=== PATIENT | female | born 1940 | race Two or more races ===

== ENCOUNTER 2020-04-29 13:37 | Outpatient (REF) | payer MEDICARE, SELFPAY ==
--- NOTE | 2020-04-29 13:45 | MM_ITS ---
EXAMINATION: BONE DENSITOMETRY CLINICAL INDICATION: Disorder of bone density and structure. COMPARISON: Previous BD dated 02/04/2018 and baseline BD dated 05/27/2009. TECHNIQUE: Using a [employer] DXA System (software version: 13.1) manufactured by [employer], dual-energy x-ray absorptiometry was performed of the lumbar spine and left hip. The images are of good technical quality. Summary results are attached. FINDINGS: AP SPINE L1-L4: Current: BMD 1.108 g/cm2, Z-score 0.1, T-score -0.6, normal, 4.7% increase from previous, 7.1% increase from baseline (<5% change is not significant). Prior: BMD 1.058 g/cm2. Baseline: BMD 1.035 g/cm2. LEFT FEMUR, NECK: Current: BMD 0.693 g/cm2, Z-score -1.0, T-score -2.5, osteoporosis. Prior: BMD 0.738 g/cm2. Baseline: BMD 0.745 g/cm2. LEFT FEMUR, TOTAL: Current: BMD 0.719 g/cm2, Z-score -1.0, T-score -2.3, osteopenia, 9.6% decrease from previous, 14.9% decrease from baseline (<5% change is not significant). Prior: BMD 0.795 g/cm2. Baseline: BMD 0.845 g/cm2. IDENTIFIED RISK FACTORS: Rheumatoid arthritis, osteoporosis, recurrent falls, early menopause, secondary osteoporosis, hysterectomy, bilateral oophorectomy. HISTORY OF FRACTURE: None listed. MEDICATIONS: Vitamin D. MM/XR DEXA axial skeleton IMPRESSION: 1. DIAGNOSIS: Osteoporosis based on the lowest T-score value of -2.5 in the femoral neck applying World Health Organization criteria. 2. 10-YEAR FRACTURE RISK PREDICTION, FRAX: Major osteoporotic fracture (clinical spine, forearm, hip or shoulder) 12.7%. Hip fracture 4.4%. 3. Treatment Recommendations: NOF guidelines recommend consideration for treatment in postmenopausal women and men age 50 and older presenting with the following: -A hip or vertebral (clinical or morphometric) fracture. -T-score less than or equal to -2.5 at the femoral neck or spine after appropriate evaluation to exclude secondary causes. -Low bone mass at the hip or spine and a 10-year fracture probability by FRAX of greater than or equal to 3% for hip fracture or greater than or equal to 20% for major osteoporotic fracture based on the [place] adapted WHO algorithm. 4. Other Recommendations: All treatment decisions require clinical judgment and consideration of individual patient factors, including patient preferences, comorbidities, previous drug use, risk factors not captured in the FRAX model (e.g. frailty, falls, vitamin D deficiency, increased bone turnover, interval significant decline in bone density) and possible under or overestimation of fracture risk by FRAX. Additional medical evaluation for secondary cause of low bone mineral density may be appropriate. FUTURE SCAN RECOMMENDATION: People with diagnosed cases of osteoporosis or at high risk for fracture should have regular bone mineral density tests. For patients eligible for Medicare, routine testing is allowed once every 2 years. The testing frequency can be increased to one year for patients who have rapidly progressing disease, those who are receiving or discontinuing medical therapy to restore bone mass, or have additional risk factors.
--- NOTE | 2020-04-29 13:45 | MM_ITS ---
EXAMINATION: MM SCREENING DIGITAL BREAST TOMOSYNTHESIS, BILATERAL CLINICAL INFORMATION: Screening. Asymptomatic. The lifetime risk of breast cancer based on the Tyrer-Cuzick Model is 0.6%. COMPARISON: Mammography: June 18, 2017 and studies dating back to August 16, 2011 TECHNIQUE: Digital breast tomosynthesis is performed in both the craniocaudal and mediolateral oblique views along with computer-aided detection (CAD). Synthesized 2D images are generated from the tomosynthesis. FINDINGS: The breasts are heterogeneously dense, which may obscure small masses (ACR BI-RADS breast composition Category c). There are no significant masses, abnormal calcifications, or other abnormalities. MM/MM tomosynthesis screening BI IMPRESSION: There are no significant changes from prior study. ASSESSMENT: BI-RADS 1: Negative RECOMMENDATION: Routine annual mammography screening. This patient's information was entered into a reminder system with a target due date for their next mammogram.
== END 2020-04-29 13:38 | disposition home or self-care (01) ==
LOC: HO.MAMMO 13:37
PROVIDERS: PCP Emergency Medicine; Visit Provider Emergency Medicine
DX: Z13.820 Encounter for screening for osteoporosis (principal); Z78.0 Asymptomatic menopausal state; Z12.31 Encounter for screening mammogram for malignant neoplasm of breast; M06.9 Rheumatoid arthritis, unspecified; R29.6 Repeated falls; Z79.899 Other long term (current) drug therapy; Z90.710 Acquired absence of both cervix and uterus; Z90.722 Acquired absence of ovaries, bilateral
CPT/HCPCS: 77063; 77067; 77080

== ENCOUNTER 2021-02-06 11:55 | Outpatient (REF) | payer MEDICARE, SELFPAY ==
--- NOTE | ~2021-02-06 | XR_ITS ---
EXAMINATION: XR KNEE, RIGHT XR KNEE, LEFT CLINICAL INFORMATION: Knee pain. COMPARISON: Right and left knee radiographs dated 12/12/2010 TECHNIQUE: AP, tunnel, lateral, and sunrise views of the right knee. AP, tunnel, and lateral views of the left knee. FINDINGS: RIGHT KNEE: Severe medial compartment joint space narrowing with mild bony remodeling. Moderate patellofemoral and lateral compartment joint space narrowing. Large compartmental marginal osteophytes. No fracture or dislocation. No significant joint effusion. No abnormal soft tissue calcification. LEFT KNEE: Total left knee arthroplasty. No acute osseous or hardware fracture. No perihardware lucency to suggest loosening or infection. No significant joint effusion. Dystrophic ossification. XR/XR knee LT 4V IMPRESSION: RIGHT KNEE: Severe tricompartmental osteoarthritis, progressed when compared to the prior examination. LEFT KNEE: Total left knee arthroplasty without evidence of complication.
--- NOTE | ~2021-02-06 | XR_ITS ---
EXAMINATION: XR KNEE, RIGHT XR KNEE, LEFT CLINICAL INFORMATION: Knee pain. COMPARISON: Right and left knee radiographs dated 12/12/2010 TECHNIQUE: AP, tunnel, lateral, and sunrise views of the right knee. AP, tunnel, and lateral views of the left knee. FINDINGS: RIGHT KNEE: Severe medial compartment joint space narrowing with mild bony remodeling. Moderate patellofemoral and lateral compartment joint space narrowing. Large compartmental marginal osteophytes. No fracture or dislocation. No significant joint effusion. No abnormal soft tissue calcification. LEFT KNEE: Total left knee arthroplasty. No acute osseous or hardware fracture. No perihardware lucency to suggest loosening or infection. No significant joint effusion. Dystrophic ossification. XR/XR knee RT 4V IMPRESSION: RIGHT KNEE: Severe tricompartmental osteoarthritis, progressed when compared to the prior examination. LEFT KNEE: Total left knee arthroplasty without evidence of complication.
== END 2021-02-06 11:56 | disposition home or self-care (01) ==
LOC: HO.XRAY 11:55
PROVIDERS: PCP Family Medicine; Visit Provider Family Medicine
DX: M25.562 Pain in left knee (principal); M25.561 Pain in right knee
CPT/HCPCS: 73564

== ENCOUNTER → 2021-03-20 13:54 | Outpatient (BNVA) | payer MEDICARE, SELFPAY | PROVIDERS: PCP Family Medicine; Visit Provider Orthopaedic Surgery | DX: M17.11 Unilateral primary osteoarthritis, right knee (principal); R42 Dizziness and giddiness; R53.81 Other malaise; Z96.652 Presence of left artificial knee joint | CPT/HCPCS: 99202 ==

== ENCOUNTER 2021-10-23 12:39 | Inpatient (IN) | payer OTHER, SELFPAY ==
[2021-10-23] VITALS (14 sets, daily range): BP systolic 88–136; BP diastolic 43–84; PULSE 105–142; RESP 14–25; TEMP 37.6–38.2; O2SAT 92–98; BMI 44.8
--- NOTE | ~2021-10-23 | CT_ITS ---
EXAMINATION: CT ANGIOGRAM OF THE CHEST WITH AND WITHOUT CONTRAST (CT PULMONARY ANGIOGRAM FOR PE) CLINICAL INFORMATION: Reason for Exam RV dysfunction COMPARISON: None TECHNIQUE: Prior to contrast administration, noncontrast localization images were obtained. Subsequently, multidetector volumetric imaging was performed from the thoracic inlet to below the diaphragms following the administration of 80 mL Omnipaque 350 intravenous contrast. No contrast reaction reported Sagittal, coronal, and MIP oblique sagittal reformatted images were obtained on the CT workstation, uploaded to PACS, and reviewed. This CT examination was performed using dose optimization techniques as appropriate, variously including the following: *Automated exposure control *Adjustment of mA and/or kV according to patient size (this includes techniques or standardized protocols for targeted exams where dose is matched to indication/reason for exam; i.e. extremities or head) *Use of iterative reconstruction technique Total exam dose-length product 567 mGy-cm FINDINGS: QUALITY OF STUDY/CONTRAST BOLUS: Satisfactory. PULMONARY ARTERIES: No central or segmental pulmonary emboli. Prominence of the pulmonary arteries suggesting pulmonary retention. THORACIC AORTA: No aneurysm or dissection. LUNG: Extensive areas of groundglass opacities bilaterally associated trace pleural effusions favoring pulmonary edema. PLEURA: No pleural effusion or pneumothorax. MEDIASTINUM: Notable cardiomegaly with predominantly right-sided chamber enlargement and reflux of contrast into distended hepatic veins consistent right heart failure increased pressures. Straightening of the interventricular septum. CHEST WALL/AXILLA: No axillary or internal mammary lymphadenopathy. OSSEOUS STRUCTURES: No acute or suspicious osseous abnormality. UPPER ABDOMEN: Multiple cystic changes within the visualized right upper pole kidney. Facet CT/CT angio chest PE protocol IMPRESSION: No evidence for acute or chronic pulmonary embolism. Findings suggest pulmonary edema with elevated right heart pressures/failure. VTE: negative
--- NOTE | ~2021-10-23 | XR_ITS ---
EXAMINATION: XR CHEST CLINICAL INFORMATION: Cough. Question pneumonia. COMPARISON: Chest x-ray and CTA chest 09/04/2017 TECHNIQUE: Frontal view of the chest was obtained. FINDINGS: Cardiac silhouette is mildly enlarged. The lungs are well aerated. There is no lobar consolidation. No pleural effusion or pneumothorax. Subtle bibasilar opacities are most suggestive of atelectasis. Degenerative changes of the spine. XR/XR chest 1V IMPRESSION: No acute pulmonary pathology.
--- NOTE | 2021-10-23 13:05 | ED_ITS ---
HPI - URI/Sore Throat General Chief Complaint: Dizziness Stated Complaint: r/o sepsis Time Seen by Provider: 10/23/21 13:02 Source: patient and EMS Mode of arrival: EMS Limitations: no limitations History of Present Illness HPI Narrative: Patient came from home for dry cough , rhinorrhea since today morning with low- grade fever seen by visiting paramedics COVID test was negative urine was negative patient was sent to the ER for further workup patient does have mostly a dry cough no chest pain no palpitation no leg swelling ++ fever 101. No chills patient granddaughter positive with same s/s Related Data Home Medications Medication Instructions Recorded Confirmed acetaminophen 650 mg 650 mg PO Q8H PRN 03/20/21 10/23/21 tablet,extended release (Mapap Arthritis Pain) amlodipine 5 mg tablet 5 mg PO DAILY 03/20/21 10/23/21 aspirin 81 mg tablet,delayed 81 mg PO BEDTIME 03/20/21 10/23/21 release blood pressure test kit-large #1 ea 03/20/21 cholecalciferol (vitamin D3) 25 25 mcg PO DAILY 03/20/21 10/23/21 mcg (1,000 unit) capsule furosemide 40 mg tablet 40 mg PO DAILY 03/20/21 10/23/21 lisinopril 30 mg tablet 30 mg PO DAILY 03/20/21 10/23/21 metoprolol succinate 25 mg 25 mg PO DAILY 03/20/21 10/23/21 tablet,extended release 24 hr pravastatin 10 mg tablet 10 mg PO BEDTIME 03/20/21 10/23/21 albuterol sulfate 90 mcg/actuation 2 puff INHALATION Q4-6H PRN 10/23/21 10/23/21 aerosol inhaler multivitamin-ferrous 1 tab PO DAILY 10/23/21 10/23/21 fumarate-folic acid 18 mg-400 mcg tablet (Spectravite Adult) Allergies Allergy/AdvReac Type Severity Reaction Status Date / Time penicillin V Allergy Unknown Unknown Verified 10/23/21 16:02 Penicillins [PENICILLINS] AdvReac Unknown STOMACH Verified 10/23/21 16:02 UPSET Review of Systems Review of Systems: Yes all other systems are reviewed and are negative [facility] Past Medical History Medical History Atherosclerosis Chronic diastolic CHF (congestive heart failure) HTN (hypertension) Obesity DEBBIE (obstructive sleep apnea) Osteoarthritis Osteoporosis Varicose veins of bilateral lower extremities with pain Surgical History Status post left knee replacement Family History Family History Son CAD (coronary artery disease) Mother CAD (coronary artery disease) Social History Social History Alcohol intake: never Patient Tobacco Use Status: Never used Tobacco Advance Directives: No Advance Directives Information Provided: No Current occupational status: retired and disabled Physical Exam Vital Signs: Vital Signs: Last Vital Signs Temp 100.7 F H 10/23/21 15:20 Pulse 106 H 10/23/21 16:00 Resp 20 10/23/21 16:00 BP 108/49 L 10/23/21 16:00 Pulse Ox 98 10/23/21 16:00 BMI result Body Mass Index 44.8 Appearance: Alert. Oriented X3. No acute distress. Eyes: No pallor or icterus ENT: Pharynx normal. Oral Mucosa moist Neck: Normal inspection. Neck supple. CVS: Normal heart rate and rhythm. Pulses normal. Respiratory: No respiratory distress. Equal air entry bilateral, no wheezing/rales/rhonchi Abdomen: Soft and nontender. Bowel sounds are present, no mass palpable, no CVA tenderness Skin: Skin warm and dry. Normal skin color. Normal skin turgor. Extremities: No lower extremity edema. No calf tenderness Neuro: Oriented X 3. MDM - URI/Sore Throat MDM Narrative Medical decision making narrative: Patient with influenza A symptoms noticed to have tachycardia according to pat ient does have irregular heartbeat but never been told that she has AFib in old EKGs there was no AFib last EKG done in 2019and was in sinus rhythm patient heart rate fluctuating between 130 to 140s will give Deandra Monsivais plan to admit a new onset AFib with influenza A Medical Records Attestation: I reviewed the patient's medical records. Lab Data Attestation: I reviewed the patient's lab results. Result diagrams: 10/23/21 14:03 10/23/21 14:03 Labs: Lab Results 10/23/21 10/23/21 10/23/21 Range/Units 13:42 13:43 14:03 WBC 10.1 (4.8-10.8) X10*3/uL RBC 5.50 (4.20-5.50) X10*6/uL Hgb 15.0 (12.0-16.0) g/dl Hct 48.8 H (37.0-47.0) % MCV 88.7 (80.0-98.0) fL MCH 27.3 (27.0-33.0) pg MCHC 30.7 L (31.0-35.0) g/dl RDW 14.2 (11.0-16.0) % Plt Count 210 (160-400) X10*3/uL MPV 11.3 (9.4-12.3) fL Immature Gran % (Auto) 0.5 H (0.0-0.4) % Neut % (Auto) 88.5 H (45-73) % Lymph % (Auto) 3.7 L (20-40) % [place] % (Auto) 6.3 (2-11) % Eos % (Auto) 0.4 (0-4) % Baso % (Auto) 0.6 (0-2) % Lymph # (Auto) 0.4 L (1.2-4.9) X10*3/uL [place] # (Auto) 0.6 (0.1-1.2) X10*3/uL Eos # (Auto) 0.0 (0.0-0.4) X10*3/uL Baso # (Auto) 0.1 (0.0-0.2) X10*3/uL Abs Immat Gran (auto) 0.05 H (0.00-0.03) X10*3/uL Absolute Neuts (auto) 8.9 H (2.0-8.3) x10*3/uL Absolute Nucleated RBC 0.000 (0.0-0.012) X10*3/uL Nucleated RBC % (auto) 0.0 (0.0-0.2) /100WBC PT (9.9-13.0) SEC INR (0.9-1.1) APTT (24.1-38.0) SEC Sodium (135-145) mmol/L Potassium (3.3-5.1) mmol/L Chloride (96-108) mmol/L Carbon Dioxide (22-29) mmol/L Anion Gap (12-20) BUN (9-16) mg/dL Creatinine (0.5-1.4) mg/dL Estim Creat Clear Calc Estimated GFR Random Glucose (60-115) mg/dL Lactic Acid 1.1 (0.5-2.0) mmol/L Calcium (8.4-10.2) mg/dL Magnesium (1.6-2.6) mg/dL Total Bilirubin (0.0-1.0) mg/dL AST (5-31) U/L ALT (0-31) U/L Alkaline Phosphatase (39-117) U/L Troponin I High Sens (<3.5-17.0) ng/L B-Natriuretic Peptide (<100) pg/mL Total Protein (6.5-8.0) g/dL Albumin (3.5-5.0) g/dL Influenza Type A (PCR) POSITIVE A (Negative) Influenza Type B (PCR) NEGATIVE (Negative) RSV RNA Qual (PCR) NEGATIVE (Negative) SARS-CoV-2 RNA (RT-PCR) NEGATIVE (Negative) 10/23/21 10/23/21 10/23/21 Range/Units 14:03 15:35 15:35 WBC (4.8-10.8) X10*3/uL RBC (4.20-5.50) X10*6/uL Hgb (12.0-16.0) g/dl Hct (37.0-47.0) % MCV (80.0-98.0) fL MCH (27.0-33.0) pg MCHC (31.0-35.0) g/dl RDW (11.0-16.0) % Plt Count (160-400) X10*3/uL MPV (9.4-12.3) fL Immature Gran % (Auto) (0.0-0.4) % Neut % (Auto) (45-73) % Lymph % (Auto) (20-40) % [place] % (Auto) (2-11) % Eos % (Auto) (0-4) % Baso % (Auto) (0-2) % Lymph # (Auto) (1.2-4.9) X10*3/uL [place] # (Auto) (0.1-1.2) X10*3/uL Eos # (Auto) (0.0-0.4) X10*3/uL Baso # (Auto) (0.0-0.2) X10*3/uL Abs Immat Gran (auto) (0.00-0.03) X10*3/uL Absolute Neuts (auto) (2.0-8.3) x10*3/uL Absolute Nucleated RBC (0.0-0.012) X10*3/uL Nucleated RBC % (auto) (0.0-0.2) /100WBC PT 15.5 H (9.9-13.0) SEC INR 1.4 H (0.9-1.1) APTT 38.1 H (24.1-38.0) SEC Sodium 137 (135-145) mmol/L Potassium 3.9 (3.3-5.1) mmol/L Chloride 103 (96-108) mmol/L Carbon Dioxide 27 (22-29) mmol/L Anion Gap 11 L (12-20) BUN 11 (9-16) mg/dL Creatinine 1.00 (0.5-1.4) mg/dL Estim Creat Clear Calc 48.2 Estimated GFR 53 Random Glucose 104 (60-115) mg/dL Lactic Acid (0.5-2.0) mmol/L Calcium 9.6 (8.4-10.2) mg/dL Magnesium 1.8 (1.6-2.6) mg/dL Total Bilirubin 1.9 H (0.0-1.0) mg/dL AST 27 (5-31) U/L ALT 16 (0-31) U/L Alkaline Phosphatase 80 (39-117) U/L Troponin I High Sens 8.7 (<3.5-17.0) ng/L B-Natriuretic Peptide (<100) pg/mL Total Protein 7.5 (6.5-8.0) g/dL Albumin 4.0 (3.5-5.0) g/dL Influenza Type A (PCR) (Negative) Influenza Type B (PCR) (Negative) RSV RNA Qual (PCR) (Negative) SARS-CoV-2 RNA (RT-PCR) (Negative) 10/23/21 Range/Units 15:35 WBC (4.8-10.8) X10*3/uL RBC (4.20-5.50) X10*6/uL Hgb (12.0-16.0) g/dl Hct (37.0-47.0) % MCV (80.0-98.0) fL MCH (27.0-33.0) pg MCHC (31.0-35.0) g/dl RDW (11.0-16.0) % Plt Count (160-400) X10*3/uL MPV (9.4-12.3) fL Immature Gran % (Auto) (0.0-0.4) % Neut % (Auto) (45-73) % Lymph % (Auto) (20-40) % [place] % (Auto) (2-11) % Eos % (Auto) (0-4) % Baso % (Auto) (0-2) % Lymph # (Auto) (1.2-4.9) X10*3/uL [place] # (Auto) (0.1-1.2) X10*3/uL Eos # (Auto) (0.0-0.4) X10*3/uL Baso # (Auto) (0.0-0.2) X10*3/uL Abs Immat Gran (auto) (0.00-0.03) X10*3/uL Absolute Neuts (auto) (2.0-8.3) x10*3/uL Absolute Nucleated RBC (0.0-0.012) X10*3/uL Nucleated RBC % (auto) (0.0-0.2) /100WBC PT (9.9-13.0) SEC INR (0.9-1.1) APTT (24.1-38.0) SEC Sodium (135-145) mmol/L Potassium (3.3-5.1) mmol/L Chloride (96-108) mmol/L Carbon Dioxide (22-29) mmol/L Anion Gap (12-20) BUN (9-16) mg/dL Creatinine (0.5-1.4) mg/dL Estim Creat Clear Calc Estimated GFR Random Glucose (60-115) mg/dL Lactic Acid (0.5-2.0) mmol/L Calcium (8.4-10.2) mg/dL Magnesium (1.6-2.6) mg/dL Total Bilirubin (0.0-1.0) mg/dL AST (5-31) U/L ALT (0-31) U/L Alkaline Phosphatase (39-117) U/L Troponin I High Sens (<3.5-17.0) ng/L B-Natriuretic Peptide 395 H (<100) pg/mL Total Protein (6.5-8.0) g/dL Albumin (3.5-5.0) g/dL Influenza Type A (PCR) (Negative) Influenza Type B (PCR) (Negative) RSV RNA Qual (PCR) (Negative) SARS-CoV-2 RNA (RT-PCR) (Negative) ECG Data Attestation: I personally reviewed and interpreted this ECG as follows: Interpretation: Atrial fibrillation with ventricular rate of [address] T wave changes no acute ischemia Discharge Plan Discharge Clinical Impression: New onset a-fib, Influenza A Patient Disposition: Admitted As Inpatient
--- NOTE | 2021-10-23 13:56 | ECG_ITS ---
Test Reason : afib Blood Pressure : / mmHG Vent. Rate : 131 BPM Atrial Rate : 000 BPM P-R Int : 000 ms QRS Dur : 078 ms QT Int : 312 ms P-R-T Axes : 000 072 -01 degrees QTc Int : 460 ms Atrial fibrillation with rapid ventricular response Abnormal QRS-T angle, consider primary T wave abnormality Abnormal ECG When compared with ECG of 18-MAR-2018 15:35, Atrial fibrillation has replaced Sinus rhythm Vent. rate has increased BY 59 BPM Referred By: Niraj Garcia Electronically Signed By:SHANNON RAMACHANDRAN MD
[2021-10-23 14:02] LABS: Lactic Acid 1.1 mmol/L (0.5-2.0)
[2021-10-23] MEDS: 0.9 % Sodium Chloride 1,000 ML 999 ML IV (14:04)
[2021-10-23 14:11] LABS: MANUAL DIFF FLAG NO
[2021-10-23] MEDS: guaiFEN/Codeine SF 200/20/10ML 10 ML LIQUID PO (14:20)
[2021-10-23] MEDS: Metoprolol Tartrate 5 MG/5 ML VIAL IVPUSH (14:22)
[2021-10-23 14:36] LABS: Alanine Aminotransferase 16 U/L (0-31); Alkaline Phosphatase 80 U/L (39-117); Anion Gap 11 (12-20); Aspartate Amino Transferase 27 U/L (5-31); Bilirubin Total 1.9 mg/dL (0.0-1.0); Blood Urea Nitrogen 11 mg/dL (9-16); Calcium 9.6 mg/dL (8.4-10.2); Carbon Dioxide 27 mmol/L (22-29); Chloride 103 mmol/L (96-108); Creatinine Clr Calc Pharmacy 48.2; Estimated Glomerular Filt Rate 53; Glucose Random 104 mg/dL (60-115); Potassium 3.9 mmol/L (3.3-5.1); Sodium 137 mmol/L (135-145); Total Protein 7.5 g/dL (6.5-8.0)
[2021-10-23 14:37] LABS: Basophils Absolute Auto 0.1 X10*3/uL (0.0-0.2); Basophils Percent Auto 0.6 % (0-2); Eosinophils Percent Auto 0.4 % (0-4); Hematocrit 48.8 % (37.0-47.0); Imm Gran Abs Auto 0.05 X10*3/uL (0.00-0.03); Imm Gran Pct Auto 0.5 % (0.0-0.4); Lymphocytes Absolute Auto 0.4 X10*3/uL (1.2-4.9); Lymphocytes Percent Auto 3.7 % (20-40); Mean Corpuscular HGB Conc 30.7 g/dl (31.0-35.0); Mean Corpuscular Hemoglobin 27.3 pg (27.0-33.0); Mean Corpuscular Volume 88.7 fL (80.0-98.0); Mean Platelet Volume 11.3 fL (9.4-12.3); Monocytes Absolute Auto 0.6 X10*3/uL (0.1-1.2); Monocytes Percent Auto 6.3 % (2-11); Neutrophils Absolute Auto 8.9 x10*3/uL (2.0-8.3); Neutrophils Percent Auto 88.5 % (45-73); Platelet Count 210 X10*3/uL (160-400); Red Cell Distribution Width 14.2 % (11.0-16.0); White Blood Count 10.1 X10*3/uL (4.8-10.8)
[2021-10-23 15:03] LABS: Influenza A PCR POSITIVE (Negative); Influenza B PCR NEGATIVE (Negative); Resp Syncy Virus RNA Qual PCR NEGATIVE (Negative); SARS COV2 PCR INHOUSE NEGATIVE (Negative)
[2021-10-23] MEDS: Acetaminophen 325 MG TABLET 650 MG PO (15:24)
[2021-10-23] MEDS: dilTIAZem HCL 50 MG/10 ML VIAL 10 MG IVPUSH (15:39)
[2021-10-23] MEDS: Apixaban 5 MG TABLET PO (15:42)
[2021-10-23] MEDS: Albuterol/Iprat 2.5/0.5MG 3 ML AMPUL.NEB INHALE (15:45)
[2021-10-23 15:49] LABS: INTERNATIONAL NORM RATIO 1.4 (0.9-1.1); Prothrombin Time 15.5 SEC (9.9-13.0)
[2021-10-23 15:51] LABS: Partial Thromboplastin Time 38.1 SEC (24.1-38.0)
[2021-10-23 15:51] LABS: Magnesium 1.8 mg/dL (1.6-2.6)
[2021-10-23 16:02] LABS: Troponin-I High Sensitivity 8.7 ng/L (<3.5-17.0)
[2021-10-23 16:03] LABS: B Type Natriuretic Peptide 395 pg/mL (<100)
--- NOTE | 2021-10-23 16:25 | P.HPHOSP_ITS ---
History of Present Illness Date of Service: 10/23/21 Chief Complaint: Fever, lethargy 81-year-old female presented with fevers, weakness, chills. Patient had been feeling well until day prior to presentation. Her granddaughter was sick with the flu at home. Patient began to have fevers associated with chills and myalgias as well as generalized weakness. Some shortness of breath, worse on exertion. Denies chest pain. in ED found to have positive flu swab, EKG showed atrial fibrillation with rapid ventricular response. Unclear if this is new onset or not. Review of Systems Review of Systems: Constitutional: Fevers, chills Eyes: denies blurry vision ENT: denies sore throat CVS: denies chest pain Respiratory: dyspnea GI: no abdominal pain : denies dysuria MSK: denies neck pain Skin: denies rash Neuro: denies specific motor weakness Psych: denies suicidal ideation Endocrine: denies heat/cold intolerance Hematologic: denies easy bleeding Allergy: denies hives [facility] Medical History Atherosclerosis Chronic diastolic CHF (congestive heart failure) HTN (hypertension) Obesity DEBBIE (obstructive sleep apnea) Osteoarthritis Osteoporosis Varicose veins of bilateral lower extremities with pain Family History Son CAD (coronary artery disease) Mother CAD (coronary artery disease) Surgical History Status post left knee replacement Social History Alcohol intake: never Patient Tobacco Use Status: Never used Tobacco Advance Directives: No Advance Directives Information Provided: No Current occupational status: retired and disabled Meds Allergies Allergy/AdvReac Type Severity Reaction Status Date / Time penicillin V Allergy Unknown Unknown Verified 10/23/21 16:02 Penicillins [PENICILLINS] AdvReac Unknown STOMACH Verified 10/23/21 16:02 UPSET Active Medications: Current Medications Acetaminophen (Acetaminophen 325 Mg Tablet) 650 mg PO Q6H PRN PRN Reason: Pain, Mild (Pain Scale 1-3) Metoprolol Tartrate (Metoprolol Tartrate 25 Mg Tablet) 25 mg PO QID SOPHIE; Protocol Oseltamivir Phosphate (Oseltamivir Phosphate 75 Mg Capsule) 75 mg PO Q12H REPLACED BY [facility] Stop: 10/28/21 04:01 Pharmacy Consult (Consult Rx Perform Med Rec) 1 each MISCELLANE ONCE PRN PRN Reason: Consult order Sodium Chloride (0.9 % Sodium Chloride Flush 3 Ml Syringe) 3 ml IVFLUSH QSHIFT REPLACED BY [facility] Home Medications Medication Instructions Recorded Confirmed Last Taken Type acetaminophen 650 mg 650 mg PO Q8H 03/20/21 Unknown History tablet,extended release (Mapap Arthritis Pain) acetaminophen 650 mg 650 mg PO Q8H PRN 03/20/21 Unknown History tablet,extended release (Mapap Arthritis Pain) amlodipine 5 mg tablet 5 mg PO DAILY 03/20/21 Unknown History aspirin 81 mg tablet,delayed 81 mg PO DAILY 03/20/21 Unknown History release betamethasone valerate 0.1 % OTIC (EAR) RIGHT 03/20/21 Unknown History topical ointment blood pressure test kit-large #1 ea 03/20/21 Unknown History calcium carbonate 300 mg (750 mg) 300 mg PO BID 03/20/21 Unknown History chewable tablet (Tums) capsaicin 0.025 % topical cream 1 appl TOPICAL BID 03/20/21 Unknown History cholecalciferol (vitamin D3) 25 25 mcg PO DAILY 03/20/21 Unknown History mcg (1,000 unit) capsule furosemide 40 mg tablet 40 mg PO DAILY 03/20/21 Unknown History lisinopril 30 mg tablet 30 mg PO DAILY 03/20/21 Unknown History meclizine 25 mg tablet 25 mg PO BID PRN 03/20/21 Unknown History metoprolol succinate 25 mg 25 mg PO DAILY 03/20/21 Unknown History tablet,extended release 24 hr nystatin 100,000 unit/gram topical 1 appl TOPICAL DAILY 03/20/21 Unknown History cream pravastatin 10 mg tablet 10 mg PO BEDTIME 03/20/21 Unknown History white petrolatum 41 % topical 1 appl TOPICAL DAILY PRN 03/20/21 Unknown History ointment (Aquaphor Healing) Physical Exam Vital Signs and Narrative: Vital Signs: Last Vital Signs Temp 100.7 F H 10/23/21 15:20 Pulse 106 H 10/23/21 16:00 Resp 20 10/23/21 16:00 BP 108/49 L 10/23/21 16:00 Pulse Ox 98 10/23/21 16:00 BMI result Body Mass Index 44.8 General: no acute distress, dry coughing HEENT: atraumatic Neck: normal to visual inspection CVS: S1, S2, Rapid irregular Resp: diminished bilateral Chest: non tender GI: soft, non tender, non distended : no CVA tenderness Skin: no rashes Extremities: no edema Neuro: Oriented X3, grossly intact Psych: cooperative Results Labs CBC and Chem 7: 10/23/21 14:03 10/23/21 14:03 Labs: Laboratory Results - last 24 hr 10/23/21 10/23/21 10/23/21 13:42 13:43 14:03 MCV 88.7 MCH 27.3 MCHC 30.7 L RDW 14.2 Plt Count 210 MPV 11.3 Immature Gran % (Auto) 0.5 H Neut % (Auto) 88.5 H Lymph % (Auto) 3.7 L [place] % (Auto) 6.3 Eos % (Auto) 0.4 Baso % (Auto) 0.6 Lymph # (Auto) 0.4 L [place] # (Auto) 0.6 Eos # (Auto) 0.0 Baso # (Auto) 0.1 Abs Immat Gran (auto) 0.05 H Absolute Neuts (auto) 8.9 H Absolute Nucleated RBC 0.000 Nucleated RBC % (auto) 0.0 PT INR APTT Anion Gap Estim Creat Clear Calc Estimated GFR Random Glucose Lactic Acid 1.1 Calcium Magnesium Total Bilirubin AST ALT Alkaline Phosphatase Troponin I High Sens B-Natriuretic Peptide Total Protein Albumin Influenza Type A (PCR) POSITIVE A Influenza Type B (PCR) NEGATIVE RSV RNA Qual (PCR) NEGATIVE SARS-CoV-2 RNA (RT-PCR) NEGATIVE 10/23/21 10/23/21 10/23/21 14:03 15:35 15:35 MCV MCH MCHC RDW Plt Count MPV Immature Gran % (Auto) Neut % (Auto) Lymph % (Auto) [place] % (Auto) Eos % (Auto) Baso % (Auto) Lymph # (Auto) [place] # (Auto) Eos # (Auto) Baso # (Auto) Abs Immat Gran (auto) Absolute Neuts (auto) Absolute Nucleated RBC Nucleated RBC % (auto) PT 15.5 H INR 1.4 H APTT 38.1 H Anion Gap 11 L Estim Creat Clear Calc 48.2 Estimated GFR 53 Random Glucose 104 Lactic Acid Calcium 9.6 Magnesium 1.8 Total Bilirubin 1.9 H AST 27 ALT 16 Alkaline Phosphatase 80 Troponin I High Sens 8.7 B-Natriuretic Peptide Total Protein 7.5 Albumin 4.0 Influenza Type A (PCR) Influenza Type B (PCR) RSV RNA Qual (PCR) SARS-CoV-2 RNA (RT-PCR) 10/23/21 15:35 MCV MCH MCHC RDW Plt Count MPV Immature Gran % (Auto) Neut % (Auto) Lymph % (Auto) [place] % (Auto) Eos % (Auto) Baso % (Auto) Lymph # (Auto) [place] # (Auto) Eos # (Auto) Baso # (Auto) Abs Immat Gran (auto) Absolute Neuts (auto) Absolute Nucleated RBC Nucleated RBC % (auto) PT INR APTT Anion Gap Estim Creat Clear Calc Estimated GFR Random Glucose Lactic Acid Calcium Magnesium Total Bilirubin AST ALT Alkaline Phosphatase Troponin I High Sens B-Natriuretic Peptide 395 H Total Protein Albumin Influenza Type A (PCR) Influenza Type B (PCR) RSV RNA Qual (PCR) SARS-CoV-2 RNA (RT-PCR) Imaging Radiologist's Impressions: Impressions Chest X-Ray 10/23/21 13:22 IMPRESSION: No acute pulmonary pathology. Assessment and Plan (1) Chronic diastolic CHF (congestive heart failure): Status: Acute (2) Influenza A: Status: Acute Plan 81F presented with fevers, found to have flu A and afib with rvr viral sepsis due to infulenza A tamiflu 75mg bid for 5 days droplet precautions afib of unknown duration, with RVR lopressor, 25 qid, tele, cardio, echo start eliquis htn will hold off on antihypertensives to allow room for rate control morbid obesity weight loss DEBBIE ? complaince chornic diasotlic chf lasix DVT prophylaxis-starting on Eliquis full code patient with viral sepsis from influenza complicated by AFib with RVR with high risk comorbidities of morbid obesity, advanced age, therefore likely to require at least 2 midnights in the hospital. Quality Stroke Does the patient have a stroke diagnosis?: No VTE Prior VTE?: No VTE Risk Level:: Medical - moderate - high VTE Device Contraindication: Treatment Not Indicated VTE Drug Contraindication: N/A - Med Ordered
[2021-10-23] MEDS: Oseltamivir Phosphate 75 MG CAPSULE PO (16:28)
--- NOTE | 2021-10-23 16:46 | PHA.MEDREC ---
Pharmacy Consult ? Medication Reconciliation Pharmacy has completed the medication reconciliation.spoke with patient in ED and she only took her blood pressure meds. She is not taking alendronate.
--- NOTE | 2021-10-23 17:04 | PC.NURSE ---
Pt remains alert and oriented x4, calm and cooperative. Denies pain, denies headache, denies chest pain. Reports intermittent palpitations, MD aware and meds given. Fever 100.7, Tylenol given and temp trending down. Pt BP low, 80's/40's, asymptomatic. MD Balderas made aware and 500ml bolus IV fluids ordered. Pt OOB to bedside commode with tech, voided without issues. Daughter remains at bedside.
[2021-10-23] MEDS: 0.9 % Sodium Chloride 500 ML IV (17:42)
--- NOTE | 2021-10-23 19:42 | PC.NURSE ---
Pt alert and oriented x4, calm and cooperative. Denies pain. IV intact. Vitals stable. Pt ate part of dinner tray. Sleeping in stretcher now.
[2021-10-23] MEDS: ondansetron HCL 4 MG/2 ML VIAL IVPUSH (20:15)
[2021-10-23] MEDS: Pravastatin Sodium 10 MG TABLET PO (20:54)
[2021-10-23] MEDS: Metoprolol Tartrate 25 MG TABLET PO (23:23)
[2021-10-24 00:36] VITALS: BP 117/55; PULSE 111; RESP 18; TEMP 37; O2SAT 98
[2021-10-24 04:00] VITALS: BP 119/61; PULSE 111; RESP 20; TEMP 37.1; O2SAT 91
--- NOTE | 2021-10-24 04:35 | PC.NURSE ---
Patient's O2 sat 85 % on room air., states shes wears 2L O2 at home. Patient placed on oxygen as at home, O2 sats 91% on 2L.VSS , resting at present.
--- NOTE | 2021-10-24 05:11 | PC.NURSE ---
This RN resuming care of pt. Pt sleeping in bed at this time. Pharmacy adjusting pts Tamiflu dose to 0800.
[2021-10-24 07:40] LABS: Hematocrit 40.7 % (37.0-47.0); Hemoglobin 12.9 g/dl (12.0-16.0); Mean Corpuscular HGB Conc 31.7 g/dl (31.0-35.0); Mean Corpuscular Hemoglobin 28.2 pg (27.0-33.0); Mean Corpuscular Volume 88.9 fL (80.0-98.0); Mean Platelet Volume 11.4 fL (9.4-12.3); Platelet Count 171 X10*3/uL (160-400); Red Blood Count 4.58 X10*6/uL (4.20-5.50); Red Cell Distribution Width 14.7 % (11.0-16.0); White Blood Count 7.5 X10*3/uL (4.8-10.8)
[2021-10-24 08:44] VITALS: BP 93/52; PULSE 109; RESP 19; TEMP 37; O2SAT 93
[2021-10-24 08:48] LABS: Anion Gap 12 (12-20); Blood Urea Nitrogen 18 mg/dL (9-16); Calcium 8.6 mg/dL (8.4-10.2); Carbon Dioxide 24 mmol/L (22-29); Chloride 106 mmol/L (96-108); Creatinine Clr Calc Pharmacy 42.3; Estimated Glomerular Filt Rate 46; Glucose Fasting 87 mg/dL (60-99); Magnesium 1.8 mg/dL (1.6-2.6); Potassium 4.3 mmol/L (3.3-5.1); Sodium 138 mmol/L (135-145)
[2021-10-24 08:55] VITALS: BP 103/81
[2021-10-24] MEDS: Furosemide 40 MG TABLET PO (09:11)
[2021-10-24] MEDS: 0.9 % Sodium Chloride Flush 3 ML SYRINGE IVFLUSH ×2 (09:12→17:23)
[2021-10-24] MEDS: Metoprolol Tartrate 25 MG TABLET PO ×3 (09:12→17:22)
[2021-10-24] MEDS: Apixaban 5 MG TABLET PO ×2 (09:12→20:57)
[2021-10-24] MEDS: Oseltamivir Phosphate 75 MG CAPSULE PO (09:12)
--- NOTE | 2021-10-24 11:00 | CA_ITS ---
Transthoracic Echocardiogram Patient (Last, First, Middle): Nicole Melendez, Gender: Female Date of : 1940 Age: 81 Procedure Date: 10/24/2021 Procedure Type: Transthoracic Echocardiogram [place] [facility] [place]: 154.94 cm Weight: 107.5 kg BSA: 2.03 m2 Heart Rate: bpm BP: 108 / 49 mmHg [place] Technician: Referring MD: Leif Balderas MD Symptoms: afib Study Quality: Fair ECG Rhythm: Atrial Fibrillation Conclusions: - Normal left ventricular size and systolic function. There is mildly increased left ventricular wall thickness. The visually estimated ejection fraction is between 60-65%. - There is a flattened septum in systole and diastole consistent with right ventricular pressure and volume overload. - Moderately increased right ventricular cavity size. There is moderate to severely decreased right ventricular systolic function. Findings Left Ventricle Normal left ventricular size and systolic function. There is mildly increased left ventricular wall thickness. The visually estimated ejection fraction is between 60-65%. There is a flattened septum in systole and diastole consistent with right ventricular pressure and volume overload. Diastolic function is indeterminate on the basis of available data. Right Ventricle Moderately increased right ventricular cavity size. There is moderate to severely decreased right ventricular systolic function. Atria The left atrium is moderately dilated. Aortic Valve The aortic valve structure and function is likely normal. There is no aortic valve stenosis. There is no aortic valve regurgitation. Mitral Valve The mitral valve appears normal. There is trace mitral valve regurgitation. There is no mitral valve stenosis. Tricuspid Valve Significantly elevated right atrial pressure. Mild pulmonary hypertension is present. Great Vessels All visible segments of the aorta are normal in size. The visualized portions of the pulmonary artery and branches are normal. Venous The inferior vena cava is dilated and does not collapse with inspiration. Pericardium/Pleural There is no evidence of pericardial effusion. Prior Study Comparison Significant changes compared to prior study dated: 09/05/2017. RV dilated with moderate to severe dysfunction. Measurements 2D Linear Measurements IVSd: 1.04 0.6-0.9/0.6-1.0 cm LVIDd: 4.90 3.9-5.3/4.2-5.9 cm LVIDd Index: 2.41 2.4-3.2/2.2-3.1 cm/m2 LVIDs: 3.23 2.0-3.6 cm LVPWd: 0.93 0.7-1.1 cm Ao Root: 2.90 2.1-3.5 cm LA Diam: 4.00 2.7-3.8/3.0-4.0 cm LAIDs Index: 1.97 1.5-2.3 cm/m2 LV Mass: 214.12 67-162/88-224 g LV Mass Index: 105.48 43-95/49-115 g/m2 LVOT Diam: 2.00 3.0+(-)1.3 cm Mitral Valve MV Pk E: 1.02 MV Decel Time: 195.00 E'Lateral: 14.90 E'Medial: 8.70 E/E' Med: 11.70 E/E' Lat: 6.80 PHT: 57.00 MVA PHT: 3.86 Decel Haines: 5.20 Aortic Valve AoV Pk Sancho: 1.49 AoV Mn Sancho: 1.06 AoV VTI: 0.26 AoV Pk Grad: 9.00 Aov Mn Grad: 5.00 SHITAL Cont.VTI: 1.89 LVOT LVOT Pk Sancho: 0.93 LVOT Mn Sancho: 0.71 LVOT VTI: 0.16 LVOT Pk Grad: 3.00 LVOT Mn Grad: 2.00 LVOT Diam: 2.00 LVOT Area: 3.14 Diastolic Function MV Pk E: 1.02 E'Medial: 8.70 E/E' Med: 11.70 E' Laterial: 14.90 E/E' Lat: 6.80 Tricuspid Valve TR Pk Sancho: 2.63 TR Pk Grad: 28.00 RVSP: 43.00 Great Vessels Aorta Ao Root-2D: 2.90 2.0-3.7 cm Ao Asc: 3.00 2.1-3.4 cm Pulmonary Valve PV Pk Sancho: 0.77 Peak PV Grad: 2.00 Updated in Other Vendor System with Status of Final Abran Payne MD electronically signed on 10/24/2021 8:09:05 PM with status of Final
--- NOTE | 2021-10-24 11:14 | HO.PM.IMPN ---
Subjective Subjective Date of Service: 10/24/21 Interval History: cc: sob, fevers interval history:minimally improved Cardiovascular Cardiovascular: Reports no additional cardiovascular complaints Respiratory Respiratory: Reports no additional respiratory complaints Physical Exam Vital Signs: Vital Signs: Last Vital Signs Temp 98.6 F 10/24/21 08:44 Pulse 109 H 10/24/21 08:44 Resp 19 10/24/21 08:44 BP 103/81 10/24/21 08:55 Pulse Ox 93 10/24/21 08:44 BMI result Body Mass Index 44.8 General: lethargic oriented times 3, dyspneic Resp: diminished bilateral, no accessory muscles used CVS: S1,S2,iregular rapid GI: soft, non tender, non distended Neuro: motor grossly intact, alert Psych: appropriate affect, appropriate insight Objective Data Active Medications Acetaminophen (Acetaminophen 325 Mg Tablet) 650 mg PO Q6H PRN PRN Reason: Pain, Mild (Pain Scale 1-3) Apixaban (Apixaban 5 Mg Tablet) 5 mg PO BID [facility] Last Admin: 10/24/21 09:12 Dose: 5 mg Documented by: LINA Furosemide (Furosemide 40 Mg Tablet) 40 mg PO DAILY [facility]; Protocol Last Admin: 10/24/21 09:11 Dose: 40 mg Documented by: LINA Metoprolol Tartrate (Metoprolol Tartrate 25 Mg Tablet) 25 mg PO QID [facility]; Protocol Last Admin: 10/24/21 09:12 Dose: 25 mg Documented by: LINA Pharmacy Consult (Consult Rx Perform Med Rec) 1 each MISCELLANE ONCE PRN PRN Reason: Consult order Pravastatin Sodium (Pravastatin Sodium 10 Mg Tablet) 10 mg PO BEDTIME [facility] Last Admin: 10/23/21 20:54 Dose: 10 mg Documented by: MULUGETA Sodium Chloride (0.9 % Sodium Chloride Flush 3 Ml Syringe) 3 ml IVFLUSH QSHIFT [facility] Last Admin: 10/24/21 09:12 Dose: 3 ml Documented by: LINA Labs CBC & Chem 7: 10/24/21 06:47 10/24/21 06:47 Labs: Laboratory Results - last 24 hr 10/23/21 10/23/21 10/23/21 13:42 13:43 14:03 MCV 88.7 MCH 27.3 MCHC 30.7 L RDW 14.2 Plt Count 210 MPV 11.3 Immature Gran % (Auto) 0.5 H Neut % (Auto) 88.5 H Lymph % (Auto) 3.7 L [place] % (Auto) 6.3 Eos % (Auto) 0.4 Baso % (Auto) 0.6 Lymph # (Auto) 0.4 L [place] # (Auto) 0.6 Eos # (Auto) 0.0 Baso # (Auto) 0.1 Abs Immat Gran (auto) 0.05 H Absolute Neuts (auto) 8.9 H Absolute Nucleated RBC 0.000 Nucleated RBC % (auto) 0.0 PT INR APTT Anion Gap Estim Creat Clear Calc Estimated GFR Random Glucose Fasting Glucose Lactic Acid 1.1 Calcium Magnesium Total Bilirubin AST ALT Alkaline Phosphatase Troponin I High Sens B-Natriuretic Peptide Total Protein Albumin Influenza Type A (PCR) POSITIVE A Influenza Type B (PCR) NEGATIVE RSV RNA Qual (PCR) NEGATIVE SARS-CoV-2 RNA (RT-PCR) NEGATIVE 10/23/21 10/23/21 10/23/21 14:03 15:35 15:35 MCV MCH MCHC RDW Plt Count MPV Immature Gran % (Auto) Neut % (Auto) Lymph % (Auto) [place] % (Auto) Eos % (Auto) Baso % (Auto) Lymph # (Auto) [place] # (Auto) Eos # (Auto) Baso # (Auto) Abs Immat Gran (auto) Absolute Neuts (auto) Absolute Nucleated RBC Nucleated RBC % (auto) PT 15.5 H INR 1.4 H APTT 38.1 H Anion Gap 11 L Estim Creat Clear Calc 48.2 Estimated GFR 53 Random Glucose 104 Fasting Glucose Lactic Acid Calcium 9.6 Magnesium 1.8 Total Bilirubin 1.9 H AST 27 ALT 16 Alkaline Phosphatase 80 Troponin I High Sens 8.7 B-Natriuretic Peptide Total Protein 7.5 Albumin 4.0 Influenza Type A (PCR) Influenza Type B (PCR) RSV RNA Qual (PCR) SARS-CoV-2 RNA (RT-PCR) 10/23/21 10/24/21 10/24/21 15:35 06:47 06:47 MCV 88.9 MCH 28.2 MCHC 31.7 RDW 14.7 Plt Count 171 MPV 11.4 Immature Gran % (Auto) Neut % (Auto) Lymph % (Auto) [place] % (Auto) Eos % (Auto) Baso % (Auto) Lymph # (Auto) [place] # (Auto) Eos # (Auto) Baso # (Auto) Abs Immat Gran (auto) Absolute Neuts (auto) Absolute Nucleated RBC 0.000 Nucleated RBC % (auto) 0.0 PT INR APTT Anion Gap 12 Estim Creat Clear Calc 42.3 Estimated GFR 46 Random Glucose Fasting Glucose 87 Lactic Acid Calcium 8.6 D Magnesium 1.8 Total Bilirubin AST ALT Alkaline Phosphatase Troponin I High Sens B-Natriuretic Peptide 395 H Total Protein Albumin Influenza Type A (PCR) Influenza Type B (PCR) RSV RNA Qual (PCR) SARS-CoV-2 RNA (RT-PCR) Assessment and Plan (1) Chronic diastolic CHF (congestive heart failure): Status: Acute Plan 81F presented with fevers, found to have flu A and afib with rvr viral sepsis due to infulenza A tamiflu 30mg bid day 2/5 droplet precautions afib of unknown duration, with RVR lopressor, 25 qid, tele, cardio, echo started eliquis htn will hold off on antihypertensives to allow room for rate control morbid obesity weight loss DEBBIE ? compliance chornic diasotlic chf lasix DVT prophylaxis-starting on Eliquis ?full code reason for continued hospitalization: afib still not controlled Quality Stroke Does the patient have a stroke diagnosis?: No VTE Prior VTE?: No VTE Risk Level:: Medical - moderate - high VTE Device Contraindication: Treatment Not Indicated VTE Drug Contraindication: N/A - Med Ordered
--- NOTE | 2021-10-24 11:54 | MHC.CM.PN ---
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
--- NOTE | 2021-10-24 12:30 | PC.NURSE ---
incontinent care done. meds given as documented. vss, reports LLQ cramping that she describes as gas pain. denies headache/dizziness. no sob. pt's daughter is at her bedside
--- NOTE | 2021-10-24 14:36 | PM.CNCAR ---
History of Present Illness History of Present Illness Date of Service: 10/24/21 Chief complaint: flu, afib rvr Narrative: 81-year-old female presented with influenza and was noted to be in new onset atrial fibrillation. She is denying any palpitations. Denies chest pain or shortness of breath. On Tamiflu and metoprolol. [facility] Past Medical History Medical History Atherosclerosis Chronic diastolic CHF (congestive heart failure) HTN (hypertension) Obesity DEBBIE (obstructive sleep apnea) Osteoarthritis Osteoporosis Varicose veins of bilateral lower extremities with pain Family History Family History Son CAD (coronary artery disease) Mother CAD (coronary artery disease) Surgical History Surgical History Status post left knee replacement Social History Social History Alcohol intake: never Patient Tobacco Use Status: Never used Tobacco Advance Directives: No Advance Directives Information Provided: No service: No Current occupational status: retired and disabled Meds Allergies Allergy/AdvReac Type Severity Reaction Status Date / Time penicillin V Allergy Unknown Unknown Verified 10/23/21 16:02 Penicillins [PENICILLINS] AdvReac Unknown STOMACH Verified 10/23/21 16:02 UPSET Active Medications: Current Medications Acetaminophen (Acetaminophen 325 Mg Tablet) 650 mg PO Q6H PRN PRN Reason: Pain, Mild (Pain Scale 1-3) Apixaban (Apixaban 5 Mg Tablet) 5 mg PO BID [facility] Last Admin: 10/24/21 09:12 Dose: 5 mg Documented by: Furosemide (Furosemide 40 Mg Tablet) 40 mg PO DAILY [facility]; Protocol Last Admin: 10/24/21 09:11 Dose: 40 mg Documented by: Metoprolol Tartrate (Metoprolol Tartrate 25 Mg Tablet) 25 mg PO QID [facility]; Protocol Last Admin: 10/24/21 09:12 Dose: 25 mg Documented by: Oseltamivir Phosphate (Oseltamivir Phosphate 30 Mg Capsule) 30 mg PO Q12H [facility] Stop: 10/28/21 05:01 Pharmacy Consult (Consult Rx Perform Med Rec) 1 each MISCELLANE ONCE PRN PRN Reason: Consult order Pravastatin Sodium (Pravastatin Sodium 10 Mg Tablet) 10 mg PO BEDTIME [facility] Last Admin: 10/23/21 20:54 Dose: 10 mg Documented by: Sodium Chloride (0.9 % Sodium Chloride Flush 3 Ml Syringe) 3 ml IVFLUSH QSHIFT [facility] Last Admin: 10/24/21 09:12 Dose: 3 ml Documented by: Home Medications Medication Instructions Recorded Confirmed Last Taken Type acetaminophen 650 mg 650 mg PO Q8H PRN 03/20/21 10/23/21 10/22/21 History tablet,extended release (Mapap Arthritis Pain) amlodipine 5 mg tablet 5 mg PO DAILY 03/20/21 10/23/21 10/22/21 History aspirin 81 mg tablet,delayed 81 mg PO BEDTIME 03/20/21 10/23/21 10/22/21 History release cholecalciferol (vitamin D3) 25 25 mcg PO DAILY 03/20/21 10/23/21 10/22/21 History mcg (1,000 unit) capsule furosemide 40 mg tablet 40 mg PO DAILY 03/20/21 10/23/21 10/23/21 History lisinopril 30 mg tablet 30 mg PO DAILY 03/20/21 10/23/21 10/23/21 History metoprolol succinate 25 mg 25 mg PO DAILY 03/20/21 10/23/21 10/23/21 History tablet,extended release 24 hr pravastatin 10 mg tablet 10 mg PO BEDTIME 03/20/21 10/23/21 10/22/21 History albuterol sulfate 90 mcg/actuation 2 puff INHALATION Q4-6H PRN 10/23/21 10/23/21 10/22/21 History aerosol inhaler multivitamin-ferrous 1 tab PO DAILY 10/23/21 10/23/21 10/22/21 History fumarate-folic acid 18 mg-400 mcg tablet (Spectravite Adult) Physical Exam Vital Signs: Vital Signs: Last Vital Signs Temp 98.6 F 10/24/21 08:44 Pulse 109 H 10/24/21 08:44 Resp 19 10/24/21 08:44 BP 103/81 10/24/21 08:55 Pulse Ox 93 10/24/21 08:44 BMI result Body Mass Index 44.8 GENERAL APPEARANCE: in no acute distress, pleasant. NECK: no carotid bruit, no jugular venous distention. SKIN: no suspicious lesions, warm and dry. HEART: no murmurs, irregularly irregular rhythm. LUNGS: Bilateral wheezes. ABDOMEN: soft, nontender. EXTREMITIES: no edema. PERIPHERAL PULSES: equal. NEUROLOGIC: No gross deficits, AAO X 3 Objective Labs and Meds Result diagrams: 10/24/21 06:47 10/24/21 06:47 Lab results: Laboratory Results - last 24 hr 10/23/21 10/23/21 10/23/21 13:43 14:03 14:03 WBC 10.1 RBC 5.50 Hgb 15.0 Hct 48.8 H MCV 88.7 MCH 27.3 MCHC 30.7 L RDW 14.2 Plt Count 210 MPV 11.3 Immature Gran % (Auto) 0.5 H Neut % (Auto) 88.5 H Lymph % (Auto) 3.7 L [place] % (Auto) 6.3 Eos % (Auto) 0.4 Baso % (Auto) 0.6 Lymph # (Auto) 0.4 L [place] # (Auto) 0.6 Eos # (Auto) 0.0 Baso # (Auto) 0.1 Abs Immat Gran (auto) 0.05 H Absolute Neuts (auto) 8.9 H Absolute Nucleated RBC 0.000 Nucleated RBC % (auto) 0.0 PT INR APTT Sodium 137 Potassium 3.9 Chloride 103 Carbon Dioxide 27 Anion Gap 11 L BUN 11 Creatinine 1.00 Estim Creat Clear Calc 48.2 Estimated GFR 53 Random Glucose 104 Fasting Glucose Calcium 9.6 Magnesium 1.8 Total Bilirubin 1.9 H AST 27 ALT 16 Alkaline Phosphatase 80 Troponin I High Sens B-Natriuretic Peptide Total Protein 7.5 Albumin 4.0 Influenza Type A (PCR) POSITIVE A Influenza Type B (PCR) NEGATIVE RSV RNA Qual (PCR) NEGATIVE SARS-CoV-2 RNA (RT-PCR) NEGATIVE 10/23/21 10/23/21 10/23/21 15:35 15:35 15:35 WBC RBC Hgb Hct MCV MCH MCHC RDW Plt Count MPV Immature Gran % (Auto) Neut % (Auto) Lymph % (Auto) [place] % (Auto) Eos % (Auto) Baso % (Auto) Lymph # (Auto) [place] # (Auto) Eos # (Auto) Baso # (Auto) Abs Immat Gran (auto) Absolute Neuts (auto) Absolute Nucleated RBC Nucleated RBC % (auto) PT 15.5 H INR 1.4 H APTT 38.1 H Sodium Potassium Chloride Carbon Dioxide Anion Gap BUN Creatinine Estim Creat Clear Calc Estimated GFR Random Glucose Fasting Glucose Calcium Magnesium Total Bilirubin AST ALT Alkaline Phosphatase Troponin I High Sens 8.7 B-Natriuretic Peptide 395 H Total Protein Albumin Influenza Type A (PCR) Influenza Type B (PCR) RSV RNA Qual (PCR) SARS-CoV-2 RNA (RT-PCR) 10/24/21 10/24/21 06:47 06:47 WBC 7.5 RBC 4.58 Hgb 12.9 Hct 40.7 MCV 88.9 MCH 28.2 MCHC 31.7 RDW 14.7 Plt Count 171 MPV 11.4 Immature Gran % (Auto) Neut % (Auto) Lymph % (Auto) [place] % (Auto) Eos % (Auto) Baso % (Auto) Lymph # (Auto) [place] # (Auto) Eos # (Auto) Baso # (Auto) Abs Immat Gran (auto) Absolute Neuts (auto) Absolute Nucleated RBC 0.000 Nucleated RBC % (auto) 0.0 PT INR APTT Sodium 138 Potassium 4.3 Chloride 106 Carbon Dioxide 24 Anion Gap 12 BUN 18 H D Creatinine 1.14 Estim Creat Clear Calc 42.3 Estimated GFR 46 Random Glucose Fasting Glucose 87 Calcium 8.6 D Magnesium 1.8 Total Bilirubin AST ALT Alkaline Phosphatase Troponin I High Sens B-Natriuretic Peptide Total Protein Albumin Influenza Type A (PCR) Influenza Type B (PCR) RSV RNA Qual (PCR) SARS-CoV-2 RNA (RT-PCR) Assessment and Plan (1) New onset a-fib: Status: Acute Plan 81-year-old female with new onset atrial fibrillation in the setting of influenza. She has wheezing on exam. Overall does not look significantly volume overloaded. The wheezing is likely due to influenza. On beta-pedro pablo with reasonable rate control. Started on Eliquis for anticoagulation. We will follow along with you and adjust medications. Thank you for allowing me to participate in the care of your patient. Please feel free to contact me if you have any questions. Procedures Date of Service Date of Service: 10/24/21
[2021-10-24 16:06] VITALS: BP 104/50; PULSE 93; RESP 20; TEMP 37.3; O2SAT 93
[2021-10-24] MEDS: Oseltamivir Phosphate 30 MG CAPSULE PO (17:46)
--- NOTE | 2021-10-24 19:45 | PC.NURSE ---
Assumed care of pt Pt in room with visitors NAD Will continue to monitor
[2021-10-24] MEDS: Pravastatin Sodium 10 MG TABLET PO (20:56)
[2021-10-24 21:45] VITALS: BP 97/58; PULSE 99; RESP 18; O2SAT 95
[2021-10-24] MEDS: iohexoL 350 MG/ML 100 ML INFUS..BTL IV (22:12)
[2021-10-25] VITALS (10 sets, daily range): BP systolic 99–149; BP diastolic 51–84; PULSE 81–109; RESP 16–20; TEMP 36.5–36.9; O2SAT 90–96; BMI 44.8
--- NOTE | 2021-10-25 04:40 | PC.NURSE ---
Pt assisted to bedside commode with PCT Pt tolerated well Pt had large soft BM Pt cleaned and placed back on bed Will continue to monitor
[2021-10-25] MEDS: Oseltamivir Phosphate 30 MG CAPSULE PO ×2 (05:37→17:56)
[2021-10-25 07:04] LABS: Hematocrit 43.4 % (37.0-47.0); Hemoglobin 13.2 g/dl (12.0-16.0); Mean Corpuscular HGB Conc 30.4 g/dl (31.0-35.0); Mean Corpuscular Hemoglobin 27.8 pg (27.0-33.0); Mean Corpuscular Volume 91.4 fL (80.0-98.0); Mean Platelet Volume 10.6 fL (9.4-12.3); Platelet Count 143 X10*3/uL (160-400); Red Blood Count 4.75 X10*6/uL (4.20-5.50); Red Cell Distribution Width 14.6 % (11.0-16.0); White Blood Count 5.4 X10*3/uL (4.8-10.8)
[2021-10-25 07:22] LABS: Anion Gap 11 (12-20); Blood Urea Nitrogen 22 mg/dL (9-16); Calcium 8.9 mg/dL (8.4-10.2); Carbon Dioxide 25 mmol/L (22-29); Chloride 105 mmol/L (96-108); Creatinine Clr Calc Pharmacy 43.9; Estimated Glomerular Filt Rate 47; Glucose Fasting 89 mg/dL (60-99); Sodium 137 mmol/L (135-145)
[2021-10-25] MEDS: Metoprolol Tartrate 25 MG TABLET PO ×4 (08:38→19:57)
[2021-10-25] MEDS: Apixaban 5 MG TABLET PO ×2 (08:38→19:56)
[2021-10-25] MEDS: Furosemide 40 MG TABLET PO (08:38)
--- NOTE | 2021-10-25 08:41 | PC.NURSE ---
Pt A&Ox3, lungs diminished in the bases, A fib in the 90-100 on the monitor, no complaints of CP, states generalized body aches but offers no other complaints, medicated as per MAR orders. Call roberts within reach. Will continue to monitor.
--- NOTE | 2021-10-25 10:28 | PM.PNCARD ---
Subjective Subjective Date of Service: 10/25/21 Interval history: Afib Echo showed RV dysfunction. No PE on CT PA. on anticoagulation now atrial fibrillation. She is saying she is feeling better and wants to go home. Physical Exam Vital Signs: Last Vital Signs Temp 98.3 F 10/25/21 04:00 Pulse 103 H 10/25/21 08:35 Resp 20 10/25/21 08:35 BP 124/53 L 10/25/21 08:35 Pulse Ox 96 10/25/21 08:35 BMI result Body Mass Index 44.8 GENERAL APPEARANCE: in no acute distress, pleasant. NECK: no carotid bruit, no jugular venous distention. SKIN: no suspicious lesions, warm and dry. HEART: no murmurs, irregularly irregular rhythm. LUNGS:? Bilateral wheezes. ABDOMEN: soft, nontender. EXTREMITIES: no edema. PERIPHERAL PULSES: equal. NEUROLOGIC: No gross deficits, AAO X 3 Objective Labs and Meds Result diagrams: 10/25/21 06:47 10/25/21 06:47 Lab results: Laboratory Results - last 24 hr 10/25/21 10/25/21 06:47 06:47 WBC 5.4 RBC 4.75 Hgb 13.2 Hct 43.4 MCV 91.4 MCH 27.8 MCHC 30.4 L RDW 14.6 Plt Count 143 L MPV 10.6 Absolute Nucleated RBC 0.000 Nucleated RBC % (auto) 0.0 Sodium 137 Potassium 4.0 Chloride 105 Carbon Dioxide 25 Anion Gap 11 L BUN 22 H Creatinine 1.10 Estim Creat Clear Calc 43.9 Estimated GFR 47 Fasting Glucose 89 Calcium 8.9 Imaging Radiologist's impression: Impressions Chest CTA 10/24/21 22:15 IMPRESSION: No evidence for acute or chronic pulmonary embolism. Findings suggest pulmonary edema with elevated right heart pressures/failure. VTE: negative Progress Note: A&P Assessment and plan (1) Chronic diastolic CHF (congestive heart failure): Status: Acute (2) New onset a-fib: Status: Acute (3) RVF (right ventricular failure): Status: Acute Plan Pleasant 81-year-old female presenting with influenza and new onset atrial fibrillation. She is on beta-pedro pablo and not rates are in 100s. Echocardiography is showing moderately dilated right ventricle with moderate to severe RV dysfunction. Adding digoxin for atrial fibrillation and I would not titrate beta-pedro pablo further. Continue with oral diuretics for. Etiology is unclear but she does not have any pulmonary emboli right now. Sometimes the cause is chronic thromboembolism which can be diagnosed with V/Q scan. Her PA pressures are not very high and could have been underestimated. Sometimes with RV dysfunction PA pressures can appear low as there is no forward flow. In any case this will need further work up as outpatient. We will arrange follow up. Thank you for allowing me to participate in the care of your patient. Please feel free to contact me if you have any questions. Time Spent With Patient Time: Total time spent is greater than 50% in coordination of care (as documented) at patient's floor/unit and/or counseling patient: Progress Note: Quality Stroke Does the patient have a stroke diagnosis?: No Procedures Date of Service Date of Service: 10/25/21
[2021-10-25] MEDS: Albuterol/Iprat 2.5/0.5MG 3 ML AMPUL.NEB INHALE ×3 (12:15→18:47)
[2021-10-25] MEDS: Digoxin 0.5 MG/2 ML AMPUL IVPUSH (13:50)
--- NOTE | 2021-10-25 15:34 | HO.PM.IMPN ---
Subjective Subjective Date of Service: 10/25/21 Interval History: cc: sob, feversAnd wheezing interval history: still reporting feeling weak and tired Having wheezes and subjective fever Review of Systems Constitutional: Fevers, chills Eyes: denies blurry vision ENT: denies sore throat CVS: denies chest pain Respiratory: dyspneaAnd wheezing GI: no abdominal pain : denies dysuria MSK: denies neck pain Skin: denies rash Neuro: denies specific motor weakness Physical Exam Vital Signs: Vital Signs: Last Vital Signs Temp 98.3 F 10/25/21 04:00 Pulse 87 10/25/21 15:08 Resp 16 10/25/21 15:08 BP 115/76 10/25/21 13:53 Pulse Ox 93 10/25/21 13:53 BMI result Body Mass Index 44.8 Const: Other: Constitutional : Alert, interactive, looks tired and out of energy Neck : Normal inspection, Supple Cardiovascular : RRR, no JVP, no lower extremity edema Respiratory : fair bilateral air entry, no crackles, bilateral scattered wheezes Gastrointestinal: soft, lax, Normal bowel sounds, Non tender Skin : Warm, Dry Neurological : Alert , No focal deficit , CN 2-12 within normal Objective Data Active Medications Acetaminophen (Acetaminophen 325 Mg Tablet) 650 mg PO Q6H PRN PRN Reason: Pain, Mild (Pain Scale 1-3) Albuterol/Ipratropium (Albuterol/Iprat 2.5/0.5mg 3 Ml Ampul.Neb) 3 ml INHALE RQ4H WHILE AWAKE [facility] Last Admin: 10/25/21 15:06 Dose: 3 ml Documented by: ASHLEY Apixaban (Apixaban 5 Mg Tablet) 5 mg PO BID [facility] Last Admin: 10/25/21 08:38 Dose: 5 mg Documented by: MAIK Digoxin (Digoxin 0.25 Mg Tablet) 0.25 mg PO Q6H [facility] Stop: 10/26/21 06:31 Furosemide (Furosemide 40 Mg Tablet) 40 mg PO DAILY [facility]; Protocol Last Admin: 10/25/21 08:38 Dose: 40 mg Documented by: MAIK Metoprolol Tartrate (Metoprolol Tartrate 25 Mg Tablet) 25 mg PO QID [facility]; Protocol Last Admin: 10/25/21 13:50 Dose: 25 mg Documented by: MAIK Oseltamivir Phosphate (Oseltamivir Phosphate 30 Mg Capsule) 30 mg PO Q12H [facility] Stop: 10/28/21 05:01 Last Admin: 10/25/21 05:37 Dose: 30 mg Documented by: SAUL Pharmacy Consult (Consult Rx Perform Med Rec) 1 each MISCELLANE ONCE PRN PRN Reason: Consult order Pravastatin Sodium (Pravastatin Sodium 10 Mg Tablet) 10 mg PO BEDTIME [facility] Last Admin: 10/24/21 20:56 Dose: 10 mg Documented by: SAUL Sodium Chloride (0.9 % Sodium Chloride Flush 3 Ml Syringe) 3 ml IVFLUSH QSHIFT [facility] Last Admin: 10/25/21 08:24 Dose: Not Given Documented by: MAIK Non-Admin Reason: IV Running Labs CBC & Chem 7: 10/25/21 06:47 10/25/21 06:47 Labs: Laboratory Results - last 24 hr 10/25/21 10/25/21 06:47 06:47 MCV 91.4 MCH 27.8 MCHC 30.4 L RDW 14.6 Plt Count 143 L MPV 10.6 Absolute Nucleated RBC 0.000 Nucleated RBC % (auto) 0.0 Anion Gap 11 L Estim Creat Clear Calc 43.9 Estimated GFR 47 Fasting Glucose 89 Calcium 8.9 Microbiology Microbiology Results: Microbiology 10/23/21 14:03 Blood Culture - Preliminary Blood - Venous No growth after 24 hours. 10/23/21 14:03 Blood Culture - Preliminary Blood - Venous No growth after 24 hours. Assessment and Plan (1) New onset a-fib: Status: Acute (2) Influenza A: Status: Acute Plan 81F presented with fevers, found to have flu A and afib with rvr viral sepsis due to infulenza A tamiflu 30mg bid day 08/26 droplet precautions afib of unknown duration, with RVR lopressor, 25 qid, cardiology input appreciated echo Showing?moderately dilated right ventricle with moderate to severe RV dysfunction.? start digoxin Continue eliquis htn will hold off on antihypertensives to allow room for beta-pedro pablo morbid obesity weight loss DEBBIE ? compliance chornic diasotlic chf lasix DVT prophylaxis-starting on Eliquis ?full code reason for continued hospitalization: patient still weak and fragile with afib still not controlled Quality Stroke Does the patient have a stroke diagnosis?: No VTE Prior VTE?: No VTE Risk Level:: Medical - moderate - high VTE Device Contraindication: Treatment Not Indicated VTE Drug Contraindication: N/A - Med Ordered
[2021-10-25] MEDS: Digoxin 0.25 MG TABLET PO ×2 (17:56→23:55)
[2021-10-25] MEDS: 0.9 % Sodium Chloride Flush 3 ML SYRINGE IVFLUSH ×2 (17:57→20:00)
[2021-10-25] MEDS: Pravastatin Sodium 10 MG TABLET PO (20:00)
[2021-10-26] VITALS (7 sets, daily range): BP systolic 119–146; BP diastolic 56–76; PULSE 71–104; RESP 16–20; TEMP 35.9–36.5; O2SAT 83–97
[2021-10-26] MEDS: Oseltamivir Phosphate 30 MG CAPSULE PO (05:30)
[2021-10-26] MEDS: Digoxin 0.25 MG TABLET PO (05:30)
[2021-10-26 06:42] LABS: Hematocrit 46.9 % (37.0-47.0); Hemoglobin 14.8 g/dl (12.0-16.0); Mean Corpuscular HGB Conc 31.6 g/dl (31.0-35.0); Mean Corpuscular Hemoglobin 28.5 pg (27.0-33.0); Mean Corpuscular Volume 90.2 fL (80.0-98.0); Mean Platelet Volume 10.7 fL (9.4-12.3); Platelet Count 153 X10*3/uL (160-400); Red Cell Distribution Width 13.9 % (11.0-16.0)
[2021-10-26 06:58] LABS: C Reactive Protein 4.13 mg/dL (< or = 0.50)
[2021-10-26 06:59] LABS: Anion Gap 12 (12-20); Blood Urea Nitrogen 13 mg/dL (9-16); Carbon Dioxide 28 mmol/L (22-29); Chloride 102 mmol/L (96-108); Estimated Glomerular Filt Rate > 60; Glucose Random 89 mg/dL (60-115); Potassium 4.2 mmol/L (3.3-5.1); Sodium 138 mmol/L (135-145)
[2021-10-26] MEDS: Albuterol/Iprat 2.5/0.5MG 3 ML AMPUL.NEB INHALE ×2 (07:39→13:46)
[2021-10-26] MEDS: Metoprolol Tartrate 25 MG TABLET PO ×2 (09:33→14:19)
[2021-10-26] MEDS: Furosemide 40 MG TABLET PO (09:33)
[2021-10-26] MEDS: Apixaban 5 MG TABLET PO (09:33)
[2021-10-26] MEDS: 0.9 % Sodium Chloride Flush 3 ML SYRINGE IVFLUSH (09:33)
--- NOTE | 2021-10-26 14:47 | PM.PNCARD ---
Subjective Subjective Date of Service: 10/26/21 Principal diagnosis: Atrial fibrillation, right ventricular failure Interval history: Patient feeling well. No significant shortness of breath. Heart rate is better controlled. Denies palpitations, lightheadedness, syncope. Review of Systems Review of Systems Yes all other systems are reviewed and are negative Physical Exam Vital Signs: Last Vital Signs Temp 97.7 F 10/26/21 11:50 Pulse 78 10/26/21 13:48 Resp 20 10/26/21 13:48 BP 135/66 10/26/21 11:50 Pulse Ox 97 10/26/21 11:50 BMI result Body Mass Index 44.8 Const General: cooperative, comfortable, no acute distress, alert and awake Nutritional Appearance: obese Orientation/consciousness: patient oriented x3 Neck Neck: Yes trachea midline, Yes supple and Yes no JVD Resp Effort & Inspection: normal respiratory effort Auscultation: clear to auscultation bilaterally and diminished lung sounds Cardio Jugular venous distension: no JVD Rhythm: abnormal rhythm irregularly irregular Heart sounds: S1 normal heart sound present, S2 normal heart sound present, no click, no gallops, no murmurs and no rubs GI Auscultation: normal bowel sounds Skin General skin exam: no rashes or lesions noted Neuro General: patient oriented x3 and no focal motor deficits Extrem General: Yes no clubbing, cyanosis or edema Psych Appearance: grossly normal Objective Labs and Meds Result diagrams: 10/26/21 06:35 10/26/21 06:35 Lab results: Laboratory Results - last 24 hr 10/26/21 10/26/21 10/26/21 06:35 06:35 06:35 WBC 5.0 RBC 5.20 Hgb 14.8 Hct 46.9 MCV 90.2 MCH 28.5 MCHC 31.6 RDW 13.9 Plt Count 153 L MPV 10.7 Absolute Nucleated RBC 0.000 Nucleated RBC % (auto) 0.0 Sodium 138 Potassium 4.2 Chloride 102 Carbon Dioxide 28 Anion Gap 12 BUN 13 Creatinine 0.79 Estim Creat Clear Calc 61.0 Estimated GFR > 60 Random Glucose 89 Calcium 9.0 C-Reactive Protein 4.13 H Progress Note: A&P Assessment and plan (1) RVF (right ventricular failure): Status: Acute Assessment and Plan: Right ventricular failure in this elderly woman, clinically appears to be euvolemic on current diuretic dose. Right ventricular failure probably related to persistent atrial fibrillation setting of diastolic dysfunction, obesity hypoventilation syndrome as well as sleep apnea. Importance of continued therapy for heart failure was discussed. Continue rate control, see below. Continue current diuretic regimen. Discussed with family about heart failure management and daily weight monitoring and avoidance of salt loading and additional diuretics as needed. Advised to call us in the office if she has worsening symptoms. Follow-up in 2 weeks time. Importance of use of CPAP was discussed with her. Also importance of oxygen replacement therapy was discussed this time. (2) New onset a-fib: Status: Acute Assessment and Plan: Atrial fibrillation with much better rate control. Continue dual therapy with metoprolol and digoxin. Continue full oral anticoagulation with Eliquis 5 mg b.i.d.. Discontinue aspirin on discharge. Blood pressure is optimally controlled at this point time. Will follow-up with digoxin assay in 1 weeks time. Will also obtain Holter monitor in 1 weeks time. Follow up in the clinic in 2 weeks time. Patient can be discharged home today. Time Spent With Patient Time: Total time spent is greater than 50% in coordination of care (as documented) at patient's floor/unit and/or counseling patient: Progress Note: Quality Stroke Does the patient have a stroke diagnosis?: No Procedures Date of Service Date of Service: 10/26/21
--- NOTE | 2021-10-26 15:16 | PM.DS ---
DS: Providers Provider Date of Service: 10/26/21 Date of admission: 10/23/21 16:23 Primary care physician: Belia Xiao MD Consults: 10/23/21 16:21 Consult to Cardiology Routine Consulting Provider: Abran Payne Reason for consultation: afib rvr DS: Diagnosis Discharge Diagnosis (1) RVF (right ventricular failure): Status: Acute (2) New onset a-fib: Status: Acute DS: Summary Hospital Course Hospital Course: Admission note HPI ?81-year-old female presented with fevers, weakness, chills.? Patient had been feeling well until day prior to presentation.? Her granddaughter was sick with the flu at home.? Patient began to have fevers associated with chills and myalgias as well as generalized weakness.? Some shortness of breath, worse on exertion.? Denies chest pain.? in ED found to have positive flu swab, EKG showed atrial fibrillation with rapid ventricular response.? Unclear if this is new onset or not. Hospital course Patient was admitted to the hospital for new onset atrial fibrillation with rapid ventricular response secondary to influenza a infection. She was evaluated by Cardiology team and started on metoprolol along with loading with digoxin with good response as her heart rate improved to 80s. She was started on Eliquis 5 mg twice daily as an echo Showing?moderately dilated right ventricle with moderate to severe RV dysfunction. Cardiology recommended discharging the patient home on metoprolol 50 mg twice daily and digoxin. She was treated with Tamiflu during the hospital stay. To finish course of treatment as outpatient. continue Tamiflu as prescribed Start digoxin Metoprolol dose changed to 50 mg twice daily to follow up with Cardiology as outpatient Time Spent with Patient Time attestation: Total time spent providing and/or coordinating discharge services: Discharge coordination time: Greater than 30 minutes Quality: Safe Use of Opioids Does Pt have an Active Cancer Diagnosis on the Problem List?: No Quality: Stroke Does the patient have a stroke diagnosis?: No Physical Exam Vital Signs: Vital Signs: Last Vital Signs Temp 97.7 F 10/26/21 11:50 Pulse 78 10/26/21 13:48 Resp 20 10/26/21 13:48 BP 135/66 10/26/21 11:50 Pulse Ox 97 10/26/21 11:50 BMI result Body Mass Index 44.8 Const: Other: Constitutional : Alert, interactive, not in distress Neck : Normal inspection, Supple Cardiovascular : RRR, no JVP, no lower extremity edema Respiratory : fair bilateral air entry, no crackles, improved scattered wheezes , on oxygen supplement Gastrointestinal: soft, lax, Normal bowel sounds, Non tender Skin : Warm, Dry Neurological : Alert , No focal deficit , CN 2-12 within normal DS: Data Data Completed and Pending Labs on day of discharge: Laboratory Results - last 24 hr 10/26/21 10/26/21 10/26/21 06:35 06:35 06:35 WBC 5.0 RBC 5.20 Hgb 14.8 Hct 46.9 MCV 90.2 MCH 28.5 MCHC 31.6 RDW 13.9 Plt Count 153 L MPV 10.7 Absolute Nucleated RBC 0.000 Nucleated RBC % (auto) 0.0 Sodium 138 Potassium 4.2 Chloride 102 Carbon Dioxide 28 Anion Gap 12 BUN 13 Creatinine 0.79 Estim Creat Clear Calc 61.0 Estimated GFR > 60 Random Glucose 89 Calcium 9.0 C-Reactive Protein 4.13 H Preliminary micro results at discharge 10/23/21 14:03 Blood Culture - Preliminary Blood - Venous No growth after 48 hours. 10/23/21 14:03 Blood Culture - Preliminary Blood - Venous No growth after 48 hours. Discharge Plan Discharge Patient Disposition: Home Health Service Discharge Diagnosis: New onset atrial fibrillation Influenza A infection Referrals: Belia Xiao MD [Primary Care Provider] - 1 Week Discharge Medications: New oseltamivir 30 mg Capsule 30 mg PO Q12H 2 Days Qty: 4 0RF Eliquis 5 mg Tablet 5 mg PO BID Qty: 60 0RF digoxin 250 mcg (0.25 mg) Tablet 250 mcg PO DAILY Qty: 30 0RF metoprolol tartrate 50 mg tablet 50 mg PO BID Qty: 60 0RF Continued albuterol sulfate 90 mcg/actuation HFA aerosol inhaler 2 puff inhalation Q4-6H PRN (Reason: wheezing) 0RF Spectravite Adult 18-400 mg-mcg tablet 1 tab PO DAILY 0RF cholecalciferol (vitamin D3) 25 mcg (1,000 unit) capsule 25 mcg PO DAILY 0RF pravastatin 10 mg tablet 10 mg PO BEDTIME 0RF furosemide 40 mg tablet 40 mg PO DAILY 0RF acetaminophen [Mapap Arthritis Pain] 650 mg tablet extended release 650 mg PO Q8H PRN (Reason: Pain (Scale Score 1-3)) 0RF lisinopril 30 mg tablet 30 mg PO DAILY 0RF amlodipine 5 mg tablet 5 mg PO DAILY 0RF Discontinued aspirin 81 mg tablet,delayed release (DR/EC) 81 mg PO BEDTIME 0RF metoprolol succinate 25 mg tablet extended release 24 hr 25 mg PO DAILY 0RF Discharge Orders: Discharge Order (Routine); Ordered 10/26/21 Ordered By: Emili Ma Diet: advance to usual diet and low salt diet Activity on Discharge: As tolerated Stand Alone Forms: Patient Portal Discharge page Care Plan Goals: Read below Health Concerns: Read below Plan of Treatment: Read below Assessment: You were seen and evaluated for difficulty breathing and palpitation. Found to have new onset atrial fibrillation with rapid heart rate. Evaluated by classification control clerk and treated with metoprolol, digoxin with good response as her heart rate became more controlled. You were started on Eliquis as a blood thinners to decrease the risk of having stroke. Treated with Tamiflu for influenza a infection. continue Tamiflu as prescribed Start digoxin Metoprolol dose changed to 50 mg twice daily to follow up with Cardiology as outpatient
--- NOTE | 2021-10-26 15:38 | P.F2F_ITS ---
Service Date Service Date: 10/26/21 Encounter Date of encounter: 10/26/21 Reasons for Services Signs and symptoms assessed: Physical deconditioning New oxygen at home Reason for nursing home: medication treatment and teach disease management Reason for physical therapy: home safety and mobility and therapeutic exercises Homebound: Leaving the home is medically contraindicated at this time without the asist of a device and/or another person due th the listed conditions above and below. Reason homebound: unsteady gait / fall risk Certification: Based on the above findings, I certify that this patient is confined to the home and needs intermittent nursing home care, physical therapy and/or speech therapy, or continues to need occupational therapy. The patient is under my care, and I have initiated the establishment of the plan of care. The patient will be followed by a physician who will periodically review the plan of care.
[2021-10-26 16:48] LABS: Glucose, Whole Blood 96 mg/dL (60-115)
== END 2021-10-26 17:00 | disposition home health service (06) | DRG 872 ==
LOC: HO.ED 15:34 → HO.EDOVER 16:39 → HO.IMC 10-25 15:46
PROVIDERS: Admitting Provider Internal Medicine; Emergency Provider Internal Medicine; PCP Family Medicine; Visit Provider Student in an Organized Health Care Education/Training Program
DX: A41.89 Other specified sepsis (principal); I50.32 Chronic diastolic (congestive) heart failure; I50.810 Right heart failure, unspecified; I11.0 Hypertensive heart disease with heart failure; J10.1 Influenza due to other identified influenza virus with other respiratory manifestations; E66.01 Morbid (severe) obesity due to excess calories; G47.33 Obstructive sleep apnea (adult) (pediatric); I48.91 Unspecified atrial fibrillation; B97.89 Other viral agents as the cause of diseases classified elsewhere; Z20.822 Contact with and (suspected) exposure to COVID-19; Z96.652 Presence of left artificial knee joint; Z88.0 Allergy status to penicillin; Z79.01 Long term (current) use of anticoagulants; Z79.899 Other long term (current) drug therapy
CPT/HCPCS: 0241U; 36415; 71045; 71275; 80048; 80053; 82947; 83605; 83735; 83880; 84484; 85025; 85027; 85610; 85730; 86140; 87040; 93005; 93306; 94640; 96361; 96374; 96375; 99285; J1160; J2405; Q9967

== ENCOUNTER → 2021-11-10 14:35 | Outpatient (REF) | payer OTHER, SELFPAY ==
--- NOTE | 2021-11-10 14:42 | HM_ITS ---
* Total monitoring time 3 days and 1 hour. * Underlying rhythm is atrial fibrillation. Average 68/Min. Range 43 to 145/Min. However only 1.6% of the time, rate >100/Min. * Three pauses noted, longest 2.5 seconds at 23:51; daytime pause 2.5 seconds at 15:28; 2.5 seconds at 07:12. * Frequent PVCs; 3 morphologies; 91 couplets; burden of 2%. Three episodes of NSVT, longest 3 beats. * No patient events. * Overall, well controlled atrial fibrillation. MTDD
== END ==
LOC: HO.CARD 14:35
PROVIDERS: Visit Provider Internal Medicine Cardiovascular Disease
DX: I48.91 Unspecified atrial fibrillation (principal)
CPT/HCPCS: 93242

== ENCOUNTER 2021-12-04 14:11 | Outpatient (REF) | payer OTHER, SELFPAY ==
[2021-12-04 15:29] LABS: MANUAL DIFF FLAG NO
[2021-12-04 16:00] LABS: White Blood Count 7.4 X10*3/uL (4.8-10.8)
[2021-12-04 16:01] LABS: Basophils Absolute Auto 0.1 X10*3/uL (0.0-0.2); Basophils Percent Auto 0.8 % (0-2); Eosinophils Absolute Auto 0.1 X10*3/uL (0.0-0.4); Eosinophils Percent Auto 0.7 % (0-4); Hematocrit 46.7 % (37.0-47.0); Hemoglobin 14.5 g/dl (12.0-16.0); Imm Gran Abs Auto 0.03 X10*3/uL (0.00-0.03); Imm Gran Pct Auto 0.4 % (0.0-0.4); Lymphocytes Absolute Auto 1.2 X10*3/uL (1.2-4.9); Lymphocytes Percent Auto 16.7 % (20-40); Mean Corpuscular Hemoglobin 28.2 pg (27.0-33.0); Mean Corpuscular Volume 90.9 fL (80.0-98.0); Mean Platelet Volume 11.5 fL (9.4-12.3); Monocytes Absolute Auto 0.7 X10*3/uL (0.1-1.2); Monocytes Percent Auto 8.9 % (2-11); Neutrophils Absolute Auto 5.4 x10*3/uL (2.0-8.3); Neutrophils Percent Auto 72.5 % (45-73); Platelet Count 201 X10*3/uL (160-400); Red Blood Count 5.14 X10*6/uL (4.20-5.50); Red Cell Distribution Width 15.1 % (11.0-16.0)
[2021-12-04 16:18] LABS: Anion Gap 12 (12-20); Blood Urea Nitrogen 12 mg/dL (9-16); Calcium 9.5 mg/dL (8.4-10.2); Carbon Dioxide 28 mmol/L (22-29); Chloride 104 mmol/L (96-108); Estimated Glomerular Filt Rate 59; Glucose Random 102 mg/dL (60-115); Potassium 4.6 mmol/L (3.3-5.1); Sodium 139 mmol/L (135-145)
[2021-12-05 21:57] LABS: NT-proBNP 2180 pg/mL
== END 2021-12-04 14:12 | disposition home or self-care (01) ==
LOC: HO.LAB 14:11
PROVIDERS: PCP Nurse Practitioner Family; Referring Provider Nurse Practitioner Family; Visit Provider Internal Medicine Cardiovascular Disease
DX: I11.0 Hypertensive heart disease with heart failure (principal); I50.810 Right heart failure, unspecified; Z79.899 Other long term (current) drug therapy
CPT/HCPCS: 36415; 80048; 80162; 83880; 85025; 93005; 99212

== ENCOUNTER → 2021-12-26 10:43 | Outpatient (REF) | payer OTHER, SELFPAY | LOC: HO.SL 10:43 | PROVIDERS: PCP Nurse Practitioner Family; Visit Provider Nurse Practitioner Family | DX: G47.33 Obstructive sleep apnea (adult) (pediatric) (principal) | CPT/HCPCS: 95806 ==

== ENCOUNTER → 2022-02-21 13:06 | Outpatient (BNVA) | payer OTHER, SELFPAY | PROVIDERS: PCP Nurse Practitioner Family; Referring Provider Nurse Practitioner Family; Visit Provider Internal Medicine Cardiovascular Disease | DX: I50.810 Right heart failure, unspecified (principal); I10 Essential (primary) hypertension; R09.02 Hypoxemia | CPT/HCPCS: 99212 ==

== ENCOUNTER → 2022-03-13 11:38 | Outpatient (BNVA) | payer OTHER, SELFPAY | PROVIDERS: PCP Nurse Practitioner Family; Visit Provider Internal Medicine Pulmonary Disease | DX: I27.20 Pulmonary hypertension, unspecified (principal); I27.81 Cor pulmonale (chronic); J45.909 Unspecified asthma, uncomplicated; Z99.81 Dependence on supplemental oxygen | CPT/HCPCS: 99202 ==

== ENCOUNTER 2022-03-21 11:53 | Outpatient (REF) | payer OTHER, SELFPAY ==
--- NOTE | 2022-03-21 08:03 | PFT_ITS ---
FLOWS: FEV1 63% of predicted at 1.13 L. FVC 60% of predicted at 1.43 L. FEV1 to FVC ratio of 0.79. No bronchodilator response. LUNG VOLUMES: Total lung capacity 86% of predicted at 4.24 L. Residual volume 128% of predicted at 3.10 L. Slow vital capacity 45% of predicted at 1.14 L. Expiratory reserve volume 11% of predicted at 0.05 L. The patient was unable to perform diffusion capacity maneuvers. IMPRESSION: No obstructive or restrictive ventilatory defect. No bronchodilator response. Decreased expiratory reserve volume suggests extrathoracic restriction likely secondary to abdominal obesity. Dylan Bhat MD AP/MODL / [id number]
== END 2022-03-21 11:54 | disposition home or self-care (01) ==
LOC: HO.RESP 11:53
PROVIDERS: Visit Provider Internal Medicine Pulmonary Disease
DX: J45.909 Unspecified asthma, uncomplicated (principal)
CPT/HCPCS: 94060; 94727

== ENCOUNTER 2022-05-14 10:12 | Outpatient (REF) | payer OTHER, SELFPAY ==
[2022-05-14 12:48] LABS: Anion Gap 14 (12-20); Blood Urea Nitrogen 14 mg/dL (9-16); Calcium 9.8 mg/dL (8.4-10.2); Carbon Dioxide 31 mmol/L (22-29); Chloride 101 mmol/L (96-108); Estimated Glomerular Filt Rate > 60; Glucose Random 93 mg/dL (60-115); Potassium 4.3 mmol/L (3.3-5.1); Sodium 142 mmol/L (135-145)
[2022-05-14 13:14] LABS: Digoxin 1.1 ng/mL (0.8-2.0)
== END 2022-05-14 10:13 | disposition home or self-care (01) ==
LOC: HO.LAB 10:12
PROVIDERS: Visit Provider Internal Medicine Cardiovascular Disease
DX: I11.0 Hypertensive heart disease with heart failure (principal); I50.810 Right heart failure, unspecified; I27.81 Cor pulmonale (chronic); Z79.899 Other long term (current) drug therapy
CPT/HCPCS: 36415; 80048; 80162

== ENCOUNTER → 2022-07-02 13:48 | Outpatient (BNVA) | payer OTHER, SELFPAY | PROVIDERS: PCP Nurse Practitioner Family; Visit Provider Nurse Practitioner Family | DX: I27.81 Cor pulmonale (chronic) (principal); I50.810 Right heart failure, unspecified; I27.20 Pulmonary hypertension, unspecified; I48.91 Unspecified atrial fibrillation; I10 Essential (primary) hypertension; Z99.81 Dependence on supplemental oxygen | CPT/HCPCS: 93005; 99212 ==

== ENCOUNTER 2022-07-10 13:18 | Outpatient (REF) | payer OTHER, SELFPAY ==
[2022-07-10 13:36] LABS: MANUAL DIFF FLAG NO
[2022-07-10 14:07] LABS: Appearance Urine Cloudy; Color Urine Dark Yellow; Glucose Urine UA Negative (Negative); Leukocyte Esterase Urine Trace (Negative); Nitrite Urine Negative (Negative); Specific Gravity - Urine 1.025 (1.005-1.025); UMIC TRIGGER UA YES; Urine Blood Negative (Negative); Urine Ketones Trace mg/dL (Negative); Urine Protein 30 (1+) mg/dL (Neg-Trace)
[2022-07-10 14:14] LABS: Bacteria Urine None Seen (None Seen); RBC Urine 0-2 /HPF (0-2); WBC Urine 0-5 /HPF (0-5)
[2022-07-10 14:17] LABS: Basophils Absolute Auto 0.1 X10*3/uL (0.0-0.2); Basophils Percent Auto 0.8 % (0-2); Eosinophils Absolute Auto 0.1 X10*3/uL (0.0-0.4); Eosinophils Percent Auto 0.9 % (0-4); Hematocrit 45.5 % (37.0-47.0); Hemoglobin 14.4 g/dl (12.0-16.0); Imm Gran Abs Auto 0.02 X10*3/uL (0.00-0.03); Imm Gran Pct Auto 0.3 % (0.0-0.4); Lymphocytes Percent Auto 15.4 % (20-40); Mean Corpuscular HGB Conc 31.6 g/dl (31.0-35.0); Mean Corpuscular Hemoglobin 29.1 pg (27.0-33.0); Mean Corpuscular Volume 91.9 fL (80.0-98.0); Mean Platelet Volume 12.4 fL (9.4-12.3); Monocytes Absolute Auto 0.5 X10*3/uL (0.1-1.2); Monocytes Percent Auto 6.8 % (2-11); Neutrophils Percent Auto 75.8 % (45-73); Platelet Count 147 X10*3/uL (160-400); Red Blood Count 4.95 X10*6/uL (4.20-5.50); Red Cell Distribution Width 13.6 % (11.0-16.0); White Blood Count 6.6 X10*3/uL (4.8-10.8)
[2022-07-10 15:31] LABS: Creatinine Urine 234.51 mg/dL; Protein/Creatinine Ratio, Ur 0.24 (<0.2); Total Protein Urine Random 56 mg/dL (<12)
[2022-07-10 15:58] LABS: Anion Gap 13 (12-20); Blood Urea Nitrogen 13 mg/dL (9-16); Calcium 9.7 mg/dL (8.4-10.2); Carbon Dioxide 31 mmol/L (22-29); Chloride 101 mmol/L (96-108); Estimated Glomerular Filt Rate 60; Iron 66 mcg/dL (30-160); Percent Iron Saturation 22 % (15-50); Potassium 4.2 mmol/L (3.3-5.1); Sodium 141 mmol/L (135-145); Total Iron Binding Capacity 296 mcg/dL (228-428); Unsaturated Iron Binding 230 ug/dL; Uric Acid 7.4 mg/dL (2.4-5.7)
[2022-07-10 16:18] LABS: Ferritin 140 ng/mL (10-250); Vitamin D 25-OH Total 29.3 ng/mL (>30)
[2022-07-11 15:53] LABS: PTHI 93 pg/mL (16-77)
== END 2022-07-10 13:19 | disposition home or self-care (01) ==
LOC: HO.LAB 13:18
PROVIDERS: Visit Provider Physician Assistant
DX: E55.9 Vitamin D deficiency, unspecified (principal); N18.2 Chronic kidney disease, stage 2 (mild); D63.1 Anemia in chronic kidney disease
CPT/HCPCS: 36415; 80051; 81001; 82306; 82310; 82565; 82728; 83540; 83970; 84156; 84520; 84550; 85025

== ENCOUNTER 2022-09-08 22:53 | Inpatient (IN) | payer OTHER, SELFPAY ==
--- NOTE | ~2022-09-08 | XR_ITS ---
EXAMINATION: XR CHEST CLINICAL INFORMATION: Baseline. COMPARISON: 10/24/2021 chest radiograph. TECHNIQUE: Frontal view of the chest was obtained. FINDINGS: There is mild prominence of the pulmonary vasculature and cardiac silhouette. Minimal linear markings are seen in the left midlung. The mediastinal structures are unremarkable. XR/XR chest 1V IMPRESSION: Mild prominence of the pulmonary vasculature and cardiac silhouette appears similar to the previous study and is likely baseline for the patient. Minimal left midlung atelectasis versus scarring. Mild congestion cannot be excluded.
[2022-09-08 23:00] VITALS: BP 140/70; PULSE 70
--- NOTE | 2022-09-08 23:17 | ED_ITS ---
HPI - General Adult General Chief complaint: Weakness Stated complaint: weakness,fever Time Seen by Provider: 09/08/22 23:16 Source: patient Mode of arrival: ambulatory Limitations: no limitations History of Present Illness HPI narrative: Patient is 81 years old with history of diastolic CHF, hypertension, DEBBIE not using CPAP, AFib on Eliquis comes here for increased weakness since yesterday with fever and chills also the redness of the right lower extremity , no open wounds no chest pain no palpitation on arrival patient had rectal temperature was 102.3 degrees pulse rate 112 blood pressure 120/56 saturating 100% at room air Related Data Home Medications Medication Instructions Recorded Confirmed acetaminophen 650 mg 650 mg PO Q8H PRN Pain (Scale 03/20/21 07/02/22 tablet,extended release (Mapap Score 1-3) Arthritis Pain) cholecalciferol (vitamin D3) 25 25 mcg PO DAILY 03/20/21 07/02/22 mcg (1,000 unit) capsule furosemide 40 mg tablet 40 mg PO DAILY 03/20/21 07/02/22 pravastatin 10 mg tablet 10 mg PO BEDTIME 03/20/21 07/02/22 albuterol sulfate 90 mcg/actuation 2 puff inhalation Q4-6H PRN 10/23/21 07/02/22 aerosol inhaler wheezing multivitamin-ferrous 1 tab PO DAILY 10/23/21 07/02/22 fumarate-folic acid 18 mg-400 mcg tablet (Spectravite Adult) lisinopril 10 mg tablet 10 mg PO DAILY 12/04/21 07/02/22 amlodipine 5 mg tablet 5 mg PO DAILY 07/02/22 07/02/22 Previous Rx's Medication Instructions Recorded digoxin 125 mcg (0.125 mg) tablet 125 mcg PO .mwf #60 tabs 06/13/22 apixaban 5 mg tablet (Eliquis) 5 mg PO BID #60 tabs 07/02/22 metoprolol tartrate 50 mg tablet 50 mg PO BID #60 tabs 07/02/22 Allergies Allergy/AdvReac Type Severity Reaction Status Date / Time Penicillins [PENICILLINS] AdvReac Unknown STOMACH Verified 07/02/22 14:23 UPSET Review of Systems Review of Systems: Constitutional : No Weight loss, + Fever, + Chills ENT/Mouth : No sore throat, No Rhinorrhea Eyes: No Eye Pain, No Swelling Cardiovascular : No Chest Pain, no palpitations Respiratory : No Cough, No Sputum, no shortness of breath Gastrointestinal : no Nausea, No Vomiting, No Diarrhea, No abdominal Pain, no black stools Genitourinary : No Dysuria, No Urinary Frequency Musculoskeletal : No joint pain, No Myalgias, No Joint Swelling Skin : No Skin Lesions, ++rash Neuro : No Weakness, No Numbness, No Dizziness, No Headache Psych : No Anxiety/Panic, No Depression Heme/Lymph: No Bruising, No Lymphadenopathy Endocrine : No Polyuria, No Polydipsia All other systems reviewed and are negative Yes all other systems are reviewed and are negative [facility] Past Medical History Medical History Atherosclerosis Chronic diastolic CHF (congestive heart failure) HTN (hypertension) New onset a-fib Obesity DEBBIE (obstructive sleep apnea) Osteoarthritis Osteoporosis RVF (right ventricular failure) Varicose veins of bilateral lower extremities with pain Surgical History Status post left knee replacement Family History Family History Son CAD (coronary artery disease) Mother CAD (coronary artery disease) Social History Social History Housing: Apartment Are you a primary out of school hours care worker to a significant other at home: No Do you presently have visiting nurse or other home services: Yes (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 Oriented X3. No acute distress. Obese Eyes: PERRLA, no pallor or icterus ENT: Pharynx normal. Oral Mucosa moist Neck: Normal inspection. Neck supple. CVS: Normal heart rate and rhythm. Pulses normal. Respiratory: No respiratory distress. Equal air entry bilateral, no wheezing/rales/rhonchi Abdomen: Soft and nontender. Bowel sounds are present, no mass palpable, no CVA tenderness Skin: Skin warm and dry. Diffuse erythema of the right leg spreading all the way to the thigh local warmth++ neurovascular intact. Normal skin turgor. Extremities: No lower extremity edema. No calf tenderness Neuro: Oriented X 3. No motor deficit. No sensory deficit.No cerebellar signs , cranial nerves II-XII intact Medications Administered Discontinued Medications Generic Name Dose Route Start Last Admin Trade Name Freq PRN Reason Stop Dose Admin Acetaminophen 650 mg 09/08/22 23:29 09/08/22 23:53 Acetaminophen 325 Mg Tablet PO 09/08/22 23:30 650 mg ONCE ONE Administration Acetaminophen 650 mg 09/09/22 01:24 09/09/22 02:15 Acetaminophen 325 Mg Tablet PO 09/09/22 01:25 650 mg ONCE ONE Administration Diphenhydramine HCl 50 mg 09/09/22 01:35 09/09/22 02:15 Diphenhydramine Hcl 25 Mg Capsule PO 09/09/22 01:36 50 mg ONCE ONE Administration Sodium Chloride 1,000 mls @ 999 mls/hr 09/08/22 23:21 09/09/22 01:35 Ns IV 09/09/22 00:21 Infused .Q1H1M ONE Infusion Vancomycin HCl 2,000 mg in 520 mls @ 260 mls/hr 09/08/22 23:22 09/09/22 02:51 Vancomycin/Ns IV 09/09/22 01:21 Infused ONCE ONE Infusion Ceftriaxone Sodium 1 gm/ 50 mls @ 100 mls/hr 09/08/22 23:29 09/09/22 00:35 Sodium Chloride IV 09/08/22 23:58 Infused ONCE ONE Infusion Sodium Chloride 1,000 mls @ 999 mls/hr 09/09/22 01:07 09/09/22 02:51 Ns IV 09/09/22 02:07 Infused .Q1H1M ONE Infusion Medical Decision Making Medical Decision Making MDM Narrative: 01:00 Patient with right leg cellulitis, lactic acidosis with fever tachycardia meeting criteria for sepsis patient had transiently dropped her blood pressure which responded to IV fluids IV fluids are restricted secondary to significant right-sided heart failure and pulmonary hypertension patient was given IV vancomycin and IV Rocephin ,focused exam for sepsis was done at 02:00 Consult Healthcare Provider Management of the patient was discussed with: Hospitalist Lab Data MDM Lab Attestation statement: I reviewed the patient's lab results. 09/08/22 23:55 09/08/22 23:55 Labs: Lab Results 09/08/22 09/08/22 09/08/22 Range/Units 23:55 23:55 23:55 WBC 15.8 H (4.8-10.8) X10*3/uL RBC 5.66 H (4.20-5.50) X10*6/uL Hgb 15.8 (12.0-16.0) g/dl Hct 50.1 H (37.0-47.0) % MCV 88.5 (80.0-98.0) fL MCH 27.9 (27.0-33.0) pg MCHC 31.5 (31.0-35.0) g/dl RDW 14.6 (11.0-16.0) % Plt Count 168 (160-400) X10*3/uL MPV 11.7 (9.4-12.3) fL Immature Gran % (Auto) 0.8 H (0.0-0.4) % Neut % (Auto) 93.6 H (45-73) % Lymph % (Auto) 2.6 L (20-40) % [place] % (Auto) 2.2 (2-11) % Eos % (Auto) 0.6 (0-4) % Baso % (Auto) 0.2 (0-2) % Lymph # (Auto) 0.4 L (1.2-4.9) X10*3/uL [place] # (Auto) 0.3 (0.1-1.2) X10*3/uL Eos # (Auto) 0.1 (0.0-0.4) X10*3/uL Baso # (Auto) 0.0 (0.0-0.2) X10*3/uL Abs Immat Gran (auto) 0.12 H (0.00-0.03) X10*3/uL Absolute Neuts (auto) 14.8 H (2.0-8.3) x10*3/uL Absolute Nucleated RBC 0.000 (0.0-0.012) X10*3/uL Nucleated RBC % (auto) 0.0 (0.0-0.2) /100WBC Smear Tech's Comments VERIFIED Sodium 140 (135-145) mmol/L Potassium 4.1 (3.3-5.1) mmol/L Chloride 105 (96-108) mmol/L Carbon Dioxide 26 (22-29) mmol/L Anion Gap 13 (12-20) BUN 17 H (9-16) mg/dL Creatinine 0.93 (0.5-1.4) mg/dL Estim Creat Clear Calc 55.3 Estimated GFR 58 Random Glucose 139 H (60-115) mg/dL Lactic Acid 2.9 H* (0.5-2.0) mmol/L Calcium 8.9 D (8.4-10.2) mg/dL Total Bilirubin 2.1 H (0.0-1.0) mg/dL AST 16 (5-31) U/L ALT 13 (0-31) U/L Alkaline Phosphatase 59 (39-117) U/L Total Protein 6.0 L (6.5-8.0) g/dL Albumin 3.4 L (3.5-5.0) g/dL Independent Interpretation I performed an independent interpretation of an: EKG Interpretation: Atrial fibrillation heart rate 90 beats per minute low-voltage no acute ST T wave change no acute ischemic Discharge Plan Discharge Clinical Impression: Cellulitis, Sepsis Patient Disposition: Admitted As Inpatient
[2022-09-08 23:30] VITALS: BP 120/56; PULSE 112; RESP 17; TEMP 39.1; O2SAT 100; BMI 41.1
[2022-09-08] MEDS: Acetaminophen 325 MG TABLET 650 MG PO (23:53)
[2022-09-08] MEDS: 0.9 % Sodium Chloride 1,000 ML 999 ML IV (23:53)
[2022-09-08] MEDS: cefTRIAXone sodium 1 GM in 0.9 % Sodium Chloride 50 ML IV (23:53)
[2022-09-09] VITALS (7 sets, daily range): BP systolic 95–136; BP diastolic 33–74; PULSE 86–130; RESP 14–22; TEMP 36.6–38.2; O2SAT 90–96
[2022-09-09 00:07] LABS: Basophils Percent Auto 0.2 % (0-2); Eosinophils Absolute Auto 0.1 X10*3/uL (0.0-0.4); Eosinophils Percent Auto 0.6 % (0-4); Hematocrit 50.1 % (37.0-47.0); Hemoglobin 15.8 g/dl (12.0-16.0); Imm Gran Abs Auto 0.12 X10*3/uL (0.00-0.03); Imm Gran Pct Auto 0.8 % (0.0-0.4); Lymphocytes Absolute Auto 0.4 X10*3/uL (1.2-4.9); Lymphocytes Percent Auto 2.6 % (20-40); MANUAL DIFF FLAG SCAN; Mean Corpuscular HGB Conc 31.5 g/dl (31.0-35.0); Mean Corpuscular Hemoglobin 27.9 pg (27.0-33.0); Mean Corpuscular Volume 88.5 fL (80.0-98.0); Mean Platelet Volume 11.7 fL (9.4-12.3); Monocytes Absolute Auto 0.3 X10*3/uL (0.1-1.2); Monocytes Percent Auto 2.2 % (2-11); Neutrophils Absolute Auto 14.8 x10*3/uL (2.0-8.3); Neutrophils Percent Auto 93.6 % (45-73); Platelet Count 168 X10*3/uL (160-400); Red Blood Count 5.66 X10*6/uL (4.20-5.50); Red Cell Distribution Width 14.6 % (11.0-16.0); SCAN SMEAR FLAG 1; White Blood Count 15.8 X10*3/uL (4.8-10.8)
[2022-09-09 00:15] LABS: Lactic Acid 2.9 mmol/L (0.5-2.0)
[2022-09-09 00:18] LABS: Alanine Aminotransferase 13 U/L (0-31); Albumin Level 3.4 g/dL (3.5-5.0); Alkaline Phosphatase 59 U/L (39-117); Anion Gap 13 (12-20); Aspartate Amino Transferase 16 U/L (5-31); Bilirubin Total 2.1 mg/dL (0.0-1.0); Blood Urea Nitrogen 17 mg/dL (9-16); Calcium 8.9 mg/dL (8.4-10.2); Carbon Dioxide 26 mmol/L (22-29); Chloride 105 mmol/L (96-108); Creatinine Clr Calc Pharmacy 55.3; Estimated Glomerular Filt Rate 58; Glucose Random 139 mg/dL (60-115); Potassium 4.1 mmol/L (3.3-5.1); Sodium 140 mmol/L (135-145)
[2022-09-09 00:27] LABS: SLIDE REVIEW VERIFIED
--- NOTE | 2022-09-09 00:57 | ECG_ITS ---
Test Reason : BRADYCARDIA Blood Pressure : / mmHG Vent. Rate : 090 BPM Atrial Rate : 000 BPM P-R Int : 000 ms QRS Dur : 088 ms QT Int : 364 ms P-R-T Axes : 000 047 -25 degrees QTc Int : 445 ms Atrial fibrillation Low voltage QRS Septal infarct , age undetermined Abnormal ECG When compared to the previous EKG of Septal infarct present Referred By: Desiree Zamarripa Electronically Signed By:Abran Payne
[2022-09-09] MEDS: 0.9 % Sodium Chloride 1,000 ML 999 ML IV (01:22)
[2022-09-09 01:39] LABS: COVID-19 Test Negative (Negative); IDNOW Serial# BCCEAD1C
--- NOTE | 2022-09-09 01:45 | PM.IMHP ---
History of Present Illness Date of Service: 09/09/22 Chief Complaint: Right lower extremity redness This is 81-year-old female with pertinent history of DEBBIE not on CPAP, pulmonary hypertension with right-sided heart failure, essential hypertension, atrial fibrillation on Eliquis who presents to the emergency department for evaluation fevers and chills. Patient states she started having fever and chills yesterday. Also noticed redness to the right lower extremity which progressed. Has associated warmth and tenderness. No discharge. Patient also has been having associated generalized weakness. No chest discomfort, palpitations, shortness of breath, abdominal pain, changes in urinary bowel habits. No nausea vomiting. In the emergency department, patient was found to be septic and given empiric IV antibiotics Review of Systems Constitutional: Constitutional: Reports chills and Reports fever(s) Cardiovascular: Cardiovascular: Reports no additional cardiovascular complaints Respiratory: Respiratory: Reports no additional respiratory complaints Gastrointestinal: Gastrointestinal: Reports no additional gastrointestinal complaints Genitourinary: Genitourinary: Reports no additional female genitourinary complaints [facility] Medical History Atherosclerosis Chronic diastolic CHF (congestive heart failure) HTN (hypertension) New onset a-fib Obesity DEBBIE (obstructive sleep apnea) Osteoarthritis Osteoporosis RVF (right ventricular failure) Varicose veins of bilateral lower extremities with pain Family History Son CAD (coronary artery disease) Mother CAD (coronary artery disease) Surgical History Status post left knee replacement Social History Housing: Apartment Are you a primary continuum of care manager to a significant other at home: No Do you presently have visiting nurse or other home services: Yes (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) Alcohol intake: never Patient Tobacco Use Status: Never used Tobacco Smoked in Last 30 Days: No Use of substances other than those prescribed or required for medical reasons: No Advance Directives: Yes Advance Directives on File: Yes Advance Directives Date on File: 10/25/21 service: No Current occupational status: retired and disabled Meds Allergies Allergy/AdvReac Type Severity Reaction Status Date / Time Penicillins [PENICILLINS] AdvReac Unknown STOMACH Verified 07/02/22 14:23 UPSET Active Medications: Current Medications Acetaminophen (Acetaminophen 325 Mg Tablet) 650 mg PO Q6H PRN PRN Reason: Pain, Mild (Pain Scale 1-3) Apixaban (Apixaban 5 Mg Tablet) 5 mg PO BID [facility] Diphenhydramine HCl (Diphenhydramine Hcl 25 Mg Capsule) 50 mg PO ONCE ONE Stop: 09/09/22 01:36 Sodium Chloride (Ns) 1,000 mls @ 999 mls/hr IV .Q1H1M ONE Stop: 09/09/22 02:07 Last Admin: 09/09/22 01:22 Dose: 999 mls/hr Melatonin (Melatonin 3 Mg Tablet) 6 mg PO BEDTIME PRN PRN Reason: Insomnia Ondansetron HCl (Ondansetron Hcl 4 Mg/2 Ml Vial) 4 mg IVPUSH Q8H PRN PRN Reason: Nausea and Vomiting Pharmacy Consult (Consult Rx Vancomycin Dosing) 1 each MISCELLANE DAILY PRN PRN Reason: Consult order Sodium Chloride (0.9 % Sodium Chloride Flush 3 Ml Syringe) 3 ml IVFLUSH QSHIFT [facility] Home Medications Medication Instructions Recorded Confirmed Last Taken Type acetaminophen 650 mg 650 mg PO Q8H PRN Pain (Scale 03/20/21 07/02/22 10/22/21 History tablet,extended release (Mapap Score 1-3) Arthritis Pain) cholecalciferol (vitamin D3) 25 25 mcg PO DAILY 03/20/21 07/02/22 10/22/21 History mcg (1,000 unit) capsule furosemide 40 mg tablet 40 mg PO DAILY 03/20/21 07/02/22 10/23/21 History pravastatin 10 mg tablet 10 mg PO BEDTIME 03/20/21 07/02/22 10/22/21 History albuterol sulfate 90 mcg/actuation 2 puff inhalation Q4-6H PRN 10/23/21 07/02/22 10/22/21 History aerosol inhaler wheezing multivitamin-ferrous 1 tab PO DAILY 10/23/21 07/02/22 10/22/21 History fumarate-folic acid 18 mg-400 mcg tablet (Spectravite Adult) lisinopril 10 mg tablet 10 mg PO DAILY 12/04/21 07/02/22 Unknown History amlodipine 5 mg tablet 5 mg PO DAILY 07/02/22 07/02/22 Unknown History Physical Exam Vital Signs and Narrative: Vital Signs: Last Vital Signs Temp 100.4 F 09/09/22 00:33 Pulse 94 09/09/22 00:33 Resp 14 09/09/22 00:33 BP 100/33 L 09/09/22 00:33 Pulse Ox 93 09/09/22 00:33 O2 Del Method 09/09/22 00:33 BMI result Body Mass Index 41.1 Elderly female lying in bed in no distress Neck supple, no JVD Regular rate and rhythm, S1-S2 heard Decreased breath sounds at bases Abdomen soft nontender, no guarding, no rigidity Patient is awake, alert and oriented to self, place, time and person ; no focal motor deficit Musculoskeletal: Right lower extremity with redness, warmth and tenderness Psych: Normal mood No pedal edema Results Labs 09/08/22 23:55 09/08/22 23:55 Labs: Laboratory Results - last 24 hr 09/08/22 09/08/22 09/08/22 23:55 23:55 23:55 MCV 88.5 MCH 27.9 MCHC 31.5 RDW 14.6 Plt Count 168 MPV 11.7 Immature Gran % (Auto) 0.8 H Neut % (Auto) 93.6 H Lymph % (Auto) 2.6 L [place] % (Auto) 2.2 Eos % (Auto) 0.6 Baso % (Auto) 0.2 Lymph # (Auto) 0.4 L [place] # (Auto) 0.3 Eos # (Auto) 0.1 Baso # (Auto) 0.0 Abs Immat Gran (auto) 0.12 H Absolute Neuts (auto) 14.8 H Absolute Nucleated RBC 0.000 Nucleated RBC % (auto) 0.0 Smear Tech's Comments VERIFIED Anion Gap 13 Estim Creat Clear Calc 55.3 Estimated GFR 58 Random Glucose 139 H Lactic Acid 2.9 H* Calcium 8.9 D Total Bilirubin 2.1 H AST 16 ALT 13 Alkaline Phosphatase 59 Total Protein 6.0 L Albumin 3.4 L COVID-19 (LOU) COVID-19 Clin Com 09/09/22 01:20 MCV MCH MCHC RDW Plt Count MPV Immature Gran % (Auto) Neut % (Auto) Lymph % (Auto) [place] % (Auto) Eos % (Auto) Baso % (Auto) Lymph # (Auto) [place] # (Auto) Eos # (Auto) Baso # (Auto) Abs Immat Gran (auto) Absolute Neuts (auto) Absolute Nucleated RBC Nucleated RBC % (auto) Smear Tech's Comments Anion Gap Estim Creat Clear Calc Estimated GFR Random Glucose Lactic Acid Calcium Total Bilirubin AST ALT Alkaline Phosphatase Total Protein Albumin COVID-19 (LOU) Negative COVID-19 Clin Com See Note Assessment and Plan (1) Cellulitis: Status: Acute Plan This is 81-year-old female with pertinent history of DEBBIE not on CPAP, pulmonary hypertension with right-sided heart failure, essential hypertension, atrial fibrillation on Eliquis who presents to the emergency department for evaluation fevers and chills. #. Sepsis due to right lower extremity cellulitis: Resuscitated with IV crystalloids in the ER. Initiated empiric IV antibiotics. Blood culture and lactic acid obtained. #. Acute lactic acidosis due to sepsis. #. DEBBIE not on CPAP #. Right-sided heart failure: Not decompensated on admission #. Atrial fibrillation on Eliquis #. Essential hypertension: Hold home antihypertensives in the setting of sepsis Med rec pending DVT prophylaxis: On Eliquis Full code Cardiac diet Admit as inpatient and will require two night minimum hospital stay for IV antibiotics Time Spent With Patient Time: Total time managing care of this patient today ____ minutes. Quality Stroke Does the patient have a stroke diagnosis?: No VTE Prior VTE?: No VTE Risk Level:: Medical - moderate - high VTE Device Contraindication: Treatment Not Indicated VTE Drug Contraindication: N/A - Med Ordered
[2022-09-09 02:01] LABS: Reflex Lactate? Lactic Acid Added
[2022-09-09] MEDS: diphenhydrAMINE HCL 25 MG CAPSULE 50 MG PO (02:15)
[2022-09-09] MEDS: Acetaminophen 325 MG TABLET 650 MG PO (02:15)
[2022-09-09 02:34] LABS: ~Lactic Acid-LAB USE ONLY 1.4 mmol/L (0.5-2.0)
[2022-09-09] MEDS: Albumin Human 25 % 100 ML IV ×2 (05:12→06:48)
--- NOTE | 2022-09-09 07:03 | PHA.PROG ---
Admission Date/Time: September 09, 2022 00:22 Indication: skin Weight in k.862 kg Adjusted body weight in Kg: [place] body weight in Kg: Obesity Dosing Indication % IBW: obesity model used Serum Creatinine - Last 168 Hours 09/08/22 23:55 Creatinine 0.93 Estimated CrCl and GFR - Last 168 Hours 09/08/22 23:55 Estim Creat Clear Calc 55.3 Estimated GFR 58 Vancomycin Loading Dose: 2000mg X 1 Current Vancomycin Dosing Regimen: 1000mg Q24H Vancomycin Monitoring using AUC goal of 400 - 600 range with trough as surrogate marker: 482mg/L Date and Time for next Vancomycin Level to be drawn: 09/11/22 @2100 Pharmacist Comments on Vancomycin Plan: obesity model being used, will continue to monitor renal function Vancomycin dosing will take advantage of [employer] as a clinical decision support tool that uses Bayesian modeling to calculate individual patient's pharmacokinetic parameters and forecast the patient's drug concentration time course with the target goal AUC 24 range of 400 - 600 mg/L/hr.
[2022-09-09 07:42] LABS: Basophils Percent Auto 0.1 % (0-2); Eosinophils Absolute Auto 0.1 X10*3/uL (0.0-0.4); Eosinophils Percent Auto 0.4 % (0-4); Hematocrit 42.1 % (37.0-47.0); Hemoglobin 13.1 g/dl (12.0-16.0); Imm Gran Abs Auto 0.11 X10*3/uL (0.00-0.03); Imm Gran Pct Auto 0.8 % (0.0-0.4); Lymphocytes Absolute Auto 0.5 X10*3/uL (1.2-4.9); Lymphocytes Percent Auto 3.4 % (20-40); Mean Corpuscular HGB Conc 31.1 g/dl (31.0-35.0); Mean Corpuscular Hemoglobin 28.1 pg (27.0-33.0); Mean Corpuscular Volume 90.1 fL (80.0-98.0); Mean Platelet Volume 12.3 fL (9.4-12.3); Monocytes Absolute Auto 0.6 X10*3/uL (0.1-1.2); Monocytes Percent Auto 4.4 % (2-11); Neutrophils Absolute Auto 12.7 x10*3/uL (2.0-8.3); Neutrophils Percent Auto 90.9 % (45-73); Platelet Count 148 X10*3/uL (160-400); Red Blood Count 4.67 X10*6/uL (4.20-5.50); Red Cell Distribution Width 14.9 % (11.0-16.0); SCAN SMEAR FLAG 1
--- NOTE | 2022-09-09 07:43 | PHA.MEDREC ---
Pharmacy Consult ? Medication Reconciliation Pharmacy has completed the medication reconciliation.
[2022-09-09] MEDS: Apixaban 5 MG TABLET PO ×2 (07:59→19:48)
[2022-09-09] MEDS: 0.9 % Sodium Chloride Flush 3 ML SYRINGE IVFLUSH ×2 (07:59→15:27)
[2022-09-09 08:00] LABS: Anion Gap 16 (12-20); Blood Urea Nitrogen 17 mg/dL (9-16); Calcium 8.6 mg/dL (8.4-10.2); Carbon Dioxide 22 mmol/L (22-29); Chloride 107 mmol/L (96-108); Creatinine Clr Calc Pharmacy 49.4; Estimated Glomerular Filt Rate 51; Glucose Random 119 mg/dL (60-115); Potassium 3.5 mmol/L (3.3-5.1); Sodium 141 mmol/L (135-145)
[2022-09-09 08:08] LABS: MANUAL DIFF FLAG SCAN
[2022-09-09] MEDS: predniSONE 20 MG TABLET 40 MG PO (09:34)
[2022-09-09] MEDS: diphenhydrAMINE HCL 50 MG/ML VIAL 25 MG IVPUSH (09:34)
--- NOTE | 2022-09-09 10:33 | MHC.CM.PN ---
CM ATTEMPTED TO CONTACT [facility] [employer] TO ASSIST IN MEETING WITH THIS PT CM CALLED [phone] X [phone] (1020 AND 1030) CM CALLED [phone] @ 1030 CM WILL TRY CALLING AGAIN AT A LATER TIME
--- NOTE | 2022-09-09 11:48 | PM.EVENT ---
Event Note Date of Service: 09/09/22 Event Note: 81-year-old female with pertinent history of DEBBIE not on CPAP, pulmonary hypertension with right-sided heart failure, essential hypertension, atrial fibrillation on Eliquis who presents to the emergency department for evaluation fevers and chills. Severe Sepsis due to right lower extremity cellulitis/red flat rash unknown etiology, no new medications, daughter stated that she had crab on Fever, tachycardia, leukocytosis, lactic acidosis erythema throughout body including trunk, legs, arms, present on admission Resuscitated with IV crystalloids in the ER for hypotension.? prednisone and benadryl scheduled CXR neg for consolidation ua and rpp pending Blood culture pending Acute lactic acidosis due to sepsis. DEBBIE not on CPAP Right-sided heart failure Not decompensated on admission Atrial fibrillation on Eliquis, BB and digoxin Essential hypertension Hold home antihypertensives in the setting of hypotension Morbid obesity. BMI 41.2 Discussed importance of weight management as this may be contributing to worsening of other comorbidities DVT prophylaxis:? On Eliquis Full code attending Dr. Rose continued hospital stay for IV antibiotics Time Spent With Patient Time: Total time managing care of this patient today ____ minutes.
[2022-09-09] MEDS: diphenhydrAMINE HCL 50 MG/ML VIAL 12.5 MG IVPUSH ×2 (12:07→17:41)
--- NOTE | 2022-09-09 15:20 | MHC.CM.PN ---
CM MET WITH PT, SON AND [id number] AT BEDSIDE PT LIVES WITH HER GRAND DAUGHTER WHO IS ALSO HER VIDEO EDITOR SHE USES A WALKER TO AMBULATE SHE DOES NOT KNOW THE NAME OF HER PCP AT [facility] SHE IS COVID [facility] HCP ON FILE IMM DELIVERED CURRENT DC PLAN IS HOME WITH RESUMPTION OF [employer]OR [employer] FAMILY TO TRANSPORT
[2022-09-09 15:30] LABS: Appearance Urine Cloudy; Color Urine Dark Yellow; Glucose Urine UA Negative (Negative); Leukocyte Esterase Urine Small (1+) (Negative); Nitrite Urine Negative (Negative); PH 5.5 (5.0-9.0); Specific Gravity - Urine >= 1.030 (1.005-1.025); UMIC TRIGGER UACC YES; Urine Blood Negative (Negative); Urine Ketones Trace mg/dL (Negative); Urine Protein 30 (1+) mg/dL (Neg-Trace)
[2022-09-09 15:54] LABS: Bacteria Urine 1+ (None Seen); Hyaline Casts Urine 0-2 /LPF (0-2); UACC Culture Trigger YES; WBC Urine 0-5 /HPF (0-5)
[2022-09-09] MEDS: Metoprolol Tartrate 50 MG TABLET PO (19:49)
[2022-09-09] MEDS: Pravastatin Sodium 10 MG TABLET PO (19:50)
[2022-09-09] MEDS: vancomycin HCL 1,000 MG in 0.9 % Sodium Chloride 250 ML 270 MG IV (23:28)
[2022-09-10 03:32] VITALS: BP 137/67; PULSE 78; RESP 18; TEMP 36.4; O2SAT 94
[2022-09-10] MEDS: diphenhydrAMINE HCL 50 MG/ML VIAL 12.5 MG IVPUSH ×2 (05:29→05:30)
[2022-09-10 06:28] LABS: Creatinine Clr Calc Pharmacy 50.3; Estimated Glomerular Filt Rate 52
--- NOTE | 2022-09-10 06:45 | HE.PHANOTE ---
RE Vanco Scr remained stabled around 1.02 today. Continue current dose. Next level dye 09/11 @2100 Osman
[2022-09-10 07:35] VITALS: BP 143/78; PULSE 96; RESP 18; TEMP 36.4; O2SAT 96
[2022-09-10 08:52] LABS: Adenovirus PCR Not Detected (Not Detect.); Bordetella parapertussis PCR Not Detected (Not Detect.); Bordetella pertussis PCR Not Detected (Not Detect.); Chlamydia pneumoniae PCR Not Detected (Not Detect.); Coronavirus 229E PCR Not Detected (Not Detect.); Coronavirus HKU1 PCR Not Detected (Not Detect.); Coronavirus NL63 PCR Not Detected (Not Detect.); Coronavirus OC43 PCR Not Detected (Not Detect.); Human metapneumovirus PCR Not Detected (Not Detect.); Influenza A PCR Not Detected (Not Detect.); Influenza B PCR Not Detected (Not Detect.); Mycoplasma pneumoniae PCR Not Detected (Not Detect.); Parainfluenza 1 PCR Not Detected (Not Detect.); Parainfluenza 2 PCR Not Detected (Not Detect.); Parainfluenza 3 PCR Not Detected (Not Detect.); Parainfluenza 4 PCR Not Detected (Not Detect.); RSV PCR Not Detected (Not Detect.); Rhino/Enterovirus PCR Not Detected (Not Detect.); SARS-CoV-2 PCR Not Detected (Not Detect.)
[2022-09-10] MEDS: predniSONE 20 MG TABLET 40 MG PO (08:53)
[2022-09-10] MEDS: Apixaban 5 MG TABLET PO ×2 (08:53→19:46)
[2022-09-10] MEDS: Metoprolol Tartrate 50 MG TABLET PO ×2 (08:53→19:46)
[2022-09-10] MEDS: Multivitamin TABLET 1 TAB PO (08:53)
[2022-09-10] MEDS: Cholecalciferol (Vitamin D3) 25 MCG TABLET PO (08:54)
[2022-09-10] MEDS: Digoxin 0.125 MG TABLET PO (08:58)
--- NOTE | 2022-09-10 11:04 | P.PNIM_ITS ---
Subjective Subjective Date of Service: 09/10/22 Review of Systems Follow up diffuse erythema to body no fever, chills, nausea, vomiting, diarrhea Physical Exam Vital Signs: Vital Signs: Last Vital Signs Temp 97.6 F 09/10/22 07:35 Pulse 96 09/10/22 07:35 Resp 18 09/10/22 07:35 BP 143/78 H 09/10/22 07:35 Pulse Ox 96 09/10/22 07:35 O2 Del Method 09/10/22 07:35 BMI result Body Mass Index 41.1 Appearing in no acute distress Erythema diffuse lung sounds are clear to auscultation heart regular rate rhythm, clear S1, S2 positive bowel sounds, abdomen is soft, nontender neuro patient is alert x3, no focal deficits Objective Data Active Medications Acetaminophen (Acetaminophen 325 Mg Tablet) 650 mg PO Q6H PRN PRN Reason: Pain, Mild (Pain Scale 1-3) Albuterol Sulfate (Albuterol Sulfate 90 Mcg 8 Gm Inhaler) 2 puff INHALE Q4H PRN PRN Reason: wheezing Apixaban (Apixaban 5 Mg Tablet) 5 mg PO BID [facility] Last Admin: 09/10/22 08:53 Dose: 5 mg Documented By: PARADISE Digoxin (Digoxin 0.125 Mg Tablet) 0.125 mg PO MoWeFr [facility] Last Admin: 09/10/22 08:58 Dose: 0.125 mg Documented By: PARADISE Diphenhydramine HCl (Diphenhydramine Hcl 50 Mg/Ml Vial) 50 mg IVPUSH Q6H [facility] Vancomycin HCl 1,000 mg/ (Sodium Chloride) 270 mls @ 270 mls/hr IV Q24H [facility] Last Infusion: 09/10/22 01:36 Dose: 0 mls/hr Documented By: JOSHUA Melatonin (Melatonin 3 Mg Tablet) 6 mg PO BEDTIME PRN PRN Reason: Insomnia Metoprolol Tartrate (Metoprolol Tartrate 50 Mg Tablet) 50 mg PO BID [facility]; Protocol Last Admin: 09/10/22 08:53 Dose: 50 mg Documented By: PARADISE Multivitamins/Vitamin C (Multivitamin Tablet) 1 tab PO DAILY [facility] Last Admin: 09/10/22 08:53 Dose: 1 tab Documented By: PARADISE Ondansetron HCl (Ondansetron Hcl 4 Mg/2 Ml Vial) 4 mg IVPUSH Q8H PRN PRN Reason: Nausea and Vomiting Pharmacy Consult (Consult Rx Vancomycin Dosing) 1 each MISCELLANE DAILY PRN PRN Reason: Consult order Pharmacy Consult (Consult Rx Perform Med Rec) 1 each MISCELLANE ONCE PRN PRN Reason: Consult order Pravastatin Sodium (Pravastatin Sodium 10 Mg Tablet) 10 mg PO BEDTIME [facility] Last Admin: 09/09/22 19:50 Dose: 10 mg Documented By: JOSHUA Prednisone (Prednisone 20 Mg Tablet) 40 mg PO DAILY [facility] Last Admin: 09/10/22 08:53 Dose: 40 mg Documented By: PARADISE Sodium Chloride (0.9 % Sodium Chloride Flush 3 Ml Syringe) 3 ml IVFLUSH QSHIFT [facility] Last Admin: 09/10/22 07:20 Dose: Not Given Documented By: PARADISE Non-Admin Reason: See Note Vitamin D (Cholecalciferol (Vitamin D3) 25 Mcg Tablet) 25 mcg PO DAILY [facility] Last Admin: 09/10/22 08:54 Dose: 25 mcg Documented By: PARADISE Labs 09/09/22 07:27 09/10/22 05:17 Labs: Laboratory Results - last 24 hr 09/09/22 09/09/22 09/10/22 15:35 Unknown 05:17 Estim Creat Clear Calc 50.3 Estimated GFR 52 Urine Color Dark Yellow Urine Appearance Cloudy Urine pH 5.5 Ur Specific [place] >= 1.030 H Urine Protein 30 (1+) H Urine Glucose (UA) Negative Urine Ketones Trace Urine Blood Negative Urine Nitrite Negative Ur Leukocyte Esterase Small (1+) H Urine RBC 3-5 H Urine WBC 0-5 Ur Squamous Epith Cells 6-10 Urine Bacteria 1+ Hyaline Casts 0-2 Respiratory Panel Ortega See Note Adenovirus (Rapid PCR) Not Detected B.pert (TEM-PCR) Not Detected B.parapertussis DNA PCR Not Detected C. pneumoniae DNA (PCR) Not Detected Coronavirus OC43 (PCR) Not Detected Coronavirus HKU1 (PCR) Not Detected Coronavirus 229E (PCR) Not Detected Coronavirus NL63 (PCR) Not Detected Human Metapneumovir PCR Not Detected Influenza A (RT-PCR) Not Detected Influenza B (RT-PCR) Not Detected M. pneumoniae (PCR) Not Detected Parainfluenza 1 (PCR) Not Detected Parainfluenza 2 (PCR) Not Detected Parainfluenza 3 (PCR) Not Detected Parainfluenza 4 (PCR) Not Detected RSV (PCR) Not Detected Entero/Rhino (PCR) Not Detected SARS-CoV-2 RNA (RT-PCR) Not Detected Microbiology Microbiology Results: Microbiology 09/09/22 Unknown Urine Culture - Preliminary Urine clean catch - Urine barrera top No growth to date. 09/08/22 23:55 Blood Culture - Preliminary Blood - Venous No growth after 24 hours. 09/08/22 23:55 Blood Culture - Preliminary Blood - Venous No growth after 24 hours. Assessment and Plan (1) Sepsis: Status: Acute Plan 81-year-old female with pertinent history of DEBBIE not on CPAP, pulmonary hypertension with right-sided heart failure, essential hypertension, atrial fibrillation on Eliquis who presents to the emergency department for evaluation fevers and chills. Severe Sepsis/red flat rash. resolved unknown etiology likely viral, no new medications, daughter stated that she had crab on Fever, tachycardia, leukocytosis, lactic acidosis erythema throughout body including trunk, legs, arms, present on admission Resuscitated with IV crystalloids in the ER for hypotension.? prednisone and benadryl scheduled CXR neg for consolidation ua and rpp neg Blood culture neg initially tx with vanco, stopped ID consult DEBBIE not on CPAP Right-sided heart failure Not decompensated on admission Atrial fibrillation on Eliquis, BB and digoxin Essential hypertension Hold home antihypertensives in the setting of? hypotension Morbid obesity.? BMI 41.2 Discussed importance of weight management as this may be contributing to worsening of other comorbidities DVT prophylaxis:? On Eliquis Full code attending Dr. Cardenas continued? hospital stay for IV antibiotics Time Spent With Patient Time: Total time managing care of this patient today ____ minutes. Quality Stroke Does the patient have a stroke diagnosis?: No VTE Prior VTE?: No VTE Risk Level:: Medical - moderate - high VTE Device Contraindication: Treatment Not Indicated VTE Drug Contraindication: N/A - Med Ordered
[2022-09-10] MEDS: diphenhydrAMINE HCL 50 MG/ML VIAL IVPUSH ×3 (11:20→22:38)
--- NOTE | 2022-09-10 11:45 | P.CDIM_ITS ---
PROVIDER RESPONSE TEXT: To clarify, the appropriate diagnosis supported by the clinical indicators: Paroxysmal atrial fibrillation QUERY TEXT: PHYSICIAN'S DOCUMENTATION REQUEST Date of Query: 09/10/2022 10:40 AM EDT Patient Name: Nicole Walters Admit Date: 09/09/2022 Dear Desiree Zamarripa, A review of the medical record indicates additional documentation may be needed. Please review below and update the documentation accordingly. Clinical Indicators: Per provider H&P and event note: PMH: AFIB Atrial fibrillation on Eliquis, BB and digoxin ECG on 09/09: AFIB Medications: -Eliquis -Digoxin If possible, please provide further specificity regarding atrial fibrillation, such as: Paroxysmal atrial fibrillation Persistent atrial fibrillation Chronic or permanent atrial fibrillation Other Other (explain) Clinically unable to determine (explain) Thank you, Светлана Arevalo MS, RN, CCRN Use of terms such as suspected, likely, concern for, or probable (associated with a specific diagnosi s that is being evaluated, monitored, or treated as if it exists) are acceptable and can be coded in the inpatient se tting, when documented at the time of discharge. Please use your independent medical judgment in providing your response. THIS QUERY IS PART OF THE PERMANENT MEDICAL RECORD
--- NOTE | 2022-09-10 14:42 | MHC.CM.PN ---
PT NOT YET MEDICALLY CLEARED DCP REMAINS HOME WITH RESUMPTION OF [employer]E POUNDER [employer]IA FAMILY TRANSPORT
[2022-09-10 15:24] VITALS: BP 140/68; PULSE 90; RESP 19; TEMP 36.7; O2SAT 95
[2022-09-10] MEDS: 0.9 % Sodium Chloride Flush 3 ML SYRINGE IVFLUSH ×2 (15:38→23:42)
--- NOTE | 2022-09-10 16:34 | P.CNID_ITS ---
History of Present Illness Data of Consult Service Date: 09/10/22 Requesting physician: Desiree Zamarripa Primary Care Provider: Unknown Physician HPI Reason for consult: rash She presents with redness RLE initially and then developed rash next day over back ,buttocks and legs. She initially had fever as well before admission. She denies new medication. Review of Systems Review of Systems: Yes all other systems are reviewed and are negative PMFSH Past Medical History Medical History Atherosclerosis Chronic diastolic CHF (congestive heart failure) HTN (hypertension) New onset a-fib Obesity DEBBIE (obstructive sleep apnea) Osteoarthritis Osteoporosis RVF (right ventricular failure) Varicose veins of bilateral lower extremities with pain Family History Family History Son CAD (coronary artery disease) Mother CAD (coronary artery disease) Family history: reviewed and not pertinent Surgical History Surgical History Status post left knee replacement Social History Social History Household Members: Family Housing: Apartment Are you a primary chiropractic care to a significant other at home: No Alcohol intake: never Patient Tobacco Use Status: Never used Tobacco Advance Directives Date on File: 10/25/21 service: No Current occupational status: retired and disabled Meds Allergies Allergy/AdvReac Type Severity Reaction Status Date / Time Penicillins [PENICILLINS] AdvReac Unknown STOMACH Verified 07/02/22 14:23 UPSET Active Medications: Current Medications Acetaminophen (Acetaminophen 325 Mg Tablet) 650 mg PO Q6H PRN PRN Reason: Pain, Mild (Pain Scale 1-3) Albuterol Sulfate (Albuterol Sulfate 90 Mcg 8 Gm Inhaler) 2 puff INHALE Q4H PRN PRN Reason: wheezing Apixaban (Apixaban 5 Mg Tablet) 5 mg PO BID [facility] [place] Last Admin: 09/10/22 08:53 Dose: 5 mg Digoxin (Digoxin 0.125 Mg Tablet) 0.125 mg PO MoWeFr [facility] [place] Last Admin: 09/10/22 08:58 Dose: 0.125 mg Diphenhydramine HCl (Diphenhydramine Hcl 50 Mg/Ml Vial) 50 mg IVPUSH Q6H [facility] [place] Last Admin: 09/10/22 11:20 Dose: 50 mg Vancomycin HCl 1,000 mg/ (Sodium Chloride) 270 mls @ 270 mls/hr IV Q24H [facility] [place] Last Infusion: 09/10/22 01:36 Dose: Infused Melatonin (Melatonin 3 Mg Tablet) 6 mg PO BEDTIME PRN PRN Reason: Insomnia Metoprolol Tartrate (Metoprolol Tartrate 50 Mg Tablet) 50 mg PO BID [facility] [place]; Protocol Last Admin: 09/10/22 08:53 Dose: 50 mg Multivitamins/Vitamin C (Multivitamin Tablet) 1 tab PO DAILY [facility] [place] Last Admin: 09/10/22 08:53 Dose: 1 tab Ondansetron HCl (Ondansetron Hcl 4 Mg/2 Ml Vial) 4 mg IVPUSH Q8H PRN PRN Reason: Nausea and Vomiting Pharmacy Consult (Consult Rx Vancomycin Dosing) 1 each MISCELLANE DAILY PRN PRN Reason: Consult order Pharmacy Consult (Consult Rx Perform Med Rec) 1 each MISCELLANE ONCE PRN PRN Reason: Consult order Pravastatin Sodium (Pravastatin Sodium 10 Mg Tablet) 10 mg PO BEDTIME [facility] [place] Last Admin: 09/09/22 19:50 Dose: 10 mg Prednisone (Prednisone 20 Mg Tablet) 40 mg PO DAILY [facility] [place] Last Admin: 09/10/22 08:53 Dose: 40 mg Sodium Chloride (0.9 % Sodium Chloride Flush 3 Ml Syringe) 3 ml IVFLUSH QSHIFT [facility] [place] Last Admin: 09/10/22 15:38 Dose: 3 ml Vitamin D (Cholecalciferol (Vitamin D3) 25 Mcg Tablet) 25 mcg PO DAILY [facility] [place] Last Admin: 09/10/22 08:54 Dose: 25 mcg Home Medications Medication Instructions Recorded Confirmed Last Taken Type acetaminophen 650 mg 650 mg PO Q8H PRN Pain (Scale 03/20/21 09/09/22 10/22/21 History tablet,extended release (Mapap Score 1-3) Arthritis Pain) cholecalciferol (vitamin D3) 25 25 mcg PO DAILY 03/20/21 09/09/22 10/22/21 Histo ry mcg (1,000 unit) capsule furosemide 40 mg tablet 40 mg PO DAILY 03/20/21 09/09/22 10/23/21 History pravastatin 10 mg tablet 10 mg PO BEDTIME 03/20/21 09/09/22 10/22/21 History albuterol sulfate 90 mcg/actuation 2 puff inhalation Q4-6H PRN 10/23/21 09/09/22 10/22/21 History aerosol inhaler wheezing multivitamin-ferrous 1 tab PO DAILY 10/23/21 09/09/22 10/22/21 History fumarate-folic acid 18 mg-400 mcg tablet (Spectravite Adult) lisinopril 10 mg tablet 10 mg PO DAILY 12/04/21 09/09/22 Unknown History amlodipine 5 mg tablet 5 mg PO DAILY 07/02/22 09/09/22 Unknown History Physical Exam Vital Signs: Vital Signs: Last Vital Signs Temp 98.0 F 09/10/22 15:24 Pulse 90 09/10/22 15:24 Resp 19 09/10/22 15:24 BP 140/68 H 09/10/22 15:24 Pulse Ox 95 09/10/22 15:24 O2 Del Method 09/10/22 15:24 BMI result Body Mass Index 41.1 Const: General: cooperative HEENT: Head: Yes normal to inspection Face and sinus: Yes normal facial exam Mouth: Normal oral and palatal mucosa present Teeth and gingiva: dentition normal Eyes: General: appearance normal, both eyes and all related structures Pupils: Equal, round and reactive pupils present Resp: Effort & Inspection: normal respiratory effort Cardio: Rate: regular rate Rhythm: regular rhythm GI: Palpation (GI): Soft to palpation and nontender : General: Yes no CVA tenderness Back/Spine/Pelvis: Back: no CVA tenderness Skin: Other: erythroderma body generalized Neuro: General: moves all extremities Cranial nerves: Yes Equal, round and reactive pupils present Extrem: General: Yes normal to inspection Psych: Appearance: grossly normal Results Labs 09/09/22 07:27 09/10/22 05:17 Labs: BMP 09/10/22 05:17 Creatinine 1.02 Microbiology Microbiology Results: Microbiology 09/09/22 Unknown Urine clean catch - Urine barrera top Urine Culture - Preliminary No growth to date. 09/08/22 23:55 Blood - Venous Blood Culture - Preliminary No growth after 24 hours. 09/08/22 23:55 Blood - Venous Blood Culture - Preliminary No growth after 24 hours. Assessment and Plan (1) Sepsis: Status: Acute likely started gram positive such as staph or strep and now cellulitis leg possible erythroderma spread of erythema due to allergy to Vancomycin or dennise syndrome multifactoral contribution (2) Cellulitis: Status: Acute Plan Stop Vancomycin Continue Prednisone Po Doxycycline seven day Biopsy if not improving or has hypotension. Time Spent With Patient Time: Total time managing care of this patient today ____ minutes.
[2022-09-10] MEDS: Doxycycline Monohydrate 100 MG CAPSULE PO (17:35)
[2022-09-10 19:39] VITALS: BP 140/89; PULSE 106; RESP 19; TEMP 36.8; O2SAT 94
[2022-09-10] MEDS: Pravastatin Sodium 10 MG TABLET PO (19:46)
[2022-09-11] MEDS: Acetaminophen 325 MG TABLET 650 MG PO (01:01)
[2022-09-11 03:40] VITALS: BP 161/91; PULSE 88; RESP 17; TEMP 36.4; O2SAT 93
[2022-09-11] MEDS: diphenhydrAMINE HCL 50 MG/ML VIAL IVPUSH ×3 (05:30→16:18)
[2022-09-11] MEDS: Doxycycline Monohydrate 100 MG CAPSULE PO ×2 (05:30→18:24)
[2022-09-11 06:49] LABS: Creatinine Clr Calc Pharmacy 51.3; Estimated Glomerular Filt Rate 53
[2022-09-11 07:29] VITALS: BP 173/89; PULSE 91; RESP 18; TEMP 36.7; O2SAT 93
[2022-09-11] MEDS: Cholecalciferol (Vitamin D3) 25 MCG TABLET PO (10:27)
[2022-09-11] MEDS: predniSONE 20 MG TABLET 40 MG PO (10:27)
[2022-09-11] MEDS: Multivitamin TABLET 1 TAB PO (10:27)
[2022-09-11] MEDS: Apixaban 5 MG TABLET PO ×2 (10:28→19:56)
[2022-09-11] MEDS: Metoprolol Tartrate 50 MG TABLET PO ×2 (10:28→19:56)
--- NOTE | 2022-09-11 10:58 | P.PNIM_ITS ---
Subjective Subjective Date of Service: 09/11/22 Review of Systems Follow up diffuse erythema to body no fever, chills, nausea, vomiting, diarrhea Physical Exam Vital Signs: Vital Signs: Last Vital Signs Temp 98.0 F 09/11/22 07:29 Pulse 91 09/11/22 07:29 Resp 18 09/11/22 07:29 BP 173/89 H 09/11/22 07:29 Pulse Ox 93 09/11/22 07:29 O2 Del Method 09/11/22 07:29 BMI result Body Mass Index 41.1 Appearing in no acute distress lung sounds are clear to auscultation heart regular rate rhythm, clear S1, S2 positive bowel sounds, abdomen is soft, nontender neuro patient is alert x3, no focal deficits Objective Data Active Medications Acetaminophen (Acetaminophen 325 Mg Tablet) 650 mg PO Q6H PRN PRN Reason: Pain, Mild (Pain Scale 1-3) Last Admin: 09/11/22 01:01 Dose: 650 mg Documented By: MARQUIS Albuterol Sulfate (Albuterol Sulfate 90 Mcg 8 Gm Inhaler) 2 puff INHALE Q4H PRN PRN Reason: wheezing Apixaban (Apixaban 5 Mg Tablet) 5 mg PO BID [facility] Last Admin: 09/11/22 10:28 Dose: 5 mg Documented By: MARKELL Digoxin (Digoxin 0.125 Mg Tablet) 0.125 mg PO MoWeFr [facility] Last Admin: 09/10/22 08:58 Dose: 0.125 mg Documented By: PARADISE Diphenhydramine HCl (Diphenhydramine Hcl 50 Mg/Ml Vial) 50 mg IVPUSH Q6H [facility] Last Admin: 09/11/22 10:28 Dose: 50 mg Documented By: MARKELL Doxycycline Monohydrate (Doxycycline Monohydrate 100 Mg Capsule) 100 mg PO Q12H [facility] Last Admin: 09/11/22 05:30 Dose: 100 mg Documented By: MARQUIS Melatonin (Melatonin 3 Mg Tablet) 6 mg PO BEDTIME PRN PRN Reason: Insomnia Metoprolol Tartrate (Metoprolol Tartrate 50 Mg Tablet) 50 mg PO BID [facility]; Protocol Last Admin: 09/11/22 10:28 Dose: 50 mg Documented By: MARKELL Multivitamins/Vitamin C (Multivitamin Tablet) 1 tab PO DAILY [facility] Last Admin: 09/11/22 10:27 Dose: 1 tab Documented By: MARKELL Ondansetron HCl (Ondansetron Hcl 4 Mg/2 Ml Vial) 4 mg IVPUSH Q8H PRN PRN Reason: Nausea and Vomiting Pharmacy Consult (Consult Rx Vancomycin Dosing) 1 each MISCELLANE DAILY PRN PRN Reason: Consult order Pharmacy Consult (Consult Rx Perform Med Rec) 1 each MISCELLANE ONCE PRN PRN Reason: Consult order Pravastatin Sodium (Pravastatin Sodium 10 Mg Tablet) 10 mg PO BEDTIME [facility] Last Admin: 09/10/22 19:46 Dose: 10 mg Documented By: HEIDI Prednisone (Prednisone 20 Mg Tablet) 40 mg PO DAILY [facility] Last Admin: 09/11/22 10:27 Dose: 40 mg Documented By: MARKELL Sodium Chloride (0.9 % Sodium Chloride Flush 3 Ml Syringe) 3 ml IVFLUSH QSHIFT [facility] Last Admin: 09/11/22 07:13 Dose: Not Given Documented By: TRUMAN-KARMA Non-Admin Reason: See Note Vitamin D (Cholecalciferol (Vitamin D3) 25 Mcg Tablet) 25 mcg PO DAILY [facility] Last Admin: 09/11/22 10:27 Dose: 25 mcg Documented By: MARKELL Labs 09/09/22 07:27 09/11/22 05:42 Labs: Laboratory Results - last 24 hr 09/11/22 05:42 Estim Creat Clear Calc 51.3 Estimated GFR 53 Microbiology Microbiology Results: Microbiology 09/09/22 Unknown Urine Culture - Final Urine clean catch - Urine barrera top 09/08/22 23:55 Blood Culture - Preliminary Blood - Venous No growth after 48 hours. 09/08/22 23:55 Blood Culture - Preliminary Blood - Venous No growth after 48 hours. Assessment and Plan (1) Sepsis: Status: Acute Plan 81-year-old female with pertinent history of DEBBIE not on CPAP, pulmonary hypertension with right-sided heart failure, essential hypertension, atrial f ibrillation on Eliquis who presents to the emergency department for evaluation fevers and chills. Severe Sepsis/red flat rash. Sepsis resolved, rash improving unknown etiology likely viral, no new medications, daughter stated that she had crab on Fever, tachycardia, leukocytosis, lactic acidosis erythema throughout body including trunk, legs, arms, present on admission Resuscitated with IV crystalloids in the ER for hypotension.? prednisone and benadryl scheduled CXR neg for consolidation ua and rpp neg Blood culture neg initially tx with vanco, stopped and started doxycycline 2/ ID following DEBBIE not on CPAP Right-sided heart failure Not decompensated on admission Atrial fibrillation on Eliquis, BB and digoxin Essential hypertension Hold home antihypertensives in the setting of? hypotension Morbid obesity.? BMI 41.2 Discussed importance of weight management as this may be contributing to worsening of other comorbidities DVT prophylaxis:? On Eliquis Full code attending Dr. Cardenas continued? hospital stay for IV antibiotics Time Spent With Patient Time: Total time managing care of this patient today ____ minutes. Quality Stroke Does the patient have a stroke diagnosis?: No VTE Prior VTE?: No VTE Risk Level:: Medical - moderate - high VTE Device Contraindication: Treatment Not Indicated VTE Drug Contraindication: N/A - Med Ordered
[2022-09-11 13:00] VITALS: BP 135/86
[2022-09-11 15:24] VITALS: BP 152/88; PULSE 90; RESP 15; TEMP 36.3; O2SAT 93
[2022-09-11 19:29] VITALS: BP 139/93; PULSE 116; RESP 16; TEMP 37.1; O2SAT 95
[2022-09-11] MEDS: Melatonin 3 MG TABLET 6 MG PO (19:57)
[2022-09-11] MEDS: Pravastatin Sodium 10 MG TABLET PO (19:57)
[2022-09-11 21:40] LABS: Vancomycin Trough 4.9 mcg/mL (10.0-20.0)
[2022-09-12] MEDS: diphenhydrAMINE HCL 50 MG/ML VIAL IVPUSH ×3 (00:11→11:14)
[2022-09-12] MEDS: 0.9 % Sodium Chloride Flush 3 ML SYRINGE IVFLUSH ×2 (00:11→08:53)
[2022-09-12 03:59] VITALS: BP 143/91; PULSE 95; RESP 17; TEMP 36.2; O2SAT 97
[2022-09-12] MEDS: Doxycycline Monohydrate 100 MG CAPSULE PO (05:41)
--- NOTE | 2022-09-12 06:48 | PC.NURSE ---
0630 patient alerted staff to bedside for feeling some nausea, vomited very small amount of yellow bile colored liquid, sat at bed edge until subsided. mouth care provided and 2 assist BTB, no further n/v and will monitor closely and report to day RN with report.
[2022-09-12 06:54] LABS: Creatinine Clr Calc Pharmacy 50.3; Estimated Glomerular Filt Rate 52
[2022-09-12 07:29] VITALS: BP 168/99; PULSE 96; RESP 18; TEMP 36.4; O2SAT 93
[2022-09-12] MEDS: predniSONE 20 MG TABLET 40 MG PO (08:47)
[2022-09-12] MEDS: Metoprolol Tartrate 50 MG TABLET PO (08:47)
[2022-09-12] MEDS: Apixaban 5 MG TABLET PO (08:47)
[2022-09-12] MEDS: Cholecalciferol (Vitamin D3) 25 MCG TABLET PO (08:47)
[2022-09-12] MEDS: Multivitamin TABLET 1 TAB PO (08:47)
[2022-09-12] MEDS: Digoxin 0.125 MG TABLET PO (08:53)
--- NOTE | 2022-09-12 13:14 | P.PNIM_ITS ---
Subjective Subjective Date of Service: 09/12/22 Review of Systems Follow up diffuse erythema to body slowly improving no fever, chills, nausea, vomiting, diarrhea Physical Exam Vital Signs: Vital Signs: Last Vital Signs Temp 97.6 F 09/12/22 07:29 Pulse 96 09/12/22 07:29 Resp 18 09/12/22 07:29 BP 168/99 H 09/12/22 07:29 Pulse Ox 93 09/12/22 07:29 O2 Del Method 09/12/22 07:29 BMI result Body Mass Index 41.1 Appearing in no acute distress lung sounds are clear to auscultation heart regular rate rhythm, clear S1, S2 positive bowel sounds, abdomen is soft, nontender neuro patient is alert x3, no focal deficits Objective Data Active Medications Acetaminophen (Acetaminophen 325 Mg Tablet) 650 mg PO Q6H PRN PRN Reason: Pain, Mild (Pain Scale 1-3) Last Admin: 09/11/22 01:01 Dose: 650 mg Documented By: MARQUIS Albuterol Sulfate (Albuterol Sulfate 90 Mcg 8 Gm Inhaler) 2 puff INHALE Q4H PRN PRN Reason: wheezing Apixaban (Apixaban 5 Mg Tablet) 5 mg PO BID REPLACED BY [facility] Last Admin: 09/12/22 08:47 Dose: 5 mg Documented By: DWIGHT Digoxin (Digoxin 0.125 Mg Tablet) 0.125 mg PO MoWeFr REPLACED BY [facility] Last Admin: 09/12/22 08:53 Dose: 0.125 mg Documented By: DWIGHT Diphenhydramine HCl (Diphenhydramine Hcl 50 Mg/Ml Vial) 50 mg IVPUSH Q6H REPLACED BY [facility] Last Admin: 09/12/22 11:14 Dose: 50 mg Documented By: DWIGHT Doxycycline Monohydrate (Doxycycline Monohydrate 100 Mg Capsule) 100 mg PO Q12H REPLACED BY [facility] Last Admin: 09/12/22 05:41 Dose: 100 mg Documented By: MARQUIS Melatonin (Melatonin 3 Mg Tablet) 6 mg PO BEDTIME PRN PRN Reason: Insomnia Last Admin: 09/11/22 19:57 Dose: 6 mg Documented By: CHIP Metoprolol Tartrate (Metoprolol Tartrate 50 Mg Tablet) 50 mg PO BID [facility]PL[facility]ED BY [facility]; Protocol Last Admin: 09/12/22 08:47 Dose: 50 mg Documented By: DWIGHT Multivitamins/Vitamin C (Multivitamin Tablet) 1 tab PO DAILY [facility]PLACED [facility] Last Admin: 09/12/22 08:47 Dose: 1 tab Documented By: DWIGHT Ondansetron HCl (Ondansetron Hcl 4 Mg/2 Ml Vial) 4 mg IVPUSH Q8H PRN PRN Reason: Nausea and Vomiting Pharmacy Consult (Consult Rx Perform Med Rec) 1 each MISCELLANE ONCE PRN PRN Reason: Consult order Pravastatin Sodium (Pravastatin Sodium 10 Mg Tablet) 10 mg PO BEDTIME REPLACED BY [facility] Last Admin: 09/11/22 19:57 Dose: 10 mg Documented By: CHIP Prednisone (Prednisone 20 Mg Tablet) 40 mg PO DAILY REPLACED BY [facility] Last Admin: 09/12/22 08:47 Dose: 40 mg Documented By: DWIGHT Sodium Chloride (0.9 % Sodium Chloride Flush 3 Ml Syringe) 3 ml IVFLUSH QSHIFT REPLACED BY [facility] Last Admin: 09/12/22 08:53 Dose: 3 ml Documented By: DWIGHT Vitamin D (Cholecalciferol (Vitamin D3) 25 Mcg Tablet) 25 mcg PO DAILY REPLACED BY [facility] Last Admin: 09/12/22 08:47 Dose: 25 mcg Documented By: DWIGHT Labs 09/09/22 07:27 09/12/22 06:00 Labs: Laboratory Results - last 24 hr 09/11/22 09/12/22 20:58 06:00 Estim Creat Clear Calc 50.3 Estimated GFR 52 Vancomycin Trough 4.9 L Assessment and Plan (1) Sepsis: Status: Acute Plan 81-year-old female with pertinent history of DEBBIE not on CPAP, pulmonary hypertension with right-sided heart failure, essential hypertension, atrial fibrillation on Eliquis who presents to the emergency department for evaluation fevers and chills. Severe Sepsis/red flat rash. Sepsis resolved, slowly improving unknown etiology likely viral, no new medications erythema throughout body including trunk, legs, arms, present on admission Resuscitated with IV crystalloids in the ER for hypotension.? prednisone and benadryl scheduled, plan for taper on dc of prednisone CXR neg for consolidation ua and rpp neg Blood culture neg initially tx with vanco, stopped and started doxycycline 3/ ID following DEBBIE not on CPAP Right-sided heart failure Not decompensated on admission Atrial fibrillation on Eliquis, BB and digoxin Essential hypertension Hold home antihypertensives in the setting of? hypotension Morbid obesity.? BMI 41.2 Discussed importance of weight management as this may be contributing to worsening of other comorbidities DVT prophylaxis:? On Eliquis Full code attending Dr. Cardenas continued? hospital stay for IV antibiotics Time Spent With Patient Time: Total time managing care of this patient today ____ minutes. Quality Stroke Does the patient have a stroke diagnosis?: No VTE Prior VTE?: No VTE Risk Level:: Medical - moderate - high VTE Device Contraindication: Treatment Not Indicated VTE Drug Contraindication: N/A - Med Ordered
--- NOTE | 2022-09-12 14:58 | PM.DS ---
DS: Providers Provider Date of Service: 09/12/22 Date of admission: 09/09/22 00:22 Primary care physician: Unknown Physician Consults: 09/10/22 09:02 Consult to Infectious Diseases Routine Consulting Provider: [facility] Infectious Disease Reason for consultation: skin erythema Has provider been notified: No Attending physician on discharge: Raji Cardenas Discharging clinician: Desiree Zamarripa DS: Diagnosis Discharge Diagnosis (1) Sepsis: Status: Acute DS: Summary Hospital Course Hospital Course: HP as per admitting provider This is 81-year-old female with pertinent history of DEBBIE not on CPAP, pulmonary hypertension with right-sided heart failure, essential hypertension, atrial fibrillation on Eliquis who presents to the emergency department for evaluation fevers and chills.? Patient states she started having fever and chills yesterday.? Also noticed redness to the right lower extremity which progressed.? Has associated warmth and tenderness.? No discharge.? Patient also has been having associated generalized weakness.? No chest discomfort, palpitations, shortness of breath, abdominal pain, changes in urinary bowel habits.? No nausea vomiting. In the emergency department, patient was found to be septic and given empiric IV antibiotics . Severe Sepsis/red flat rash with pruritis from possible erythroderma unknown etiology likely viral, no new medications, no recent travel erythema throughout body including trunk, legs, arms, present on admission Resuscitated with IV crystalloids in the ER for hypotension which resolved prednisone and benadryl scheduled with good effect CXR neg for consolidation, ua and rpp neg, Blood culture neg, no obvious infection initially tx with vanco, stopped and started doxycycline, complete total 10 days if related to staph or strep, less likely Discussed with ID, Dr. Ruano, continue prednisone taper and abx, follow with PCP if persistant or worsening, pruritis resolved use benadryl prn for pruritis unscneted cream or lotion to dry areas DEBBIE not on CPAP Right-sided heart failure Not decompensated on admission Atrial fibrillation on Eliquis, BB and digoxin Essential hypertension continue home medications Morbid obesity.? BMI 41.2 Discussed importance of weight management as this may be contributing to worsening of other comorbidities Time Spent with Patient Time attestation: Total time managing care of this patient today ____ minutes. Discharge coordination time: Greater than 30 minutes Quality: Safe Use of Opioids Does Pt have an Active Cancer Diagnosis on the Problem List?: No Quality: Stroke Does the patient have a stroke diagnosis?: No Physical Exam Vital Signs: Vital Signs: Last Vital Signs Temp 97.6 F 09/12/22 07:29 Pulse 96 09/12/22 07:29 Resp 18 09/12/22 07:29 BP 168/99 H 09/12/22 07:29 Pulse Ox 93 09/12/22 07:29 O2 Del Method 09/12/22 07:29 BMI result Body Mass Index 41.1 Appearing in no acute distress head is normocephalic atraumatic eyes pupils are PERRLA sclera is anicteric mouth throat mucous membranes are intact and moist neck is supple no lymphadenopathy, no JVD noted lung sounds are clear to auscultation heart regular rate rhythm, clear S1, S2 positive bowel sounds, abdomen is soft, nontender neuro patient is alert x3, no focal deficits improving erythemoutous rash discharge Admission DS: Data Data Completed and Pending Labs on day of discharge: Laboratory Results - last 24 hr 09/11/22 09/12/22 20:58 06:00 Creatinine 1.02 Estim Creat Clear Calc 50.3 Estimated GFR 52 Vancomycin Trough 4.9 L Preliminary micro results at discharge 09/08/22 23:55 Blood Culture - Preliminary Blood - Venous No growth after 48 hours. 09/08/22 23:55 Blood Culture - Preliminary Blood - Venous No growth after 48 hours. Discharge Plan Discharge Anticipated Discharge Date/Time: 09/12/22 14:45 Patient Disposition: Home, Self-Care Discharge Diagnosis: Erythroderma-unknown cause, possible red man syndrome from vancomycin vs staph vs strep virus severe sepsis Discharge Medications: New doxycycline monohydrate 100 mg Capsule 100 mg PO Q12H Qty: 10 0RF prednisone 10 mg tablet See Taper PO DAILY Qty: 30 0RF Taper: Prednisone 40 mg daily for 3 Days and 0 Hour 30 mg daily for 3 Days and 0 Hour 20 mg daily for 3 Days and 0 Hour 10 mg daily for 3 Days and 0 Hour Continued digoxin 125 mcg (0.125 mg) tablet 125 mcg PO .mwf Qty: 60 3RF Rx Instructions: Take 1 tab on Saturday, Saturday, and Saturday. albuterol sulfate 90 mcg/actuation HFA aerosol inhaler 2 puff inhalation Q4-6H PRN (Reason: wheezing) Spectravite Adult 18-400 mg-mcg tablet 1 tab PO DAILY cholecalciferol (vitamin D3) 25 mcg (1,000 unit) capsule 25 mcg PO DAILY pravastatin 10 mg tablet 10 mg PO BEDTIME furosemide 40 mg tablet 40 mg PO DAILY acetaminophen [Mapap Arthritis Pain] 650 mg tablet extended release 650 mg PO Q8H PRN (Reason: Pain (Scale Score 1-3)) lisinopril 10 mg tablet 10 mg PO DAILY amlodipine 5 mg tablet 5 mg PO DAILY Eliquis 5 mg tablet 5 mg PO BID Qty: 60 5RF metoprolol tartrate 50 mg tablet 50 mg PO BID Qty: 60 5RF Discharge Orders: Discharge Order (Routine); Ordered 09/12/22 Ordered By: Desiree Zamarripa Diet: Advance to usual diet Activity on Discharge: As tolerated Stand Alone Forms: Patient Portal Discharge page Care Plan Goals: complete resolution of symptoms Health Concerns: Erythroderma-unknown cause, possible red man syndrome from vancomycin vs staph vs strep virus severe sepsis Plan of Treatment: Follow up with primary care provider if symptoms persist or worsen Take all medications as prescribed May use unscented topical cream or lotion to dry spots May use over the counter benadryl as needed for itchiness Assessment: see discharge summary
--- NOTE | 2022-09-12 15:35 | MHC.CM.PN ---
PLAN WAS FOR DC WEDNESDAY 09/13 PATIENT IS NOW DC HOME WITH RESUMPTION OF HER REGISTER IN [employer] IMM 09/12 IN CHART PATIENT STATES THAT FAMILY WILL PICK HER UP
--- NOTE | 2022-09-21 23:36 | PC.NURSE ---
SEPSIS PEER REVIEW ADJUSTMENT Documentation reflects antibiotic administration at 09/08 @2353 and culture draw at 2355. Cultures were drawn with the insertion of the IV in the left AC. Antibiotics were administered as soon as possible after the IV was placed to ensure compliance with sepsis protocol. Cultures were scanned minutes later. Antibiotics were administered as soon as possible after the IV was placed. Cultures were drawn at approximately 23:50. Ceftriaxone administered at 23:53. I attempted to backdate times but was unable to do so.
== END 2022-09-12 16:41 | disposition home or self-care (01) | DRG 872 ==
LOC: HO.ED 09-09 00:21 → HO.EDOVER 09-09 00:52 → HO.S3 09-09 03:53
PROVIDERS: Admitting Provider Student in an Organized Health Care Education/Training Program; Emergency Provider Internal Medicine; PCP Internal Medicine Geriatric Medicine; Visit Provider Nurse Practitioner Acute Care
DX: A41.9 Sepsis, unspecified organism (principal); L03.115 Cellulitis of right lower limb; I50.32 Chronic diastolic (congestive) heart failure; E87.21 Acute metabolic acidosis; Z68.41 Body mass index [BMI] 40.0-44.9, adult; R65.20 Severe sepsis without septic shock; I48.0 Paroxysmal atrial fibrillation; E66.01 Morbid (severe) obesity due to excess calories; I11.0 Hypertensive heart disease with heart failure; L27.0 Generalized skin eruption due to drugs and medicaments taken internally; T36.8X5A Adverse effect of other systemic antibiotics, initial encounter; I27.29 Other secondary pulmonary hypertension; I50.812 Chronic right heart failure; G47.33 Obstructive sleep apnea (adult) (pediatric); Z20.822 Contact with and (suspected) exposure to COVID-19; Z88.0 Allergy status to penicillin; Z79.01 Long term (current) use of anticoagulants; Z79.899 Other long term (current) drug therapy
CPT/HCPCS: 36415; 71045; 80048; 80053; 80202; 81001; 82565; 83605; 85025; 87040; 87086; 87633; 87635; 93005; 99285; J0696; J1200; J3370; P9047

== ENCOUNTER 2023-01-02 12:54 | Outpatient (AMB) | payer OTHER, SELFPAY ==
--- NOTE | 2023-01-02 13:13 | MHC.OFFVIS ---
Intake Vital Signs 01/02/23 13:14 Height 5 ft 1 in BMI Reason not done Patient refused/unable BP 138/86 Blood Pressure Location Lt brachial Position Sitting Pulse 90 Pulse Source Pulse Oximeter Intake Visit Reasons: 6M follow up Intake Note: 6 month follow up. Nut Dehydrator Operator Required: Yes Nut Dehydrator Operator Language: Accounting Machine Servicer Name: Joyce Ibanez DERRICK HAND Accompanied by: Employee Allergies Penicillins [PENICILLINS] Adverse Reaction (Unknown, Verified 01/02/23 13:16) STOMACH UPSET Medication List - Last Reconciled 01/02/23 by Abran Payne MD acetaminophen ER (Mapap Arthritis Pain) 650 mg PO Q8H PRN albuterol sulfate 90 mcg/actuation 2 puffs inhalation Q4-6H PRN amlodipine 5 mg PO DAILY apixaban (Eliquis) 5 mg PO BID cholecalciferol (vitamin D3) 25 mcg PO DAILY digoxin 125 mcg PO .mwf doxycycline monohydrate 100 mg PO Q12H furosemide 40 mg PO DAILY lisinopril 10 mg PO DAILY metoprolol tartrate 50 mg PO BID pimyjwmrpewo-yemk-pchny acid 18-400 mg-mcg (Spectravite Adult) 1 tab PO DAILY pravastatin 10 mg PO BEDTIME prednisone See Taper mg PO DAILY HPI HPI Comments History of Present Illness Details Pleasant 82-year-old female who is here for follow-up. She was seen recently in the hospital she presented with influenza and was noted to be short of breath. Clinically she was in heart failure and was diuresed. She underwent echocardiography which showed severe RV dysfunction with moderate to severe RV enlargement. The pulmonary artery pressures were no significant elevated. No obvious cause for the right ventricle dysfunction was present. She had CT PA which did not show any pulmonary embolism. Was diuresed. She also had atrial fibrillation and was started on digoxin it appears she left the hospital with 250 mcg of daily digoxin. She is also on supplemental oxygen. We checked a digoxin level and decrease the digoxin dose to 125 mcg daily I referred her for cardiac MRI. 02/21/22: She returns for follow-up today. She is still waiting to do cardiac MRI at this stage. She continues to be on supplemental oxygen. The etiology of her hypoxia is unclear. She clearly had influenza when she was in hospital but at that time her imaging was showing heart failure and she was diuresed for that. Clinically she appears euvolemic currently. She is taking medication regularly. 01/02/23: She is back for follow-up. She was seen by Divina in June 2022. She had cardiac MRI performed in April 2022 showing qobm-ei-mwuhhhrw RV dysfunction with normal RV size. She is oxygen dependent due to underlying lung disease. Her main complaint is lower extremity edema. She is denying any significant change in her breathing or chest pains. She is taking medications regularly. She has chronic atrial fibrillation and has been treated with rate control strategy with digoxin Saturday and Saturday and metoprolol tartrate 50 mg twice a day. [facility] Medical History Atherosclerosis Chronic diastolic CHF (congestive heart failure) HTN (hypertension) New onset a-fib Obesity DEBBIE (obstructive sleep apnea) Osteoarthritis Osteoporosis RVF (right ventricular failure) Varicose veins of bilateral lower extremities with pain Surgical History Status post left knee replacement Family History Son CAD (coronary artery disease) Mother CAD (coronary artery disease) Social History Household Members: Family Housing: Apartment Are you a primary career development manager to a significant other at home: No Alcohol intake: never Patient Tobacco Use Status: Never used Tobacco Advance Directives Date on File: 10/25/21 service: No Current occupational status: retired and disabled Review of Systems Const Denies weakness ENT Denies dizziness Card Denies chest pain, Denies chest pain with activity, Denies syncope, Denies rapid heart rate, Denies pedal edema, Denies edema, Denies leg edema, Denies lightheadedness, Denies palpitations, Denies dyspnea, Denies dyspnea on exertion and Denies orthopnea Resp Denies cough, Denies dyspnea and Denies dyspnea on exertion GI Denies hematochezia and Denies change in stool character Musc Denies abnormal gait, Denies muscle cramps, Denies muscle weakness, Denies numbness, Denies radiating pain into limb and Denies tingling Neuro Denies abnormal gait, Denies dizziness, Denies syncope, Denies numbness, Denies tingling and Denies weakness Endo Denies palpitations Physical Exam Vital Signs: Last Vital Signs Pulse 90 01/02/23 13:14 BP 138/86 01/02/23 13:14 GENERAL APPEARANCE: in no acute distress, pleasant. NECK: no carotid bruit, + jugular venous distention. SKIN: no suspicious lesions, warm and dry. HEART: no murmurs, irregularly irregular LUNGS: clear to auscultation bilaterally. ABDOMEN: soft, nontender. EXTREMITIES: Mild edema. Prominent veins on both lower extremities. PERIPHERAL PULSES: equal. NEUROLOGIC: No gross deficits, AAO X 3 Results Reviewed Results Reviewed: Cardiac MRI performed in April 2022: Preserved LV function with normal wall thickness EF 50-60%. Right ventricle normal in size, right ventricle systolic function mild to moderately reduced. Basal RV free wall severely hypokinetic. Mid to apical RV function relatively preserved. Severely dilated right atrium. Severely dilated left atrium. At least mild mitral regurgitation and tricuspid regurgitation. No late gadolinium enhancement noticed but study was technically limited. Assessment & Plan Assessment & Plan (1) Atrial fibrillation: Code(s): I48.91 - Unspecified atrial fibrillation (2) Cor pulmonale: Code(s): I27.81 - Cor pulmonale (chronic) (3) Right ventricular failure: Code(s): I50.810 - Right heart failure, unspecified Plan 82-year-old female who is here for follow-up. She has background history of cor pulmonale and RV dysfunction. Previous cardiac MRI has shown ypme-dr-bvbetnrp RV dysfunction without any dental new enhancement and RV dysfunction is due to underlying lung disease at this stage. She has mild volume overload. Increasing the Lasix to 40 mg twice a day. Continue metoprolol, digoxin, lisinopril and amlodipine as before. On oxygen chronically. Overall denying any is significant symptoms. AFib treated with rate control strategy with digoxin and metoprolol. She is on apixaban for anticoagulation. Pressure control is reasonable. Thank you for allowing me to participate in the care of your patient. Please feel free to contact me if you have any questions. Medications: New furosemide 40 mg PO BID 120 tabs 3RF I50.810 - Right heart failure, unspecified Coding Level of Care Code Est Pt Level 4 (74543) Diagnoses Atrial fibrillation I48.91 Cor pulmonale I27.81 Right ventricular failure I50.810
[2023-01-02 13:14] VITALS: BP 138/86; PULSE 90
== END 2023-01-02 13:37 | disposition home or self-care (01) ==
PROVIDERS: Visit Provider Internal Medicine Cardiovascular Disease
DX: I48.91 Unspecified atrial fibrillation (principal); I27.81 Cor pulmonale (chronic); I50.810 Right heart failure, unspecified
CPT/HCPCS: 99214

== ENCOUNTER → 2023-01-02 12:54 | Outpatient (BNVA) | payer OTHER, SELFPAY | PROVIDERS: Visit Provider Internal Medicine Cardiovascular Disease | DX: I48.91 Unspecified atrial fibrillation (principal); I50.810 Right heart failure, unspecified; I27.81 Cor pulmonale (chronic) | CPT/HCPCS: 99212 ==

== ENCOUNTER 2023-03-01 10:50 | Outpatient (AMB) | payer OTHER, SELFPAY ==
[2023-03-01 10:57] VITALS: BP 152/67; PULSE 94; BMI 47.2
--- NOTE | 2023-03-01 10:57 | MHC.OFFVIS ---
Intake Vital Signs 03/01/23 10:57 Height 5 ft 1 in Weight 250 lb BMI 47.2 BP 152/67 H Blood Pressure Location Rt brachial Position Sitting Pulse 94 Intake Visit Reasons: Skin lesions under R arm Intake Note: Patient referred for growth on Rt axilla. Has been present for about 10-20yrs. C/o growth has been enlarging. Denies pain, itch or oozing. No hx of skin ca. Tax Commissioner Required: No Accompanied by: Self / Same As Patient Allergies Penicillins [PENICILLINS] Adverse Reaction (Unknown, Verified 03/01/23 11:00) STOMACH UPSET Medication List - Last Reconciled 03/01/23 by Josemanuel Stark MD acetaminophen ER (Mapap Arthritis Pain) 650 mg PO Q8H PRN albuterol sulfate 90 mcg/actuation 2 puffs inhalation Q4-6H PRN amlodipine 5 mg PO DAILY apixaban (Eliquis) 5 mg PO BID cholecalciferol (vitamin D3) 25 mcg PO DAILY digoxin 125 mcg PO .mwf furosemide 40 mg PO BID lisinopril 10 mg PO DAILY metoprolol tartrate 50 mg PO BID mnakznynrahj-nori-kewea acid 18-400 mg-mcg (Spectravite Adult) 1 tab PO DAILY pravastatin 10 mg PO BEDTIME HPI HPI Comments History of Present Illness Details Patient presents for evaluation of a right axillary pendulous mass. She has had this many years time. His increasing size, become more symptomatic. She was to have removed. Chart was reviewed patient evaluated. Patient is currently on Eliquis. [facility] Medical History RVF (right ventricular failure) Chronic diastolic CHF (congestive heart failure) DEBBIE (obstructive sleep apnea) New onset a-fib Atherosclerosis Varicose veins of bilateral lower extremities with pain Osteoarthritis HTN (hypertension) Obesity Osteoporosis Surgical History (Updated 03/01/23 @ 11:30 by Josemanuel Stark MD) History of appendectomy Status post left knee replacement Family History Son CAD (coronary artery disease) Mother CAD (coronary artery disease) Social History Household Members: Family Housing: Apartment Are you a primary acute care clinical nurse specialist to a significant other at home: No Alcohol intake: never Patient Tobacco Use Status: Never used Tobacco Advance Directives Date on File: 10/25/21 service: No Current occupational status: retired and disabled Physical Exam Vital Signs: Last Vital Signs Pulse 94 03/01/23 10:57 BP 152/67 H 03/01/23 10:57 BMI result Body Mass Index 47.2 Extrem Other: Approximately 5 x 4 cm pendulous lipoma with narrow stalk at base hanging from the right axilla. Office Procedures Excision Details: Risks, benefits, alternatives of excision of right axillary lipoma reviewed the patient and included but not limited to bleeding, infection, recurrence, numbness, pain, scarring, wound dehiscence and the patient wished to proceed. All questions were answered. After appropriate positioning, patient under 1% lidocaine and Betadine prep. Healed pin just lipoma was transected the skin base at its stalk. Specimen was measured approximately 5 x 4 cm sent to pathology. Wound was irrigated, secured hemostasis, and closed using running subcuticular 3-0 Vicryl suture followed by Steri-Strips sterile dressings. Patient tolerated procedure well. 52741-[id number]/arms/legs >4cm Procedure code (CPT) selection complete Office Meds lidocaine 1 %-epinephrine 1:100,000 injection solution Performing Provider: Josemanuel Stark MD Performing Location: [facility] Documented (not given) by: Josemanuel Stark MD on 03/01/23 11:29 Dose Route Admin Location Dispensed Lot Number Expiration Date NDC Metalizing Supervisor 20 mL Infiltration mL Assessment & Plan Assessment & Plan (1) Lipoma of axilla: Code(s): D1. - Benign lipomatous neoplasm of skin and subcutaneous tissue of unspecified limb Plan: Patient has been given local instructions, and will see me as directed or p.r.n. Orders: Orders AMB Excision Today D120 - Benign lipomatous neoplasm of skin and subcutaneous tissue of unspecified limb Medications: New lidocaine-epinephrine 1 %-1:100,000 20 mL Infiltration ONCE 30 mL 0RF D1.20 - Benign lipomatous neoplasm of skin and subcutaneous tissue of unspecified limb Coding Level of Care Code New Pt Level 4 (46715) Diagnoses Lipoma of axilla CPT Codes Trunk/Arms/Legs - CPT: 66454-ijkrr/arms/legs >4cm ([id number])
== END 2023-03-01 11:34 | disposition home or self-care (01) ==
PROVIDERS: PCP Internal Medicine Geriatric Medicine; Referring Provider Internal Medicine Geriatric Medicine; Visit Provider Surgery
DX: D17.22 Benign lipomatous neoplasm of skin and subcutaneous tissue of left arm (principal)
CPT/HCPCS: 11406; 99204

== ENCOUNTER 2023-03-01 10:50 | Outpatient (REF) | payer OTHER, SELFPAY | END 2023-03-01 10:51 | disposition home or self-care (01) | LOC: HO.LNP 10:50 | PROVIDERS: PCP Internal Medicine Geriatric Medicine; Referring Provider Internal Medicine Geriatric Medicine; Visit Provider Surgery | DX: D17.39 Benign lipomatous neoplasm of skin and subcutaneous tissue of other sites (principal); Z79.899 Other long term (current) drug therapy; Z79.01 Long term (current) use of anticoagulants | CPT/HCPCS: 11406; 88304; 99202 ==

== ENCOUNTER 2023-03-28 09:34 | Outpatient (REF) | payer OTHER, SELFPAY | END 2023-03-28 09:35 | disposition home or self-care (01) | LOC: HO.HHCL 09:34 | PROVIDERS: Visit Provider Internal Medicine Geriatric Medicine | DX: I10 Essential (primary) hypertension (principal); I48.91 Unspecified atrial fibrillation; Z99.81 Dependence on supplemental oxygen | CPT/HCPCS: 36415; 80053; 80061; 80162; 83735; 85025 ==

== ENCOUNTER 2023-08-01 11:34 | Emergency (ER) | payer OTHER, SELFPAY ==
--- NOTE | ~2023-08-01 | XR_ITS ---
EXAMINATION: XR CHEST CLINICAL INFORMATION: Cough COMPARISON: Chest radiograph from 09/09/2022 TECHNIQUE: Frontal view of the chest was obtained. FINDINGS: Bilateral interstitial prominence may reflect infectious/inflammatory etiology versus pulmonary edema. Small bilateral pleural effusions, left greater than right with subjacent atelectasis. Cardiac mediastinal silhouette is enlarged. No pneumothorax. Trachea is midline. Demonstrates tortuosity with atherosclerotic calcifications. Osseous structures are intact. Soft tissues are unremarkable. XR/XR chest 1V IMPRESSION: 1. Bilateral interstitial prominence may reflect infectious/inflammatory etiology versus pulmonary edema. 2. Small bilateral pleural effusions, left greater than right with subjacent atelectasis. 3. Cardiac mediastinal silhouette is enlarged.
[2023-08-01 11:41] VITALS: BP 160/94; BP 175/101; PULSE 102; PULSE 103; RESP 20; TEMP 37.2; O2SAT 96; O2SAT 98; BMI 38.8
--- NOTE | 2023-08-01 11:47 | ECG_ITS ---
Test Reason : cp Blood Pressure : / mmHG Vent. Rate : 102 BPM Atrial Rate : 000 BPM P-R Int : 000 ms QRS Dur : 082 ms QT Int : 320 ms P-R-T Axes : 000 103 -07 degrees QTc Int : 417 ms Atrial fibrillation with rapid ventricular response with a competing junctional pacemaker with premature ventricular or aberrantly conducted complexes Rightward axis Low voltage QRS Septal infarct (cited on or before 09-SEP-2022) Abnormal ECG When compared with ECG of 09-SEP-2022 00:57, Questionable change in QRS axis Referred By: Generic ED Physician Electronically Signed By:BARAK SMITH
--- NOTE | 2023-08-01 12:02 | ED.GENADULT ---
HPI - General Adult General Chief complaint: General Medical Stated complaint: SOB,PROD COUGH,BODYACHES PER EMS Time Seen by Provider: 08/01/23 12:02 Source: patient, EMS and translator and interpreter Mode of arrival: EMS Limitations: language barrier History of Present Illness HPI narrative: 82 yo female with pmhx of afib, HTN, asthma and pulmonary htn, presents to the ED c/o 24 hrs of malaise, cough with productive yellow sputum, body aches, and SOB. She states that her son who lives with her has the flu and has been coughing this past week. Onset (ago): day(s) Radiation: non-radiation Severity: moderate Severity scale (1-10): 3 Quality: constant Pain Consistency: constant Relieving factors: none Exacerbating factors: none Associated symptoms: cough, malaise, shortness of breath and weakness Treatments prior to arrival: none Related Data Home Medications Medication Instructions Recorded Confirmed acetaminophen 650 mg 650 mg PO Q8H PRN Pain (Scale 03/20/21 01/02/23 tablet,extended release (Mapap Score 1-3) Arthritis Pain) cholecalciferol (vitamin D3) 25 25 mcg PO DAILY 03/20/21 01/02/23 mcg (1,000 unit) capsule pravastatin 10 mg tablet 10 mg PO BEDTIME 03/20/21 01/02/23 albuterol sulfate 90 mcg/actuation 2 puff inhalation Q4-6H PRN 10/23/21 01/02/23 aerosol inhaler wheezing multivitamin-ferrous 1 tab PO DAILY 10/23/21 01/02/23 fumarate-folic acid 18 mg-400 mcg tablet (Spectravite Adult) lisinopril 10 mg tablet 10 mg PO DAILY 12/04/21 01/02/23 amlodipine 5 mg tablet 5 mg PO DAILY 07/02/22 01/02/23 Previous Rx's Medication Instructions Recorded metoprolol tartrate 50 mg tablet 50 mg PO BID #60 tabs 07/02/22 furosemide 40 mg tablet 40 mg PO BID #120 tabs 01/02/23 digoxin 125 mcg (0.125 mg) tablet 125 mcg PO .mwf #60 tabs 03/21/23 apixaban 5 mg tablet (Eliquis) 5 mg PO BID 90 days #180 tabs 06/07/23 doxycycline hyclate 100 mg tablet 100 mg PO BID 7 days #14 tabs 08/01/23 prednisone 20 mg tablet 20 mg PO DAILY 7 days #7 tabs 08/01/23 Allergies Allergy/AdvReac Type Severity Reaction Status Date / Time Penicillins [PENICILLINS] AdvReac Unknown STOMACH Verified 03/01/23 11:00 UPSET Review of Systems Constitutional: Constitutional: Reports no additional constitutional complaints, Reports body ache(s), Denies chills, Denies fever(s) and Denies night sweats Eyes: Eyes: Reports no additional eye complaints, Denies blurry vision, Denies change in vision, Denies diplopia, Denies eye discharge, Denies loss of vision and Denies eye pain ENT: Denies dizziness Cardiovascular: Cardiovascular: Reports no additional cardiovascular complaints, Denies chest pain, Denies lightheadedness, Denies Loss of Consciousness and Reports dyspnea Respiratory: Respiratory: Reports no additional respiratory complaints, Reports cough and Reports dyspnea Gastrointestinal: Gastrointestinal: Reports no additional gastrointestinal complaints, Denies abdominal pain, Denies melena, Denies hematochezia, Denies change in bowel habits and Denies change in stool character Genitourinary: Genitourinary: Denies hematuria, Denies urinary frequency, Denies dysuria, Denies urinary incontinence, Denies urinary hesitancy and Denies urinary urgency Musculoskeletal: Musculoskeletal: Reports no additional musculoskeletal complaints, Denies numbness and Denies tingling Neurologic: Denies dizziness, Denies loss of vision, Denies numbness and Denies tingling Psychiatric: Psychiatric: Reports no additional psychiatric complaints Endocrine: Endocrine: Reports no additional endocrine complaints Hematologic/Lymphatic: Hematologic/Lymphatic: Reports no additional hematologic/lymphatic complaints Allergic/Immunologic: Allergic/Immunologic: Reports no additional allergic/immunologic complaints [facility] Past Medical History Attestation statement: The following information was validated with the patient. Source: old records reviewed and nursing notes reviewed Medical History RVF (right ventricular failure) Chronic diastolic CHF (congestive heart failure) DEBBIE (obstructive sleep apnea) New onset a-fib Atherosclerosis Varicose veins of bilateral lower extremities with pain Osteoarthritis HTN (hypertension) Obesity Osteoporosis Surgical History Hx of surgical procedure (03/01/23) History of appendectomy Status post left knee replacement Family History Family History Son CAD (coronary artery disease) Mother CAD (coronary artery disease) Social History Social History Household Members: Family Housing: Apartment Are you a primary skin care technician to a significant other at home: No Alcohol intake: never Patient Tobacco Use Status: Never used Tobacco Smoked in Last 30 Days: No Use of substances other than those prescribed or required for medical reasons: No Advance Directives: Yes Advance Directives on File: Yes Advance Directives Date on File: 10/25/21 service: No Current occupational status: retired and disabled Physical Exam ED Vital Signs: Vital Signs - 24 hr 08/01/23 11:41 08/01/23 13:50 08/01/23 14:13 Temperature 99 F 100.1 F Pulse Rate 103 H 121 H 119 H Respiratory Rate 20 24 H 15 Blood Pressure 175/101 H 179/98 H Pulse Oximetry 96 95 Oxygen Delivery Method Nasal Cannula Nasal Cannula Oxygen Flow Rate 2 08/01/23 15:46 Temperature 97.6 F Pulse Rate 114 H Respiratory Rate 22 H Blood Pressure 123/46 L Pulse Oximetry 94 Oxygen Delivery Method Nasal Cannula Oxygen Flow Rate BMI result Body Mass Index 38.8 Const General: cooperative, no acute distress, alert and awake Nutritional Appearance: well nourished Orientation/consciousness: patient oriented x3 Limitations: no limitations HENMT Head: Yes normal to inspection and Yes atraumatic Ears: hearing grossly normal bilaterally and external ears normal General nose exam: Normal external nose present, no nasal discharge noted and no epistaxis Face and sinus: Yes normal facial exam, No abrasion and No laceration Mouth: Normal oral and palatal mucosa present, no drooling and no muffled voice Eyes General: appearance normal, both eyes and all related structures Periorbital: periorbital findings normal Eyelids: Yes eyelids normal Conjunctivae: conjunctivae normal Pupils: Equal, round and reactive pupils present EOM: EOMs intact bilaterally Neck Neck: Yes normal visual inspection, Yes full ROM and Yes no lymphadenopathy Chest Chest palpation & inspection: normal inspection of the chest Resp Other: patient on oxygen via nasal canula per her baseline Effort & Inspection: normal respiratory effort and able to speak in complete sentences Cardio Rate: tachycardic Rhythm: abnormal rhythm irregularly irregular GI Inspection: Yes normal to inspection Neuro General: patient oriented x3 and moves all extremities Cranial nerves: Yes Equal, round and reactive pupils present Cognition (Neuro): normal cognition Motor exam (neuro): 5/5 motor strength present throughout Sensory Exam: Normal double simultaneous stimulation for sensation Coordination: [id number] test normal Extrem General: Yes normal to inspection, Yes full ROM and Yes capillary refill normal Psych Appearance: grossly normal Mental Status: mental status grossly normal Affect: normal affect Attitude: cooperative Thought process: Normal thought process present Thought content: Normal thought content present Insight: Good insight present (Psych) Medications Administered Discontinued Medications Generic Name Dose Route Start Last Admin Trade Name Joseq PRN Reason Stop Dose Admin Acetaminophen 975 mg 08/01/23 13:47 08/01/23 14:26 Acetaminophen 325 Mg Tablet PO 08/01/23 13:48 975 mg ONCE ONE Administration Albuterol Sulfate 2.5 mg/ 0 mg 08/01/23 14:07 08/01/23 14:12 Albuterol/Ipratropium 3 ml INHALE 08/01/23 14:08 5 dose ONCE ONE Administration Medical Decision Making Medical Decision Making [facility] Narrative: Patient is an 82 year old assigned female at with a history of atrial fib, HTN, asthma, and pulmonary hypertension on chronic oxygenation presenting to the emergency department today with a cough, body aches, and feeling generally unwell. Patient's physical exam was as noted in the physical exam portion of this note. Patient's blood work showed an initial troponin of 11 with a repeat of 19.6. The rest of the patient's labs were unremarkable. Patient's COVID-19 test was positive. Patient's urine showed no acute process. Patient's EKG showed atrial fib which is chronic for the patient. Patient's chest x-ray showed evidence of viral infection but no focal consolidation. I consulted with cardiology who stated there was nothing to do from a cardiology stand point. Patient remained oxygenation appropriately while in the department. Given the patient's complex pulmonary history, will cover with corticosteroids and oral ABX. Patient does not qualify for Paxlovid given her current medication regimen. I explained my physical exam findings as well as all test results to the patient and the patient's family at bedside. I answered all questions asked by the patient and the patient's family at bedside. Patient was giving a breathing treatment as well as an inhaler with spacer education. I stressed the importance of the patient taking her medication as prescribed. I stressed the importance of the patient following up with her primary care provider. I stressed the importance of the patient returning to the emergency department immediately if her symptoms were to worsen or if she were to develop any dizziness, shortness of breath, difficulty breathing, chest pain, blurry vision, loss of vision, nausea, vomiting, abdominal pain, fever, chills, back pain, or any other complaints. Patient and the patient's family at the bedside verbalized agreement and understanding with this treatment plan and discharge. Differential Diagnosis Differential Diagnoses: The differential diagnosis associated with the presentation includes COVID-19 Influenza Pneumonia Viral illness URI Admission/Observation Consideration of admission/observation: Escalation of care including admission/observation considered Patient would have been admitted to the hospital had her work up had any findings where hospital admission was appropriate, her clinical presentation warranted hospital admission, and the patient stated she did not want to stay in the hospital. Consult Healthcare Provider Management of the patient was discussed with: Real Estate Services Coordinator (spoke to cardiology as noted in the MDM Rationale portion of this note.) Lab Data [facility] Lab Attestation statement: I reviewed the patient's lab results. My interpretation of these results are in the MDM Rationale portion of this note. 08/01/23 12:33 08/01/23 12:33 Labs: Lab Results 08/01/23 08/01/23 08/01/23 Range/Units 12:33 13:29 14:51 WBC 8.5 (4.8-10.8) X10*3/uL RBC 5.02 (4.20-5.50) X10*6/uL Hgb 13.0 (12.0-16.0) g/dl Hct 43.0 (37.0-47.0) % MCV 85.7 (80.0-98.0) fL MCH 25.9 L (27.0-33.0) pg MCHC 30.2 L (31.0-35.0) g/dl RDW 16.1 H (11.0-16.0) % Plt Count 165 (160-400) X10*3/uL MPV 12.2 (9.4-12.3) fL Immature Gran % (Auto) 0.5 H (0.0-0.4) % Neut % (Auto) 83.8 H (45-73) % Lymph % (Auto) 5.5 L (20-40) % [place] % (Auto) 8.9 (2-11) % Eos % (Auto) 0.5 (0-4) % Baso % (Auto) 0.8 (0-2) % Lymph # (Auto) 0.5 L (1.2-4.9) X10*3/uL [place] # (Auto) 0.8 (0.1-1.2) X10*3/uL Eos # (Auto) 0.0 (0.0-0.4) X10*3/uL Baso # (Auto) 0.1 (0.0-0.2) X10*3/uL Abs Immat Gran (auto) 0.04 H (0.00-0.03) X10*3/uL Absolute Neuts (auto) 7.1 (2.0-8.3) x10*3/uL Absolute Nucleated RBC 0.000 (0.0-0.012) X10*3/uL Nucleated RBC % (auto) 0.0 (0.0-0.2) /100WBC Sodium 140 (135-145) mmol/L Potassium 4.5 (3.3-5.1) mmol/L Chloride 102 (96-108) mmol/L Carbon Dioxide 30 H (22-29) mmol/L Anion Gap 13 (12-20) BUN 12 (9-16) mg/dL Creatinine 0.86 (0.5-1.4) mg/dL Estim Creat Clear Calc 56.7 Estimated GFR > 60 Random Glucose 113 (60-115) mg/dL Calcium 10.0 (8.4-10.2) mg/dL Magnesium 1.9 (1.6-2.6) mg/dL Total Bilirubin 2.5 H (0.0-1.0) mg/dL AST 34 H (5-31) U/L ALT 20 (0-31) U/L Alkaline Phosphatase 109 (39-117) U/L Troponin I High Sens 11.0 19.6 H D (<3.5-17.0) ng/L Total Protein 7.4 (6.5-8.0) g/dL Albumin 4.2 (3.5-5.0) g/dL Urine Color Dark Yellow Urine Appearance Clear Urine pH 8.0 (5.0-9.0) Ur Specific [place] 1.015 (1.005-1.025) Urine Protein 100 (2+) H (Neg-Trace) mg/dL Urine Glucose (UA) Negative (Negative) mg/dL Urine Ketones Negative (Negative) mg/dL Urine Blood Negative (Negative) Urine Nitrite Negative (Negative) Ur Leukocyte Esterase Negative (Negative) Urine RBC 0-2 (0-2) /HPF Urine WBC 0-5 (0-5) /HPF Ur Squamous Epith Cells 6-10 (0-2) /HPF Urine Bacteria Trace (None Seen) Hyaline Casts 0-2 (0-2) /LPF COVID-19 (LOU) Positive A (Negative) COVID-19 Clin Com See Note Influenza Type A (PARVEZ) Negative (Negative) Influenza Type B (PARVEZ) Negative (Negative) Influenza A & B Note See Note Independent Interpretation I performed an independent interpretation of an: EKG and Plain X-Ray Interpretation: My interpretation is in agreement with the radiologist's impression of this imaging study. EXAMINATION: XR CHEST CLINICAL INFORMATION: Cough COMPARISON: Chest radiograph from 09/09/2022 TECHNIQUE: Frontal view of the chest was obtained. FINDINGS: Bilateral interstitial prominence may reflect infectious/inflammatory etiology versus pulmonary edema. Small bilateral pleural effusions, left greater than right with subjacent atelectasis. Cardiac mediastinal silhouette is enlarged. No pneumothorax. Trachea is midline. Demonstrates tortuosity with atherosclerotic calcifications. Osseous structures are intact. Soft tissues are unremarkable. XR/XR chest 1V IMPRESSION: 1. Bilateral interstitial prominence may reflect infectious/inflammatory etiology versus pulmonary edema. 2. Small bilateral pleural effusions, left greater than right with subjacent atelectasis. 3. Cardiac mediastinal silhouette is enlarged. Dictated By: Anna Romo MD Signed By: Electronically signed by Anna Romo MD 08/01/23 1327 Vent. Rate: 102 BPM Atrial Rate: 000 BPM P-R Int: 000 ms QRS Dur: 082 ms QT Int: 320 ms P-R-T Axes: 000 103 -07 degrees QTc Int: 417 ms Atrial fibrillation with rapid ventricular response with a competing junctional pacemaker with premature ventricular or aberrantly conducted complexes Rightward axis Low voltage QRS Septal infarct (cited on or before 09-SEP-2022) Abnormal ECG When compared with ECG of 09-SEP-2022 00:57, Questionable change in QRS axis Electronically Signed By:AZ SMITH Dictated By: Az Smith MD Signed By: Electronically signed by Az Smith MD 08/01/23 1310 Radiology Impression Discussion of test interpretation with radiology: I have reviewed the radiologist's reading. Independent Historian Clinical information obtained from an independent historian. History obtained from or confirmed by: EMS (EMS provided additional history and confirmed the history provided by the patient and the patient's family) and Other (patient's family provided additional history and confirmed the history provided by the patient and EMS) Prescription Management I considered prescription management with: Antibiotic (patient given PO ABX prophylactically as described in MDM Rationale) Chronic Conditions Patient?s care impacted by: Hypertension and Other (asthma) Critical Care Time Critical Care Time Critical Care Time: Yes Total Critical Care Time: 35 Attestation: I spent 35 minutes of Critical Care Time with this patient. This does not include time spent on separately reported billable procedures. Discharge Plan Discharge Clinical Impression: COVID-19 Patient Disposition: Home, Self-Care Instructions: COVID-19 (Coronavirus Disease 2019) (ED) Additional Instructions: Your chest x-ray is reassuring with no pneumonia present. Your oxygen saturation has been appropriate throughout your visit. You have COVID-19. Please continue taking Tylenol as directed for fever. Follow up with your primary care provider. Return to the emergency department immediately if your symptoms worsen or if you develop any dizziness, shortness of breath, difficulty breathing, chest pain, blurry vision, loss of vision, nausea, vomiting, abdominal pain, fever, chills, back pain, or any other complaints. Hdez radiograf?a de t?rax es tranquilizadora y no presenta neumon?a. Hdez saturaci?n de ox?samira hardy sido adecuada chanelle toda hdez visita. Tienes COVID-19. Contin?e tomando Tylenol seg?n las indicaciones para la fiebre. Gold un seguimiento con hdez proveedor de atenci?n primaria. Regrese al departamento de emergencias inmediatamente si sebastian s?ntomas empeoran o si presenta mareos, dificultad para respirar, dificultad para respirar, dolor en el pecho, visi?n borrosa, p?rdida de la visi?n, n?useas, v?mitos, dolor abdominal, fiebre, escalofr?os, dolor de espalda o cualquier otras quejas. Prescriptions: New prednisone 20 mg tablet 20 mg PO DAILY 7 Days Qty: 7 0RF doxycycline hyclate 100 mg tablet 100 mg PO BID 7 Days Qty: 14 0RF No Action digoxin 125 mcg (0.125 mg) tablet 125 mcg PO .mwf Qty: 60 3RF Rx Instructions: Take 1 tab on Saturday, Saturday, and Saturday. Eliquis 5 mg tablet 5 mg PO BID 90 Days Qty: 180 3RF albuterol sulfate 90 mcg/actuation HFA aerosol inhaler 2 puff inhalation Q4-6H PRN (Reason: wheezing) Spectravite Adult 18-400 mg-mcg tablet 1 tab PO DAILY cholecalciferol (vitamin D3) 25 mcg (1,000 unit) capsule 25 mcg PO DAILY pravastatin 10 mg tablet 10 mg PO BEDTIME acetaminophen [Mapap Arthritis Pain] 650 mg tablet extended release 650 mg PO Q8H PRN (Reason: Pain (Scale Score 1-3)) lisinopril 10 mg tablet 10 mg PO DAILY amlodipine 5 mg tablet 5 mg PO DAILY metoprolol tartrate 50 mg tablet 50 mg PO BID Qty: 60 5RF furosemide 40 mg tablet 40 mg PO BID Qty: 120 3RF lidocaine-epinephrine 1 %-1:100,000 solution 20 ml Infiltration ONCE Qty: 30 0RF Referrals: [facility] [facility] [Provider Group] (Call to establish and follow up with a primary care provider. If you already have a primary care provider, please follow up with them. Llame para establecer y realizar un seguimiento con un proveedor de atenci?n primaria. Si ya tiene un proveedor de atenci?n primaria, gold un seguimiento con ?l.) [facility] [facility] [Provider Group] (Call to establish and follow up with a primary care provider. If you already have a primary care provider, please follow up with them. Llame para establecer y realizar un seguimiento con un proveedor de atenci?n primaria. Si ya tiene un proveedor de atenci?n primaria, gold un seguimiento con ?l.) [facility] [Provider Group] (Call to establish and follow up with a primary care provider. If you already have a primary care provider, please follow up with them. Llame para establecer y realizar un seguimiento con un proveedor de atenci?n primaria. Si ya tiene un proveedor de atenci?n primaria, gold un seguimiento con ?l.) Print Language: Chinese
[2023-08-01 12:40] LABS: MANUAL DIFF FLAG NO
[2023-08-01 12:42] LABS: Basophils Absolute Auto 0.1 X10*3/uL (0.0-0.2); Basophils Percent Auto 0.8 % (0-2); Eosinophils Percent Auto 0.5 % (0-4); Imm Gran Abs Auto 0.04 X10*3/uL (0.00-0.03); Imm Gran Pct Auto 0.5 % (0.0-0.4); Lymphocytes Absolute Auto 0.5 X10*3/uL (1.2-4.9); Lymphocytes Percent Auto 5.5 % (20-40); Mean Corpuscular HGB Conc 30.2 g/dl (31.0-35.0); Mean Corpuscular Hemoglobin 25.9 pg (27.0-33.0); Mean Corpuscular Volume 85.7 fL (80.0-98.0); Mean Platelet Volume 12.2 fL (9.4-12.3); Monocytes Absolute Auto 0.8 X10*3/uL (0.1-1.2); Monocytes Percent Auto 8.9 % (2-11); Neutrophils Absolute Auto 7.1 x10*3/uL (2.0-8.3); Neutrophils Percent Auto 83.8 % (45-73); Platelet Count 165 X10*3/uL (160-400); Red Blood Count 5.02 X10*6/uL (4.20-5.50); Red Cell Distribution Width 16.1 % (11.0-16.0); White Blood Count 8.5 X10*3/uL (4.8-10.8)
[2023-08-01 12:54] LABS: COVID-19 Test Positive (Negative); IDNOW Serial# 152EDE1D
[2023-08-01 12:55] LABS: Alanine Aminotransferase 20 U/L (0-31); Albumin Level 4.2 g/dL (3.5-5.0); Alkaline Phosphatase 109 U/L (39-117); Anion Gap 13 (12-20); Aspartate Amino Transferase 34 U/L (5-31); Bilirubin Total 2.5 mg/dL (0.0-1.0); Blood Urea Nitrogen 12 mg/dL (9-16); Carbon Dioxide 30 mmol/L (22-29); Chloride 102 mmol/L (96-108); Creatinine Clr Calc Pharmacy 56.7; Estimated Glomerular Filt Rate > 60; Glucose Random 113 mg/dL (60-115); Magnesium 1.9 mg/dL (1.6-2.6); Potassium 4.5 mmol/L (3.3-5.1); Sodium 140 mmol/L (135-145); Total Protein 7.4 g/dL (6.5-8.0)
[2023-08-01 13:00] LABS: IDNOW Serial# 58CA691E; Influenza A Negative (Negative); Influenza B2 Negative (Negative)
[2023-08-01 13:36] LABS: Appearance Urine Clear; Color Urine Dark Yellow; Glucose Urine UA Negative (Negative); Leukocyte Esterase Urine Negative (Negative); Nitrite Urine Negative (Negative); Specific Gravity - Urine 1.015 (1.005-1.025); UMIC TRIGGER UACC YES; Urine Blood Negative (Negative); Urine Ketones Negative (Negative); Urine Protein 100 (2+) mg/dL (Neg-Trace)
[2023-08-01 13:46] LABS: Bacteria Urine Trace (None Seen); Hyaline Casts Urine 0-2 /LPF (0-2); RBC Urine 0-2 /HPF (0-2); WBC Urine 0-5 /HPF (0-5)
[2023-08-01 13:50] VITALS: BP 179/98; PULSE 121; RESP 24; TEMP 37.8; O2SAT 95
[2023-08-01] MEDS: Albuterol Sulfate 2.5 MG, Albuterol/Iprat 2.5/0.5MG 3 ML 3 ML INHALE (14:12)
[2023-08-01 14:13] VITALS: PULSE 119; RESP 15; O2SAT 96
[2023-08-01] MEDS: Acetaminophen 325 MG TABLET 975 MG PO (14:26)
[2023-08-01 15:14] LABS: Troponin-I High Sensitivity 19.6 ng/L (<3.5-17.0)
[2023-08-01 15:46] VITALS: BP 123/46; PULSE 114; RESP 22; TEMP 36.4; O2SAT 94
[2023-08-01] MEDS: Doxycycline Monohydrate 100 MG CAPSULE PO (16:01)
[2023-08-01] MEDS: predniSONE 20 MG TABLET PO (16:01)
== END 2023-08-01 17:18 | disposition home or self-care (01) ==
PROVIDERS: Physician Assistant Medical; Emergency Provider Emergency Medicine
DX: U07.1 COVID-19 (principal); R06.02 Shortness of breath; R05.9 Cough, unspecified; M79.10 Myalgia, unspecified site; Z79.899 Other long term (current) drug therapy
CPT/HCPCS: 36415; 71045; 80053; 81001; 83735; 84484; 85025; 87502; 87635; 93005; 94640; 99284; 99285

== ENCOUNTER → 2023-08-01 11:47 | Outpatient (BNV) | payer OTHER, SELFPAY | PROVIDERS: Emergency Provider Emergency Medicine; Visit Provider Internal Medicine | DX: R94.31 Abnormal electrocardiogram [ECG] [EKG] (principal) | CPT/HCPCS: 93010 ==

== ENCOUNTER 2023-08-09 00:30 | Emergency (ER) | payer OTHER, SELFPAY ==
--- NOTE | ~2023-08-09 | XR_ITS ---
EXAMINATION: XR CHEST CLINICAL INFORMATION: Pain. COMPARISON: 08/01/2023. TECHNIQUE: Frontal view of the chest was obtained. FINDINGS: The cardiac silhouette is enlarged but stable. There is mild diffuse increased markings similar to previous. There is lingular and basilar atelectasis/scarring similar to previous. There is no new consolidation. There is no significant pleural effusion. The bony structures and soft tissues are unremarkable XR/XR chest 1V IMPRESSION: Stable enlargement of the cardiac silhouette. Mild diffuse increased markings similar to previous. Lingular and basilar atelectasis/scarring similar to previous.
[2023-08-09 00:38] VITALS: BP 146/91; PULSE 92; RESP 18; TEMP 36.7; O2SAT 94
--- NOTE | 2023-08-09 00:54 | ECG_ITS ---
Test Reason : CHEST PAIN Blood Pressure : / mmHG Vent. Rate : 087 BPM Atrial Rate : 000 BPM P-R Int : 000 ms QRS Dur : 088 ms QT Int : 372 ms P-R-T Axes : 000 078 -32 degrees QTc Int : 447 ms Atrial fibrillation Low voltage QRS Abnormal QRS-T angle, consider primary T wave abnormality Abnormal ECG When compared with ECG of 01-AUG-2023 11:51, Criteria for Septal infarct are no longer Present Referred By: Letty Guevara Electronically Signed By:Abran Payne
--- NOTE | 2023-08-09 01:02 | ED.CHESTPAIN ---
HPI - Chest Pain General Chief Complaint: Chest Pain Stated Complaint: SOB, Chest Pain Time Seen by Provider: 08/09/23 00:32 Source: patient, old records reviewed and american sign language interpreter Mode of arrival: EMS Limitations: no limitations History of Present Illness HPI narrative: 82 yo female with PMH Of asthma, afib on eliquis, O2 dependence on 2L NC, HTN here with c/o 1 hour prior to arrival had an episode when she turned over that her whole body felt hot and she felt dizzy and her chest hurt. She noted she feels fine now but it was abrupt and she wasn't sure what was going on. She has had this before. She was trying to sleep. [place] fine before bed took all over he medications as Rx. MD complaint: chest pain Onset (ago): hour(s) (1) Timing of current episode: now resolved Prior episodes: Yes Onset: during rest Pain location: substernal Pain radiation: none Severity: moderate Quality: heaviness Relieving factors: nothing Exacerbating factors: nothing Associated symptoms: other (dizziness) Treatment prior to arrival: none Related Data Home Medications Medication Instructions Recorded Confirmed acetaminophen 650 mg 650 mg PO Q8H PRN Pain (Scale 03/20/21 01/02/23 tablet,extended release (Mapap Score 1-3) Arthritis Pain) cholecalciferol (vitamin D3) 25 25 mcg PO DAILY 03/20/21 01/02/23 mcg (1,000 unit) capsule pravastatin 10 mg tablet 10 mg PO BEDTIME 03/20/21 01/02/23 albuterol sulfate 90 mcg/actuation 2 puff inhalation Q4-6H PRN 10/23/21 01/02/23 aerosol inhaler wheezing multivitamin-ferrous 1 tab PO DAILY 10/23/21 01/02/23 fumarate-folic acid 18 mg-400 mcg tablet (Spectravite Adult) lisinopril 10 mg tablet 10 mg PO DAILY 12/04/21 01/02/23 amlodipine 5 mg tablet 5 mg PO DAILY 07/02/22 01/02/23 Previous Rx's Medication Instructions Recorded metoprolol tartrate 50 mg tablet 50 mg PO BID #60 tabs 07/02/22 furosemide 40 mg tablet 40 mg PO BID #120 tabs 01/02/23 digoxin 125 mcg (0.125 mg) tablet 125 mcg PO .mwf #60 tabs 03/21/23 apixaban 5 mg tablet (Eliquis) 5 mg PO BID 90 days #180 tabs 06/07/23 doxycycline hyclate 100 mg tablet 100 mg PO BID 7 days #14 tabs 08/01/23 prednisone 20 mg tablet 20 mg PO DAILY 7 days #7 tabs 08/01/23 Allergies Allergy/AdvReac Type Severity Reaction Status Date / Time Penicillins [PENICILLINS] AdvReac Unknown STOMACH Verified 08/09/23 00:56 UPSET Review of Systems Review of Systems: Constitutional : No Weight loss, No Fever, No Chills ENT/Mouth : No sore throat, No Rhinorrhea Eyes: No Eye Pain, No Swelling Cardiovascular : pos Chest Pain, no SOB, no Dyspnea on Exertion, No Orthopnea, No Edema, No Palpitations Respiratory : No Cough, No Sputum Gastrointestinal : no Nausea, No Vomiting, No Diarrhea, No abdominal Pain, No Hematochezia, No Melena Genitourinary : No Dysuria, No Urinary Frequency Musculoskeletal : No joint pain, No Myalgias, No Joint Swelling Skin : No Skin Lesions, No rash Neuro : No Weakness, No Numbness, pos Dizziness, No Headache Psych : No Anxiety/Panic, No Depression Heme/Lymph: No Bruising, No Lymphadenopathy Endocrine : No Polyuria, No Polydipsia All other systems reviewed and are negative PMFSH Past Medical History Attestation statement: The following information was validated with the patient. Source: old records reviewed Medical History RVF (right ventricular failure) Chronic diastolic CHF (congestive heart failure) DEBBIE (obstructive sleep apnea) New onset a-fib Atherosclerosis Varicose veins of bilateral lower extremities with pain Osteoarthritis HTN (hypertension) Obesity Osteoporosis Surgical History Hx of surgical procedure (03/01/23) History of appendectomy Status post left knee replacement Family History Family History Son CAD (coronary artery disease) Mother CAD (coronary artery disease) Social History Social History Household Members: Family Housing: Apartment Are you a primary day care teacher to a significant other at home: No Alcohol intake: never Patient Tobacco Use Status: Never used Tobacco Advance Directives: Yes Advance Directives on File: Yes Advance Directives Date on File: 10/25/21 service: No Current occupational status: retired and disabled Physical Exam Vital Signs: Vital Signs: Last Vital Signs Temp 98.1 F 08/09/23 01:36 Pulse 92 08/09/23 01:36 Resp 20 08/09/23 01:36 BP 146/91 H 08/09/23 01:36 Pulse Ox 95 08/09/23 01:36 O2 Del Method Nasal Cannula 08/09/23 01:36 O2 Flow Rate 2 08/09/23 00:38 Oxygen Flow Rate 2 08/09/23 01:36 BMI result Body Mass Index 32.3 Appearance: Alert. Oriented X3. No acute distress. Eyes: Pupils equal, round and reactive to light. ENT: Pharynx normal. Neck: Normal inspection. Neck supple. CVS: irregular heart rate and rhythm. Pulses normal. Respiratory: No respiratory distress. Breath sounds normal. Abdomen: Soft and nontender. Skin: Skin warm and dry. Normal skin color. Normal skin turgor. Extremities: No lower extremity edema. No calf ttp Neuro: Oriented X 3. No motor deficit. No sensory deficit. Medical Decision Making Medical Decision Making [facility] Narrative: 82 yo female with PMH Of asthma, afib on eliquis, O2 dependence on 2L NC, HTN here with c/o resolved episode that occurred 1 hour prior to arrival she notes she rolled over felt an intense heat over her body with chest pain and dizziness it has since resolved. She feels fine now. This is somewhat atypical. Doubt VTE given she is on DOAC will obtain basic labs, troponin x 2, EKG and CXR. Differential Diagnosis Differential Diagnoses: The differential diagnosis associated with the presentation includes atypical ACS, dizziness Admission/Observation Consideration of admission/observation: Escalation of care including admission/observation considered wants to go home was able to get her to agree to stay for repeat troponin it is flat has no symptoms stable for DC Lab Data [facility] Lab Attestation statement: I reviewed the patient's lab results. 08/09/23 01:38 08/09/23 01:38 Labs: Lab Results 08/09/23 08/09/23 08/09/23 Range/Units 01:38 01:40 04:03 WBC 8.1 (4.8-10.8) X10*3/uL RBC 4.79 (4.20-5.50) X10*6/uL Hgb 12.3 (12.0-16.0) g/dl Hct 40.6 (37.0-47.0) % MCV 84.8 (80.0-98.0) fL MCH 25.7 L (27.0-33.0) pg MCHC 30.3 L (31.0-35.0) g/dl RDW 16.2 H (11.0-16.0) % Plt Count 198 (160-400) X10*3/uL MPV 11.0 (9.4-12.3) fL Immature Gran % (Auto) 0.5 H (0.0-0.4) % Neut % (Auto) 75.6 H (45-73) % Lymph % (Auto) 12.8 L (20-40) % [place] % (Auto) 8.3 (2-11) % Eos % (Auto) 1.7 (0-4) % Baso % (Auto) 1.1 (0-2) % Lymph # (Auto) 1.0 L (1.2-4.9) X10*3/uL [place] # (Auto) 0.7 (0.1-1.2) X10*3/uL Eos # (Auto) 0.1 (0.0-0.4) X10*3/uL Baso # (Auto) 0.1 (0.0-0.2) X10*3/uL Abs Immat Gran (auto) 0.04 H (0.00-0.03) X10*3/uL Absolute Neuts (auto) 6.1 (2.0-8.3) x10*3/uL Absolute Nucleated RBC 0.000 (0.0-0.012) X10*3/uL Nucleated RBC % (auto) 0.0 (0.0-0.2) /100WBC Sodium 142 (135-145) mmol/L Potassium 3.9 (3.3-5.1) mmol/L Chloride 106 (96-108) mmol/L Carbon Dioxide 29 (22-29) mmol/L Anion Gap 11 L (12-20) BUN 18 H (9-16) mg/dL Creatinine 0.96 (0.5-1.4) mg/dL Estim Creat Clear Calc 58.1 Estimated GFR 55 Random Glucose 108 (60-115) mg/dL Calcium 9.3 D (8.4-10.2) mg/dL Magnesium 2.0 (1.6-2.6) mg/dL Total Bilirubin 1.4 H (0.0-1.0) mg/dL Direct Bilirubin 0.8 H (0.0-0.5) mg/dL AST 19 (5-31) U/L ALT 14 (0-31) U/L Alkaline Phosphatase 79 (39-117) U/L Troponin I High Sens 10.8 11.7 (<3.5-17.0) ng/L Total Protein 6.6 (6.5-8.0) g/dL Albumin 3.7 (3.5-5.0) g/dL Lipase 26 (8-78) U/L COVID-19 (LOU) Negative (Negative) COVID-19 Clin Com See Note Influenza Type A (PARVEZ) Negative (Negative) Influenza Type B (PARVEZ) Negative (Negative) Influenza A & B Note See Note Independent Interpretation I performed an independent interpretation of an: EKG and Plain X-Ray (normal ) Interpretation: Rate: 87 Rhythm: afib [place]: normal Normal QRS complex. ST T wave : normal no ANI, inverted t wave III qTC: 447 prior studies: no acute ischemia The study has been interpreted contemporaneously by me. . Radiology Impression Discussion of test interpretation with radiology: I have reviewed the radiologist's reading. Independent Historian Clinical information obtained from an independent historian. History obtained from or confirmed by: EMS and Other (family) External Record Review External record reviewed: Inpatient record Discharge Plan Discharge Clinical Impression: Atypical chest pain Patient Disposition: Home, Self-Care Instructions: Chest Pain (ED) Additional Instructions: normal labs for heart, electrocardiogram and chest xray. return for worsening symptoms or concern. [facility]ator[facility] normales de coraz?n, electrocardiograma y radiograf?a de t?rax. Regrese si sebastian s?ntomas o preocupaciones empeoran. Prescriptions: No Action digoxin 125 mcg (0.125 mg) tablet 125 mcg PO .mwf Qty: 60 3RF Rx Instructions: Take 1 tab on Saturday, Saturday, and Saturday. Eliquis 5 mg tablet 5 mg PO BID 90 Days Qty: 180 3RF albuterol sulfate 90 mcg/actuation HFA aerosol inhaler 2 puff inhalation Q4-6H PRN (Reason: wheezing) Spectravite Adult 18-400 mg-mcg tablet 1 tab PO DAILY prednisone 20 mg tablet 20 mg PO DAILY 7 Days Qty: 7 0RF doxycycline hyclate 100 mg tablet 100 mg PO BID 7 Days Qty: 14 0RF cholecalciferol (vitamin D3) 25 mcg (1,000 unit) capsule 25 mcg PO DAILY pravastatin 10 mg tablet 10 mg PO BEDTIME acetaminophen [Mapap Arthritis Pain] 650 mg tablet extended release 650 mg PO Q8H PRN (Reason: Pain (Scale Score 1-3)) lisinopril 10 mg tablet 10 mg PO DAILY amlodipine 5 mg tablet 5 mg PO DAILY metoprolol tartrate 50 mg tablet 50 mg PO BID Qty: 60 5RF furosemide 40 mg tablet 40 mg PO BID Qty: 120 3RF lidocaine-epinephrine 1 %-1:100,000 solution 20 ml Infiltration ONCE Qty: 30 0RF Print Language: Beninese
[2023-08-09 01:36] VITALS: BP 146/91; BP 180/80; PULSE 92; RESP 20; TEMP 36.7; O2SAT 95; BMI 32.3
[2023-08-09 01:42] LABS: MANUAL DIFF FLAG NO
[2023-08-09 01:43] LABS: Basophils Absolute Auto 0.1 X10*3/uL (0.0-0.2); Basophils Percent Auto 1.1 % (0-2); Eosinophils Absolute Auto 0.1 X10*3/uL (0.0-0.4); Eosinophils Percent Auto 1.7 % (0-4); Hematocrit 40.6 % (37.0-47.0); Hemoglobin 12.3 g/dl (12.0-16.0); Imm Gran Abs Auto 0.04 X10*3/uL (0.00-0.03); Imm Gran Pct Auto 0.5 % (0.0-0.4); Lymphocytes Percent Auto 12.8 % (20-40); Mean Corpuscular HGB Conc 30.3 g/dl (31.0-35.0); Mean Corpuscular Hemoglobin 25.7 pg (27.0-33.0); Mean Corpuscular Volume 84.8 fL (80.0-98.0); Monocytes Absolute Auto 0.7 X10*3/uL (0.1-1.2); Monocytes Percent Auto 8.3 % (2-11); Neutrophils Absolute Auto 6.1 x10*3/uL (2.0-8.3); Neutrophils Percent Auto 75.6 % (45-73); Platelet Count 198 X10*3/uL (160-400); Red Blood Count 4.79 X10*6/uL (4.20-5.50); Red Cell Distribution Width 16.2 % (11.0-16.0); White Blood Count 8.1 X10*3/uL (4.8-10.8)
[2023-08-09 01:56] LABS: Alanine Aminotransferase 14 U/L (0-31); Albumin Level 3.7 g/dL (3.5-5.0); Alkaline Phosphatase 79 U/L (39-117); Anion Gap 11 (12-20); Aspartate Amino Transferase 19 U/L (5-31); Bilirubin Direct 0.8 mg/dL (0.0-0.5); Bilirubin Total 1.4 mg/dL (0.0-1.0); Blood Urea Nitrogen 18 mg/dL (9-16); Calcium 9.3 mg/dL (8.4-10.2); Carbon Dioxide 29 mmol/L (22-29); Chloride 106 mmol/L (96-108); Creatinine Clr Calc Pharmacy 58.1; Estimated Glomerular Filt Rate 55; Glucose Random 108 mg/dL (60-115); Lipase 26 U/L (8-78); Potassium 3.9 mmol/L (3.3-5.1); Sodium 142 mmol/L (135-145); Total Protein 6.6 g/dL (6.5-8.0)
[2023-08-09 02:02] LABS: COVID-19 Test Negative (Negative); IDNOW Serial# 08D9AD1C; IDNOW Serial# 152EDE1D; Influenza A Negative (Negative); Influenza B2 Negative (Negative)
[2023-08-09 02:02] LABS: Troponin-I High Sensitivity 10.8 ng/L (<3.5-17.0)
[2023-08-09 04:27] LABS: Troponin-I High Sensitivity 11.7 ng/L (<3.5-17.0)
== END 2023-08-09 07:00 | disposition home or self-care (01) ==
PROVIDERS: Emergency Provider Emergency Medicine
DX: R07.89 Other chest pain (principal); R06.02 Shortness of breath; I48.91 Unspecified atrial fibrillation; Z11.52 Encounter for screening for COVID-19; Z79.01 Long term (current) use of anticoagulants; Z99.81 Dependence on supplemental oxygen; Z79.899 Other long term (current) drug therapy
CPT/HCPCS: 36415; 71045; 80048; 80076; 83690; 83735; 84484; 85025; 87502; 87635; 93005; 99283; 99284

== ENCOUNTER → 2023-08-09 00:54 | Outpatient (BNV) | payer OTHER, SELFPAY | PROVIDERS: Emergency Provider Emergency Medicine; Visit Provider Internal Medicine Cardiovascular Disease | DX: R94.31 Abnormal electrocardiogram [ECG] [EKG] (principal) | CPT/HCPCS: 93010 ==

== ENCOUNTER 2023-09-15 09:07 | Inpatient (IN) | payer OTHER, SELFPAY ==
[2023-09-15] VITALS (8 sets, daily range): BP systolic 118–184; BP diastolic 64–90; PULSE 107–136; RESP 18–30; TEMP 36.2–36.6; O2SAT 92–94; BMI 41.1
--- NOTE | ~2023-09-15 | XR_ITS ---
EXAMINATION: XR CHEST CLINICAL INFORMATION: SOB COMPARISON: Chest x-ray 08/09/2023 . TECHNIQUE: Frontal view of the chest was obtained. FINDINGS: There is cardiomegaly with increased pulmonary vascularity consistent with CHF. The lungs are somewhat expanded with moderate opacity in the left lung base question effusion with underlying atelectasis. There is mild spondylosis. No gross bony abnormality seen.. XR/XR chest 1V IMPRESSION: 1. Cardiomegaly with CHF. 2. Suspect left pleural effusion with underlying atelectasis. 3. There is mild spondylosis.
--- NOTE | 2023-09-15 09:12 | ECG_ITS ---
Test Reason : A-FIB Blood Pressure : / mmHG Vent. Rate : 124 BPM Atrial Rate : 000 BPM P-R Int : 000 ms QRS Dur : 082 ms QT Int : 318 ms P-R-T Axes : 000 092 006 degrees QTc Int : 456 ms Atrial fibrillation with rapid ventricular response with premature ventricular or aberrantly conducted complexes Possible Right ventricular hypertrophy Septal infarct , age undetermined Abnormal ECG When compared with ECG of 09-AUG-2023 00:57, Septal infarct is now Present Referred By: Kelley Singer Electronically Signed By:Abran Payne
--- NOTE | 2023-09-15 09:15 | ED.SOB ---
HPI - SOB/Dyspnea General Chief Complaint: Dyspnea Stated Complaint: RAPID A FIB Time Seen by Provider: 09/15/23 09:15 Source: patient, EMS and workcell operator Mode of arrival: EMS Limitations: no limitations History of Present Illness HPI Narrative: 82-year-old female brought in by EMS for evaluation of worsening of shortness of breath over the past 4 weeks. pertinent history of asthma on supplemental oxygen 2 L 14/01, AFib on Eliquis and metoprolol, HTN, patient was diagnosed with COVID infection 4 weeks ago ever since her diagnosis she is not feeling well, patient is complaining of exertional dyspnea, PND, noticed swelling and edema in lower extremity, patient is compliant with her medication, was started on steroid last week for 1 week course without improvement, brought in by EMS in rapid AFib. Related Data Home Medications Medication Instructions Recorded Confirmed acetaminophen 650 mg 650 mg PO Q8H PRN Pain (Scale 03/20/21 01/02/23 tablet,extended release (Mapap Score 1-3) Arthritis Pain) cholecalciferol (vitamin D3) 25 25 mcg PO DAILY 03/20/21 01/02/23 mcg (1,000 unit) capsule pravastatin 10 mg tablet 10 mg PO BEDTIME 03/20/21 01/02/23 albuterol sulfate 90 mcg/actuation 2 puff inhalation Q4-6H PRN 10/23/21 01/02/23 aerosol inhaler wheezing multivitamin-ferrous 1 tab PO DAILY 10/23/21 01/02/23 fumarate-folic acid 18 mg-400 mcg tablet (Spectravite Adult) lisinopril 10 mg tablet 10 mg PO DAILY 12/04/21 01/02/23 amlodipine 5 mg tablet 5 mg PO DAILY 07/02/22 01/02/23 Previous Rx's Medication Instructions Recorded metoprolol tartrate 50 mg tablet 50 mg PO BID #60 tabs 07/02/22 furosemide 40 mg tablet 40 mg PO BID #120 tabs 01/02/23 apixaban 5 mg tablet (Eliquis) 5 mg PO BID 90 days #180 tabs 06/07/23 doxycycline hyclate 100 mg tablet 100 mg PO BID 7 days #14 tabs 08/01/23 prednisone 20 mg tablet 20 mg PO DAILY 7 days #7 tabs 08/01/23 digoxin 125 mcg (0.125 mg) tablet 125 mcg PO 3XW #36 tabs 03/21/24 Allergies Allergy/AdvReac Type Severity Reaction Status Date / Time Penicillins [PENICILLINS] AdvReac Unknown STOMACH Verified 09/15/23 09:21 UPSET Review of Systems Review of Systems: all other systems are reviewed and are negative Constitutional: Reports as per HPI and Reports no additional constitutional complaints Eyes: Reports as per HPI and Reports no additional eye complaints Reports system reviewed and no additional complaints, except as documented Cardiovascular: Reports as per HPI and Reports no additional cardiovascular complaints Respiratory: Reports as per HPI and Reports no additional respiratory complaints Gastrointestinal: Reports as per HPI and Reports no additional gastrointestinal complaints Genitourinary: Reports no additional female genitourinary complaints Musculoskeletal: Reports no additional musculoskeletal complaints Skin/Breast: Reports system reviewed and no additional complaints, except as docu Psychiatric: Reports no additional psychiatric complaints Endocrine: Reports no additional endocrine complaints Hematologic/Lymphatic: Reports no additional hematologic/lymphatic complaints Allergic/Immunologic: Reports no additional allergic/immunologic complaints Reports system reviewed and no additional complaints, except as documented and Reports Abnormal speech present [facility] Past Medical History Medical History RVF (right ventricular failure) Chronic diastolic CHF (congestive heart failure) DEBBIE (obstructive sleep apnea) New onset a-fib Atherosclerosis Varicose veins of bilateral lower extremities with pain Osteoarthritis HTN (hypertension) Obesity Osteoporosis Surgical History Hx of surgical procedure (03/01/23) History of appendectomy Status post left knee replacement Family History Family History Son CAD (coronary artery disease) Mother CAD (coronary artery disease) Social History Social History Household Members: Family Housing: Apartment Are you a primary care director rn to a significant other at home: No Alcohol intake: never Patient Tobacco Use Status: Never used Tobacco Smoked in Last 30 Days: No Use of substances other than those prescribed or required for medical reasons: No Advance Directives: Yes Advance Directives Information Provided: Yes Advance Directives on File: Yes Advance Directives Date on File: 10/25/21 service: No Current occupational status: retired and disabled Physical Exam Vital Signs: Vital Signs: Last Vital Signs Temp 97.9 F 09/15/23 09:22 Pulse 125 H 09/15/23 09:49 Resp 24 H 09/15/23 09:49 BP 151/64 H 09/15/23 09:49 Pulse Ox 94 09/15/23 09:49 O2 Del Method Nasal Cannula 09/15/23 09:49 O2 Flow Rate 2 09/15/23 09:49 Oxygen Flow Rate 2 09/15/23 09:22 BMI result Body Mass Index 41.1 Vital signs have been reviewed and appear to be correct. Blood pressure elevated. Heart rate rapid, Respiratory rate elevated, Temperature normal. Oxygen saturation normal. Appearance: Alert. Oriented X3. mild acute distress. Head: Normal external exam. Normocephalic. Atraumatic. No Reid signs noted. No raccoon eyes noted Eyes: PERRLA. EOMI. Conjunctiva and sclera normal. Eyelids normal. ENT: TM's Normal. Pharynx normal. Uvula midline. Moist mucous membranes. No trismus noted. No drooling noted. No muffled voice noted. Neck: Normal inspection. Neck supple. FROM. No adenopathy. Thyroid Normal. No meningeal signs. No neck mass noted. CVS: Normal heart rate and rhythm. Heart sound normal. No murmurs noted. Pulses normal throughout. Respiratory: mild respiratory distress. Painless inspiration. Breath sounds normal. bilateral basilar rales, able to speak in full sentence. Chest nontender. No accessory muscle usage noted or decreased air movement noted. Abdomen: Soft and nontender. Bowel sounds normal in all 4 quadrants. No distention noted. No organomegaly noted. No visible injury noted. Back: No CVA tenderness. Full range of motion noted. Skin: Skin warm and dry. Normal skin color. Normal skin turgor. No rashes/lesions/lacerations noted. Extremities: +1 lower extremity edema. Extremities exhibit normal range of motion. Extremities nontender. Neuro: Oriented X 3. Cranial nerve exam: II-XII are grossly intact No motor deficit. No sensory deficit. Reflexes normal. Course Reevaluation(s) Reevaluation #1: AFib with RVR, mild CHF. Lasix and nitro p.r.n., metoprolol to control rapid AFib, a dose of steroids to help mild asthma/bronchitis. Time: 13:47 Medications Administered Discontinued Medications Generic Name Dose Route Start Last Admin Trade Name Joseq PRN Reason Stop Dose Admin Magnesium Sulfate 2 gm in 50 mls @ 25 mls/hr 09/15/23 09:44 09/15/23 10:10 Magnesium Sulfate/H2o IV 09/15/23 11:43 200 mls/hr ONCE ONE Administration Methylprednisolone Sodium Succinate 125 mg 09/15/23 09:44 09/15/23 10:04 Methylprednisolone Sod Succ 125 Mg/2 Ml Vial IVPUSH 09/15/23 09:45 125 mg ONCE ONE Administration Metoprolol Tartrate 5 mg 09/15/23 09:44 09/15/23 10:05 Metoprolol Tartrate 5 Mg/5 Ml Vial IVPUSH 09/15/23 09:45 5 mg ONCE ONE Administration Metoprolol Tartrate 50 mg 09/15/23 09:44 09/15/23 10:04 Metoprolol Tartrate 50 Mg Tablet PO 09/15/23 09:45 50 mg ONCE ONE Administration Protocol Medical Decision Making Differential Diagnosis Differential Diagnoses: The differential diagnosis associated with the presentation includes ( Acute asthma exacerbation, bronchitis, pneumonia, pleural effusion, congestive heart failure, ACS, dysrhythmia, AFib with RVR, electrolyte derangement severe anemia.) Admission/Observation Consideration of admission/observation: Escalation of care including admission/observation considered Consult Healthcare Provider Management of the patient was discussed with: Hospitalist ( Dr. Ma) Lab Data MDM Lab Attestation statement: I reviewed the patient's lab results. 09/15/23 09:38 09/15/23 09:38 Labs: Lab Results 09/15/23 Range/Units 09:38 WBC 8.3 (4.8-10.8) X10*3/uL RBC 4.98 (4.20-5.50) X10*6/uL Hgb 12.4 (12.0-16.0) g/dl Hct 41.7 (37.0-47.0) % MCV 83.7 (80.0-98.0) fL MCH 24.9 L (27.0-33.0) pg MCHC 29.7 L (31.0-35.0) g/dl RDW 19.1 H (11.0-16.0) % Plt Count 219 (160-400) X10*3/uL MPV 10.9 (9.4-12.3) fL Immature Gran % (Auto) 0.5 H (0.0-0.4) % Neut % (Auto) 84.8 H (45-73) % Lymph % (Auto) 7.0 L (20-40) % [place] % (Auto) 6.7 (2-11) % Eos % (Auto) 0.2 (0-4) % Baso % (Auto) 0.8 (0-2) % Lymph # (Auto) 0.6 L (1.2-4.9) X10*3/uL [place] # (Auto) 0.6 (0.1-1.2) X10*3/uL Eos # (Auto) 0.0 (0.0-0.4) X10*3/uL Baso # (Auto) 0.1 (0.0-0.2) X10*3/uL Abs Immat Gran (auto) 0.04 H (0.00-0.03) X10*3/uL Absolute Neuts (auto) 7.0 (2.0-8.3) x10*3/uL Absolute Nucleated RBC 0.000 (0.0-0.012) X10*3/uL Nucleated RBC % (auto) 0.0 (0.0-0.2) /100WBC PT 21.4 H (11.1-13.3) SEC INR 1.8 H (0.9-1.1) Sodium 144 (135-145) mmol/L Potassium 3.5 (3.3-5.1) mmol/L Chloride 107 (96-108) mmol/L Carbon Dioxide 25 (22-29) mmol/L Anion Gap 16 (12-20) BUN 11 (9-16) mg/dL Creatinine 0.93 (0.5-1.4) mg/dL Estim Creat Clear Calc 54.1 Estimated GFR 57 Random Glucose 114 (60-115) mg/dL Calcium 10.1 D (8.4-10.2) mg/dL Total Bilirubin 3.1 H (0.0-1.0) mg/dL Direct Bilirubin 1.7 H (0.0-0.5) mg/dL AST 14 (5-31) U/L ALT 16 (0-31) U/L Alkaline Phosphatase 93 (39-117) U/L Troponin I High Sens 23.1 H D (<3.5-17.0) ng/L B-Natriuretic Peptide 710 H (<100) pg/mL Total Protein 6.9 (6.5-8.0) g/dL Albumin 4.0 (3.5-5.0) g/dL Lipase 16 (8-78) U/L Influenza Type A (PCR) NEGATIVE (Negative) Influenza Type B (PCR) NEGATIVE (Negative) RSV RNA Qual (PCR) NEGATIVE (Negative) SARS-CoV-2 RNA (RT-PCR) NEGATIVE (Negative) Independent Interpretation I performed an independent interpretation of an: Plain X-Ray ( chest: CHF) Radiology Impression Discussion of test interpretation with radiology: I have reviewed the radiologist's reading. Chronic Conditions Patient?s care impacted by: Hypertension and Other ( A.Fib) Critical Care Time Critical Care Time Critical Care Time: Yes Total Critical Care Time: 45 Attestation: I spent 45 minutes providing critical care service to the patient, this including time spent at the bedside to evaluate the patient, reassess the patient, monitoring vital signs, review labs, and radiographic studies, counseling the patient/family, discussing the case with consultants, disposition the patient. Discharge Plan Discharge Clinical Impression: Atrial fibrillation with RVR, Congestive heart failure Patient Disposition: Admitted As Inpatient Prescriptions: No Action Eliquis 5 mg tablet 5 mg PO BID 90 Days Qty: 180 3RF digoxin 125 mcg (0.125 mg) tablet 125 mcg PO 3XW Qty: 36 3RF albuterol sulfate 90 mcg/actuation HFA aerosol inhaler 2 puff inhalation Q4-6H PRN (Reason: wheezing) Spectravite Adult 18-400 mg-mcg tablet 1 tab PO DAILY prednisone 20 mg tablet 20 mg PO DAILY 7 Days Qty: 7 0RF doxycycline hyclate 100 mg tablet 100 mg PO BID 7 Days Qty: 14 0RF cholecalciferol (vitamin D3) 25 mcg (1,000 unit) capsule 25 mcg PO DAILY pravastatin 10 mg tablet 10 mg PO BEDTIME acetaminophen [Mapap Arthritis Pain] 650 mg tablet extended release 650 mg PO Q8H PRN (Reason: Pain (Scale Score 1-3)) lisinopril 10 mg tablet 10 mg PO DAILY amlodipine 5 mg tablet 5 mg PO DAILY metoprolol tartrate 50 mg tablet 50 mg PO BID Qty: 60 5RF furosemide 40 mg tablet 40 mg PO BID Qty: 120 3RF lidocaine-epinephrine 1 %-1:100,000 solution 20 ml Infiltration ONCE Qty: 30 0RF
[2023-09-15 09:54] LABS: MANUAL DIFF FLAG NO
[2023-09-15] MEDS: methylPREDNISolone Sod Succ 125 MG/2 ML VIAL IVPUSH (10:04)
[2023-09-15] MEDS: Metoprolol Tartrate 50 MG TABLET PO ×2 (10:04→20:10)
[2023-09-15] MEDS: Metoprolol Tartrate 5 MG/5 ML VIAL IVPUSH ×2 (10:05→15:52)
[2023-09-15] MEDS: Magnesium Sulfate/H2O 2 GM/50 ML PIGGYBACK IV (10:10)
[2023-09-15 10:12] LABS: Basophils Absolute Auto 0.1 X10*3/uL (0.0-0.2); Basophils Percent Auto 0.8 % (0-2); Eosinophils Percent Auto 0.2 % (0-4); Hematocrit 41.7 % (37.0-47.0); Hemoglobin 12.4 g/dl (12.0-16.0); Imm Gran Abs Auto 0.04 X10*3/uL (0.00-0.03); Imm Gran Pct Auto 0.5 % (0.0-0.4); Lymphocytes Absolute Auto 0.6 X10*3/uL (1.2-4.9); Mean Corpuscular HGB Conc 29.7 g/dl (31.0-35.0); Mean Corpuscular Hemoglobin 24.9 pg (27.0-33.0); Mean Corpuscular Volume 83.7 fL (80.0-98.0); Mean Platelet Volume 10.9 fL (9.4-12.3); Monocytes Absolute Auto 0.6 X10*3/uL (0.1-1.2); Monocytes Percent Auto 6.7 % (2-11); Neutrophils Percent Auto 84.8 % (45-73); Platelet Count 219 X10*3/uL (160-400); Red Blood Count 4.98 X10*6/uL (4.20-5.50); Red Cell Distribution Width 19.1 % (11.0-16.0); White Blood Count 8.3 X10*3/uL (4.8-10.8)
[2023-09-15 10:14] LABS: B Type Natriuretic Peptide 710 pg/mL (<100)
[2023-09-15 10:16] LABS: Troponin-I High Sensitivity 23.1 ng/L (<3.5-17.0)
[2023-09-15 10:17] LABS: Alanine Aminotransferase 16 U/L (0-31); Alkaline Phosphatase 93 U/L (39-117); Anion Gap 16 (12-20); Aspartate Amino Transferase 14 U/L (5-31); Bilirubin Direct 1.7 mg/dL (0.0-0.5); Bilirubin Total 3.1 mg/dL (0.0-1.0); Blood Urea Nitrogen 11 mg/dL (9-16); Calcium 10.1 mg/dL (8.4-10.2); Carbon Dioxide 25 mmol/L (22-29); Chloride 107 mmol/L (96-108); Creatinine Clr Calc Pharmacy 54.1; Estimated Glomerular Filt Rate 57; Glucose Random 114 mg/dL (60-115); Lipase 16 U/L (8-78); Potassium 3.5 mmol/L (3.3-5.1); Sodium 144 mmol/L (135-145); Total Protein 6.9 g/dL (6.5-8.0)
[2023-09-15 10:18] LABS: INTERNATIONAL NORM RATIO 1.8 (0.9-1.1); Prothrombin Time 21.4 SEC (11.1-13.3)
[2023-09-15 10:52] LABS: Influenza A PCR NEGATIVE (Negative); Influenza B PCR NEGATIVE (Negative); Resp Syncy Virus RNA Qual PCR NEGATIVE (Negative); SARS COV2 PCR INHOUSE NEGATIVE (Negative)
[2023-09-15] MEDS: Nitroglycerin 2 % Oint 1 GM Packet 0.5 INCH TRANSDERMA (14:03)
[2023-09-15] MEDS: Furosemide 40 MG/4 ML VIAL IVPUSH ×2 (14:05→20:18)
--- NOTE | 2023-09-15 15:21 | PHA.MEDREC ---
Pharmacy Consult ? Medication Reconciliation Pharmacy has completed the medication reconciliation. Utilized electrotherapist services. Patient reported all meds.
--- NOTE | 2023-09-15 15:29 | P.HPHOSP_ITS ---
History of Present Illness Date of Service: 09/15/23 Attending physician on admission: Emili Ma Chief Complaint: shortness of breath This is an 82 year old female with history of right heart failure, afib on ELiquis, HTN, HLD who presents with several days of shortness of breath. She reports increasing shortness of breath with exertion as well as orthopnea. She has associated dry cough. She denies any fever, chills or any recent sick contacts. In the emergency department patient was noted to be tachycardic with a heart rate of 136 is tachypneic with a respiratory rate of 30. EKG was consistent with rapid atrial fibrillation. She received a dose of both oral and IV metoprolol however heart rate continued to be elevated. Chest x-ray showed cardiomegaly with CHF and suspected left pleural effusion, BNP 710. In the emergency department she he also received a dose of IV Lasix, IV magnesium, IV Solu-Medrol as well as nitro paste. She will be admitted for further management of atrial fibrillation with rapid ventricular response and acute CHF. Review of Systems 2 Review of Systems: Yes all other systems are reviewed and are negative Constitutional: Constitutional: Denies chills and Denies fever(s) ENT: Denies dizziness Cardiovascular: Cardiovascular: Denies chest pain, Reports palpitations, Reports dyspnea, Reports dyspnea on exertion and Reports orthopnea Respiratory: Respiratory: Reports cough, Reports dyspnea and Reports dyspnea on exertion Neurologic: Denies dizziness Endocrine: Endocrine: Reports palpitations [facility] Medical History RVF (right ventricular failure) Chronic diastolic CHF (congestive heart failure) DEBBIE (obstructive sleep apnea) New onset a-fib Atherosclerosis Varicose veins of bilateral lower extremities with pain Osteoarthritis HTN (hypertension) Obesity Osteoporosis Family History Son CAD (coronary artery disease) Mother CAD (coronary artery disease) Surgical History Hx of surgical procedure (03/01/23) History of appendectomy Status post left knee replacement Social History Household Members: Family Housing: Apartment Are you a primary senior care provider to a significant other at home: No Alcohol intake: never Patient Tobacco Use Status: Never used Tobacco Advance Directives Date on File: 10/25/21 service: No Current occupational status: retired and disabled Meds Allergies Allergy/AdvReac Type Severity Reaction Status Date / Time Penicillins [PENICILLINS] AdvReac Unknown STOMACH Verified 09/15/23 09:21 UPSET Active Medications: Current Medications Acetaminophen (Acetaminophen 325 Mg Tablet) 650 mg PO Q6H PRN PRN Reason: Pain, Mild (Pain Scale 1-3) Docusate Sodium (Docusate Sodium 100 Mg Capsule) 100 mg PO DAILY PRN PRN Reason: Constipation Ondansetron HCl (Ondansetron Hcl 4 Mg/2 Ml Vial) 4 mg IVPUSH Q8H PRN PRN Reason: Nausea and Vomiting Sodium Chloride (0.9 % Sodium Chloride Flush 3 Ml Syringe) [address] [facility] Home Medications Medication Instructions Recorded Confirmed Last Taken Type cholecalciferol (vitamin D3) 25 25 mcg PO DAILY 03/20/21 09/15/23 09/14/23 History mcg (1,000 unit) capsule pravastatin 10 mg tablet 10 mg PO BEDTIME 03/20/21 09/15/23 09/14/23 History lisinopril 10 mg tablet 10 mg PO DAILY 12/04/21 09/15/23 09/14/23 History albuterol sulfate 2.5 mg/3 mL 2.5 mg inhalation Q6H PRN wheezing 09/15/23 09/15/23 Unknown History (0.083 %) solution for nebulization digoxin 125 mcg (0.125 mg) tablet 125 mcg PO MOWEFR@0900 09/15/23 09/15/23 09/13/23 History furosemide 40 mg tablet 40 mg PO BID@0900,1500 09/15/23 09/15/23 09/14/23 History multivitamin-ferrous 1 tab PO DAILY 09/15/23 09/15/23 09/14/23 History fumarate-folic acid 18 mg-400 mcg tablet (Certavite-Antioxidant) Physical Exam 2 Vital Signs and Narrative: Vital Signs: Last Vital Signs Temp 97.9 F 09/15/23 09:22 Pulse 110 H 09/15/23 14:06 Resp 22 H 09/15/23 14:06 BP 145/77 H 09/15/23 14:06 Pulse Ox 94 09/15/23 14:06 O2 Del Method Nasal Cannula 09/15/23 14:06 O2 Flow Rate 2 09/15/23 14:06 Oxygen Flow Rate 2 09/15/23 09:22 BMI result Body Mass Index 41.1 Const: General: cooperative, comfortable, no acute distress, alert and awake Nutritional Appearance: obese Orientation/consciousness: patient oriented x3 Resp: Other: b/l crackles Effort & Inspection: normal respiratory effort, able to speak in complete sentences, no respiratory distress and no use of accessory muscles Cardio: Rate: tachycardic Rhythm: abnormal rhythm irregularly irregular GI: Inspection: No distended Palpation (GI): Soft to palpation and nontender Neuro: General: patient oriented x3, moves all extremities and CN's II-XI intact bilaterally Extrem: Other: no leg edema; vericose veins bilaterally and venous stasis skin changes General: Yes no pedal edema Results Labs 09/15/23 09:38 09/15/23 09:38 Labs: Laboratory Results - last 24 hr 09/15/23 09:38 MCV 83.7 MCH 24.9 L MCHC 29.7 L RDW 19.1 H Plt Count 219 MPV 10.9 Immature Gran % (Auto) 0.5 H Neut % (Auto) 84.8 H Lymph % (Auto) 7.0 L [place] % (Auto) 6.7 Eos % (Auto) 0.2 Baso % (Auto) 0.8 Lymph # (Auto) 0.6 L [place] # (Auto) 0.6 Eos # (Auto) 0.0 Baso # (Auto) 0.1 Abs Immat Gran (auto) 0.04 H Absolute Neuts (auto) 7.0 Absolute Nucleated RBC 0.000 Nucleated RBC % (auto) 0.0 PT 21.4 H INR 1.8 H Anion Gap 16 Estim Creat Clear Calc 54.1 Estimated GFR 57 Random Glucose 114 Calcium 10.1 D Total Bilirubin 3.1 H Direct Bilirubin 1.7 H AST 14 ALT 16 Alkaline Phosphatase 93 Troponin I High Sens 23.1 H D B-Natriuretic Peptide 710 H Total Protein 6.9 Albumin 4.0 Lipase 16 Influenza Type A (PCR) NEGATIVE Influenza Type B (PCR) NEGATIVE RSV RNA Qual (PCR) NEGATIVE SARS-CoV-2 RNA (RT-PCR) NEGATIVE Imaging Radiologist's Impressions: Impressions Chest X-Ray 09/15/23 10:05 IMPRESSION: 1. Cardiomegaly with CHF. 2. Suspect left pleural effusion with underlying atelectasis. 3. There is mild spondylosis. Assessment and Plan (1) Congestive heart failure: Status: Acute (2) Atrial fibrillation with RVR: Status: Acute Plan This is an 82 year old female with history of afib on Eliquis, right heart failure, HTN, HLD, DEBBIE not on cpap and chrnoic respiratory failure on 2L who presents to the ED with shortness of breath found to be in rapid fib and CHF Acute on chronic right-sided heart failure Likely due to AFib with RVR IV Lasix Low-sodium diet, daily weights Cardiology consult follow BNP initial troponin 23.1, will repeat Atrial fibrillation with rapid ventricular response got a dose of IV lopressor at 9:45 this am, HR still uncontrolled, will give additional dose of IV lopressor and resume baseline metoprolol continue digoxin continue AC with Eliquis hyperbilirubinemia transaminases normal. no abdominal pain appears chronic trend LFTs HTN continue lisinopril HLD continue statin chronic respiratory failure on 2L NC 14/01 due to underlying lung disease reports history of asthma, denies COPD saturating in mid-90s on baseline ozygen DEBBIE doesn't use CPAP morbid obesity BMI 41 weight loss encouraged likely contributing to chronic comorbidities dvt ppx - eliquis code status - DNR/DNI Patient will likely require two midnight stay in the hospital for management of chf and afib requiring close cardiac monitoring and specialist evaluation Quality Stroke Does the patient have a stroke diagnosis?: No VTE Prior VTE?: No VTE Risk Level:: Medical - moderate - high VTE Device Contraindication: N/A - Device Ordered VTE Drug Contraindication: N/A - Med Ordered
--- NOTE | 2023-09-15 15:41 | PC.NURSE ---
pt aox4. resting comfortably in room, no signs of distress, denies pain and SOB. afib on monitor rate 100-120. 2L o2 on, 94%. awaiting admit orders and bed assignment
[2023-09-15] MEDS: 0.9 % Sodium Chloride Flush 3 ML SYRINGE IVFLUSH (15:52)
[2023-09-15 15:57] LABS: Appearance Urine Clear; Color Urine Yellow; Glucose Urine UA Negative (Negative); Leukocyte Esterase Urine Negative (Negative); Nitrite Urine Negative (Negative); PH 5.5 (5.0-9.0); Specific Gravity - Urine <= 1.005 (1.005-1.025); Urine Blood Negative (Negative); Urine Ketones Negative (Negative); Urine Protein Negative (Neg-Trace)
[2023-09-15 16:24] LABS: Troponin-I High Sensitivity 27.1 ng/L (<3.5-17.0)
--- NOTE | 2023-09-15 20:06 | PC.NURSE ---
pts resting hr is afib on tele rate 95-115. with exertion, hr increases with range 110-130. PO PM meds given and iv lasix. 1100ml urine in purewick canister
[2023-09-15] MEDS: Pravastatin Sodium 10 MG TABLET PO (20:10)
[2023-09-15] MEDS: Apixaban 5 MG TABLET PO (20:10)
--- NOTE | 2023-09-15 20:25 | PC.NURSE ---
pt bed changed, blankets removed from under patient. purewick in place and looks properly positioned. suction canister emptied and a new one was placed.
[2023-09-16] VITALS (7 sets, daily range): BP systolic 119–163; BP diastolic 65–79; PULSE 75–109; RESP 16–20; TEMP 36.3–37.1; O2SAT 92–98
[2023-09-16 08:51] LABS: Basophils Percent Auto 0.2 % (0-2); Eosinophils Percent Auto 0.1 % (0-4); Hematocrit 40.7 % (37.0-47.0); Hemoglobin 12.3 g/dl (12.0-16.0); Imm Gran Abs Auto 0.06 X10*3/uL (0.00-0.03); Imm Gran Pct Auto 0.5 % (0.0-0.4); Lymphocytes Absolute Auto 0.4 X10*3/uL (1.2-4.9); Lymphocytes Percent Auto 3.3 % (20-40); MANUAL DIFF FLAG SCAN; Mean Corpuscular HGB Conc 30.2 g/dl (31.0-35.0); Mean Corpuscular Hemoglobin 25.2 pg (27.0-33.0); Mean Corpuscular Volume 83.4 fL (80.0-98.0); Monocytes Absolute Auto 0.5 X10*3/uL (0.1-1.2); Monocytes Percent Auto 3.7 % (2-11); Neutrophils Absolute Auto 11.1 x10*3/uL (2.0-8.3); Neutrophils Percent Auto 92.2 % (45-73); Platelet Count 217 X10*3/uL (160-400); Red Blood Count 4.88 X10*6/uL (4.20-5.50); Red Cell Distribution Width 18.7 % (11.0-16.0); SCAN SMEAR FLAG 1; White Blood Count 12.1 X10*3/uL (4.8-10.8)
[2023-09-16 08:58] LABS: Anion Gap 14 (12-20); Blood Urea Nitrogen 16 mg/dL (9-16); Calcium 9.6 mg/dL (8.4-10.2); Carbon Dioxide 28 mmol/L (22-29); Chloride 107 mmol/L (96-108); Creatinine Clr Calc Pharmacy 50.3; Estimated Glomerular Filt Rate 53; Glucose Random 142 mg/dL (60-115); Potassium 3.7 mmol/L (3.3-5.1); Sodium 145 mmol/L (135-145)
--- NOTE | 2023-09-16 09:24 | HO.PM.IMPN ---
Subjective Subjective Date of Service: 09/16/23 Interval History: F/u on chf exacerbation interval history: she is feeling better Physical Exam Vital Signs: Vital Signs: Last Vital Signs Temp 98.7 F 09/16/23 07:33 Pulse 98 09/16/23 07:33 Resp 18 09/16/23 07:33 BP 140/75 H 09/16/23 07:33 Pulse Ox 97 09/16/23 07:33 O2 Del Method Nasal Cannula 09/16/23 07:33 O2 Flow Rate 2 09/16/23 07:33 Oxygen Flow Rate 2 09/15/23 09:22 BMI result Body Mass Index 41.1 General: AO X 3, no acute distress Resp: diminished but clear CVS: S1,S2,RRR GI: +BS, NT, no distention Skin: No rash extremities--varicose vein Neuro: motor grossly intact Psych: appropriate affect Objective Data Active Medications Acetaminophen (Acetaminophen 325 Mg Tablet) 650 mg PO Q6H PRN PRN Reason: Pain, Mild (Pain Scale 1-3) Albuterol Sulfate (Albuterol Sulfate (0.083%) 2.5 Mg/3 Ml Vial.Neb) 2.5 mg INHALE Q6H PRN PRN Reason: wheezing Apixaban (Apixaban 5 Mg Tablet) 5 mg PO BID [facility] Last Admin: 09/15/23 20:10 Dose: 5 mg Documented By: RAO Digoxin (Digoxin 0.125 Mg Tablet) 0.125 mg PO MOWEFR@0900 [facility] Docusate Sodium (Docusate Sodium 100 Mg Capsule) 100 mg PO DAILY PRN PRN Reason: Constipation Furosemide (Furosemide 40 Mg/4 Ml Vial) 40 mg IVPUSH BID [facility]; Protocol Last Admin: 09/15/23 20:18 Dose: 40 mg Documented By: RAO Lisinopril (Lisinopril 10 Mg Tablet) 10 mg PO DAILY [facility]; Protocol Metoprolol Tartrate (Metoprolol Tartrate 50 Mg Tablet) 50 mg PO BID [facility]; Protocol Last Admin: 09/15/23 20:10 Dose: 50 mg Documented By: RAO Multivitamins/Vitamin C (Multivitamin Tablet) 1 tab PO DAILY [facility] Ondansetron HCl (Ondansetron Hcl 4 Mg/2 Ml Vial) 4 mg IVPUSH Q8H PRN PRN Reason: Nausea and Vomiting Pravastatin Sodium (Pravastatin Sodium 10 Mg Tablet) 10 mg PO BEDTIME [facility] Last Admin: 09/15/23 20:10 Dose: 10 mg Documented By: RAO Sodium Chloride (0.9 % Sodium Chloride Flush 3 Ml Syringe) 3 ml IVFLUSH QSHIFT [facility] Last Admin: 09/16/23 00:11 Dose: Not Given Documented By: ROLAND Non-Admin Reason: Patient Asleep Vitamin D (Cholecalciferol (Vitamin D3) 25 Mcg Tablet) 25 mcg PO DAILY [facility] Labs 09/15/23 09:38 09/16/23 08:41 Labs: Laboratory Results - last 24 hr 09/15/23 09/15/23 09/15/23 09:38 15:47 15:56 MCV 83.7 MCH 24.9 L MCHC 29.7 L RDW 19.1 H Plt Count 219 MPV 10.9 Immature Gran % (Auto) 0.5 H Neut % (Auto) 84.8 H Lymph % (Auto) 7.0 L [place] % (Auto) 6.7 Eos % (Auto) 0.2 Baso % (Auto) 0.8 Lymph # (Auto) 0.6 L [place] # (Auto) 0.6 Eos # (Auto) 0.0 Baso # (Auto) 0.1 Abs Immat Gran (auto) 0.04 H Absolute Neuts (auto) 7.0 Absolute Nucleated RBC 0.000 Nucleated RBC % (auto) 0.0 PT 21.4 H INR 1.8 H Anion Gap 16 Estim Creat Clear Calc 54.1 Estimated GFR 57 Random Glucose 114 Calcium 10.1 D Total Bilirubin 3.1 H Direct Bilirubin 1.7 H AST 14 ALT 16 Alkaline Phosphatase 93 Troponin I High Sens 23.1 H D 27.1 H B-Natriuretic Peptide 710 H Total Protein 6.9 Albumin 4.0 Lipase 16 Urine Color Yellow Urine Appearance Clear Urine pH 5.5 Ur Specific [place] <= 1.005 Urine Protein Negative Urine Glucose (UA) Negative Urine Ketones Negative Urine Blood Negative Urine Nitrite Negative Ur Leukocyte Esterase Negative Influenza Type A (PCR) NEGATIVE Influenza Type B (PCR) NEGATIVE RSV RNA Qual (PCR) NEGATIVE SARS-CoV-2 RNA (RT-PCR) NEGATIVE 09/16/23 08:41 MCV MCH MCHC RDW Plt Count MPV Immature Gran % (Auto) Neut % (Auto) Lymph % (Auto) [place] % (Auto) Eos % (Auto) Baso % (Auto) Lymph # (Auto) [place] # (Auto) Eos # (Auto) Baso # (Auto) Abs Immat Gran (auto) Absolute Neuts (auto) Absolute Nucleated RBC Nucleated RBC % (auto) PT INR Anion Gap 14 Estim Creat Clear Calc 50.3 Estimated GFR 53 Random Glucose 142 H Calcium 9.6 Total Bilirubin Direct Bilirubin AST ALT Alkaline Phosphatase Troponin I High Sens B-Natriuretic Peptide Total Protein Albumin Lipase Urine Color Urine Appearance Urine pH Ur Specific [place] Urine Protein Urine Glucose (UA) Urine Ketones Urine Blood Urine Nitrite Ur Leukocyte Esterase Influenza Type A (PCR) Influenza Type B (PCR) RSV RNA Qual (PCR) SARS-CoV-2 RNA (RT-PCR) Assessment and Plan (1) Congestive heart failure: Status: Acute (2) Atrial fibrillation with RVR: Status: Acute Plan This is an 82 year old female with history of afib on Eliquis, right heart failure, HTN, HLD, DEBBIE not on cpap and chrnoic respiratory failure on 2L who presents to the ED with shortness of breath found to be in rapid fib and CHF Acute on chronic right-sided heart failure Likely due to AFib with RVR Change to PO Lasix Low-sodium diet, daily weights Cardiology consult follow BNP initial troponin 23.1 repeat 27 Atrial fibrillation with rapid ventricular response, resolved with IV Lopressor. Resume home lopressor, digoxine and eliquis hyperbilirubinemia transaminases normal. no abdominal pain appears chronic trend LFTs HTN continue lisinopril HLD continue statin chronic respiratory failure on 2L NC 14/01 due to underlying lung disease reports history of asthma, denies COPD saturating in mid-90s on baseline ozygen DEBBIE doesn't use CPAP morbid obesity BMI 41 weight loss encouraged likely contributing to chronic comorbidities dvt ppx - eliquis code status - DNR/DNI need for inpatient: acute heart failure being treated with IV Lasix and monitoring respiratoy status Quality Stroke Does the patient have a stroke diagnosis?: No VTE Prior VTE?: No VTE Risk Level:: Medical - moderate - high VTE Device Contraindication: N/A - Device Ordered VTE Drug Contraindication: N/A - Med Ordered
--- NOTE | 2023-09-16 10:10 | MHC.CM.PN ---
Patient was unavailable; CM spoke with Daughter/HCP/Shantal @ [phone] and addressed IMM with her(original will be mailed certified letter to Shantal @ [address] [place] [address] Isabel WIGGINS and a copy has been placed on the chart). Patient lives in an apartment with her Granddaughter who is her [employer] ADVISOR 20 hours/week and she uses a walker to assist with mobility. Home/resume said services is the goal and CM has initiated and will follow for dc planning. PCP is from [facility].
[2023-09-16 10:22] LABS: SLIDE REVIEW VERIFIED
[2023-09-16] MEDS: Cholecalciferol (Vitamin D3) 25 MCG TABLET PO (10:36)
[2023-09-16] MEDS: Metoprolol Tartrate 50 MG TABLET PO ×2 (10:36→21:08)
[2023-09-16] MEDS: Multivitamin TABLET 1 TAB PO (10:37)
[2023-09-16] MEDS: lisinopriL 10 MG TABLET PO (10:39)
[2023-09-16] MEDS: Digoxin 0.125 MG TABLET PO (10:39)
[2023-09-16] MEDS: 0.9 % Sodium Chloride Flush 3 ML SYRINGE IVFLUSH ×3 (10:39→21:08)
[2023-09-16] MEDS: Apixaban 5 MG TABLET PO ×2 (10:39→21:08)
--- NOTE | 2023-09-16 13:46 | P.CONCA_ITS ---
History of Present Illness History of Present Illness Date of Service: 09/16/23 Requesting physician: Nacho Rose Chief complaint: CHF. Afib RVR Narrative: [age] year female presenting with congestive heart failure and AFib with RVR. She has permanent atrial fibrillation and RV dysfunction due to underlying lung disease. She has been seen in the office and underwent cardiac MRI in the past which showed [id number] RV dysfunction with no RV infiltration. She was treated with digoxin and metoprolol along with apixaban 5 mg b.i.d.. It appears she is also on Lasix b.i.d. but does not use the Lasix regularly because she gets incontinence and gets accidents at home. Her family said that the bathroom is slightly far from her bed and as she starts walking she gets accident which frustrates her and she does not take Lasix regularly. She recently had upper respiratory tract infection and was treated with antibiotics and subsequently did not improve and eventually came back now with shortness of breath and clinical heart failure. She was noticed to be in AFib with RVR. [facility] Past Medical History Medical History RVF (right ventricular failure) Chronic diastolic CHF (congestive heart failure) DEBBIE (obstructive sleep apnea) New onset a-fib Atherosclerosis Varicose veins of bilateral lower extremities with pain Osteoarthritis HTN (hypertension) Obesity Osteoporosis Family History Family History Son CAD (coronary artery disease) Mother CAD (coronary artery disease) Surgical History Surgical History Hx of surgical procedure (03/01/23) History of appendectomy Status post left knee replacement Social History Social History Household Members: Family Housing: House Are you a primary customer care agent to a significant other at home: No Do you presently have visiting nurse or other home services: No Alcohol intake: never Patient Tobacco Use Status: Never used Tobacco e-Cigarette/Vaping Use: Never Used Second Hand Smoke Exposure: No Advance Directives Date on File: 10/25/21 service: No Current occupational status: retired and disabled Meds Allergies Allergy/AdvReac Type Severity Reaction Status Date / Time Penicillins [PENICILLINS] AdvReac Unknown STOMACH Verified 09/15/23 09:21 UPSET Active Medications: Current Medications Acetaminophen (Acetaminophen 325 Mg Tablet) 650 mg PO Q6H PRN PRN Reason: Pain, Mild (Pain Scale 1-3) Albuterol Sulfate (Albuterol Sulfate (0.083%) 2.5 Mg/3 Ml Vial.Neb) 2.5 mg INHALE Q6H PRN PRN Reason: wheezing Apixaban (Apixaban 5 Mg Tablet) 5 mg PO BID [facility] Last Admin: 09/16/23 10:39 Dose: 5 mg Digoxin (Digoxin 0.125 Mg Tablet) 0.125 mg PO MOWEFR@0900 [facility] Last Admin: 09/16/23 10:39 Dose: 0.125 mg Docusate Sodium (Docusate Sodium 100 Mg Capsule) 100 mg PO DAILY PRN PRN Reason: Constipation Furosemide (Furosemide 40 Mg/4 Ml Vial) 40 mg IVPUSH BID@0900,1800 [facility]; Protocol Lisinopril (Lisinopril 10 Mg Tablet) 10 mg PO DAILY [facility]; Protocol Last Admin: 09/16/23 10:39 Dose: 10 mg Metoprolol Tartrate (Metoprolol Tartrate 50 Mg Tablet) 50 mg PO BID [facility]; Protocol Last Admin: 09/16/23 10:36 Dose: 50 mg Multivitamins/Vitamin C (Multivitamin Tablet) 1 tab PO DAILY [facility] Last Admin: 09/16/23 10:37 Dose: 1 tab Ondansetron HCl (Ondansetron Hcl 4 Mg/2 Ml Vial) 4 mg IVPUSH Q8H PRN PRN Reason: Nausea and Vomiting Pravastatin Sodium (Pravastatin Sodium 10 Mg Tablet) 10 mg PO BEDTIME [facility] Last Admin: 09/15/23 20:10 Dose: 10 mg Sodium Chloride (0.9 % Sodium Chloride Flush 3 Ml Syringe) 3 ml IVFLUSH QSHIFT [facility] Last Admin: 09/16/23 10:39 Dose: 3 ml Vitamin D (Cholecalciferol (Vitamin D3) 25 Mcg Tablet) 25 mcg PO DAILY [facility] Last Admin: 09/16/23 10:36 Dose: 25 mcg Home Medications Medication Instructions Recorded Confirmed Last Taken Type cholecalciferol (vitamin D3) 25 25 mcg PO DAILY 03/20/21 09/15/23 09/14/23 History mcg (1,000 unit) capsule pravastatin 10 mg tablet 10 mg PO BEDTIME 03/20/21 09/15/23 09/14/23 History lisinopril 10 mg tablet 10 mg PO DAILY 12/04/21 09/15/23 09/14/23 History albuterol sulfate 2.5 mg/3 mL 2.5 mg inhalation Q6H PRN wheezing 09/15/23 09/15/23 Unknown History (0.083 %) solution for nebulization digoxin 125 mcg (0.125 mg) tablet 125 mcg PO MOWEFR@0900 09/15/23 09/15/23 09/13/23 History furosemide 40 mg tablet 40 mg PO BID@0900,1500 09/15/23 09/15/23 09/14/23 History multivitamin-ferrous 1 tab PO DAILY 09/15/23 09/15/23 09/14/23 History fumarate-folic acid 18 mg-400 mcg tablet (Certavite-Antioxidant) Physical Exam 2 Vital Signs: Vital Signs: Last Vital Signs Temp 98.6 F 09/16/23 11:41 Pulse 109 H 09/16/23 11:41 Resp 20 09/16/23 11:41 BP 125/65 09/16/23 11:41 Pulse Ox 98 09/16/23 11:41 O2 Del Method Nasal Cannula 09/16/23 11:41 O2 Flow Rate 2 09/16/23 11:41 Oxygen Flow Rate 2 09/15/23 09:22 BMI result Body Mass Index 41.1 GENERAL APPEARANCE: in no acute distress, pleasant. NECK: no carotid bruit, + jugular venous distention. SKIN: no suspicious lesions, warm and dry. HEART: Holosystolic murmur left sternal border, irregular rate and rhythm. LUNGS: Crackles at bases. ABDOMEN: soft, nontender. EXTREMITIES: no edema. PERIPHERAL PULSES: equal. NEUROLOGIC: No gross deficits, AAO X 3 Objective Labs and Meds 09/16/23 08:41 09/16/23 08:41 Lab results: Laboratory Results - last 24 hr 09/15/23 09/15/23 09/16/23 15:47 15:56 08:41 WBC 12.1 H RBC 4.88 Hgb 12.3 Hct 40.7 MCV 83.4 MCH 25.2 L MCHC 30.2 L RDW 18.7 H Plt Count 217 MPV 11.0 Immature Gran % (Auto) 0.5 H Neut % (Auto) 92.2 H Lymph % (Auto) 3.3 L Person % (Auto) 3.7 Eos % (Auto) 0.1 Baso % (Auto) 0.2 Lymph # (Auto) 0.4 L Person # (Auto) 0.5 Eos # (Auto) 0.0 Baso # (Auto) 0.0 Abs Immat Gran (auto) 0.06 H Absolute Neuts (auto) 11.1 H Absolute Nucleated RBC 0.000 Nucleated RBC % (auto) 0.0 Smear Tech's Comments VERIFIED Sodium 145 Potassium 3.7 Chloride 107 Carbon Dioxide 28 Anion Gap 14 BUN 16 Creatinine 1.00 Estim Creat Clear Calc 50.3 Estimated GFR 53 Random Glucose 142 H Calcium 9.6 Troponin I High Sens 27.1 H Urine Color Yellow Urine Appearance Clear Urine pH 5.5 Ur Specific [place] <= 1.005 Urine Protein Negative Urine Glucose (UA) Negative Urine Ketones Negative Urine Blood Negative Urine Nitrite Negative Ur Leukocyte Esterase Negative Assessment and Plan (1) Congestive heart failure: Status: Acute (2) Atrial fibrillation with RVR: Status: Acute Plan Pleasant 82 year female with known history of RV dysfunction due to underlying lung disease presenting for shortness of breath and AFib with RVR. She has permanent atrial fibrillation. Heart rate better controlled at this point after diuretics were given. Continue diurese with IV diuretics. She is feeling better with diuresis. Continue home medications including metoprolol tartrate 50 mg twice a day and digoxin 125 mcg every Saturday and Saturday. She should not be on daily digoxin. Presentation is due to somewhat noncompliance with Lasix as well as recent upper respiratory tract infection which probably affected her PA pressures which she is quite sensitive to due to RV dysfunction. Fully by tomorrow her volume status is better and she can return home. Will discharge on the same dose of Lasix because she has not been taking regularly so increasing the dose does not make sense. Thank you for allowing me to participate in the care of your patient. Please feel free to contact me if you have any questions. Procedures Date of Service Date of Service: 09/16/23
[2023-09-16] MEDS: Furosemide 40 MG/4 ML VIAL IVPUSH (17:34)
[2023-09-16] MEDS: Pravastatin Sodium 10 MG TABLET PO (21:08)
[2023-09-17] VITALS (7 sets, daily range): BP systolic 127–154; BP diastolic 63–84; PULSE 67–104; RESP 16–20; TEMP 36–36.6; O2SAT 92–95
[2023-09-17 06:28] LABS: B Type Natriuretic Peptide 492 pg/mL (<100)
[2023-09-17 06:29] LABS: Anion Gap 14 (12-20); Blood Urea Nitrogen 21 mg/dL (9-16); Calcium 9.5 mg/dL (8.4-10.2); Carbon Dioxide 34 mmol/L (22-29); Chloride 102 mmol/L (96-108); Creatinine Clr Calc Pharmacy 49.4; Estimated Glomerular Filt Rate 52; Glucose Random 89 mg/dL (60-115); Potassium 3.6 mmol/L (3.3-5.1); Sodium 146 mmol/L (135-145)
[2023-09-17] MEDS: Furosemide 40 MG/4 ML VIAL IVPUSH ×2 (08:15→18:00)
[2023-09-17] MEDS: 0.9 % Sodium Chloride Flush 3 ML SYRINGE IVFLUSH ×3 (08:16→20:44)
[2023-09-17] MEDS: Cholecalciferol (Vitamin D3) 25 MCG TABLET PO (08:16)
[2023-09-17] MEDS: Multivitamin TABLET 1 TAB PO (08:16)
[2023-09-17] MEDS: lisinopriL 10 MG TABLET PO (08:16)
[2023-09-17] MEDS: Metoprolol Tartrate 50 MG TABLET PO ×2 (08:16→20:44)
[2023-09-17] MEDS: Apixaban 5 MG TABLET PO ×2 (08:16→20:44)
--- NOTE | 2023-09-17 10:16 | P.PNIM_ITS ---
Subjective Subjective Date of Service: 09/17/23 Interval History: F/u on chf exacerbation interval history: Feels better than yesterday, no shortness of breath Physical Exam 2 Vital Signs: Vital Signs: Last Vital Signs Temp 97.8 F 09/17/23 07:11 Pulse 84 09/17/23 07:11 Resp 17 09/17/23 07:11 BP 154/70 H 09/17/23 07:11 Pulse Ox 94 09/17/23 07:11 O2 Del Method Nasal Cannula 09/17/23 07:11 O2 Flow Rate 1 09/17/23 07:11 Oxygen Flow Rate 2 09/15/23 09:22 BMI result Body Mass Index 41.1 General: AO X 3, no acute distress Resp: mild rales at the bases CVS: S1,S2, iregular iregular, GI: +BS, NT, no distention Skin: No rash Neuro: motor grossly intact Psych: appropriate affect Objective Data Active Medications Acetaminophen (Acetaminophen 325 Mg Tablet) 650 mg PO Q6H PRN PRN Reason: Pain, Mild (Pain Scale 1-3) Albuterol Sulfate (Albuterol Sulfate (0.083%) 2.5 Mg/3 Ml Vial.Neb) 2.5 mg INHALE Q6H PRN PRN Reason: wheezing Apixaban (Apixaban 5 Mg Tablet) 5 mg PO BID [facility] Last Admin: 09/17/23 08:16 Dose: 5 mg Documented By: SOURAV Digoxin (Digoxin 0.125 Mg Tablet) 0.125 mg PO MOWEFR@0900 [facility] Last Admin: 09/16/23 10:39 Dose: 0.125 mg Documented By: NASEEM Docusate Sodium (Docusate Sodium 100 Mg Capsule) 100 mg PO DAILY PRN PRN Reason: Constipation Furosemide (Furosemide 40 Mg/4 Ml Vial) 40 mg IVPUSH BID@0900,1800 [facility]; Protocol Last Admin: 09/17/23 08:15 Dose: 40 mg Documented By: SOURAV Lisinopril (Lisinopril 10 Mg Tablet) 10 mg PO DAILY [facility]; Protocol Last Admin: 09/17/23 08:16 Dose: 10 mg Documented By: SOURAV Metoprolol Tartrate (Metoprolol Tartrate 50 Mg Tablet) 50 mg PO BID [facility]; Protocol Last Admin: 09/17/23 08:16 Dose: 50 mg Documented By: SOURAV Multivitamins/Vitamin C (Multivitamin Tablet) 1 tab PO DAILY [facility] Last Admin: 09/17/23 08:16 Dose: 1 tab Documented By: SOURAV Ondansetron HCl (Ondansetron Hcl 4 Mg/2 Ml Vial) 4 mg IVPUSH Q8H PRN PRN Reason: Nausea and Vomiting Pravastatin Sodium (Pravastatin Sodium 10 Mg Tablet) 10 mg PO BEDTIME [facility] Last Admin: 09/16/23 21:08 Dose: 10 mg Documented By: VICENTE Sodium Chloride (0.9 % Sodium Chloride Flush 3 Ml Syringe) 3 ml IVFLUSH QSHIFT [facility] Last Admin: 09/17/23 08:16 Dose: 3 ml Documented By: SOURAV Vitamin D (Cholecalciferol (Vitamin D3) 25 Mcg Tablet) 25 mcg PO DAILY [facility] Last Admin: 09/17/23 08:16 Dose: 25 mcg Documented By: SOURAV Labs 09/16/23 08:41 09/17/23 05:34 Labs: Laboratory Results - last 24 hr 09/16/23 09/17/23 08:41 05:34 MCV 83.4 MCH 25.2 L MCHC 30.2 L RDW 18.7 H Plt Count 217 MPV 11.0 Immature Gran % (Auto) 0.5 H Neut % (Auto) 92.2 H Lymph % (Auto) 3.3 L [place] % (Auto) 3.7 Eos % (Auto) 0.1 Baso % (Auto) 0.2 Lymph # (Auto) 0.4 L [place] # (Auto) 0.5 Eos # (Auto) 0.0 Baso # (Auto) 0.0 Abs Immat Gran (auto) 0.06 H Absolute Neuts (auto) 11.1 H Absolute Nucleated RBC 0.000 Nucleated RBC % (auto) 0.0 Smear Tech's Comments VERIFIED Anion Gap 14 Estim Creat Clear Calc 49.4 Estimated GFR 52 Random Glucose 89 Calcium 9.5 B-Natriuretic Peptide 492 H Assessment and Plan (1) Congestive heart failure: Status: Acute (2) Atrial fibrillation with RVR: Status: Acute Plan This is an 82 year old female with history of afib on Eliquis, right heart failure, HTN, HLD, DEBBIE not on cpap and chrnoic respiratory failure on 2L who presents to the ED with shortness of breath found to be in rapid fib and CHF Acute on chronic right-sided heart failure Likely due to AFib with RVR IV Lasix for 1 more day, Low-sodium diet, daily weights Cardiology following Monitor BNP and BM follow BNP Atrial fibrillation with rapid ventricular response, resolved with IV Lopressor. continue home lopressor, digoxin and eliquis hyperbilirubinemia transaminases normal. no abdominal pain appears chronic trend LFTs HTN continue lisinopril HLD continue statin chronic respiratory failure on 2L NC 14/01 due to underlying lung disease reports history of asthma, denies COPD saturating in mid-90s on baseline oxygen DEBBIE doesn't use CPAP morbid obesity BMI 41 weight loss encouraged likely contributing to chronic comorbidities dvt ppx - eliquis code status - DNR/DNI need for inpatient: acute heart failure being treated with IV Lasix and monitoring respiratoy status anticipate dc tomorrow Quality Stroke Does the patient have a stroke diagnosis?: No VTE Prior VTE?: No VTE Risk Level:: Medical - moderate - high VTE Device Contraindication: N/A - Device Ordered VTE Drug Contraindication: N/A - Med Ordered
--- NOTE | 2023-09-17 10:57 | PM.PNCARD ---
Subjective Subjective Date of Service: 09/17/23 Interval history: Seen examined at bedside. She is feeling better. Still volume overloaded. Physical Exam Vital Signs: Last Vital Signs Temp 97.3 F 09/17/23 10:55 Pulse 87 09/17/23 10:55 Resp 18 09/17/23 10:55 BP 127/68 09/17/23 10:55 Pulse Ox 94 09/17/23 10:55 O2 Del Method Nasal Cannula 09/17/23 10:55 O2 Flow Rate 1 09/17/23 10:55 Oxygen Flow Rate 2 09/15/23 09:22 BMI result Body Mass Index 41.1 GENERAL APPEARANCE: in no acute distress, pleasant. NECK: no carotid bruit, + jugular venous distention. SKIN: no suspicious lesions, warm and dry. HEART: Holosystolic murmur left sternal border, irregular rate and rhythm. LUNGS: Crackles at bases. ABDOMEN: soft, nontender. EXTREMITIES: no edema. PERIPHERAL PULSES: equal. NEUROLOGIC: No gross deficits, AAO X 3 Objective Labs and Meds 09/16/23 08:41 09/17/23 05:34 Lab results: Laboratory Results - last 24 hr 09/17/23 05:34 Sodium 146 H Potassium 3.6 Chloride 102 Carbon Dioxide 34 H Anion Gap 14 BUN 21 H Creatinine 1.02 Estim Creat Clear Calc 49.4 Estimated GFR 52 Random Glucose 89 Calcium 9.5 B-Natriuretic Peptide 492 H Progress Note: A&P Assessment and plan (1) Congestive heart failure: Status: Acute (2) Atrial fibrillation with RVR: Status: Acute Plan Pleasant 82 year female presenting for congestive heart failure and AFib with RVR. She has permanent atrial fibrillation. Recent viral infection and background of Lasix noncompliance due to incontinence and accidents at home. Clinically still volume overloaded. Continue 40 mg IV b.i.d. Lasix. Blood pressure is elevated and for favor adding spironolactone to improve potassium given the fact that she also takes digoxin and hypokalemic and increase the risk of digitoxicity. Still overloaded and not ready for discharge. Continue IV diuretics today. We will follow along with you. Thank you for allowing me to participate in the care of your patient. Please feel free to contact me if you have any questions. Time Spent With Patient Time: Total time managing care of this patient today ____ minutes. Progress Note: Quality Stroke Does the patient have a stroke diagnosis?: No Procedures Date of Service Date of Service: 09/17/23
[2023-09-17] MEDS: Spironolactone 25 MG TABLET PO (12:57)
--- NOTE | 2023-09-17 15:29 | P.CDIM_ITS ---
PROVIDER RESPONSE TEXT: To clarify, the appropriate diagnosis supported by the clinical indicators: Mild persistent QUERY TEXT: PHYSICIAN'S DOCUMENTATION REQUEST Date of Query: 09/17/2023 07:46 AM EDT Patient Name: Nicole Walters Admit Date: 09/15/2023 Dear Nacho Rose, A review of the medical record indicates additional documentation may be needed. Please review below and update the documentation accordingly. Additional clinical indicators from the record include: Progress note dated 09/15 under Plan: Chronic respiratory failure on 2L NC 14/01 due to underlying shaylee g disease reports history of Asthma, denies COPD. saturating in mid-90's on baseline oxygen. RR 30 H Based on the above, please clarify in the Progress Notes further specificity regarding the type and a cuity of the asthma: Mild intermittent Mild persistent Moderate persistent Severe persistent Asthma with underlying COPD and indicate if with acute lower respiratory infection Please specify if with or without acute exacerbation or status asthmaticus Other (explain) Clinically unable to determine (explain) Thank you, Darling Dominguez, CCS, CDIS Use of terms such as suspected, likely, concern for, or probable (associated with a specific diagnosi s that is being evaluated, monitored, or treated as if it exists) are acceptable and can be coded in the inpatient se tting, when documented at the time of discharge. Please use your independent medical judgment in providing your response. THIS QUERY IS PART OF THE PERMANENT MEDICAL RECORD
[2023-09-17] MEDS: Pravastatin Sodium 10 MG TABLET PO (20:44)
[2023-09-18 03:04] VITALS: BP 124/59; PULSE 69; RESP 18; TEMP 36.2; O2SAT 95
[2023-09-18 07:01] LABS: Anion Gap 12 (12-20); Blood Urea Nitrogen 20 mg/dL (9-16); Carbon Dioxide 34 mmol/L (22-29); Chloride 101 mmol/L (96-108); Creatinine Clr Calc Pharmacy 52.4; Estimated Glomerular Filt Rate 55; Glucose Random 87 mg/dL (60-115); Potassium 3.6 mmol/L (3.3-5.1); Sodium 143 mmol/L (135-145)
[2023-09-18 07:19] VITALS: BP 144/74; PULSE 88; RESP 20; TEMP 36.5; O2SAT 96
--- NOTE | 2023-09-18 08:47 | P.CDIM_ITS ---
PROVIDER RESPONSE TEXT: To clarify, the appropriate diagnosis supported by the clinical indicators: Hypernatremia: resolved QUERY TEXT: PHYSICIAN'S DOCUMENTATION REQUEST Date of Query: 09/18/2023 08:36 AM EDT Patient Name: Nicole Walters Admit Date: 09/15/2023 Dear Nacho Clark, A review of the medical record indicates additional documentation may be needed. Please review below and update the documentation accordingly. Clinical Indicators: LAB FINDINGS: Sodium 146 H 143 Based on the above, is there a diagnosis that correlates with these lab findings: Hypernatremia resolved, possible, suspected, etc. Labs indicate a diagnosis of (please specify) Other (explain) Clinically unable to determine (explain) Thank you, Darling Dominguez, CCS, CDIS Use of terms such as suspected, likely, concern for, or probable (associated with a specific diagnosi s that is being evaluated, monitored, or treated as if it exists) are acceptable and can be coded in the inpatient se tting, when documented at the time of discharge. Please use your independent medical judgment in providing your response. THIS QUERY IS PART OF THE PERMANENT MEDICAL RECORD
--- NOTE | 2023-09-18 09:09 | PM.DS ---
DS: Providers Provider Date of Service: 11/18/23 Date of admission: 09/15/23 15:23 Primary care physician: Xavi Estrella MD Consults: 09/15/23 15:23 Consult to Cardiology Routine Consulting Provider: [facility] Cardi[facility] Services Reason for consultation: chf, rapid afib Has provider been notified: No DS: Diagnosis Discharge Diagnosis (1) Congestive heart failure: Status: Resolved (2) Atrial fibrillation with RVR: Status: Resolved DS: Summary Hospital Course Hospital Course: Admission Attending physician on admission: Emili Ma Chief Complaint: shortness of breath This is an 82 year old female with history of right heart failure, afib on ELiquis, HTN, HLD who presents with several days of shortness of breath. She reports increasing shortness of breath with exertion as well as orthopnea. She has associated dry cough. She denies any fever, chills or any recent sick contacts. In the emergency department patient was noted to be tachycardic with a heart rate of 136 is tachypneic with a respiratory rate of 30. EKG was consistent with rapid atrial fibrillation. She received a dose of both oral and IV metoprolol however heart rate continued to be elevated. Chest x-ray showed cardiomegaly with CHF and suspected left pleural effusion, BNP 710. In the emergency department she he also received a dose of IV Lasix, IV magnesium, IV Solu-Medrol as well as nitro paste. She will be admitted for further management of atrial fibrillation with rapid ventricular response and acute CHF. hospital course: Acute on chronic right-sided heart failure exacerbation likely precipated by AFIB with RVR. Heart failure was treated with IV Lasix under the direction of cardiology. She has clinically improved and will be switched to oral Lasix. Atrial fibrillation with rapid ventricular response, resolved with IV Lopressor. continue home lopressor, digoxin and eliquis hyperbilirubinemia--likely from liver congestion from heart failure HTN continue lisinopril HLD continue statin chronic respiratory failure on 2L NC 14/01 due to underlying lung disease reports history of asthma, denies COPD saturating in mid-90s on baseline oxygen DEBBIE doesn't use CPAP morbid obesity BMI 41 weight loss encouraged likely contributing to chronic comorbidities Time Attestation Discharge Coordination Time (in mins): 40 Quality: Safe Use of Opioids Does Pt have an Active Cancer Diagnosis on the Problem List?: Yes Opioid Measure Date for [facility] Report: 10/03/23 Opioid Measure Time for [facility] Report: 15:58 Quality: Stroke Does the patient have a stroke diagnosis?: No Physical Exam Vital Signs: Vital Signs: Last Vital Signs Temp 97.7 F 09/18/23 07:19 Pulse 88 09/18/23 07:19 Resp 20 09/18/23 07:19 BP 144/74 H 09/18/23 07:19 Pulse Ox 96 09/18/23 07:19 O2 Del Method Nasal Cannula 09/18/23 07:19 O2 Flow Rate 1 09/18/23 07:19 Oxygen Flow Rate 2 09/15/23 09:22 BMI result Body Mass Index 41.1 General: AO X 3, no acute distress Resp: CTA bilateral CVS: S1,S2, irregular irregular GI: +BS, NT, no distention Skin: No rash Neuro: motor grossly intact Psych: appropriate affect DS: Data Data Completed and Pending Labs on day of discharge: Laboratory Results - last 24 hr 09/18/23 05:40 Hold Purple Top SEE NOTE Sodium 143 Potassium 3.6 Chloride 101 Carbon Dioxide 34 H Anion Gap 12 BUN 20 H Creatinine 0.96 Estim Creat Clear Calc 52.4 Estimated GFR 55 Random Glucose 87 Calcium 9.0 Discharge Plan Discharge Anticipated Discharge Date/Time: 09/18/23 09:27 Patient Disposition: Home Health Service Discharge Diagnosis: Heart failure exacerbation, AFIB with RVR Referrals: [facility] [Outside] - 1 Week Xavi Estrella MD [Primary Care Provider] - 1 Week Discharge Medications: New spironolactone 25 mg Tablet 25 mg PO DAILY Qty: 30 0RF Protocol: Hold for SBP< HOLD for SBP < : 90 Continued Eliquis 5 mg tablet 5 mg PO BID 90 Days Qty: 180 3RF albuterol sulfate 2.5 mg /3 mL (0.083 %) solution for nebulization 2.5 mg inhalation Q6H PRN (Reason: wheezing) Certavite-Antioxidant 18-400 mg-mcg tablet 1 tab PO DAILY furosemide 40 mg tablet 40 mg PO BID@0900,1500 digoxin 125 mcg (0.125 mg) tablet 125 mcg PO MOWEFR@0900 cholecalciferol (vitamin D3) 25 mcg (1,000 unit) capsule 25 mcg PO DAILY pravastatin 10 mg tablet 10 mg PO BEDTIME lisinopril 10 mg tablet 10 mg PO DAILY metoprolol tartrate 50 mg tablet 50 mg PO BID Qty: 60 5RF Discharge Orders: Discharge Order (Routine); Ordered 09/18/23 Ordered By: Nacho Rose Diet: Advance to usual diet Activity on Discharge: As tolerated Stand Alone Forms: Patient Portal Discharge page Print Language: Syriac Care Plan Goals: Health Concerns: Return baseline functioning status and Plan of Treatment: continue taking your medication as prescribed, Aldactone is new medication Avoid drinking no more than 1250cc a trey follow up with your Doctor in week, call for appoitment Assessment: see above Discharge Date/Time: 09/18/23 15:37
[2023-09-18] MEDS: Apixaban 5 MG TABLET PO (09:36)
[2023-09-18] MEDS: Multivitamin TABLET 1 TAB PO (09:36)
[2023-09-18] MEDS: Cholecalciferol (Vitamin D3) 25 MCG TABLET PO (09:36)
[2023-09-18] MEDS: lisinopriL 10 MG TABLET PO (09:36)
[2023-09-18] MEDS: Furosemide 40 MG TABLET PO (09:36)
[2023-09-18] MEDS: Metoprolol Tartrate 50 MG TABLET PO (09:36)
[2023-09-18] MEDS: Spironolactone 25 MG TABLET PO (09:36)
[2023-09-18] MEDS: Digoxin 0.125 MG TABLET PO (09:37)
[2023-09-18] MEDS: 0.9 % Sodium Chloride Flush 3 ML SYRINGE IVFLUSH (09:37)
[2023-09-18 09:56] LABS: Alanine Aminotransferase 14 U/L (0-31); Albumin Level 3.3 g/dL (3.5-5.0); Alkaline Phosphatase 82 U/L (39-117); Aspartate Amino Transferase 18 U/L (5-31); Bilirubin Direct 0.9 mg/dL (0.0-0.5); Bilirubin Total 1.7 mg/dL (0.0-1.0)
[2023-09-18 11:15] VITALS: BP 119/63; PULSE 85; RESP 20; TEMP 36.1; O2SAT 96
--- NOTE | 2023-09-18 13:57 | MHC.CM.PN ---
Patient has been medically cleared for dc to home today, with services (new [facility]). A referral has been made to [facility], who has been made aware of today's dc. Last IMM addressed on 09/16/2023. Patient's Granddaughter/DISTRIBUTING CLERK will transport.
--- NOTE | 2023-09-18 14:32 | PM.PNCARD ---
Subjective Subjective Date of Service: 09/18/23 Interval history: Seen examined at bedside. Feeling better. Physical Exam Vital Signs: Last Vital Signs Temp 97.0 F 09/18/23 11:15 Pulse 85 09/18/23 11:15 Resp 20 09/18/23 11:15 BP 119/63 09/18/23 11:15 Pulse Ox 96 09/18/23 11:15 O2 Del Method Nasal Cannula 09/18/23 11:15 O2 Flow Rate 1 09/18/23 11:15 Oxygen Flow Rate 2 09/15/23 09:22 BMI result Body Mass Index 41.1 GENERAL APPEARANCE: in no acute distress, pleasant. NECK: no carotid bruit, + jugular venous distention. SKIN: no suspicious lesions, warm and dry. HEART: Holosystolic murmur left sternal border, irregular rate and rhythm. LUNGS: Crackles at bases. ABDOMEN: soft, nontender. EXTREMITIES: no edema. PERIPHERAL PULSES: equal. NEUROLOGIC: No gross deficits, AAO X 3 Objective Labs and Meds 09/16/23 08:41 09/18/23 05:40 Lab results: Laboratory Results - last 24 hr 09/18/23 05:40 Hold Purple Top SEE NOTE Sodium 143 Potassium 3.6 Chloride 101 Carbon Dioxide 34 H Anion Gap 12 BUN 20 H Creatinine 0.96 Estim Creat Clear Calc 52.4 Estimated GFR 55 Random Glucose 87 Calcium 9.0 Total Bilirubin 1.7 H Direct Bilirubin 0.9 H AST 18 ALT 14 Alkaline Phosphatase 82 Total Protein 6.0 L Albumin 3.3 L Progress Note: A&P Assessment and plan (1) Congestive heart failure: Status: Acute (2) Atrial fibrillation with RVR: Status: Acute Plan Pleasant 82 year female presenting for congestive heart failure and AFib with RVR. She has permanent atrial fibrillation. Recent viral infection and background of Lasix noncompliance due to incontinence and accidents at home. Clinically still volume overloaded. Continue 40 mg IV b.i.d. Lasix. Blood pressure better controlled. Can change to 40 mg p.o. b.i.d. Lasix as she was taking at home previously tomorrow morning. Can be discharged home tomorrow. Thank you for allowing me to participate in the care of your patient. Please feel free to contact me if you have any questions. Time Spent With Patient Time: Total time managing care of this patient today ____ minutes. Progress Note: Quality Stroke Does the patient have a stroke diagnosis?: No Procedures Date of Service Date of Service: 09/18/23
--- NOTE | 2023-09-18 14:57 | P.F2F_ITS ---
Service Date Service Date: 09/18/23 Encounter Date of encounter: 09/18/23 Reasons for Services Signs and symptoms assessed: Shortness of breath due to heart failure Reason for half-way: medication management and teach disease management Homebound: Leaving the home is medically contraindicated at this time without the asist of a device and/or another person due th the listed conditions above and below. Reason homebound: shortness of breath with minimal effort and unable to drive Homebound supporting statement: Homebound due to shortness of breath from heart failure even with minimal activity, not able to drive and therefore needs the assistance of another person Certification: Based on the above findings, I certify that this patient is confined to the home and needs intermittent half-way care, physical therapy and/or speech therapy, or continues to need occupational therapy. The patient is under my care, and I have initiated the establishment of the plan of care. The patient will be followed by a physician who will periodically review the plan of care. Time Spent With Patient Time: Total time managing care of this patient today ____ minutes.
--- NOTE | 2023-09-18 15:11 | MHC.CM.PN ---
[facility] SOC was 48-72 hours. [facility] has a SOC tomorrow and has been made aware of the change.
== END 2023-09-18 15:37 | disposition home health service (06) | DRG 292 ==
LOC: HO.ED 14:05 → HO.EDOVER 15:42 → HO.IMC 09-16 07:36
PROVIDERS: Admitting Provider Physician Assistant Medical; Emergency Provider Emergency Medicine; PCP Internal Medicine; Visit Provider Internal Medicine
DX: I11.0 Hypertensive heart disease with heart failure (principal); E87.0 Hyperosmolality and hypernatremia; Z68.41 Body mass index [BMI] 40.0-44.9, adult; I48.91 Unspecified atrial fibrillation; I50.32 Chronic diastolic (congestive) heart failure; J45.30 Mild persistent asthma, uncomplicated; E78.5 Hyperlipidemia, unspecified; Z66 Do not resuscitate; Z71.3 Dietary counseling and surveillance; E66.01 Morbid (severe) obesity due to excess calories; I50.813 Acute on chronic right heart failure; G47.33 Obstructive sleep apnea (adult) (pediatric); Z20.822 Contact with and (suspected) exposure to COVID-19; Z91.148 Patient's other noncompliance with medication regimen for other reason; Z99.81 Dependence on supplemental oxygen; Z79.01 Long term (current) use of anticoagulants; Z79.899 Other long term (current) drug therapy
CPT/HCPCS: 0241U; 36415; 71045; 80048; 80076; 81003; 83690; 83880; 84484; 85025; 85610; 93005; 99285; J1940; J2930; J3475

== ENCOUNTER → 2023-09-15 15:23 | Outpatient (BNV) | payer OTHER, SELFPAY | PROVIDERS: Admitting Provider Physician Assistant Medical; Emergency Provider Emergency Medicine; Visit Provider Physician Assistant Medical | DX: I50.9 Heart failure, unspecified (principal); I48.91 Unspecified atrial fibrillation | CPT/HCPCS: 99223; 99232; 99239; G0180 ==

== ENCOUNTER → 2023-09-15 15:23 | Outpatient (BNV) | payer OTHER, SELFPAY | PROVIDERS: Admitting Provider Physician Assistant Medical; Emergency Provider Emergency Medicine; Visit Provider Internal Medicine Cardiovascular Disease | DX: I50.9 Heart failure, unspecified (principal); I48.91 Unspecified atrial fibrillation | CPT/HCPCS: 93010; 99223; 99232; 99233 ==

== ENCOUNTER 2023-12-02 12:46 | Outpatient (AMB) | payer OTHER, SELFPAY ==
--- NOTE | 2023-12-02 13:13 | MHC.OFFVIS ---
Vital Signs 12/02/23 13:14 Height 5 ft 4 in Weight 220 lb BMI 37.8 BP 120/70 Blood Pressure Location Lt brachial Position Sitting Pulse 56 Pulse Source Pulse Oximeter Pulse Oximetry (%) 99 Intake Visit Reasons: r/s 09/25/23 4 mos followup Auto Camp Attendant Required: Yes Auto Camp Attendant Name: pascale/granddaughter Accompanied by: Grand Child Allergies Penicillins [PENICILLINS] Adverse Reaction (Unknown, Verified 09/15/23 09:21) STOMACH UPSET Medication List - Last Reconciled 12/02/23 by Abran Payne MD albuterol sulfate 2.5 mg inhalation Q6H PRN apixaban (Eliquis) 5 mg PO BID 90 days cholecalciferol (vitamin D3) 25 mcg PO DAILY digoxin 125 mcg PO MOWEFR@0900 furosemide 40 mg PO BID@0900,1500 lisinopril 10 mg PO DAILY metoprolol tartrate 50 mg PO BID ptpwymibbkze-swet-fmimb acid 18-400 mg-mcg (Certavite-Antioxidant) 1 tab PO DAILY pravastatin 10 mg PO BEDTIME spironolactone 25 mg See Protocol PO DAILY HPI Comments Details: Pleasant 83-year-old female who is here for follow-up. She was seen recently in the hospital she presented with influenza and was noted to be short of breath. Clinically she was in heart failure and was diuresed. She underwent echocardiography which showed severe RV dysfunction with moderate to severe RV enlargement. The pulmonary artery pressures were no significant elevated. No obvious cause for the right ventricle dysfunction was present. She had CT PA which did not show any pulmonary embolism. Was diuresed. She also had atrial fibrillation and was started on digoxin it appears she left the hospital with 250 mcg of daily digoxin. She is also on supplemental oxygen. We checked a digoxin level and decrease the digoxin dose to 125 mcg daily I referred her for cardiac MRI. 02/21/22: She returns for follow-up today. She is still waiting to do cardiac MRI at this stage. She continues to be on supplemental oxygen. The etiology of her hypoxia is unclear. She clearly had influenza when she was in hospital but at that time her imaging was showing heart failure and she was diuresed for that. Clinically she appears euvolemic currently. She is taking medication regularly. 01/02/23: She is back for follow-up. She was seen by Divina in June 2022. She had cardiac MRI performed in April 2022 showing [id number] RV dysfunction with normal RV size. She is oxygen dependent due to underlying lung disease. Her main complaint is lower extremity edema. She is denying any significant change in her breathing or chest pains. She is taking medications regularly. She has chronic atrial fibrillation and has been treated with rate control strategy with digoxin Saturday and Saturday and metoprolol tartrate 50 mg twice a day. 12/02/2023: She returns for follow-up. In 09/11/2023 she was admitted to [facility] with congestive heart failure. She was not taking Lasix because of incontinence and frequent accidents. She was diuresed and advised to take Lasix 40 mg twice a day at home. She has been doing well since she got discharged and has been compliant with her medications. [facility] Medical History RVF (right ventricular failure) Chronic diastolic CHF (congestive heart failure) DEBBIE (obstructive sleep apnea) New onset a-fib Atherosclerosis Varicose veins of bilateral lower extremities with pain Osteoarthritis HTN (hypertension) Obesity Osteoporosis Surgical History Hx of surgical procedure (03/01/23) History of appendectomy Status post left knee replacement Family History Son CAD (coronary artery disease) Mother CAD (coronary artery disease) Social History Household Members: Family Housing: House Are you a primary post acute care nurse practitioner to a significant other at home: No Do you presently have visiting nurse or other home services: No Alcohol intake: never Patient Tobacco Use Status: Never used Tobacco e-Cigarette/Vaping Use: Never Used Second Hand Smoke Exposure: No Advance Directives Date on File: 10/25/21 service: No Current occupational status: retired and disabled Review of Systems Const Denies chills, Denies fatigue, Denies fever(s), Denies frequent falls, Denies weakness, Denies weight gain and Denies weight loss ENT Denies dizziness Card Denies chest pain, Denies leg edema, Denies lightheadedness, Denies palpitations, Denies dyspnea and Denies dyspnea on exertion Resp Denies cough, Denies dyspnea and Denies dyspnea on exertion GI Denies hematochezia Musc Denies abnormal gait, Denies muscle weakness, Denies numbness, Denies radiating pain into limb and Denies tingling Neuro Denies abnormal gait, Denies dizziness, Denies frequent falls, Denies numbness, Denies tingling and Denies weakness Endo Denies fatigue and Denies palpitations Physical Exam Vital Signs: Last Vital Signs Pulse 56 12/02/23 13:14 BP 120/70 12/02/23 13:14 Pulse Ox 99 12/02/23 13:14 BMI result Body Mass Index 37.8 GENERAL APPEARANCE: in no acute distress, pleasant. NECK: no carotid bruit, no jugular venous distention. SKIN: no suspicious lesions, warm and dry. HEART: irregular rate and rhythm. LUNGS: Clear to auscultation bilaterally. ABDOMEN: soft, nontender. EXTREMITIES: no edema. PERIPHERAL PULSES: equal. NEUROLOGIC: No gross deficits, AAO X 3 Assessment & Plan Assessment & Plan (1) Cor pulmonale: Code(s): I27.81 - Cor pulmonale (chronic) Category: Medical (2) Pulmonary hypertension: Code(s): I27.20 - Pulmonary hypertension, unspecified Category: Medical (3) Right ventricular failure: Code(s): I50.810 - Right heart failure, unspecified Category: Medical (4) HTN (hypertension): Code(s): I10 - Essential (primary) hypertension Category: Medical (5) Atrial fibrillation: Code(s): I48.91 - Unspecified atrial fibrillation Category: Medical Plan Pleasant 83-year-old female who is here for follow-up. She has background history of COPD and cor pulmonale. She has pulmonary hypertension. Blood pressure is well controlled On anticoagulation currently and tolerating it well. Clinically she is euvolemic. Continue 40 mg Lasix twice a day. She will follow-up with us in few months. Thank you for allowing me to participate in the care of your patient. Please feel free to contact me if you have any questions. Coding Level of Care Code Est Pt Level 4 (12426) Diagnoses Cor pulmonale I27.81 Pulmonary hypertension I27.20 Right ventricular failure I50.810 HTN (hypertension) I10 Atrial fibrillation I48.91
[2023-12-02 13:14] VITALS: BP 120/70; PULSE 56; O2SAT 99; BMI 37.8
== END 2023-12-02 13:35 | disposition home or self-care (01) ==
PROVIDERS: PCP Internal Medicine; Visit Provider Internal Medicine Cardiovascular Disease
DX: I27.81 Cor pulmonale (chronic) (principal); I27.20 Pulmonary hypertension, unspecified; I50.810 Right heart failure, unspecified; I10 Essential (primary) hypertension; I48.91 Unspecified atrial fibrillation
CPT/HCPCS: 99214

== ENCOUNTER → 2023-12-02 12:46 | Outpatient (BNVA) | payer OTHER, SELFPAY | PROVIDERS: PCP Internal Medicine; Visit Provider Internal Medicine Cardiovascular Disease | DX: I27.81 Cor pulmonale (chronic) (principal); I11.0 Hypertensive heart disease with heart failure; I50.810 Right heart failure, unspecified; I48.91 Unspecified atrial fibrillation; I27.20 Pulmonary hypertension, unspecified | CPT/HCPCS: 99212 ==

== ENCOUNTER 2024-04-17 10:14 | Outpatient (REF) | payer OTHER, SELFPAY ==
[2024-04-17 10:39] LABS: MANUAL DIFF FLAG NO
[2024-04-17 10:49] LABS: Basophils Absolute Auto 0.1 X10*3/uL (0.0-0.2); Eosinophils Absolute Auto 0.1 X10*3/uL (0.0-0.4); Hematocrit 42.6 % (37.0-47.0); Hemoglobin 13.5 g/dl (12.0-16.0); Imm Gran Abs Auto 0.01 X10*3/uL (0.00-0.03); Imm Gran Pct Auto 0.2 % (0.0-0.4); Lymphocytes Absolute Auto 1.1 X10*3/uL (1.2-4.9); Lymphocytes Percent Auto 19.1 % (20-40); Mean Corpuscular HGB Conc 31.7 g/dl (31.0-35.0); Mean Corpuscular Hemoglobin 28.1 pg (27.0-33.0); Mean Corpuscular Volume 88.8 fL (80.0-98.0); Mean Platelet Volume 11.5 fL (9.4-12.3); Monocytes Absolute Auto 0.5 X10*3/uL (0.1-1.2); Monocytes Percent Auto 9.1 % (2-11); Neutrophils Absolute Auto 4.2 x10*3/uL (2.0-8.3); Neutrophils Percent Auto 69.6 % (45-73); Platelet Count 160 X10*3/uL (160-400); Red Cell Distribution Width 14.6 % (11.0-16.0)
[2024-04-17 11:11] LABS: Parathyroid Hormone Intact 133.8 pg/mL (8.7-77.1)
[2024-04-17 11:12] LABS: Anion Gap 10 (12-20); Blood Urea Nitrogen 17 mg/dL (9-16); Carbon Dioxide 33 mmol/L (22-29); Chloride 104 mmol/L (96-108); Estimated Glomerular Filt Rate 48; Potassium 4.2 mmol/L (3.3-5.1); Sodium 143 mmol/L (135-145); Uric Acid 8.4 mg/dL (2.4-5.7)
[2024-04-17 11:30] LABS: Vitamin D 25-OH Total 35.8 ng/mL (>30)
[2024-04-17 11:55] LABS: Appearance Urine Clear; Color Urine Dark Yellow; Glucose Urine UA Negative (Negative); Leukocyte Esterase Urine Trace (Negative); Nitrite Urine Negative (Negative); UMIC TRIGGER UA YES; Urine Blood Negative (Negative); Urine Ketones Trace mg/dL (Negative); Urine Protein Negative (Neg-Trace)
[2024-04-17 12:06] LABS: Bacteria Urine 1+ (None Seen); RBC Urine 0-2 /HPF (0-2)
[2024-04-17 12:33] LABS: Protein/Creatinine Ratio, Ur 0.09 (<0.2); Total Protein Urine Random 21 mg/dL (<12)
== END 2024-04-17 10:15 | disposition home or self-care (01) ==
LOC: HO.LAB 10:14
PROVIDERS: Visit Provider Physician Assistant
DX: E55.9 Vitamin D deficiency, unspecified (principal); N18.2 Chronic kidney disease, stage 2 (mild)
CPT/HCPCS: 36415; 80051; 81001; 82306; 82310; 82565; 82570; 83970; 84156; 84520; 84550; 85025

== ENCOUNTER 2024-09-17 14:35 | Outpatient (AMB) | payer OTHER, SELFPAY ==
--- NOTE | 2024-09-17 14:46 | A.OFFVIS_ITS ---
Intake Visit Reasons: [facility] Pain/Swelling Intake Note: Patient presents for LE pain/swelling. Patient has a large amount of varicose veins on both legs. She gets swelling, cramping and heaviness. Accompanied by: Daughter Allergies Penicillins [PENICILLINS] Adverse Reaction (Unknown, Verified 09/17/24 14:53) STOMACH UPSET HPI HPI [facility] Pain/Swelling: Details: 83-year-old female patient presents for painful varicose veins. Complaints include pain over varicosities, swelling of lower extremities, cramping, fatigue, and heaviness of the lower extremities. It has been affecting there daily activities including ambulating. It is noted more so in right leg. She notices an enlarged right area in the right posterior knee. Of note she is whe elchair-bound and requires the use of walker after her gallbladder surgery. In addition she is oxygen dependent. Patient denies any previous venous surgery or injections. Patient denies any history of DVT/ PE. Patient denies any history of phlebitis. Trial of compression includes - [id number]-[id number] They now present for vascular evaluation regarding their varicose veins. [facility] Medical History RVF (right ventricular failure) Chronic diastolic CHF (congestive heart failure) DEBBIE (obstructive sleep apnea) New onset a-fib Atherosclerosis Varicose veins of bilateral lower extremities with pain Osteoarthritis HTN (hypertension) Obesity Osteoporosis Surgical History Hx of surgical procedure (03/01/23) History of appendectomy Status post left knee replacement Family History Son CAD (coronary artery disease) Mother CAD (coronary artery disease) Social History Household Members: Family Housing: House Are you a primary ambulatory care nurse to a significant other at home: No Do you presently have visiting nurse or other home services: No Alcohol intake: never Patient Tobacco Use Status: Never used Tobacco e-Cigarette/Vaping Use: Never Used Second Hand Smoke Exposure: No Advance Directives Date on File: 10/25/21 service: No Current occupational status: retired and disabled Review of Systems Const Reports as per HPI ENT Reports no additional complaints Card Denies chest pain, Denies chest pain at rest and Denies chest pain with activity Resp Denies chest congestion and Denies cough GI Reports no additional complaints Musc Details: pain over varicosities, aching of lower extremities, swelling, cramping, heaviness and tiredness, itching Denies abnormal gait Skin/Breast Reports pruritus and Denies wounds Neuro Reports no additional complaints and Denies abnormal gait Psych Denies no additional complaints Physical Exam Const General: cooperative, healthy appearing and comfortable Orientation/consciousness: oriented to person, oriented to place and oriented to time Neck Carotids: no bruits Chest Chest palpation & inspection: normal inspection of the chest and normal palpation of entire chest wall Resp Effort & Inspection: normal respiratory effort and able to speak in complete sentences Cardio Rate: regular rate Heart sounds: S1 normal heart sound present and S2 normal heart sound present Peripheral pulses: Peripheral pulses 2+ throughout GI Inspection: Yes normal to inspection Skin Other: +2 edema, large rope-like varicosities greater than 4 mm multiple superficial varicosities that may be the source of future bleeding. CEAP Classification C4 - skin color changes Ep - Etiology Primary As - superficial veins P - reflux General skin exam: dry skin Neuro General: oriented to person, oriented to place and oriented to time Extrem Right lower extremity: full ROM, normal capillary refill and edema Left lower extremity: full ROM, normal capillary refill and edema Psych Mental Status: mental status grossly normal Assessment & Plan Assessment & Plan (1) Varicose veins of right lower extremity with inflammation: Code(s): I83.11 - Varicose veins of right lower extremity with inflammation Category: Medical Plan: In short, the patient has evidence of venous insufficiency. I have discussed the pathophysiology with the patient. In addition I have provided informational material regarding venous disease to the patient. We have discussed conservative measures including compression, elevation, and exercise. I have also provided a handout regarding appropriate use of compression stockings and where to purchase good compression stockings as well. I have taken the liberty of ordering venous insufficiency testing with the patient. They will follow up with me after testing. The patient had an opportunity to ask questions regarding the treatment plan. All questions were answered. Imaging studies, laboratory studies and physical exam results were discussed and reviewed in detail. No major barriers to und erstanding were identified. The patient expressed understanding and agreement with the above treatment plan. The patient is aware they should contact our office by phone for worsening of the current condition or the appearance of new symptoms. Thank you for allowing me to participate in the vascular care of this patient. If you have any questions or concerns regarding the treatment for the above condition please do not hesitate to contact me. The office telephone contact is [phone]. This note is constructed using voice recognition software. While every effort has been made to ensure accuracy, strand forming machine operator errors may have been included. Thank you for allowing me to participate in the care of your patient. Yours sincerely, Terrell Perry MD, FACS, R.P.V.I. Orders: Orders US venous duplex LE BI 1 Week I83.11 - Varicose veins of right lower extremity with inflammation Coding Level of Care Code New Pt Level 4 (81133) Diagnoses Varicose veins of right lower extremity with inflammation I83.11
--- OUTSIDE RECORDS SUMMARY | 2024-09-17 18:16 | XMS_ITS | Clinical Summary ---
Author Organization [facility], Address [address] [place] [address] [place] [address] Phone Care Team Providers Care Drupal Php Developer Name Role Phone Name, Jeff MACEDO Primary Care Provider Allergies Active Allergy Reactions Criticality Noted Date Comments Cortisone 06/27/2020 Penicillins 06/27/2020 Medications amLODIPine (NORVASC) 5 MG tablet Take 1 tablet by mouth 1 (one) time each day Active furosemide (LASIX) 40 MG tablet Take 1 tablet by mouth 1 (one) time each day Active meclizine (ANTIVERT) 25 MG tablet Take 1 tablet by mouth 2 (two) times a day Active pravastatin (PRAVACHOL) 10 MG tablet Take 1 tablet by mouth 1 (one) time each day Active Mapap Arthritis Pain 650 MG 8 hr tablet TOME AIDA TABLETA CADA OCHO HORAS CUANDO SEA NECESARIO 0 Active Aspirin Low Dose 81 MG EC tablet TOME AIDA TABLETA TODOS LOS D 0 Active Cholecalciferol (Vitamin D3) 25 MCG (1000 UT) capsule TOME AIDA C PSULA TODOS LOS D 0 Active Multiple Vitamins-Minera ls (CENTRUM PO) Take 18 mg by mouth 1 (one) time each day Active Calcium Carbonate Antacid (TUMS PO) Take 300 mg by mouth 2 (two) times a day Take 2 tablets by mouth twice daily Active Eliquis 5 MG tablet Take 5 mg by mouth 2 (two) times a day 3 Active digoxin (LANOXIN) 125 MCG tablet Take 125 mcg by mouth 1 (one) time each day 3 Active lisinopril 10 MG tablet TOME AIDA TABLETA TODOS LOS D 3 Active metoprolol tartrate (LOPRESSOR) 50 MG tablet Take 50 mg by mouth in the morning and 50 mg in the evening. Take with meals. 3 Active Active Problems Problem Noted Date Diagnosed Date Multiple renal cysts 06/26/2021 Vitamin D deficiency, not otherwise specified Essential (primary) hypertension 06/27/2020 Chronic kidney disease stage 2 08/20/2019 Proteinuria 08/20/2019 Resolved Problems Problem Noted Date Diagnosed Date Resolved Date Simple renal cyst 10/26/2019 01/05/2021 Hyperlipidemia 10/26/2019 01/05/2021 Blood in urine 08/20/2019 10/21/2019 Chronic diastolic heart failure 08/20/2019 01/05/2021 Hypertensive heart and renal disease with (congestive) heart failure 08/20/2019 01/05/2021 Family History Relation Status Comments Father Unknown Mother Unknown Social History Tobacco Use Types Packs/Day Years Used Date Smoking Tobacco: Never Tobacco Cessation:Counseling Given: Not Answered Alcohol Use Standard Drinks/Week Comments No 0 (1 standard drink = 0.6 oz pur e alcohol) Comments Unknown Sex and Gender Information Value Date Recorded Sex Assigned at Not on file Legal Sex Female 4:31 PM EST Gender Identity Not on file Sexual Orientation Not on file Last Filed Vital Signs Vital Sign Reading Time Taken Comments Blood Pressure 136/76 02/26/2024 2:16 PM EDT Pulse 74 10/20/2018 12:00 PM EDT Temperature - - Respiratory Rate 16 10/20/2018 12:00 PM EDT Oxygen Saturation - - Inhaled Oxygen Concentration - - Weight 93.7 kg (206 lb 9.6 oz) 02/26/2024 2:16 P M EDT Height 152.4 cm (5') 02/26/2024 2:16 PM EDT Body Mass Index 40.35 02/26/2024 2:16 PM EDT Plan of Treatment Upcoming Encounters Date Type Department Care Team (Late st Contact Info) Description 11/18/2024 1:45 PM EDT Office Visit [facility], [address] [place] [address] David Tilley MD [address] [facility] [place] [address] Health Maintenance Due Date Last Done Comments Pneumococcal Vaccine: 65+ Years (3 of 3 - PCV) 12/31/2013 12/31/2012, 06/10/2000 Influenza Vaccine (#1) 2024 Hepatitis B Vaccine Aged Out No longe r eligible based on patient's age to complete this topic Insurance [facility] DUAL SNP ([id number]) [place] [id number] Care Teams Drupal Php Developer Relationship Specialty Start Date End Date Name, MD Jeff [address] [place] [address] PCP - General Internal Medicine 02/26/24
--- OUTSIDE RECORDS SUMMARY | 2024-09-17 18:16 | XMS_ITS | Encounter Summary ---
Author Organization [facility] [place], Address [address] [address] Phone Care Team Providers Care Search Optimization Analyst Name Role Phone Name, Jeff MACEDO Primary Care Provider [phone] Encounter Details Date Type Department Care Team (Late Contact Info) Description 06/15/2021 Documentation Only [facility], [address] [place] [address] Amari Gonsalves MD [address] [place] [address] [place] [address] Social History Tobacco Use Types Packs/Day Years Used Date Smoking Tobacco: Never Alcohol Use Standard Drinks/Week Comments No 0 (1 standard drink = 0.6 oz pur e alcohol) Comments Unknown Sex and Gender Information Value Date Recorded Sex Assigned at Not on file Legal Sex Female 4:31 PM EST Gender Identity Not on file Sexual Orientation Not on file documented as of this encounter Plan of Treatment Upcoming Encounters Date Type Department Care Team (Late st Contact Info) Description 11/18/2024 1:45 PM EDT Office Visit [facility] [address] [place] [address] David Tilley MD [address] [place] [address] [place] [address] documented as of this encounter Visit Diagnoses Not on filedocumented in this encounter Care Teams Search Optimization Analyst Relationship Specialty Start Date End Date Name, MD Jeff [address] [place] [address] PCP - General Internal Medicine 02/26/24 documented as of this encounter
--- OUTSIDE RECORDS SUMMARY | 2024-09-17 18:16 | XMS_ITS | Encounter Summary ---
Author Organization [facility] [place], Address [address] [address] Phone Care Team Providers Care Oxide Furnace Tender Name Role Phone Name, Jeff MACEDO Primary Care Provider [phone] Encounter Details Date Type Department Care Team (Late st Contact Info) Description 07/12/2022 Documentation Only [facility] [address] [place] [address] Silvia Goode PA Social History Tobacco Use Types Packs/Day Years [...] Visit [facility] [address] [place] [address] David Tilley MD [address] [place] [address] [place] [address] documented as of this encounter Visit Diagnoses Not on filedocumented in this encounter Care Teams Oxide Furnace Tender Relationship Specialty Start Date End Date Name, MD Jeff [address] [place] [address] PCP - General Internal Medicine 02/26/24 documented as of this encounter
--- OUTSIDE RECORDS SUMMARY | 2024-09-17 18:16 | XMS_ITS | Encounter Summary ---
Author Organization [facility] [place], Address [address] [address] Phone Care Team Providers Care Channel Marketing Manager Name Role Phone Name, Jeff MACEDO Primary Care Provider [phone] Encounter Details Date Type Department Care Team (Late Contact Info) Description 09/11/2023 Documentation Only [facility], [address] [place] [address] Tasia Lind [address] [place] [phone] Social History Tobacco Use Types Packs/Day Years [...] Encounters Date Type Department Care Team (Late Contact Info) Description 11/18/2024 1:45 PM EDT Office Visit [facility] [address] [place] [address] David Tilley MD [address] [place] [address] [place] [address] documented as of this encounter Visit Diagnoses Not on filedocumented in this encounter Care Teams Channel Marketing Manager Relationship Specialty Start Date End Date Name, MD Jeff [address] [place] [address] PCP - General Internal Medicine 02/26/24 documented as of this encounter
--- OUTSIDE RECORDS SUMMARY | 2024-09-17 18:16 | XMS_ITS | Encounter Summary ---
Author Organization [facility] [place], Address [address] [address] Phone Care Team Providers Care Assembler Faucets Name Role Phone Name, Jeff MACEDO Primary Care Provider [phone] Encounter Details Date Type Department Care Team (Late st Contact Info) Description 07/12/2022 Documentation Only [facility] [address] [place] [address] Silvia Goode PA Social History [...] Visit [facility] [address] [place] [address] David Tilley MD [address] [place] [address] [place] [address] documented as of this encounter Visit Diagnoses Not on filedocumented in this encounter Care Teams Assembler Faucets Relationship Specialty Start Date End Date Name, MD Jeff [address] [place] [address] PCP - General Internal Medicine 02/26/24 documented as of this encounter
--- OUTSIDE RECORDS SUMMARY | 2024-09-17 18:16 | XMS_ITS | Encounter Summary ---
Author Organization [facility] [place], Address [address] [address] Phone Care Team Providers Care Orchard Hand Name Role Phone Name, Jeff MACEDO Primary Care Provider [phone] Encounter Details Date Type Department Care Team (Late Contact Info) Description 04/21/2024 Documentation Only [facility] [place], [address] [place] [address] Tasia Lind [address] [place] [phone] Social History Tobacco Use Types Packs/Day [...] Visit [facility] [address] [place] [address] David Tilley MD [address] [place] [address] [place] [address] documented as of this encounter Visit Diagnoses Not on filedocumented in this encounter Care Teams Orchard Hand Relationship Specialty Start Date End Date Name, MD Jeff [address] [place] [address] PCP - General Internal Medicine 02/26/24 documented as of this encounter
--- OUTSIDE RECORDS SUMMARY | 2024-09-17 18:16 | XMS_ITS | Data Portability ---
Author Organization [employer] [employer] Address [address] [place] [phone] Care Team Providers Care Bowling Ball Molder Name Role Phone [facility] Referring Provider [facility] Referring Provider Assessment Encounter Date Assessment Date Assessment LastModified by Organization Details LastModified Time 06/22/2022 06/22/2022 service called f or lightheadedness found 81 rachel with CHF, prescribed PO lasix on visit, sx more consistent with CASTRO instead of lightheadedness pt reports non compliant with PO lasix regimen because frequent urination denies chest pain/pressure + LE edema vs note 150s/80s 07%3L (bsl) most likely untreated or under-treated chronic CHF, no e/o acute exacerbation or decompensation at this time -pt to restart PO lasix in AM as prescribed -[facility] pt and care givers re importance of diuretic -use scale, track weights [email or web address] Not available 06/22/2022 17:25:59 08/17/2022 08/17/2022 Ms. Nicole Fitzpatrick is an 81yoF w/ a PmHx of HTN, rate controlled AF (on dig and metoprolol) , CKD who is seen for further evaluation of dizziness. Ms. Nora Fitzpatrick reports that for the past month she has had dizziness that she describes as her head spinning when she goes from a sitting to standing position. She denies any falls and reports that she has no dizziness at rest and no other associated symptoms. She denies vision changes, chest pain, shortness of breath, numbness/tingling, or any other concerns. She firmly believes that it is related to her metoprolol. She is not currently dizzy and is able to ambulate with difficulty this evening. VSS. Etcher Apprentice [employer] on site reports that she appears well, ambulates steadily. EKG with rate controlled AF but otherwise without significant ST depressions/elevat ions. Orthostatic vital signs negative. While unclear what is causing Ms Nora Fitzpatrick's dizziness over the past month, she is able to ambulate without any recent falls, has a subacute presentation, and no clear orthostatic or cardiac etiology to her dizziness based on this information today. Offered to call in rx for a few tablets of meclizine as a trial, which she gladly accepted. Primary team, Ms. Jaden Fitzpatrick would benefit from follow up in the next week or two for an in-person evaluation of her dizziness. [email or web address] Not available 08/17/2022 17:20:16 09/18/2022 09/18/2022 I have reviewed and agree with the assessment and plan as documented by the case packer and sealer. I provided real time medical direction for this encounter and was immediately available to provide additional phone based assistance as needed. History as noted by case packer and sealer. Pt with history of AF on apixaban, metoprolol, and furosemide reports that she woke up 6 days ago with acute pain in her upper back in the midline and R side. No preceding falls or trauma. Pt reports that the pain increases with any movement or with deep breathing. No radiation of the pain into her uper extremities or chest. No dyspnea or fever. No extremity weakness, numbness or paresthesias. On exam, she is afebrile. No thoracic paraspinal or spinal tenderness but tenderness noted over R upper back. No overlying rash, redness or bruising. Impression: Pt with atraumatic upper back pain with R upper back tenderness. Pain worsens with movement and is also pleuritic. Pt takes apixaban as well. No radicular symptoms. No rash or redness to suggest H Zoster. Pt's pain could be related to a thoracic spine compression fracture or bony lesion. Pt with no cough or SOB, but upper lung/pleural lesions is also possible. Pt and family are told that the pt needs to go to an UC or ED either today or tomorrow for imaging of her chest and upper back, with XR and/or CT. She is also told that she needs to try taking her tylenol tid to see if this helps, as she has only been taking it once daily. Primary care team should call and follow up with the pt and her family this week to ensure that they did have imaging done and to discuss further management. Pt instructed to seek medical attention right away with any worsening or new symptoms, which are reviewed with her. [email or web address] Not available 09/18/2022 12:20:20 09/02/2023 09/02/2023 I have reviewed and agree with the assessment and plan as documented by the case packer and sealer. I provided real time medical direction for this encounter and was immediately available to provide additional phone based assistance as needed. History as noted by case packer and sealer. Pt with history of COPD on 2L O2 at home, DEBBIE, HTN, CAD, CKD, and Afib on apixaban. Pt report that about 2 weeks ago she developed URI symptoms and was diagnosed with Flu. She reports that since that time, she has continued to have a non productive cough and feels SOB with exertion. No chest pain. No recent weight gain or LE edema. Pt also denies any fevers, chills. She is using her albuterol nebs at home BID with minimal relief of symptoms. On exam, pt appears comfortable, no distress with normal O2 sat on baseline 2L O2 and is afebrile. Lungs with symmetric BS, mild exp wheezing b/l. No peripheral edema noted. Rapid Covid-19 negative. Impression: Pt with what is most likely persistent bronchitis s/p recent viral URI/Flu. She appears well currently with no respiratory distress and normal O2 sat and is noted to have symmetric, b/l wheezing. Pt is medicated with her own albuterol neb with medic present. After the treatment, pt reports feeling improved, and medic notes improved air movement and decreased wheezing. No evidence at this time to suggest ADHF. Pt is instructed to increase her albuterol nebs to QID. She is also medicated with prednisone 40mg po and I prescribe 40mg QD x4 more days that she is told to start tomorrow AM. I also prescribe guaifenesin 600mg bid for her cough. Primary care team: Please call and follow up with the pt in 2-3 days to ensure she is feeling improved on this treatment regimen. If pt is not improving, pt will need further evaluation with chest XR as well. Pt instructed to seek medical attention right away with any worsening or new symptoms, which are reviewed with her. [email or web address] Not available 09/02/2023 12:49:07 Plan of Treatment Reminders Order Date Submit Date Provider Last Modified By Organization Details Last Modified Time Details Appointments None recorded. Lab rapid SARS CoV 2 Ag, QL IA, respiratory specimen 2023 024 [facility], [address] [place] [address], [id number], 4 11:56:07 rapid SARS CoV 2 Ag, QL IA, respiratory specimen [address], [address] [place] [address], [id number], 2 15:46:18 rapid flu (A+B) [address], [address] [place] [address], [id number], 2 15:46:18 Referral None recorded. Procedures None recorded. Surgeries None recorded. Imaging None recorded. Medication Orders prednisone 20 mg tablet 2023 024 [id number], [address] [place], [phone], 4 11:56:07 prednisone 20 mg tablet 2023 024 [facility], [address] [place] [address], [id number], 4 17:08:42 guaifenesin ER 600 mg tablet, extended release 12 hr 2023 024 [facility], [address] [place] [address], [id number], 4 17:08:42 meclizine 25 mg tablet 2022 023 [facility], [address] [place] [address], [id number], 3 17:31:06 Patient TargetsNo targets recorded. Patient InstructionsNo instructions recorded. Reason for Referral None Reported. Results Created Date Observation Date Name Description Value Unit Range Abnormal Flag Note LastModifiedBy Organization Detail LastModifiedTime 06/05/20 22 06/05/2022 rapid flu (A+B) Flu negati ve Not Available [facility] ed [address] [place] [address], [id number], 06/05/2022 15:46:04 06/05/20 22 06/05/2022 rapid SARS CoV 2 Ag, QL IA, respi rator y speci men rapid SARS CoV 2 Ag, QL IA, respiratory specimen negati ve Not Available [facility] ed [address] [place] [address], [id number], 06/05/2022 15:46:02 09/02/19 24 09/02/2023 rapid SARS CoV 2 Ag, QL IA, respi rator y speci men rapid SARS CoV 2 Ag, QL IA, respiratory specimen negati ve Not Available [facility] ed [address] [place] [address], [id number], 09/02/2023 11:52:32 Result Notes None recorded. Medical Equipment None Reported. Allergies Allergen ID Allergen Name Allergen Category Reaction Reaction Severity Criticality Documentation Date Start Date Code Code System Note Provider Name and Address Organization Details Recorded Time 7314 Product containin g penicilli n (product) medicatio n Not available Not available Not available 04/21/2024 84304 8001 SNOMED Not Available [facility] - production 4 03:36:30 7315 hydrocort isone medicatio n Not available Not available Not available 04/21/2024 5492 RxNorm Not Available [facility] - production 4 03:36:30 Medications Name Sig Start Date Stop Date Status Note LastModified by Organization Details LastModified Time medbox status USE DIRECTED active Not Available Not Available No t Available furosemide 40 mg tablet TAKE 1 TABLET BY MOUTH TWICE DAILY IN THE MORNING AND IN THE EVENING active Not Available Not Available No t Available albuterol sulfate 2.5 mg/3 mL (0.083 %) solution for nebulization INHALE 1 AMPULE USING A NEBULIZER EVERY 6 HOURS NEEDED FOR WHEEZING active Not Available Not Available No t Available miconazole nitrate 2 % topical cream APLIQUE AL VISHNU AFECTADA DOS VECES AL D A EN LA MA MELI Y EN LA NOCHE active Not Available Not Available Not Available prednisone 20 mg tablet TAKE 2 TABLETS BY MOUTH EVERY DAY FOR 4 DAYS active Not Available Not Available No t Available alendronate 70 mg tablet PLEASE SEE ATTACHED FOR DETAILED DIRECTIONS active Not Available Not Available N ot Available amlodipine 5 mg tablet TAKE 1 TABLET BY MOUTH EVERY MORNING active Not Available Not Available No t Available digoxin 250 mcg (0.25 mg) tablet TOME AIDA TABLETA TODOS LOS D active Not Available Not Available No t Available aspirin 81 mg tablet,delay ed release TOME AIDA TABLETA TODOS LOS D EN LA MA MELI active Not Available Not Available No t Available spironolacto ne 25 mg tablet TAKE 1 TABLET BY MOUTH EVERY DAY active Not Available Not Available No t Available acetaminophe n ER 650 mg tablet,exten ded release TOME AIDA TABLETA CADA OCHO HORAS CUANDO SEA NECESARIO active Not Available Not Available No t Available pravastatin 10 mg tablet TAKE 1 TABLET BY MOUTH AT BEDTIME active Not Available Not Available No t Available meclizine 25 mg tablet TAKE 1 TABLET BY MOUTH THREE TIMES DAILY NEEDED active Not Available Not Available No t Available lisinopril 10 mg tablet TAKE 1 TABLET BY MOUTH EVERY MORNING active Not Available Not Available No t Available metoprolol tartrate 50 mg tablet TAKE 1 TABLET BY MOUTH TWICE DAILY IN THE MORNING AND IN THE EVENING WITH FOOD active Not Available Not Available No t Available lisinopril 30 mg tablet TOME AIDA TABLETA TODOS LOS D active Not Available Not Available No t Available digoxin 125 mcg (0.125 mg) tablet TAKE 1 TABLET BY MOUTH EVERY MORNING (SATURDAY, SATURDAY, AND SATURDAY) active Not Available Not Available Not Available metoprolol succinate ER 25 mg tablet,exten ded release 24 hr TOME AIDA TABLETA TODOS LOS D active Not Available Not Available No t Available doxycycline hyclate 100 mg tablet TAKE 1 TABLET BY MOUTH TWICE DAILY FOR 7 DAYS active Not Available Not Available No t Available Ventolin HFA 90 mcg/actuatio n aerosol inhaler INHALE 2 PUFFS BY MOUTH EVERY 4 TO 6 HOURS NEEDED FOR WHEEZING active Not Available Not Available No t Available Vitamin D3 25 mcg (1,000 unit) capsule TAKE 1 CAPSULE BY MOUTH EVERY MORNING active Not Available Not Available No t Available oseltamivir 30 mg capsule ARLYN Rowland PSULA CADA 12 HORAS active Not Available Not Available No t Available Mucus Relief ER 600 mg tablet, extended release TAKE 1 TABLET BY MOUTH EVERY 12 HOURS NEEDED FOR 10 DAYS active Not Available Not Available No t Available Certavite-An tioxidant 18 mg-400 mcg tablet TAKE 1 TABLET BY MOUTH EVERY MORNING active Not Available Not Available No t Available Eliquis 5 mg tablet TAKE 1 TABLET BY MOUTH TWICE DAILY IN THE MORNING AND IN THE EVENING active Not Available Not Available No t Available Eliquis 2.5 mg tablet TAKE 1 TABLET BY MOUTH TWICE DAILY active Not Available Not Available No t Available Vitals Date Recorded Body temperature Heart rate Respiratory rate Oxygen saturation Oxygen saturation in Arterial blood by Pulse oximetry Inhaled oxygen flow rate Systolic blood pressure Diastolic blood pressure Provider Name and Address Organization Details Last Updated DateTime 4 98.9 [degF] 98 /min 16 /min 97 % 97 % 2 L/min 140 mm[Hg] 80 mm[Hg] Not Available [employer] [facility] - 60mo 4 11:42:45 Date Recorded Heart rate Body temperature Oxygen saturation Oxygen saturation in Arterial blood by Pulse oximetry Inhaled oxygen flow rate Respiratory rate Systolic blood pressure Diastolic blood pressure Provider Name and Address Organization Details Last Updated DateTime 2 71 /min 98.4 [degF] 92 % 92 % 2 L/min 18 /min 146 mm[Hg] 96 mm[Hg] Not Available [facility] - production 2 15:44:36 Date Recorded Body temperature Respiratory rate Oxygen saturation Oxygen saturation in Arterial blood by Pulse oximetry Inhaled oxygen flow rate Heart rate Systolic blood pressure Diastolic blood pressure Provider Name and Address Organization Details Last Updated DateTime 2 98.1 [degF] 18 /min 97 % 97 % 3 L/min 82 /min 155 mm[Hg] 83 mm[Hg] Not Available [facility] - production 2 17:20:18 Date Recorded Body temperature Heart rate Oxygen saturation Oxygen saturation in Arterial blood by Pulse oximetry Respiratory rate Body temperature Heart rate Oxygen saturation Oxygen saturation in Arterial blood by Pulse oximetry Respiratory rate Systolic blood pressure Diastolic blood pressure Systolic blood pressure Diastolic blood pressure Provider Name and Address Organization Details Last Updated DateTime 3 98 [degF] 86 /min 98 % 98 % 18 /min 98 [degF] 86 /min 98 % 98 % 18 /min 140 mm[Hg] 80 mm[Hg] 140 mm[Hg] 80 mm[Hg] Not Available [facility] - production 3 17:18:46 Date Recorded Body temperature Body weight Respiratory rate Oxygen saturation Oxygen saturation in Arterial blood by Pulse oximetry Heart rate Heart rate Respiratory rate Oxygen saturation Oxygen saturation in Arterial blood by Pulse oximetry Body temperature Body weight Systolic blood pressure Diastolic blood pressure Systolic blood pressure Diastolic blood pressure Provider Name and Address Organization Details Last Updated DateTime 3 97.8 [degF] 987334. 08 g 18 /min 94 % 94 % 80 /min 80 /min 18 /min 94 % 94 % 97.8 [degF] 871335. 08 g 174 mm[Hg] 95 mm[Hg] 174 mm[Hg] 95 mm[Hg] Not Available [facility] - production 3 12:13:44 Social History None recorded. Functional Status None recorded. Mental Status None recorded. Family History Nothing Reported. Medical History No medical history recorded. Gynecological HistoryNo gynecological history recorded. Obstetrics History GPAL:G 0 P 0 0 0 0 Past Encounters Encounter ID Performer Location Encounter Start Date Encounter Closed Date Diagnosis/Indication Diagnosis SNOMED-CT Code Diagnosis ICD10 Code Diagnosis Note [id number] [facility] [address] [place] [phone] 10/23/2021 11:58:16 04/10/2022 09:46:43 [id number] David Ramos MD Main - [facility] [address] [place] [phone] 04/12/2022 18:40:41 04/13/2022 15:30:00 Tinea pedis [id number] B35.3 Patient presents with a rash on the foot that is not painful, inflamed or red, or itchy and scaly. I reviewed a photo. This has been going on for a couple of weeks. I believe the appearance is consistent with fungal infection, though hasn't responded to clotimazol e. I rx'ed miconazole nitrate topical cream which she will try. If not improvemen t will require PCP or dermatolog y visit. [id number] David Ramos MD Main - [facility] [address] [place] [phone] 06/05/2022 15:44:33 06/07/2022 13:44:46 Upper respiratory infection [id number] J06.9 Presents with fever, cough, runny nose, but not nella dyspnea. Rapid COVID/flu negative. Suspect viral URI. Advised supportive care and using prescribed inhalers. Home O2 set at 3L but was using 2L due to nosebleds. Etcher Apprentice [employer] helped patient install the humidifier and turned it up to 3L. [id number] Natalia Neal MD Main - [facility] [address] [place] [phone] 06/22/2022 17:20:14 06/26/2022 15:32:57 Congestive heart failure [id number] I50.9 [id number] Mckenzie Suarez MD Main - [facility] [address] [place], [place] [phone] 08/17/2022 16:11:35 08/20/2022 09:43:41 Postural dizziness [id number] R42 [id number] Chino Saavedra MD Main - [facility] [address] [place] [phone] 09/18/2022 11:57:49 2022 10:48:15 Acute thoracic back pain [id number] M54.6 [id number] Chino Saavedra MD Main - [facility] [address] [place] [phone] 09/02/2023 11:42:43 09/02/2023 23:03:51 Acute bronchitis 10983353 J20.9 Health Concerns Section Related Observation LastModified by Organization Detai ls LastModified Time None Recorded Concern Status LastModified by Organization Details LastModified Time None Recorded Advance Directives Directive None Recorded Payers Encounter Date Sequence Insurance Name Policy Number Policy Zendejas Covered Member ID Zendejas Member ID Guarantor Name 06/05/2022 1 [facility] - DOS PRIOR TO 2022 - DUAL ELIGIBLE (MEDICARE REPLACEMENT/ADV ANTAGE - HMO) Nicole Fitzpatrick [id number] Nicole Fitzpatrick 06/22/2022 1 [facility] - DOS PRIOR TO 2022 - DUAL ELIGIBLE (MEDICARE REPLACEMENT/ADV ANTAGE - HMO) Nicole Fitzpatrick [id number] Nicole Fitzpatrick 08/17/2022 1 [facility] - DOS PRIOR TO 2022 - DUAL ELIGIBLE (MEDICARE REPLACEMENT/ADV ANTAGE - HMO) Nicole Nora Cruz [id number] Nicole aGrciarobbin Fitzpatrick 09/18/2022 1 [facility] - DOS PRIOR TO 2022 - DUAL ELIGIBLE (MEDICARE REPLACEMENT/ADV ANTAGE - HMO) Nicole Nora Cruz [id number] Nicole Nora Cruz 09/02/2023 1 [facility] - DOS ON OR AFTER 2022 - DUAL ELIGIBLE - LONGTERM OPTIONS AND ONE CARE (MEDICARE REPLACEMENT/ADV ANTAGE - HMO) Nicole Nora Fitzpatrick [id number] Nicole Nora Fitzpatrcik Notes Date Note Type Note Provider Name and Address Organization Details Recorded Time 06/05/2022 text/html HPI: PMH: Afib, CKD stage 3 patient reports having cough that is dry. Pt having CP with cough. Pt reports having sx x 1 week. Pt has not completed home kit COVID-19. Pt denies any ST, PALACIOS or fever. Pt speaking in clear full sentences. Pt using inhaler Q2H for relief. Pt agrees to [facility] for evaluation as pt has no transportation to office. Pt states uses home oxygen but no pulse oximeter. .................... .................... .................... .................... .................... .................... .................... . CRC Nursing Assessment: Comments: CRC RN did not require any additional information to process this visit. David Ramos MD [address] [facility],[address], [place], [phone], [facility] - [employer] 06/05/2022 15:46:32 06/22/2022 text/html CRC Nursing Assessment: Chief Complaints: Syncope/Dizziness/Li ghtheadedness PMH: Heart Disease, Hypertension Allergies: Penicillin, Hydrocortisone Comments: Pt states its intermittent dizziness. Denies any PALACIOS. Pt reports intermittent dizziness. Pt reports checking BP yesterday 194/85. Pt reports this was after taking BP meds. Pt denies any CP. Pt has not checked BP today. Pt denies room spinning. Pt denies any vomting or nausea. Pt denies any fever. Some fatigue. Pt having difficulty with sleep. Offered pt visit today at 1:30pm with team provider. Pt states has no transportation. Pt advised will need to seek ER if having theses sx and elevated BP. Pt states will not go to ER. Pt advised would call daughter to advise of disposition and advise of appt, ER or [facility]. Spoke with Shantal who states pt does not like to leave the home. Agrees to [facility] referral for pt. Natalia Neal MD [address] [place] [address],[address], [place], [phone], [facility] 06/22/2022 17:26:08 08/17/2022 text/html HPI: Allergic to: PCN, Cortisone. HX Afib, OA, carotid arteriosclerosis. Patient with trending elevated BP and dizziness no chest pain or numbness of face or extremities. This AM 147/94 Now at time of call 159/99. .................... .................... .................... .................... .................... .................... .................... . CRC Nursing Assessment: Comments: CRC RN DID NOT NEED FURTHER INFO> DELORIS .................... .................... .................... .................... .................... .................... .................... . Etcher Apprentice [employer] Note From Pavithra Chacko: [facility] Etcher Apprentice [employer]engraving Flores Chacko [id number] dispatched to a [facility] for an 81 yof C/O dizziness. Upon arrival, the pt was sitting on her bed, awake and alert, GRECO X4, in no apparent distress; she denied dizziness at that time. She stated that she had been taking 50 mg metoprolol for 2-3 months, and was dizzy while walking. She denied dizziness while lying in bed, sitting, or standing (hx vertigo). She denied any headache, vision changes, CP, SOB, weakness, or confusion (family present denied confusion or slurred speech). No arm drift or one sided weakness. She denied N/V/D, cough, sore throat, abd pain, or urinary S/S. No pedal edema, lung sounds clear throughout. Pt stated she wore her home O2 (2 lpm) while walking. Pt and family validated med compliance; she was not taking meclizine for a long time. C consulted; EKG acquired (results in [id number]), as well as orthostatic BP (140 SBP while sitting, 140 SBP while standing; pt denied dizziness on standing). Pt was prescribed 3 days of meclizine to R/O vertigo, and instructed to follow up w/ her PCP for potential medication changes/further examination. Red flags discussed, with emphasis on safety (fall risk). .................... .................... .................... .................... .................... .................... .................... . Disposition: Fulfilled Mckenzie Suarez MD [address] [facility],[address], [place], [phone], [facility] 08/17/2022 17:20:21 09/18/2022 text/html This was a supervised home visit with case packer and sealer Krish Lyons. HPI: ALLERGIC TO: PCN,CORTISONE. HX: Afib, OA,Osteoporosis Patient with known osteoporosis. 4 day duration of pain upper back neck into spine . No accident or injury .................... .................... .................... .................... .................... .................... .................... . CRC Nursing Assessment: Comments: CRC RN did not require any additional information to process this visit. .................... .................... .................... .................... .................... .................... .................... . Etcher Apprentice [employer] Note From Krish Lyons: Pt with hx of osteoporosis , HTN, [place] and takes eliquis presents with complaints of atraumatic 9/10 pain over her right scapula since 09/12 . Pt sts she took one dose of 650 mg PO tylenol yesterday with minimal relief. Pt also using heating pad with some relief. Pt denies cp, sob, cough or f/n/v/d. Pt has pain with ROM, no bruising, redness or rash over right scapula. [facility] contacted and advised the pt to go to the ED or urgent care later today or tomorrow for imaging. Pt instructed to take tylenol q6-8h prn and warning signs that would indicate the ED. Etcher Apprentice [employer] Allergies: Penicillin, Hydrocortisone .................... .................... .................... .................... .................... .................... .................... . Disposition: Fulfilled Chino Saavedra MD [address] [place] [address],[address], [place], [address], [employer] 09/18/2022 12:20:34 09/02/2023 text/html This was a supervised home visit with case packer and sealer Leonard Yun. HPI: PMH: DEBBIE, oxygen dependent, CKD stage 3a Call to Nicole Melendez , pt daughter answers but not with patient. Advised investment underwriter to call alt number. Call to Nicole Melendez, reports having sx of cough and chest congestion. Per pt has been using albuterol. Per pt not productive. Per pt having chest tightness. Per pt mild relief with nebulizer. No OTC medications for cough. Pt drinking fluids. Pt having wheezing intermittent. Having SOB even at rest. No swelling reported. Pt unable to come into [facility], agrees to [facility] for eval. .................... .................... .................... .................... .................... .................... .................... . [facility] Nurse Triage Notes (Jd Carrion): Comments: HPI was reviewed and no additional information is needed .................... .................... .................... .................... .................... .................... .................... . Etcher Apprentice Photoengraving Note From Leonard Yun: Dispatched to the call address for the female with cough/sob. Pt states she had the Flu at the end of July and has had a lingering dry cough since. She states she has been feeling more SoB for approx 1 week now. She has been using her nebulizer 2x daily with not much relief. She has been taking OTC cold/flu medication with mild relief. She denies n/v/d, CP or any other complaint. Pt was found sitting on edge of bed, CAOx4, airway open and patent, breathing non labored, able to speak in full sentences, -JVD, -HEENT, skin PWD with good turgor, abd soft non tender/distended, pupils PERRL, +CMSx4, lung sounds initially tight and with wheezing-post treatment (DuoNeb-Pts medications) Pt with less wheezing and more clear lung sounds. C consulted. Pt given 40mg PO prednisone. Scripts called into preferred pharmacy. Red flags discussed. ALL times are approx. .................... .................... .................... .................... .................... .................... .................... . Disposition: Fulfilled Chino Saavedra MD [address] [facility],[address] [facility], [place], [address], [employer] 09/02/2023 12:49:21 OBGyn Episode No OBEpisode recorded.
--- OUTSIDE RECORDS SUMMARY | 2024-09-17 18:16 | XMS_ITS | Encounter Summary ---
Author Organization [facility], Address [address] [address] Phone Care Team Providers Care Cane Flume Feeding Machine Operator Name Role Phone Name, Jeff AMCEDO Primary Care Provider [phone] Encounter Details Date Type Department Care Team (Late st Contact Info) Description 07/12/2022 Documentation Only [facility] [address] [place] [address] Silvia Goode PA Social History [...] Visit [facility] [address] [place] [address] David Tilley MD [address] [place] [address] [place] [address] documented as of this encounter Visit Diagnoses Not on filedocumented in this encounter Care Teams Cane Flume Feeding Machine Operator Relationship Specialty Start Date End Date Name, MD Jeff [address] [place] [address] PCP - General Internal Medicine 02/26/24 documented as of this encounter
== END 2024-09-17 15:40 | disposition home or self-care (01) ==
LOC: HO.HVS 14:36
PROVIDERS: PCP Internal Medicine; Visit Provider Surgery Vascular Surgery
DX: I83.11 Varicose veins of right lower extremity with inflammation (principal)
CPT/HCPCS: 99204

== ENCOUNTER → 2024-09-17 14:35 | Outpatient (BNVA) | payer OTHER, SELFPAY | PROVIDERS: PCP Internal Medicine; Visit Provider Surgery Vascular Surgery | DX: I83.11 Varicose veins of right lower extremity with inflammation (principal) | CPT/HCPCS: 99202 ==

== ENCOUNTER 2024-09-23 14:46 | Outpatient (AMB) | payer OTHER, SELFPAY ==
--- NOTE | 2024-09-23 14:50 | MHC.OFFVIS ---
Vital Signs 09/23/24 14:53 Height 5 ft 4 in BMI Reason not done Patient refused/unable BP 130/64 Blood Pressure Location Rt brachial Position Sitting Pulse 84 Pulse Source Pulse Oximeter Intake Visit Reasons: r/s 04/08-07/20 4 mos followup Intake Note: r/s 4 mth f/up Registered Nurse Cardiovascular Icu Required: No Registered Nurse Cardiovascular Icu Name: dereck Accompanied by: Daughter Allergies Penicillins [PENICILLINS] Adverse Reaction (Unknown, Verified 09/17/24 14:53) STOMACH UPSET Medication List - Last Reconciled 09/23/24 by Abran Payne MD acetaminophen 325 mg PO Q4H PRN albuterol sulfate 2.5 mg inhalation Q6H PRN apixaban (Eliquis) 5 mg PO BID 90 days cholecalciferol (vitamin D3) 25 mcg PO DAILY digoxin 125 mcg PO MOWEFR@0900 furosemide 40 mg PO BID@0900,1500 90 days lisinopril 10 mg PO DAILY metoprolol tartrate 50 mg PO BID fowhicgsbgax-fcup-hkhfc acid 18-400 mg-mcg (Certavite-Antioxidant) 1 tab PO DAILY pravastatin 10 mg PO BEDTIME spironolactone 25 mg See Protocol PO DAILY HPI Comments Details: Pleasant 84-year-old female who is here for follow-up. She was seen recently in the hospital she presented with influenza and was noted to be short of breath. Clinically she was in heart failure and was diuresed. She underwent echocardiography which showed severe RV dysfunction with moderate to severe RV enlargement. The pulmonary artery pressures were no significant elevated. No obvious cause for the right ventricle dysfunction was present. She had CT PA which did not show any pulmonary embolism. Was diuresed. She also had atrial fibrillation and was started on digoxin it appears she left the hospital with 250 mcg of daily digoxin. She is also on supplemental oxygen. We checked a digoxin level and decrease the digoxin dose to 125 mcg daily I referred her for cardiac MRI. 02/21/22: She returns for follow-up today. She is still waiting to do cardiac MRI at this stage. She continues to be on supplemental oxygen. The etiology of her hypoxia is unclear. She clearly had influenza when she was in hospital but at that time her imaging was showing heart failure and she was diuresed for that. Clinically she appears euvolemic currently. She is taking medication regularly. 01/02/23: She is back for follow-up. She was seen by Divina in June 2022. She had cardiac MRI performed in April 2022 showing dkts-fo-ozhppvqi RV dysfunction with normal RV size. She is oxygen dependent due to underlying lung disease. Her main complaint is lower extremity edema. She is denying any significant change in her breathing or chest pains. She is taking medications regularly. She has chronic atrial fibrillation and has been treated with rate control strategy with digoxin Saturday and Saturday and metoprolol tartrate 50 mg twice a day. 12/02/2023: She returns for follow-up. In 09/11/2023 she was admitted to [facility] with congestive heart failure. She was not taking Lasix because of incontinence and frequent accidents. She was diuresed and advised to take Lasix 40 mg twice a day at home. She has been doing well since she got discharged and has been compliant with her medications. 09/23/2024: Nicole is here for follow-up. She is denying any significant symptoms. She is not wearing oxygen currently and saying that she was hoping that I will stop the oxygen. She has cor pulmonale and I have advised her that she should not be taking off oxygen specially with activity and at nighttime. She has done well with medicine so far and continues to be quite stable. I will continue same medications for now. Blood pressure well controlled. [facility] Medical History RVF (right ventricular failure) Chronic diastolic CHF (congestive heart failure) DEBBIE (obstructive sleep apnea) New onset a-fib Atherosclerosis Varicose veins of bilateral lower extremities with pain Osteoarthritis HTN (hypertension) Obesity Osteoporosis Surgical History Hx of surgical procedure (03/01/23) History of appendectomy Status post left knee replacement Family History Son CAD (coronary artery disease) Mother CAD (coronary artery disease) Social History Household Members: Family Housing: House Are you a primary respiratory care instructor to a significant other at home: No Do you presently have visiting nurse or other home services: No Alcohol intake: never Patient Tobacco Use Status: Never used Tobacco e-Cigarette/Vaping Use: Never Used Second Hand Smoke Exposure: No Advance Directives Date on File: 10/25/21 service: No Current occupational status: retired and disabled Review of Systems Const Denies chills, Denies fatigue, Denies fever(s), Denies frequent falls, Denies weakness, Denies weight gain and Denies weight loss ENT Denies dizziness Card Denies chest pain, Denies leg edema, Denies lightheadedness, Denies palpitations, Denies dyspnea and Denies dyspnea on exertion Resp Denies cough, Denies dyspnea and Denies dyspnea on exertion GI Denies hematochezia Musc Denies abnormal gait, Denies muscle weakness, Denies numbness, Denies radiating pain into limb and Denies tingling Neuro Denies abnormal gait, Denies dizziness, Denies frequent falls, Denies numbness, Denies tingling and Denies weakness Endo Denies fatigue and Denies palpitations Physical Exam Vital Signs: Last Vital Signs Pulse 84 09/23/24 14:53 BP 130/64 09/23/24 14:53 GENERAL APPEARANCE: in no acute distress, pleasant. NECK: no carotid bruit, no jugular venous distention. SKIN: no suspicious lesions, warm and dry. HEART: irregular rate and rhythm. LUNGS: Clear to auscultation bilaterally. ABDOMEN: soft, nontender. EXTREMITIES: no edema. PERIPHERAL PULSES: equal. NEUROLOGIC: No gross deficits, AAO X 3 Assessment & Plan Assessment & Plan (1) Cor pulmonale: Code(s): I27.81 - Cor pulmonale (chronic) Category: Medical (2) Pulmonary hypertension: Code(s): I27.20 - Pulmonary hypertension, unspecified Category: Medical (3) Right ventricular failure: Code(s): I50.810 - Right heart failure, unspecified Category: Medical (4) HTN (hypertension): Code(s): I10 - Essential (primary) hypertension Category: Medical (5) Atrial fibrillation: Code(s): I48.91 - Unspecified atrial fibrillation Category: Medical Plan Pleasant 84-year-old female who is here for follow-up. She has background history of COPD and cor pulmonale. She has pulmonary hypertension. Blood pressure is well controlled On anticoagulation currently and tolerating it well for permanent atrial fibrillation. Clinically she is euvolemic. Continue 40 mg Lasix twice a day and spironolactone 25 mg daily. On oxygen therapy for COPD and cor pulmonale. Follow-up 6 months. Thank you for allowing me to participate in the care of your patient. Please feel free to contact me if you have any questions. Coding Level of Care Code Est Pt Level 4 (92399) Complex EM visit Add On G2211 Diagnoses Cor pulmonale I27.81 Pulmonary hypertension I27.20 Right ventricular failure I50.810 HTN (hypertension) I10 Atrial fibrillation I48.91
[2024-09-23 14:53] VITALS: BP 130/64; PULSE 84
--- OUTSIDE RECORDS SUMMARY | 2024-09-23 17:22 | XMS_ITS | Encounter Summary ---
Author Organization [facility] [place], Address [address] [address] Phone Care Team Providers Care Patent Counsel Name Role Phone Name, Jeff MACEDO Primary Care Provider [phone] Encounter Details Date Type Department Care Team (Late st Contact Info) Description 07/12/2022 Documentation Only [facility] [address] [place] [address] Silvia Goode PA Social History [...] Visit [facility] [address] [place] [address] David Tilley MD [address] [place] [address] [place] [address] documented as of this encounter Visit Diagnoses Not on filedocumented in this encounter Care Teams Patent Counsel Relationship Specialty Start Date End Date Name, MD Jeff [address] [place] [address] PCP - General Internal Medicine 02/26/24 documented as of this encounter
--- OUTSIDE RECORDS SUMMARY | 2024-09-23 17:22 | XMS_ITS | Encounter Summary ---
Author Organization [employer] Address [address] [facility] 7t [place] [address] Care Team Providers Care Instructor Decorating Name Role Phone Name, Jeff MACEDO Primary Care Provider [phone] Reason for Visit * Reason Onset Date Comments triage 06/21/2022 Encounter Details Date Type Department Care Team ([facility] st Contact Info) Description 06/21/2022 Telephone [facility] [address] [place] [address] Name, MD Jeff [address] [place] [address] triage Social History Tobacco Use Types Packs/Day Years Used Date Smoking Tobacco: Never Assessed Comments Unknown Sex and Gender Information Value Date Recorded Sex Assigned at Female 04/23/2022 10:15 AM EDT Legal Sex Female 10:15 AM EDT Gender Identity Female 04/23/2022 10:15 AM EDT Sexual Orientation Choose not to disclose 2021 10:15 AM EDT documented as of this encounter Miscellaneous Notes * Telephone Encounter - Tank Lange - 06/21/2022 11:49 AM EST Symptoms: Dizziness, Lethargic (Tired) Outcome: Schedule an urgent appointment (within 4 hours) or talk to a nurse or provider soon Reason: Started within the past 3 days The caller accepted this outcome Speaks citizen of [place] documented in this encounter Plan of Treatment Not on file documented as of this encounter Visit Diagnoses Not on filedocumented in this encounter Care Teams Instructor Decorating Relationship Specialty Start Date End Date Name, MD Jeff [address] [place] [address] PCP - General Family Medicine 02/17/22 documented as of this encounter
--- OUTSIDE RECORDS SUMMARY | 2024-09-23 17:22 | XMS_ITS | Encounter Summary ---
Author Organization [employer] Address [address] [facility] 7t [place] [address] Care Team Providers Care Bottom Saw Operator Name Role Phone Name, Jeff MACEDO Primary Care Provider [phone] Reason for Visit * Reason Comments Med Refill Encounter Details Date Type Department Care Team ([facility] st Contact Info) Description 10/29/2022 Refill [facility] [address] [place] [phone] Name, MD Jeff [address] [place] [address] [phone] Essential hypertension Social History Tobacco Use Types Packs/Day Years Used Date Smoking Tobacco: Never Assessed Comments Unknown Sex and Gender Information Value Date Recorded Sex Assigned at Female 04/23/2022 10:15 AM EDT Legal Sex Female 10:15 AM EDT Gender Identity Female 04/23/2022 10:15 AM EDT Sexual Orientation Choose not to disclose 2021 10:15 AM EDT COVID-19 Exposure Response Date Recorded In the last 10 days, have yo u been in contact with someone who was confirmed or suspected to have Coronavirus/COVID-19? No / Unsure 10/31/2022 1:57 PM EDT documented as of this encounter Plan of Treatment Not on file documented as of this encounter Visit Diagnoses Diagnosis Essential hypertension Unspecified essential hypertension documented in this encounter Care Teams Bottom Saw Operator Relationship Specialty Start Date End Date Name, MD Jeff [address] [place] [address] [phone] PCP - General Family Medicine 02/17/22 documented as of this encounter
--- OUTSIDE RECORDS SUMMARY | 2024-09-23 17:22 | XMS_ITS | Encounter Summary ---
Author Organization [facility] [place], Address [address] [address] Phone Care Team Providers Care Toll Transmission Worker Name Role Phone Name, Jeff MACEDO Primary Care Provider [phone] Encounter Details Date Type Department Care Team (Late Contact Info) Description 06/15/2021 Documentation Only [facility] [place], [address] [place] [address] Amari Gonsalves MD [address] [place] [address] [place] [address] Social History Tobacco Use Types [...] Visit [facility] [address] [place] [address] David Tilley MD [address] [place] [address] [place] [address] documented as of this encounter Visit Diagnoses Not on filedocumented in this encounter Care Teams Toll Transmission Worker Relationship Specialty Start Date End Date Name, MD Jeff [address] [place] [address] PCP - General Internal Medicine 02/26/24 documented as of this encounter
--- OUTSIDE RECORDS SUMMARY | 2024-09-23 17:22 | XMS_ITS | Encounter Summary ---
Author Organization [facility] [place], Address [address] [address] Phone Care Team Providers Care Cabinetmaker Apprentice Name Role Phone Name, Jeff MACEDO Primary Care Provider [phone] Encounter Details Date Type Department Care Team (Late Contact Info) Description 09/11/2023 Documentation Only [facility] [place], [address] [place] [address] Tasia Lind [address] [place] [phone] Social History Tobacco Use Types Packs/Day [...] Visit [facility] [address] [place] [address] David Tilley MD [address] [place] [address] [place] [address] documented as of this encounter Visit Diagnoses Not on filedocumented in this encounter Care Teams Cabinetmaker Apprentice Relationship Specialty Start Date End Date Name, MD Jeff [address] [place] [address] PCP - General Internal Medicine 02/26/24 documented as of this encounter
--- OUTSIDE RECORDS SUMMARY | 2024-09-23 17:22 | XMS_ITS | Clinical Summary ---
Author Organization [facility] [place], Address [address] [place] [address] [place] [address] Phone Care Team Providers Care Probation Worker Name Role Phone Name, Jeff MACEDO Primary Care Provider [phone] Allergies Active Allergy Reactions Criticality Noted Date [...] Visit [facility] [place], [address] [place] [address] David Tilley MD [address] [facility] [place] [address] Health Maintenance Due Date Last Done Comments Pneumococcal Vaccine: 65+ Years (3 of 3 - PCV) 12/31/2013 12/31/2012, 06/10/2000 Influenza Vaccine (#1) 2024 Hepatitis B Vaccine Aged Out No longe r eligible based on patient's age to complete this topic Insurance [facility] DUAL SNP ([id number]) [place] [id number] Care Teams Probation Worker Relationship Specialty Start Date End Date Name, MD Jeff [address] [place] [address] PCP - General Internal Medicine 02/26/24
--- OUTSIDE RECORDS SUMMARY | 2024-09-23 17:22 | XMS_ITS | Encounter Summary ---
Author Organization [facility] [place], Address [address] [address] Phone Care Team Providers Care Investment Recovery Technician Name Role Phone Name, Jeff MACEDO Primary Care Provider Encounter Details Date Type Department Care Team (Late Contact Info) Description 04/21/2024 Documentation Only [facility] [place], [address] [place] [address] Tasia Lind [address] [place] [phone] Social History Tobacco Use Types Packs/Day [...] Visit [facility] [address] [place] [address] David Tilley MD [address] [place] [address] [place] [address] documented as of this encounter Visit Diagnoses Not on filedocumented in this encounter Care Teams Investment Recovery Technician Relationship Specialty Start Date End Date Name, MD Jeff [address] [place] [address] PCP - General Internal Medicine 02/26/24 documented as of this encounter
--- OUTSIDE RECORDS SUMMARY | 2024-09-23 17:22 | XMS_ITS | Encounter Summary ---
Author Organization [employer] Address [address] [facility] 7t [place] [address] Care Team Providers Care Plastics Scientist Name Role Phone Name, Jeff MACEDO Primary Care Provider [phone] Reason for Visit * Reason Onset Date Comments triage 08/17/2022 Encounter Details Date Type Department Care Team ([facility] st Contact Info) Description 08/17/2022 Telephone [facility] [address] [place], [place] [phone] Name, MD Jeff [address] [place] [address] triage Social History Tobacco Use Types Packs/Day [...] was confirmed or suspected to have Coronavirus/COVID-19? Unable to assess 08/10/2022 10:33 AM EST documented as of this encounter Miscellaneous Notes * Telephone Encounter - Dulce FARHANA Whitaker - 08/17/2022 2:03 PM EST Triage call returned to patient via Night Out Barrel Repairer [id number]. Patient is alert and verbal able tomake all concerns known at time of call. Patient reports BP tending high and that she finds she hasdizziness after taking medications. Patient with good oral intake and no signs of illness. BP 147/94 this morning. Now 159/99. Dizziness is described as spinning sensation no fainting an no chest pain or pressure no facial or extremity numbness. [facility] Insted home evaluation offered and accepted. Referral placed at time of call. PCP Team updated on status. Protocol Used: Blood Pressure - High (Adult) Protocol-Based Disposition: See in Office or Video Visit Today Video visit not offered Positive Triage Question: * Systolic BP >= 180 OR Diastolic >= 110 * All higher-acuity triage questions were negative Care Advice Discussed: * High Blood Pressure * High Blood Pressure - Lifestyle Modifications * Reasons To Call Back - Headache, blurred vision, difficulty talking, or difficulty walking occurs - Chest pain or difficulty breathing occurs - You become worse * Telephone Encounter - Tank Lange - 08/17/2022 1:39 PM EST Symptoms: Dizziness, High Blood Pressure - Caller Reports Outcome: Transfer to a nurse or provider NOW! Reason: Trouble walking The caller accepted this outcome speaks [place] documented in this encounter Plan of Treatment Not on file documented as of this encounter Visit Diagnoses Not on filedocumented in this encounter Care Teams Plastics Scientist Relationship Specialty Start Date End Date Name, MD Jeff [address] [place] [address] PCP - General Family Medicine 02/17/22 documented as of this encounter
--- OUTSIDE RECORDS SUMMARY | 2024-09-23 17:22 | XMS_ITS | Clinical Summary ---
Author Organization [employer] Address [address] [place] [address] 7t [place] [address] Care Team Providers Care Cleaning Custodian Name Role Phone Name, Jeff MACEDO Primary Care Provider [phone] Allergies Active Allergy Reactions Criticality Noted Date Comments Cortisone 03/21/2017 Penicillins Other reaction(s): unspecified, unspecified Medications digoxin (Lanoxin) 125 MCG tablet Take 1 tablet (125 mcg) by mouth three times weekly (on Saturday, Saturday, and Saturday) 3 Active apixaban (Eliquis) 5 MG tablet Take 5 mg by mouth 2 times daily. Active albuterol 108 (90 Base) MCG/ACT inhalerIndicatio ns:Essential hypertension INHALE 2 PUFF BY INHALATION ROUTE EVERY 4 - 6 HOURS NEEDED NEEDED FOR WHEEZE 18 g 1 3 Active furosemide (Lasix) 40 MG tabletIndication s:Hypertension, unspecified type TAKE 1 TABLET BY MOUTH EVERY MORNING 90 tablet 1 3 Active albuterol (2.5 MG/3ML) 0.083% nebulizer solution Take 3 mL (2.5 mg) by nebulization every 6 (six) hours if needed for wheezing. 75 mL 11 4 Active spironolactone (Aldactone) 25 MG tablet Take 1 tablet by mouth in the morning. 4 Active metoprolol tartrate (Lopressor) 50 MG tabletIndication s:Hypertension, unspecified type TAKE 1 TABLET BY MOUTH TWICE DAILY IN THE MORNING AND IN THE EVENING WITH FOOD 180 tablet 4 Active meclizine (Antivert) 25 MG tablet TAKE 1 TABLET BY MOUTH THREE TIMES DAILY NEEDED 30 tablet 4 Active Multiple Vitamins-Mineral s (CertaVite/Antio xidants) tabletIndication s:Routine general medical examination at a health care facility Take 1 tablet by mouth in the morning. 90 tablet 3 4 Active amLODIPine (Norvasc) 5 MG tabletIndication s:Hypertension, unspecified type TAKE 1 TABLET BY MOUTH EVERY MORNING 90 tablet 1 5 Active acetaminophen (Tylenol 8 Hour) 650 MG ER tablet TAKE 1 TABLET BY MOUTH EVERY 8 HOURS NEEDED FOR MODERATE PAIN 90 tablet 1 5 Active pravastatin (Pravachol) 10 MG tabletIndication s:Essential hypertension TAKE 1 TABLET BY MOUTH AT BEDTIME 90 tablet 5 Active metoprolol tartrate (Lopressor) 50 MG tabletIndication s:Hypertension, unspecified type TAKE 1 TABLET BY MOUTH TWICE DAILY IN THE MORNING AND IN THE EVENING WITH FOOD 180 tablet 5 Active D3-1000 25 MCG (1000 UT) capsule TAKE 1 CAPSULE BY MOUTH EVERY MORNING 90 capsule 5 Active lisinopril 10 MG tabletIndication s:Essential hypertension TAKE 1 TABLET BY MOUTH EVERY MORNING 90 tablet 5 Active Active Problems Problem Noted Date Diagnosed Date Moderate persistent asthma 10/21/2023 Trigger middle finger of left hand 10/21/2023 Assessment & Plan (11/04/2023 1:27 PM EDT): Referral to ortho Numbness and tingling of left leg 10/21/2023 Assessment & Plan (11/04/2023 1:26 PM EDT): Chronic issue, referral to vascular, suspect varicose veins, pt cannot tolerate compression stockings Chronic right-sided heart failure 08/15/2023 Assessment & Plan (11/04/2023 1:27 PM EDT): Resolution of sob, with diuresis, tolerating lasix, will acquire scale, reviewed importance of weights DEBBIE (obstructive sleep apnea) 08/15/2023 Uncomplicated asthma 08/14/2023 Oxygen dependent 02/11/2023 Assessment & Plan (11/04/2023 1:26 PM EDT): Stable, denies sob Stage 3a chronic kidney disease 08/09/2022 Vertigo 08/09/2022 Atrial fibrillation 01/23/2022 Carotid atherosclerosis 03/11/2020 Generalized osteoarthritis 11/27/2011 Varicose veins of lower extremity 11/27/2011 Essential hypertension 11/23/2011 Assessment & Plan (11/04/2023 1:26 PM EDT): At goal today, does report not taking one of prescribed heart medications' but cannot recall which one, will update once home Obesity 11/23/2011 Osteoporosis 11/23/2011 Encounters Date Type Department Care Team Description 08/21/2024 Telephone [facility] MEDICINE [address] [place] [address] Jeff Ernandez MD Durable Medical Equipment 08/18/2024 Refill [facility]INE [address] [place] [address] Jeff Ernandez MD Essential hypertension; Hypertension, unspecified type 08/12/2024 Refill [facility] MED[facility]INE [address] [place] [address] Claudia Lima NP 08/05/2024 Refill [facility] MED[facility]INE [address] [place] [address] NameJeff MD Hypertension, unspecified type from Last 3 Months Immunizations Name Administration Dates Next Due Moderna Covid-19 Vaccine 12+ 09/16/2020,08/19/19 21 Pneumococcal Polysaccharide PPSV23 12/31/2012, TD (adult), 2 Lf tetanus tox oid, preservative free, adsorbed 06/28/1998 Tdap 12/31/2012 Zoster, live 03/10/2013 Social History Tobacco Use Types Packs/Day Years Used Date Smoking Tobacco: Never Smokeless Tobacco: Never Tobacco Cessation:Counseling Given: Not Answered Alcohol Use Standard Drinks/Week Comments Never 0 (1 standard drink = 0.6 oz pur e alcohol) Depression Answer Date Recorded Patient Health Questionnaire-9 Score 0 02/11/2023 Housing Stability Answer Date Recorded What is your housing situation today? I have evelio norman 01/29/[address] you li ve. Do you have problems with any of the following? None of the above 01/29/2024 Food Insecurity Answer Date Recorded Within the past 12 months, y ou worried that your food would run out before you got money to buy more: Never True 04/30/2023 Within the past 12 months,th e food you bought just didn't last and you didn't have enough money to get more: Never True 12/2022 Transportation Answer Date Recorded In the past 12 months, has l ack of transportation kept you from medical appts, meetings, work or from getting things needed for daily living? No 04/30/2023 Utilities Answer Date Recorded In the past 12 months, has t he electric, gas, oil or water company threatened to shut off services in your home? No 04/30/2023 Depression Answer Date Recorded Patient Health Questionnaire-2 Score 0 02/11/2023 Internet Access Answer Date Recorded Internet Access Q1 Yes 02/23/2024 Internet Access Q2 Not on file 02/23/2024 Comments Unknown Sex and Gender Information Value Date Recorded Sex Assigned at Female 04/23/2022 10:15 AM EDT Legal Sex Female 10:15 AM EDT Gender Identity Female 04/23/2022 10:15 AM EDT Sexual Orientation Choose not to disclose 2021 10:15 AM EDT Last Filed Vital Signs Vital Sign Reading Time Taken Comments Blood Pressure 135/63 10/21/2023 1:06 PM EDT Pulse 85 10/21/2023 1:06 PM EDT Temperature 36.9 ??C (98.4 ??F) 02/11/2023 1:57 PM ED T Respiratory Rate 14 10/21/2023 1:06 PM EDT Oxygen Saturation 97% 10/21/2023 1:06 PM EDT Inhaled Oxygen Concentration - - Weight 89.4 kg (197 lb 3.2 oz) 10/21/2023 1:06 P M EDT Height 160 cm (5' 3 ) 10/21/2023 1:06 PM EDT Body Mass Index 34.93 10/21/2023 1:06 PM EDT Plan of Treatment Health Maintenance Due Date Last Done Comments Alcohol/Substance Use Screening 1952 Zoster Vaccines (2 of 3) 05/05/2013 03/10/2013 RSV Patients and Patients Aged 60 years or older (1 - 1-dose 75+ series) 2013 Pneumococcal Vaccine: 50+ Years (2 of 2 - PCV) 12/31/2013 12/31/2012, 06/10/2000 DTaP/Tdap/Td Vaccines (2 - T d or Tdap) 12/31/2022 12/31/2012, 06/28/1998 Depression Screening 02/12/2024 02/11/2023, 02/11/2023 COVID-19 Vaccine (3 - 2023-2 5 season) 2024 09/16/2020, 08/19/2020 Influenza Vaccine (#1) 2024 Tobacco Screening 10/20/2024 10/21/2023 SDOH Screening 01/28/2025 01/29/2024 Lipid Panel 03/28/2028 03/28/2023 HIB Vaccines Aged Out No longer eligi ble based on patient's age to complete this topic HPV Vaccines Aged Out No longer eligi ble based on patient's age to complete this topic Hepatitis A Vaccines Aged Out No long er eligible based on patient's age to complete this topic Hepatitis B Vaccines Aged Out No long er eligible based on patient's age to complete this topic IPV Vaccines Aged Out No longer eligi ble based on patient's age to complete this topic Meningococcal Vaccine Aged Out No fernando lalo eligible based on patient's age to complete this topic RSV under 20 months Aged Out No longe r eligible based on patient's age to complete this topic Rotavirus Vaccines Aged Out No longer eligible based on patient's age to complete this topic Procedures Procedure Name Priority Date/Time Associated Diagnosis Comments LIPID PANEL, STANDARD Routine 03/28/2023 9:37 AM EDT Essential hypertension Vaccination refused by patient from Last 3 Months or Most Recently Relevant to Health Maintenance Results * (ABNORMAL) Lipid Panel, Standard (03/28/2023 9:37 AM EDT) Triglycerides 91 <150 mg/dL [facility] Comment:Desirable Triglyceri de: less than 150 mg/dLBorderline High Triglyceride 150-199 mg/dLHigh Triglyceride: 200-499 mg/dLVery High Triglyceride: greater than or equal to 5OO mg/dL Cholesterol 107 <200 mg/dL [facility] Comment:Desirable Cholestero l: less than 200 mg/dLBorderline High Cholesterol: 200-239 mg/dLHigh Cholesterol: greater than 239 mg/dL LDL Cholesterol Calculated 53 <100 mg/dL [facility] Comment:Desirable LDL: less than 100 mg/dLNear Optimal/Above Optimal LDL: 110- 129 mg/dLBorderline High LDL: 130-159 mg/dLHigh LDL: 160-189 mg/dLVery High LDL: greater than or equal to 190 mg/dL HDL Cholesterol 36(L) >40 mg/dL [facility] Comment:Desirable HDL: great er than 40 mg/dL Note: This HDL assay may give artificially low results in patients with liver disease. Blood Venous blood specimen / Unknown 03/28/2023 9:37 AM EDT 03/28/2023 11:31 AM EDT us Jeff Ernandez MD LAB BLOOD ORDERABLES Final Resul t Performing Organization Address City/State/[facility] Co de Phone Number [facility] [address] [place] [phone] from Last 3 Months or Most Recently Relevant to Health Maintenance [place] [address] [place] [address] - [employer] Care Teams Cleaning Custodian Relationship Specialty Start Date End Date Name, MD Jeff [address] [place] [address] PCP - General Family Medicine 02/17/22
--- OUTSIDE RECORDS SUMMARY | 2024-09-23 17:22 | XMS_ITS | Encounter Summary ---
Author Organization [facility], Address [address] [address] Phone Care Team Providers Care Water Fitness Instructor Name Role Phone Name, Jeff MACEDO Primary Care Provider [phone] Encounter Details Date Type Department Care Team (Late st Contact Info) Description 07/12/2022 Documentation Only [facility] [address] [place] [address] Silvia Goode PA Social History [...] Visit [facility] [address] [place] [address] David Tilley MD [address] [place] [address] [place] [address] documented as of this encounter Visit Diagnoses Not on filedocumented in this encounter Care Teams Water Fitness Instructor Relationship Specialty Start Date End Date Name, MD Jeff [address] [place] [address] PCP - General Internal Medicine 02/26/24 documented as of this encounter
--- OUTSIDE RECORDS SUMMARY | 2024-09-23 17:22 | XMS_ITS | Encounter Summary ---
Author Organization [facility], Address [address] [address] Phone Care Team Providers Care Clinical Education Specialist Name Role Phone Name, Jeff MACEDO Primary Care Provider [phone] Encounter Details Date Type Department Care Team (Late st Contact Info) Description 07/12/2022 Documentation Only [facility] [address] [place] [address] Silvia Goode PA Social History [...] Visit [facility] [address] [place] [address] David Tilley MD [address] [place] [address] [place] [address] documented as of this encounter Visit Diagnoses Not on filedocumented in this encounter Care Teams Clinical Education Specialist Relationship Specialty Start Date End Date Name, MD Jeff [address] [place] [address] PCP - General Internal Medicine 02/26/24 documented as of this encounter
--- OUTSIDE RECORDS SUMMARY | 2024-09-23 17:23 | XMS_ITS | Encounter Summary ---
Author Organization [employer] Address [address] [facility] [address]t [place] [address] Care Team Providers Care Brick Cleaner Name Role Phone Name, Jeff MACEDO Primary Care Provider [phone] Reason for Visit * Reason Onset Date Comments Hospital Follow-up 09/19/2023 Encounter Details Date Type Department Care Team ([facility] st Contact Info) Description 09/19/2023 Telephone [facility] MEDICINE [address] [place], [place] [id number] Name, MD Jeff [address] [place] [address] Hospital Follow-up Social History Tobacco Use Types Packs/Day Years Used Date Smoking Tobacco: Never Smokeless Tobacco: Never Alcohol Use Standard Drinks/Week Comments Never 0 (1 standard drink = 0.6 oz pur e alcohol) Depression Answer Date Recorded Patient Health Questionnaire-9 Score 0 02/11/2023 Housing Stability Answer Date Recorded What is your housing situation today? I do not have housing (Staying with others, in a hotel, in a correction, living outside on the street, on a beach, in a car, or in a park 04/02/[address] you li ve. Do you have problems with any of the following? None of the above 04/02/2023 Food Insecurity Answer Date Recorded Within the [...] Recorded Patient Health Questionnaire-2 Score 0 02/11/2023 Comments Unknown Sex and Gender Information Value Date Recorded Sex Assigned at Female 04/23/2022 10:15 AM EDT Legal Sex Female 10:15 AM EDT Gender Identity Female 04/23/2022 10:15 AM EDT Sexual Orientation Choose not to disclose 2021 10:15 AM EDT documented as of this encounter Miscellaneous Notes * Telephone Encounter - Ryan Zamarripa - 09/19/2023 10:36 AM EDT Tc from pt requesting a HDF appt. Hospital: [facility] Date of admission: 09/14 Discharge date: 09/17 Diagnosed: Fluid in her lungs and elevated heart rate documented in this encounter Plan of Treatment Not on file documented as of this encounter Visit Diagnoses Not on filedocumented in this encounter Additional Health Concerns Assessment Noted Time PHQ-9 Depression Total Score: 0 02/12/20 23 2:01 PM EDT documented as of this encounter Care Teams Brick Cleaner Relationship Specialty Start Date End Date Name, MD Jeff [address] [place] [address] PCP - General Family Medicine 02/17/22 documented as of this encounter
--- OUTSIDE RECORDS SUMMARY | 2024-09-23 17:23 | XMS_ITS | Encounter Summary ---
Author Organization [employer] Address [address] [facility] [address]t [place] [address] Care Team Providers Care Instructor Warper Name Role Phone Name, Jeff MACEDO Primary Care Provider [phone] Encounter Details Date Type Department Care Team ([facility] st Contact Info) Description 05/21/2023 Telephone [facility] MED[facility] [address] [place], [place] [phone] Name, MD Jeff [address] [place] [address] Social History Tobacco Use Types Packs/Day Years [...] with others, in a hotel, in a senior care, living outside on the street, on a [...] AM EDT documented as of this encounter Plan of Treatment Not on file documented as of this encounter Visit Diagnoses Not on filedocumented in this encounter Additional Health Concerns Assessment Noted Time PHQ-9 Depression Total Score: 0 02/12/20 23 2:01 PM EDT documented as of this encounter Care Teams Instructor Warper Relationship Specialty Start Date End Date Name, MD Jeff [address] [place] [address] PCP - General Family Medicine 02/17/22 documented as of this encounter
--- OUTSIDE RECORDS SUMMARY | 2024-09-23 17:23 | XMS_ITS | Data Portability ---
Author Organization [employer] Address [address] [place] [address] Care Team Providers Care Furniture Removalist Name Role Phone [facility] Referring Provider [facility] Referring Provider [phone] Assessment Encounter Date Assessment Date Assessment LastModified [...] restart PO lasix in AM as prescribed -[facility] pt and care givers re importance of [...] to ambulate with difficulty this evening. VSS. Bath Attendant on site reports that she appears well, [...] assessment and plan as documented by the multicraft operator. I provided real time medical direction for this encounter and was immediately available to provide additional phone based assistance as needed. History as noted by multicraft operator. Pt with history of AF on apixaban, [...] assessment and plan as documented by the multicraft operator. I provided real time medical direction for this encounter and was immediately available to provide additional phone based assistance as needed. History as noted by multicraft operator. Pt with history of COPD on 2L [...] Ag, QL IA, respiratory specimen 2023 024 [facility], [address] [place] [address], [id number], 4 11:56:07 rapid SARS CoV 2 Ag, QL IA, respiratory specimen [address], [address] [place] [address], [id number], 2 15:46:18 rapid flu (A+B) [address], [address] [place] [address], [id number], 2 15:46:18 Referral None recorded. Procedures None recorded. Surgeries None recorded. Imaging None recorded. Medication Orders prednisone 20 mg tablet 2023 024 [id number], [address] [place], [address], 4 11:56:07 prednisone 20 mg tablet 2023 024 [facility], [address] [place] [address], [id number], 4 17:08:42 guaifenesin ER 600 mg tablet, extended release 12 hr 2023 024 [facility], [address] [place] [address], [id number], 4 17:08:42 meclizine 25 mg tablet 2022 023 [facility], [address] [place] [address], [id number], 3 17:31:06 Patient TargetsNo targets recorded. Patient InstructionsNo instructions recorded. Reason for Referral None Reported. Results Created Date Observation Date Name Description Value Unit Range Abnormal Flag Note LastModifiedBy Organization Detail LastModifiedTime 06/05/20 22 06/05/2022 rapid flu (A+B) Flu negati ve Not Available [facility] ed [address] [place] [address], [id number], 06/05/2022 15:46:04 06/05/20 22 06/05/2022 rapid SARS CoV 2 Ag, QL IA, respi rator y speci men rapid SARS CoV 2 Ag, QL IA, respiratory specimen negati ve Not Available [facility] ed [address] [place] [address], [phone], 06/05/2022 15:46:02 09/02/19 24 09/02/2023 rapid SARS CoV 2 Ag, QL IA, respi rator y speci men rapid SARS CoV 2 Ag, QL IA, respiratory specimen negati ve Not Available [facility] ed [address] [place] [address], [phone], 09/02/2023 11:52:32 Result Notes None recorded. Medical Equipment None Reported. Allergies Allergen ID Allergen Name Allergen Category Reaction Reaction Severity Criticality Documentation Date Start Date Code Code System Note Provider Name and Address Organization Details Recorded Time 7314 Product containin g penicilli n (product) medicatio n Not available Not available Not available 04/21/2024 17660 8001 SNOMED Not Available [employer] - production [...] L/min 140 mm[Hg] 80 mm[Hg] Not Available [employer] 4 11:42:45 Date Recorded Heart rate Body [...] Details Last Updated DateTime 3 97.8 [degF] 259660. 08 g 18 /min 94 % 94 % 80 /min 80 /min 18 /min 94 % 94 % 97.8 [degF] 098725. 08 g 174 mm[Hg] 95 mm[Hg] 174 [...] Note 1303 [facility] [address] [place] [phone] 10/23/2021 11:58:16 04/10/2022 09:46:43 4741 David Ramos MD Main - [facility] [address] [place] [phone] 04/12/2022 18:40:41 04/13/2022 15:30:00 Tinea pedis 7482099 B35.3 Patient presents with a rash on [...] 6116 David Ramos MD Main - [facility] [address] [place] [phone] 06/05/2022 15:44:33 06/07/2022 13:44:46 Upper respiratory infection 88558953 J06.9 Presents with fever, cough, runny nose, but not nella dyspnea. Rapid COVID/flu negative. Suspect viral URI. Advised supportive care and using prescribed inhalers. Home O2 set at 3L but was using 2L due to nosebleds. Bath Attendant helped patient install the humidifier and turned it up to 3L. 6632 Natalia Neal MD Main - [facility] [address] [place] [phone] 06/22/2022 17:20:14 06/26/2022 15:32:57 Congestive heart failure 34447782 I50.9 8017 Mckenzie Suarez MD Main - [facility] [address] [place], [place] [phone] 08/17/2022 16:11:35 08/20/2022 09:43:41 Postural dizziness 772897001 R42 8893 Chino Saavedra MD Main - [facility] [address] [place] [phone] 09/18/2022 11:57:49 2022 10:48:15 Acute thoracic back pain 384150374 M54.6 80190 Chino Saavedra MD Main - [facility] [address] [place] [phone] 09/02/2023 11:42:43 09/02/2023 23:03:51 Acute bronchitis 62214208 J20.9 Health Concerns Section Related Observation LastModified by Organization Detai ls LastModified Time None Recorded Concern Status LastModified by Organization Details LastModified Time None Recorded Advance Directives Directive None Recorded Payers Encounter Date Sequence Insurance Name Policy Number Policy Zendejas Covered Member ID Zendejas Member ID Guarantor Name 06/05/2022 1 [facility] - DOS PRIOR TO 2022 - DUAL ELIGIBLE (MEDICARE REPLACEMENT/ADV ANTAGE - HMO) Nicole Fitzpatrick [id number] Nicole Fitzpatrick 06/22/2022 1 [facility] - DOS PRIOR TO 2022 - DUAL ELIGIBLE (MEDICARE REPLACEMENT/ADV ANTAGE - HMO) Nicole Fitzpatrick [id number] Nicole Fitzpatrick 08/17/2022 1 [facility] - DOS PRIOR TO 2022 - DUAL ELIGIBLE (MEDICARE REPLACEMENT/ADV ANTAGE - HMO) Nicole Nora Cruz [id number] Nicole Garciarobbin Fitzpatrick 09/18/2022 1 [facility] - DOS PRIOR TO 2022 - DUAL ELIGIBLE (MEDICARE REPLACEMENT/ADV ANTAGE - HMO) Nicole Nora Cruz [id number] Nicole Nora Cruz 09/02/2023 1 [facility] - DOS ON OR AFTER 2022 - DUAL ELIGIBLE - ASSISTED OPTIONS AND ONE CARE (MEDICARE REPLACEMENT/ADV ANTAGE - HMO) Nicole Nora Fitzpatrick [id number] Nicole Nora Fitzpatrick Notes Date Note Type Note Provider Name [...] inhaler Q2H for relief. Pt agrees to [facility] for evaluation as pt has no transportation to office. Pt states uses home oxygen but no pulse oximeter. .................... .................... .................... .................... .................... .................... .................... . CRC Nursing Assessment: Comments: CRC RN did not require any additional information to process this visit. David Ramos MD [address] [facility],[address], [place], [address], [facility] - [employer] 06/05/2022 15:46:32 06/22/2022 text/html CRC Nursing Assessment: [...] [facility] referral for pt. Natalia Neal MD [address] [place] [address],[address], [place], [address], [employer] 06/22/2022 17:26:08 08/17/2022 text/html HPI: Allergic to: [...] .................... .................... .................... .................... .................... .................... . Bath Attendant Note From Pavithra Chacko: [facility] Bath Attendant Flores Chacko SC8 dispatched to a the neuromedical center for an 81 yof C/O dizziness. [...] time. C consulted; EKG acquired (results in [id number]), as well as orthostatic BP (140 SBP [...] . Disposition: Fulfilled Mckenzie Suarez MD [address] [facility],[address], [place], [address], [employer] 08/17/2022 17:20:21 09/18/2022 text/html This was a supervised home visit with multicraft operator Krish Lyons. HPI: ALLERGIC TO: PCN,CORTISONE. HX: Afib, OA,Osteoporosis Patient with known osteoporosis. 4 day duration of pain upper back neck into spine . No accident or injury .................... .................... .................... .................... .................... .................... .................... . CRC Nursing Assessment: Comments: CRC RN did not require any additional information to process this visit. .................... .................... .................... .................... .................... .................... .................... . Bath Attendant Note From Krish Lyons: Pt with hx of osteoporosis , HTN, ME and takes eliquis presents with complaints of atraumatic 9/10 pain over her right scapula since 09/12 . Pt sts she took one dose of 650 mg PO tylenol yesterday with minimal relief. Pt also using heating pad with some relief. Pt denies cp, sob, cough or f/n/v/d. Pt has pain with ROM, no bruising, redness or rash over right scapula. [facility] contacted and advised the pt to go to the ED or urgent care later today or tomorrow for imaging. Pt instructed to take tylenol q6-8h prn and warning signs that would indicate the ED. Bath Attendant Allergies: Penicillin, Hydrocortisone .................... .................... .................... .................... .................... .................... .................... . Disposition: Fulfilled Chino Saavedra MD [address] [place] [address],[address], [place], [phone], [employer] [facility] [employer] 09/18/2022 12:20:34 09/02/2023 text/html This was a supervised home visit with multicraft operator Leonard Yun. HPI: PMH: DEBBIE, oxygen dependent, CKD stage 3a Call to Nicole Melendez , pt daughter answers but not with patient. Advised fiction and nonfiction prose writer to call alt number. Call to Nicole Melendez, reports having sx of cough and chest congestion. Per pt has been using albuterol. Per pt not productive. Per pt having chest tightness. Per pt mild relief with nebulizer. No OTC medications for cough. Pt drinking fluids. Pt having wheezing intermittent. Having SOB even at rest. No swelling reported. Pt unable to come into [facility], agrees to [employer] [facility] for eval. .................... .................... .................... .................... .................... .................... .................... . [facility] Nurse Triage Notes (Jd Carrion): Comments: HPI was reviewed and no additional information is needed .................... .................... .................... .................... .................... .................... .................... . Bath Attendant Note From Leonard Yun: Dispatched to the [...] . Disposition: Fulfilled Chino Saavedra MD [address] [facility],[address] [facility], [place], [address], [employer] 09/02/2023 12:49:21 OBGyn Episode No OBEpisode recorded.
--- OUTSIDE RECORDS SUMMARY | 2024-09-23 17:23 | XMS_ITS | Encounter Summary ---
Author Organization [employer] Address [address] [facility] [address] [place] [address] Care Team Providers Care Inspector Eyeglass Frames Name Role Phone Name, Jeff MACEDO Primary Care Provider [phone] Reason for Visit * Reason Onset Date Comments Nurse Triage 04/27/2024 Encounter Details Date Type Department Care Team ([facility] st Contact Info) Description 04/27/2024 Telephone [facility] [address] [place] [address] Name, MD Jeff [address] [place] [address] Nurse Triage Social History Tobacco Use Types Packs/Day Years [...] encounter Miscellaneous Notes * Telephone Encounter - Minerva Rodrgiuez RN - 04/27/2024 3:59 PM EST Triage call [place] [id number] Pt didn't answer x2 left voice message to call [facility] [phone] x2. * Telephone Encounter - Evangelina Seo - 04/27/2024 3:27 PM EST Symptom: High Blood Sugar - Caller Reports Outcome: Talk to a nurse or provider within 15 minutes Reason: Known blood sugar above 300 The caller accepted this outcome. documented in this encounter Plan of Treatment Not on file documented as of this encounter Visit Diagnoses Not on filedocumented in this encounter Additional Health Concerns Assessment Noted Time PHQ-9 Depression Total Score: 0 02/12/20 23 2:01 PM EDT documented as of this encounter Care Teams Inspector Eyeglass Frames Relationship Specialty Start Date End Date Name, MD Jeff [address] [place] [address] PCP - General Family Medicine 02/17/22 documented as of this encounter
--- OUTSIDE RECORDS SUMMARY | 2024-09-23 17:23 | XMS_ITS | Encounter Summary ---
Author Organization [employer] Address [address] [facility] [address] [place] [address] Care Team Providers Care Body Artist Name Role Phone Name, Jeff MACEDO Primary Care Provider [phone] Reason for Visit * Reason Onset Date Comments Reschedule 05/21/2023 Encounter Details Date Type Department Care Team ([facility] Contact Info) Description 05/21/2023 Telephone [facility] [address] [place], [place] [phone] Name, MD Jeff [address] [place] [address] Reschedule Social History Tobacco Use Types Packs/Day Years [...] with others, in a hotel, in a nursing home, living outside on the street, on a [...] encounter Miscellaneous Notes * Telephone Encounter - Catina Lucas - 05/21/2023 8:42 AM EST Tc from pt requesting r/s 05/21 HTN appt, documentation writer attempted to r/s no availability. documented in this encounter Plan of Treatment Not on file documented as of this encounter Visit Diagnoses Not on filedocumented in this encounter Additional Health Concerns Assessment Noted Time PHQ-9 Depression Total Score: 0 02/12/20 23 2:01 PM EDT documented as of this encounter Care Teams Body Artist Relationship Specialty Start Date End Date Name, MD Jeff [address] [place] [address] PCP - General Family Medicine 02/17/22 documented as of this encounter
--- OUTSIDE RECORDS SUMMARY | 2024-09-23 17:23 | XMS_ITS | Encounter Summary ---
Author Organization [employer] Address [address] [facility] [address] [place] [address] Care Team Providers Care Cloth Printing Back Tender Name Role Phone Name, Jeff MACEDO Primary Care Provider [phone] Reason for Visit * Reason Onset Date Comments Nurse Triage 09/02/2023 Encounter Details Date Type Department Care Team ([facility] st Contact Info) Description 09/02/2023 Telephone [facility] [address] [place], [place] [phone] Name, MD Jeff [address] [place] [address] Nurse Triage Social History Tobacco Use Types [...] with others, in a hotel, in a halfway, living outside on the street, on a [...] encounter Miscellaneous Notes * Telephone Encounter - Mayte Gerber RN - 09/03/2023 11:26 AM EDT T/C to pt. Through [place] id - [id number] for status check, pt. States she is doing good. She is feeling way better then yesterday, no concerns right now. Pt. Offered follow up apt. But denies states she is felling good and will kept follow up apt. Which is schedule in September. Pt. Informed to give call to [facility] in case of any new or worsening symptoms, or any questions or concerns. Pt. Verbally agreed and understood. * Telephone Encounter - Myrna Mcmanus RN - 09/02/2023 10:22 AM EDT Call to Nicole Melendez , pt daughter answers but not with patient. Advised automobile and property underwriter to call alt number. Call to Nicole Melendez, reports having sx of cough and chest congestion. Per pt has been using albuterol. Per pt not productive. Per pt having chest tightness. Per pt mild relief with nebulizer. NoOTC medications for cough. Pt drinking fluids. Pt having wheezing intermittent. Having SOB even at rest. No swelling reported. Pt unable to come into [facility], agrees to [facility] for eval. Sent to team for [facility] status check PRN. Protocol Used: Asthma Attack (Adult) Protocol-Based Disposition: Go to Office or Video Visit Now Video visit offer not recorded Positive Triage Question: * Quick-relief asthma medicine (e.g., albuterol /salbutamol, levalbuterol by inhaler or nebulizer) is needed more frequently than every 4 hours to keep you comfortable * All higher-acuity triage questions were negative Care Advice Discussed: * Reassurance and Education - Mild Asthma Attack * Asthma Attack - Treatment - Quick-Relief Medicine * Avoid Asthma Triggers * Reasons To Call Back - You become worse * Telephone Encounter - Sera Bhandari - 09/02/2023 9:33 AM EDT Symptom: Chest Congestion Outcome: Schedule an appointment to be seen within 24 hours Reason: Caller denied all higher acuity questions The caller accepted this outcome documented in this encounter Plan of Treatment Not on file documented as of this encounter Visit Diagnoses Not on filedocumented in this encounter Additional Health Concerns Assessment Noted Time PHQ-9 Depression Total Score: 0 02/12/20 23 2:01 PM EDT documented as of this encounter Care Teams Cloth Printing Back Tender Relationship Specialty Start Date End Date Name, MD Jeff [address] [place] [address] PCP - General Family Medicine 02/17/22 documented as of this encounter
== END 2024-09-23 15:08 | disposition home or self-care (01) ==
LOC: HO.HCS 14:47
PROVIDERS: PCP Internal Medicine; Visit Provider Internal Medicine Cardiovascular Disease
DX: I27.81 Cor pulmonale (chronic) (principal); I27.20 Pulmonary hypertension, unspecified; I50.810 Right heart failure, unspecified; I10 Essential (primary) hypertension; I48.91 Unspecified atrial fibrillation
CPT/HCPCS: 99214; G2211

== ENCOUNTER → 2024-09-23 14:46 | Outpatient (BNVA) | payer OTHER, SELFPAY | PROVIDERS: PCP Internal Medicine; Visit Provider Internal Medicine Cardiovascular Disease | DX: I27.81 Cor pulmonale (chronic) (principal); I27.20 Pulmonary hypertension, unspecified; I50.810 Right heart failure, unspecified; I10 Essential (primary) hypertension; I48.91 Unspecified atrial fibrillation; Z99.81 Dependence on supplemental oxygen; Z79.01 Long term (current) use of anticoagulants; Z79.899 Other long term (current) drug therapy | CPT/HCPCS: 99212 ==

== ENCOUNTER → 2024-11-18 04:22 | Outpatient (BNV) | payer OTHER, SELFPAY | PROVIDERS: Admitting Provider Nurse Practitioner Acute Care; Emergency Provider Emergency Medicine Emergency Medical Services; Visit Provider Internal Medicine Cardiovascular Disease | DX: I50.813 Acute on chronic right heart failure (principal); I48.91 Unspecified atrial fibrillation; I51.7 Cardiomegaly; I36.1 Nonrheumatic tricuspid (valve) insufficiency; Z95.0 Presence of cardiac pacemaker | CPT/HCPCS: 93010; 93306 ==

== ENCOUNTER 2024-11-18 05:07 | Inpatient (IN) | payer OTHER, SELFPAY ==
[2024-11-18] VITALS (7 sets, daily range): BP systolic 101–179; BP diastolic 60–87; PULSE 40–51; RESP 14–24; TEMP 36.4–36.9; O2SAT 94–100; BMI 37.0
--- NOTE | ~2024-11-18 | XR_ITS ---
CLINICAL HISTORY: sob 1 view chest x-ray Comparison: CR/SR - XR CHEST 1V - 09/15/23 09:57 EDT Findings: The lungs are clear. There is stable cardiomegaly. There is no definite evidence of failure. No acute fracture. IMPRESSION: There is stable cardiomegaly. There is no definite evidence of failure. This document has been electronically signed by: Ronn Jones MD on 11/18/2024 08:37:10
--- NOTE | 2024-11-18 04:22 | ECG_ITS ---
Test Reason : CHF Blood Pressure : */* mmHG Vent. Rate : 45 BPM Atrial Rate : * BPM P-R Int : * ms QRS Dur : 84 ms QT Int : 460 ms P-R-T Axes : * 58 -7 degrees QTcB Int : 397 ms Atrial fibrillation with slow ventricular response with a competing junctional pacemaker Nonspecific T wave abnormality Abnormal ECG When compared to the previous EKG of Vent. rate has decreased Referred By: Eliot Lacy Electronically Signed By: SHANNON RAMACHANDRAN MD
--- NOTE | 2024-11-18 05:27 | PC.NURSE ---
PT BIBA, resting comfortably, on 2LNC which is her baseline. Callbell in reach and patient encouraged use.
--- NOTE | 2024-11-18 05:29 | ED.SOB ---
HPI - SOB/Dyspnea General Chief Complaint: Dyspnea Stated Complaint: diff breathing Time Seen by Provider: 11/18/24 05:12 Source: patient Mode of arrival: EMS Limitations: language barrier (Maltese speaking only, [facility] net developer software engineer c used) History of Present Illness ED Provider: Dr. Eliot Lacy HPI Narrative: 84-year-old female with a past medical history of right heart failure, afib on ELiquis, HTN, HLD who presents with 2 days of shortness of breath, worse on the morning of arrival. Patient states that throughout the day yesterday she felt like she was suffocating and having difficulty breathing. Patient states she wears continuous 2 L oxygen via nasal cannula and had her daughter check them machine several times because she felt like she was not getting enough oxygen. This morning, the patient got up to use the bathroom. When she got back in bed she felt severely short of breath. She denied fever, chills, cough, chest pain, nausea, vomiting, diarrhea. She denied frequency, urgency or dysuria. Related Data Home Medications ?Medication ?Instructions ?Recorded ?Confirmed cholecalciferol (vitamin D3) 25 25 mcg PO DAILY 03/20/21 11/18/24 mcg (1,000 unit) capsule pravastatin 10 mg tablet 10 mg PO BEDTIME 03/20/21 11/18/24 lisinopril 10 mg tablet 10 mg PO DAILY 12/04/21 11/18/24 albuterol sulfate 2.5 mg/3 mL 2.5 mg inhalation Q6H PRN wheezing 09/15/23 11/18/24 (0.083 %) solution for nebulization multivitamin-ferrous 1 tab PO DAILY 09/15/23 11/18/24 fumarate-folic acid 18 mg-400 mcg tablet (Certavite-Antioxidant) acetaminophen 650 mg/20.3 mL oral 325 mg PO Q4H PRN Pain 09/17/24 11/18/24 solution amlodipine 5 mg tablet 5 mg PO DAILY 11/18/24 11/18/24 digoxin 125 mcg (0.125 mg) tablet 125 mcg PO MOWEFR 11/18/24 11/18/24 Previous Rx's ?Medication ?Instructions ?Recorded furosemide 40 mg tablet 40 mg PO BID@0900,1500 90 days #90 01/27/24 tabs apixaban 5 mg tablet (Eliquis) 5 mg PO BID 90 days #180 tabs 05/13/24 Allergies Allergy/AdvReac Type Severity Reaction Status Date / Time Penicillins [PENICILLINS] AdvReac Unknown STOMACH Verified 11/18/24 05:20 UPSET Review of Systems Review of Systems: Yes all other systems are reviewed and are negative [facility] Past Medical History Medical History RVF (right ventricular failure) Chronic diastolic CHF (congestive heart failure) DEBBIE (obstructive sleep apnea) New onset a-fib Atherosclerosis Varicose veins of bilateral lower extremities with pain Osteoarthritis HTN (hypertension) Obesity Osteoporosis Surgical History Hx of surgical procedure (03/01/23) History of appendectomy Status post left knee replacement Family History Family History Son CAD (coronary artery disease) Mother CAD (coronary artery disease) Social History Social History Household Members: Family Housing: Apartment Are you a primary janitor caretaker to a significant other at home: No Do you presently have visiting nurse or other home services: No ([employer]) Alcohol intake: never Patient Tobacco Use Status: Never used Tobacco e-Cigarette/Vaping Use: Never Used Second Hand Smoke Exposure: No Advance Directives Date on File: 10/25/21 service: No Current occupational status: retired and disabled Physical Exam Vital Signs: Vital Signs: Last Vital Signs Temp 97.9 F 11/18/24 20:00 Pulse 51 11/18/24 20:00 Resp 16 11/18/24 20:00 BP 160/70 H 11/18/24 20:00 Pulse Ox 94 11/18/24 20:00 O2 Del Method Room Air 11/18/24 20:00 O2 Flow Rate 2 11/18/24 16:16 Oxygen Flow Rate 2 11/18/24 05:07 BMI result Body Mass Index 37.0 Vital signs were normal Exam: General: Awake, alert in no distress Head: Normocephalic, atraumatic EENT: PERRL, Lids normal, sclera normal, conjunctiva normal, nose normal , ears normal, throat without erythema or exudates Neck: Supple, no adenopathy Lung: breath sounds symmetric, rales at the bases with no wheezing or rhonchi Chest: symmetric movement, nontender Heart: regular rate and rhythm, normal S1, S2, 2/6 systolic murmur best heard at the right upper sternal border Abdomen: soft, non-tender, nondistended, normal bowel sounds Back: no vertebral tenderness, no CVAT Extremities: Trace to 1+ pitting edema bilaterally symmetric Neuro: Awake, alert, oriented, normal speech, cranial nerves intact, moves all extremities symmetrically Psych: Pleasant, cooperative Medications Administered Generic Name Dose Route Start Last Admin Trade Name Freq PRN Reason Stop Dose Admin Furosemide 40 mg 11/18/24 18:00 11/18/24 17:53 Furosemide 40 Mg/4 Ml Vial IVPUSH 40 mg Q12H SOPHIE Administration Protocol Sodium Chloride 3 ml 11/18/24 16:00 11/18/24 17:59 0.9 % Sodium Chloride Flush 3 Ml Syringe IVFLUSH 3 ml QSHIFT SOPHIE Administration Discontinued Medications Generic Name Dose Route Start Last Admin Trade Name Freq PRN Reason Stop Dose Admin Furosemide 40 mg 11/18/24 08:42 11/18/24 10:04 Furosemide 40 Mg/4 Ml Vial IVPUSH 11/18/24 08:43 40 mg ONCE ONE Administration Protocol Medical Decision Making Medical Decision Making [facility] Narrative: 84-year-old female with a past medical history of right heart failure, afib on ELiquis, HTN, HLD who presents with 2 days of shortness of breath, worse on the morning of arrival. Patient states that throughout the day yesterday she felt like she was suffocating and having difficulty breathing. Patient states she wears continuous 2 L oxygen via nasal cannula and had her daughter check them machine several times because she felt like she was not getting enough oxygen. This morning, the patient got up to use the bathroom. When she got back in bed she felt severely short of breath. She denied fever, chills, cough, chest pain, nausea, vomiting, diarrhea. She denied frequency, urgency or dysuria. Vital signs were normal. Patient has a 2/6 systolic murmur best heard at the right upper sternal border. Lung exam revealed rales at the bases with no wheezing or rhonchi. Differential diagnosis: ?Includes but is not limited to pneumonia, congestive heart failure, myocardial infarction, myocardial ischemia, anemia, electrolyte abnormalities Course: 08:43 My interpretation patient's laboratory evaluation is as follows: CBC was normal except for a low platelet count a 146,000-she has had similar thrombocytopenia in the past but has also had normal values as well. Bicarb elevated 30. BUN elevated 21 with a normal creatinine of 1.16. Glucose elevated 122. AST elevated 34. First troponin was 14.5 with 2 hour troponin increased to 22.0 which is a greater than 50% delta. I will repeat another 2 hour troponin now. BNP elevated 595. Chest x-ray revealed significant cardiomegaly with increased interstitial infiltrates consistent with congestive heart failure Given the patient's presentation and laboratory evaluation in his suspect that the patient has pulmonary edema as the cause of her shortness of breath. She was given Lasix 40 mg IV. I will discuss admission with the covering hospitalist. Admission/Observation Consideration of admission/observation: Escalation of care including admission/observation considered (Yes) Lab Data MDM Lab Attestation statement: I reviewed the patient's lab results. 11/18/24 04:54 11/18/24 04:54 Labs: Lab Results 11/18/24 11/18/24 11/18/24 Range/Units 04:54 06:49 09:05 WBC 6.3 (4.8-10.8) X10*3/uL RBC 4.43 (4.20-5.50) X10*6/uL Hgb 12.4 (12.0-16.0) g/dl Hct 39.2 (37.0-47.0) % MCV 88.5 (80.0-98.0) fL MCH 28.0 (27.0-33.0) pg MCHC 31.6 (31.0-35.0) g/dl RDW 14.4 (11.0-16.0) % Plt Count 146 L (160-400) X10*3/uL MPV 11.8 (9.4-12.3) fL Immature Gran % (Auto) 0.3 (0.0-0.4) % Neut % (Auto) 71.9 (45-73) % Lymph % (Auto) 15.5 L (20-40) % [place] % (Auto) 9.9 (2-11) % Eos % (Auto) 1.4 (0-4) % Baso % (Auto) 1.0 (0-2) % Lymph # (Auto) 1.0 L (1.2-4.9) X10*3/uL [place] # (Auto) 0.6 (0.1-1.2) X10*3/uL Eos # (Auto) 0.1 (0.0-0.4) X10*3/uL Baso # (Auto) 0.1 (0.0-0.2) X10*3/uL Abs Immat Gran (auto) 0.02 (0.00-0.03) X10*3/uL Absolute Neuts (auto) 4.5 (2.0-8.3) x10*3/uL Absolute Nucleated RBC 0.000 (0.0-0.012) X10*3/uL Nucleated RBC % (auto) 0.0 (0.0-0.2) /100WBC Sodium 142 (135-145) mmol/L Potassium 3.9 (3.3-5.1) mmol/L Chloride 103 (96-108) mmol/L Carbon Dioxide 30 H (22-29) mmol/L Anion Gap 13 (12-20) BUN 21 H (9-16) mg/dL Creatinine 1.16 (0.5-1.4) mg/dL Estim Creat Clear Calc 42.4 Estimated GFR 44 Random Glucose 122 H (60-115) mg/dL Calcium 9.5 (8.4-10.2) mg/dL Total Bilirubin 0.6 (0.0-1.0) mg/dL AST 34 H (5-31) U/L ALT 20 (0-31) U/L Alkaline Phosphatase 87 (39-117) U/L Troponin I High Sens 14.5 22.0 H D (<3.5-17.0) ng/L B-Natriuretic Peptide 595 H (<100) pg/mL Total Protein 6.4 L (6.5-8.0) g/dL Albumin 3.8 (3.5-5.0) g/dL Digoxin (0.8-2.0) ng/mL Influenza Type A (PCR) NEGATIVE (Negative) Influenza Type B (PCR) NEGATIVE (Negative) RSV RNA Qual (PCR) NEGATIVE (Negative) SARS-CoV-2 RNA (RT-PCR) NEGATIVE (Negative) 11/18/24 Range/Units 09:09 WBC (4.8-10.8) X10*3/uL RBC (4.20-5.50) X10*6/uL Hgb (12.0-16.0) g/dl Hct (37.0-47.0) % MCV (80.0-98.0) fL MCH (27.0-33.0) pg MCHC (31.0-35.0) g/dl RDW (11.0-16.0) % Plt Count (160-400) X10*3/uL MPV (9.4-12.3) fL Immature Gran % (Auto) (0.0-0.4) % Neut % (Auto) (45-73) % Lymph % (Auto) (20-40) % [place] % (Auto) (2-11) % Eos % (Auto) (0-4) % Baso % (Auto) (0-2) % Lymph # (Auto) (1.2-4.9) X10*3/uL [place] # (Auto) (0.1-1.2) X10*3/uL Eos # (Auto) (0.0-0.4) X10*3/uL Baso # (Auto) (0.0-0.2) X10*3/uL Abs Immat Gran (auto) (0.00-0.03) X10*3/uL Absolute Neuts (auto) (2.0-8.3) x10*3/uL Absolute Nucleated RBC (0.0-0.012) X10*3/uL Nucleated RBC % (auto) (0.0-0.2) /100WBC Sodium (135-145) mmol/L Potassium (3.3-5.1) mmol/L Chloride (96-108) mmol/L Carbon Dioxide (22-29) mmol/L Anion Gap (12-20) BUN (9-16) mg/dL Creatinine (0.5-1.4) mg/dL Estim Creat Clear Calc Estimated GFR Random Glucose (60-115) mg/dL Calcium (8.4-10.2) mg/dL Total Bilirubin (0.0-1.0) mg/dL AST (5-31) U/L ALT (0-31) U/L Alkaline Phosphatase (39-117) U/L Troponin I High Sens 20.3 H (<3.5-17.0) ng/L B-Natriuretic Peptide (<100) pg/mL Total Protein (6.5-8.0) g/dL Albumin (3.5-5.0) g/dL Digoxin 0.3 L (0.8-2.0) ng/mL Influenza Type A (PCR) (Negative) Influenza Type B (PCR) (Negative) RSV RNA Qual (PCR) (Negative) SARS-CoV-2 RNA (RT-PCR) (Negative) Independent Interpretation I performed an independent interpretation of an: EKG and Plain X-Ray Interpretation: My interpretation 12 lead EKG is as follows: Atrial fibrillation with bradycardia 45, normal QRS duration QTC interval, no ST segment elevation, no ST segment depression, no significant T-wave abnormalities. My interpretation of the patient's one-view chest x-ray is as follows: Cardiomegaly with increased interstitial markings consistent with pulmonary edema Independent Historian Clinical information obtained from an independent historian. History obtained from or confirmed by: Other (Daughter) External Record Review External record reviewed: Inpatient record Chronic Conditions Patient?s care impacted by: Diabetes and Other (Congestive heart for) Discharge Plan Discharge Clinical Impression: Acute dyspnea, CHF (congestive heart failure), Elevated troponin, Bradycardia Patient Disposition: Admitted As Inpatient Interventions: Admission Worksheet (ED) Last Done: 11/18/24 15:17 Discharge Date/Time: 11/18/24 16:00
[2024-11-18 06:18] LABS: Alanine Aminotransferase 20 U/L (0-31); Albumin Level 3.8 g/dL (3.5-5.0); Alkaline Phosphatase 87 U/L (39-117); Anion Gap 13 (12-20); Aspartate Amino Transferase 34 U/L (5-31); B Type Natriuretic Peptide 595 pg/mL (<100); Bilirubin Total 0.6 mg/dL (0.0-1.0); Blood Urea Nitrogen 21 mg/dL (9-16); Calcium 9.5 mg/dL (8.4-10.2); Carbon Dioxide 30 mmol/L (22-29); Chloride 103 mmol/L (96-108); Creatinine Clr Calc Pharmacy 42.4; Estimated Glomerular Filt Rate 44; Glucose Random 122 mg/dL (60-115); Potassium 3.9 mmol/L (3.3-5.1); Sodium 142 mmol/L (135-145); Total Protein 6.4 g/dL (6.5-8.0); Troponin-I High Sensitivity 14.5 ng/L (<3.5-17.0)
[2024-11-18 06:31] LABS: MANUAL DIFF FLAG NO
[2024-11-18 06:32] LABS: Basophils Absolute Auto 0.1 X10*3/uL (0.0-0.2); Eosinophils Absolute Auto 0.1 X10*3/uL (0.0-0.4); Eosinophils Percent Auto 1.4 % (0-4); Hematocrit 39.2 % (37.0-47.0); Hemoglobin 12.4 g/dl (12.0-16.0); Imm Gran Abs Auto 0.02 X10*3/uL (0.00-0.03); Imm Gran Pct Auto 0.3 % (0.0-0.4); Lymphocytes Percent Auto 15.5 % (20-40); Mean Corpuscular HGB Conc 31.6 g/dl (31.0-35.0); Mean Corpuscular Volume 88.5 fL (80.0-98.0); Mean Platelet Volume 11.8 fL (9.4-12.3); Monocytes Absolute Auto 0.6 X10*3/uL (0.1-1.2); Monocytes Percent Auto 9.9 % (2-11); Neutrophils Absolute Auto 4.5 x10*3/uL (2.0-8.3); Neutrophils Percent Auto 71.9 % (45-73); Platelet Count 146 X10*3/uL (160-400); Red Blood Count 4.43 X10*6/uL (4.20-5.50); Red Cell Distribution Width 14.4 % (11.0-16.0); White Blood Count 6.3 X10*3/uL (4.8-10.8)
[2024-11-18 09:40] LABS: Digoxin 0.3 ng/mL (0.8-2.0)
[2024-11-18 09:50] LABS: Troponin-I High Sensitivity 20.3 ng/L (<3.5-17.0)
[2024-11-18] MEDS: Furosemide 40 MG/4 ML VIAL IVPUSH ×2 (10:04→17:53)
[2024-11-18 10:13] LABS: Influenza A PCR NEGATIVE (Negative); Influenza B PCR NEGATIVE (Negative); Resp Syncy Virus RNA Qual PCR NEGATIVE (Negative); SARS COV2 PCR INHOUSE NEGATIVE (Negative)
--- NOTE | 2024-11-18 10:22 | PM.IMHP ---
History of Present Illness Date of Service: 11/18/24 Attending physician on admission: Raji Cardenas Chief Complaint: SOB This is an 84 year old female with a past medical history of right sided heart failure, a fib on eliquis, HTN, HLD, DEBBIE , on 2L of continuous O2, RA and a NSTEMI in 2022, she presented alem the ER today with worsening SOB. She reports that she the increased SOB started on Saturday but worsened this morning when she got up to walk. She reports that sitting up and walking worsens her SOB, but laying down improves her breathing. She denies any sick contact, fevers, chills, cough, or swelling. In the ER she was given 40mg IVP Lasix Lab significant for BNP 595, trops 14.5, 22.0, 20.3, Dig level 0.3. CXR shows cardiomegally with increased interstitial infiltrates consistent with congestive heart failure. EKG: Atrial fibrillation with slow ventricle response with a competing junctional pacemaker. HR 45 BPM, QTC 397ms Flu A, Flu B, RSV and SARS COV-2 were all negative Review of Systems Review of Systems: General: Appetite is normal. Denies weight gain or loss. Denies fever or chills. ?Skin: no rash or lesions ?Eyes: denies vision changes ?Ears: denies pain or discharge ?Mouth: denies pain or dental concerns ?Pharynx/Layrnx: denies sore throat, diff swallowing, voice change, coughing with eating ?Lungs: denies cough or sputum. Reports SOB at rest and on activity ?Heart: denies chest pain or palpitations ?Abdomen: denies nausea, vomiting, diarrhea, constipation, abdominal pain, rectal bleeding ?: denies incontinence, pain with urination. frequency, retention of urine, ?Musculoskeletal: denies muscle. Reports hand joint pain from RA ?Neuro: denies headache, weakness or dizziness [facility] Medical History RVF (right ventricular failure) Chronic diastolic CHF (congestive heart failure) DEBBIE (obstructive sleep apnea) New onset a-fib Atherosclerosis Varicose veins of bilateral lower extremities with pain Osteoarthritis HTN (hypertension) Obesity Osteoporosis Family History Son CAD (coronary artery disease) Mother CAD (coronary artery disease) Surgical History Hx of surgical procedure (03/01/23) History of appendectomy Status post left knee replacement Social History Household Members: Family Housing: House Are you a primary respiratory care faculty to a significant other at home: No Do you presently have visiting nurse or other home services: No Alcohol intake: never Patient Tobacco Use Status: Never used Tobacco Smoked in Last 30 Days: No e-Cigarette/Vaping Use: Never Used Second Hand Smoke Exposure: No Use of substances other than those prescribed or required for medical reasons: No Advance Directives: Yes Advance Directives on File: Yes Advance Directives Date on File: 10/25/21 Do you have a plan to hurt others: No Plan service: No Current occupational status: retired and disabled Meds Allergies Allergy/AdvReac Type Severity Reaction Status Date / Time Penicillins [PENICILLINS] AdvReac Unknown STOMACH Verified 11/18/24 05:20 UPSET Active Medications: Current Medications Acetaminophen (Acetaminophen 325 Mg Tablet) 650 mg PO Q6H PRN PRN Reason: Pain, Mild 1-3,fever,headache Calcium Carbonate (Calcium Carbonate 750 Mg Tab.Chew) 750 mg PO Q4H PRN PRN Reason: Heartburn Magnesium Hydroxide (Milk Of Magnesia 30 Ml Oral.Susp) 30 ml PO DAILY PRN PRN Reason: Constipation Melatonin (Melatonin 3 Mg Tablet) 6 mg PO BEDTIME PRN PRN Reason: Insomnia Sodium Chloride (0.9 % Sodium Chloride Flush 3 Ml Syringe) [facility] Medications ?Medication ?Instructions ?Recorded ?Confirmed ?Last Taken ?Type cholecalciferol (vitamin D3) 25 25 mcg PO DAILY 03/20/21 11/18/24 11/17/24 History mcg (1,000 unit) capsule pravastatin 10 mg tablet 10 mg PO BEDTIME 03/20/21 11/18/24 11/17/24 History lisinopril 10 mg tablet 10 mg PO DAILY 12/04/21 11/18/24 11/17/24 History albuterol sulfate 2.5 mg/3 mL 2.5 mg inhalation Q6H PRN wheezing 09/15/23 11/18/24 Unknown History (0.083 %) solution for nebulization multivitamin-ferrous 1 tab PO DAILY 09/15/23 11/18/24 11/17/24 History fumarate-folic acid 18 mg-400 mcg tablet (Certavite-Antioxidant) acetaminophen 650 mg/20.3 mL oral 325 mg PO Q4H PRN Pain 09/17/24 11/18/24 Unknown History solution amlodipine 5 mg tablet 5 mg PO DAILY 11/18/24 11/18/24 11/17/24 History digoxin 125 mcg (0.125 mg) tablet 125 mcg PO MOWEFR 11/18/24 11/18/24 11/16/24 History Physical Exam Vital Signs and Narrative: Vital Signs: Last Vital Signs Temp 98.0 F 11/18/24 08:00 Pulse 50 11/18/24 08:00 Resp 18 11/18/24 08:00 BP 141/87 H 11/18/24 08:00 Pulse Ox 96 11/18/24 08:00 O2 Del Method Room Air 11/18/24 08:00 Oxygen Flow Rate 2 11/18/24 05:07 BMI result Body Mass Index 37.0 Gen: comfortable NAD ?HEENT: PERRL, EOMI ?Neuro: CN II-XII normal, sensation intact: 5/5 strength in the upper extremities and lower extremities I: Not performed ?II: Pupils equal and reactive, ?III, IV, : EOM intact, no gaze preference or deviation, no nystagmus. ?V: normal sensation in V1, V2, and V3 segments bilaterally ?VII: no asymmetry, no nasolabial fold flattening ?VIII: normal hearing to speech ?IX, X: normal palatal elevation, no uvular deviation ?XI: 5/5 head turn and 5/5 shoulder shrug bilaterally ?XII: midline tongue protrusion ?CV: bradycardic rate, irregular rhythm, no rubs gallop or murmur heard ?Pulm: Clear mildly diminished bilateral lung lou ?GI: +nl BS, soft, NDNT ?ext: no C/C/E, bilateral legs with varicose veins present Results Labs 11/18/24 04:54 11/18/24 04:54 Labs: Laboratory Results - last 24 hr 11/18/24 11/18/24 11/18/24 04:54 09:05 09:09 MCV 88.5 MCH 28.0 MCHC 31.6 RDW 14.4 Plt Count 146 L MPV 11.8 Immature Gran % (Auto) 0.3 Neut % (Auto) 71.9 Lymph % (Auto) 15.5 L [place] % (Auto) 9.9 Eos % (Auto) 1.4 Baso % (Auto) 1.0 Lymph # (Auto) 1.0 L [place] # (Auto) 0.6 Eos # (Auto) 0.1 Baso # (Auto) 0.1 Abs Immat Gran (auto) 0.02 Absolute Neuts (auto) 4.5 Absolute Nucleated RBC 0.000 Nucleated RBC % (auto) 0.0 Anion Gap 13 Estim Creat Clear Calc 42.4 Estimated GFR 44 Random Glucose 122 H Calcium 9.5 Total Bilirubin 0.6 AST 34 H ALT 20 Alkaline Phosphatase 87 B-Natriuretic Peptide 595 H Total Protein 6.4 L Albumin 3.8 Digoxin 0.3 L Influenza Type A (PCR) NEGATIVE Influenza Type B (PCR) NEGATIVE RSV RNA Qual (PCR) NEGATIVE SARS-CoV-2 RNA (RT-PCR) NEGATIVE Assessment and Plan (1) Acute dyspnea: Status: Acute (2) Atrial fibrillation: Status: Acute Plan 84 year old female who presents with an new on set of SOB. EKG showed A fib with a new onset of slow ventricular rate in the 40's. CXR with mild pulmonary edema and cardiaomegally suggestive of worsening heart failure. Troponin elevation likely due to acute exacerbation of CHF, but are trending down. Acute on chronic right sided heart failure -Continue IV Lasix 40mg BID -Continue spironolactone -Repeat BNP -Nebulizers Q6hr PRN -Obtain Echo -Daily morning weights -Monitor strict I&O -fluid intake aim for 2000mg daily Atrial Fibrillation with slow ventricular response -Monitor on telemetry -Cardiology consult -Continue eliquis -Hold Digoxin for bradycardia -Draw Mg and TSH Chronic Respiratory Failure -Continue O2 DEBBIE -Patient does not use a CPAP Hypertension -Continue Lisinopril -Hold Metoprolol Hyperlipidemia -Continue pravastatin Severe Obesity -encourage weight low VTE: Continue Eliquis Code: DNR (patient wants to think about if she wants to be a DNI) Patient is being admitted for acute on chronic right sided heart failure compounded by A.fib with slow ventricular response, requiring IV diuretics and further evaluation with echo, Cardiology consult, and medication adjustment. She has underlying risk factors of obesity, chronic respiratory failure, sleep apnea, and therefore her hospitalization is expected to spend at least 2 midnights and therefore she will be admitted as inpatient. Quality Stroke Does the patient have a stroke diagnosis?: No VTE Prior VTE?: No VTE Risk Level:: Medical - moderate - high VTE Device Contraindication: N/A - Device Ordered VTE Drug Contraindication: N/A - Med Ordered
--- NOTE | 2024-11-18 11:14 | PHA.MEDREC ---
Addendum entered by Althea Nicolas 11/19/24 12:58: re visit med rec per provider request. Spoke to patient through java development team lead to confirm patient has stopped taking Metooprolol Tart. Patient states she was confused and mixed medication up with Amlodipine. Patient was instructed to stop Amlodipine 5 mg. Patient is still taking Metoprolol Tart 50 mg BID. updated med rec and will notify the provider. Addendum entered by Torin Bower PharmD 11/18/24 11:23: reviewed Original Note: Pharmacy Consult ? Medication Reconciliation Pharmacy has completed the medication reconciliation. Spoke to patient through daughter at bedside interpreting confirm med list. patient states she is no longer taking Metoprolol Tart 50 mg and Spironolactone 25 mg. Utilized list fro [facility] to confirm med list.
[2024-11-18 12:39] LABS: Magnesium 2.2 mg/dL (1.6-2.6)
--- NOTE | 2024-11-18 14:21 | PC.NURSE ---
Pt is alert, oriented, divehi speaking only, uses walker to ambulate at home. coming in today with several days of worsening shortness of breath worse with exertion. she has a hx of R sided heart failure as well as afib on eliquis, also wears 2L oxygen continously. lab work showed BNP 595, trops 14.5, 22.0, 20.3. HR 45 on monitor, lowest I've seen was 30 (pt had no symptoms at that time). 40mg ivp lasix given, pt has voided approx 1200cc of urine so far, using the purewick. her family was at bedside earlier, they speak french.
--- NOTE | 2024-11-18 16:00 | CA_ITS ---
Transthoracic Echocardiogram Patient (Last, First, Middle): Nicole Walters, Gender: Female Date of : 1940 Age: 84 Procedure Date: 11/18/2024 Procedure Type: Transthoracic Echocardiogram Location: [facility] [place] Height: 167.64 cm Weight: 102.51 kg BSA: 2.11 m2 Heart Rate: bpm BP: 149 / 77 mmHg Salesperson Driver: Michaela MD: Fay Avelar [facility] Gun Tester: Conrad Matt MD Symptoms: Acute on Chronic Right sided Heart failure Study Quality: Fair ECG Rhythm: Atrial Fibrillation Conclusions: - 1. Normal LV ejection fraction of 60 65% 2. Moderately dilated right ventricular with preserved contractility 3. Severe biatrial enlargement 4. Severely elevated right ventricular systolic pressure with significantly elevated right atrial pressures 5. No gross pericardial effusion 6. Moderate to severe tricuspid regurgitation Findings Left Ventricle Normal left ventricular size, thickness, and systolic function. The visually estimated ejection fraction is between 60-65%. There is a flattened septum in systole consistent with right ventricular pressure overload. Diastolic function is indeterminate on the basis of available data. Right Ventricle Moderately increased right ventricular cavity size. There is normal right ventricular systolic function. Atria The left atrium is severely dilated. There is no evidence of interatrial shunt. The right atrium is severely dilated. Aortic Valve Normal aortic valve structure and function. There is no aortic valve stenosis. There is no aortic valve regurgitation. Mitral Valve There is mild anterior and posterior mitral leaflet thickening. There is trace mitral valve regurgitation. There is no mitral valve stenosis. Pulmonic Valve The pulmonic valve is likely normal. There is trace to mild pulmonic valve regurgitation. Tricuspid Valve Normal tricuspid valve structure. There is moderate to severe tricuspid valve regurgitation. Significantly elevated right atrial pressure. Severe pulmonary hypertension is present. Great Vessels All visible segments of the aorta are normal in size. The pulmonary artery was not well visualized. There is no dilatation of the ascending aorta measuring 3.00 cm. Venous The inferior vena cava is moderately dilated and does not collapse with inspiration. Pericardium/Pleural There is no evidence of pericardial effusion. Prior Study Comparison Changes noted compared to prior study dated: 10/24/2021. RV systolic pressure is further increase Measurements 2D Linear Measurements IVSd: 1.06 0.6-0.9/0.6-1.0 cm LVIDd: 4.55 3.9-5.3/4.2-5.9 cm LVIDd Index: 2.16 2.4-3.2/2.2-3.1 cm/m2 LVIDs: 2.98 2.0-3.6 cm LVPWd: 1.06 0.7-1.1 cm Ao Root: 2.90 2.1-3.5 cm LA Diam: 4.20 2.7-3.8/3.0-4.0 cm LAIDs Index: 1.99 1.5-2.3 cm/m2 LV Mass: 210.65 67-162/88-224 g LV Mass Index: 99.83 43-95/49-115 g/m2 LVOT Diam: 2.00 3.0+(-)1.3 cm Mitral Valve MV Pk E: 1.03 MV PK A: 0.44 MV Decel Time: 138.00 E/A: 2.30 E'Lateral: 13.30 E'Medial: 7.72 E/E' Med: 13.30 E/E' Lat: 7.70 PHT: 40.00 MVA PHT: 5.50 Decel [place]: 7.49 Aortic Valve AoV Pk Sancho: 1.43 AoV Mn Sancho: 0.96 AoV VTI: 0.35 AoV Pk Grad: 8.00 Aov Mn Grad: 4.00 SHITAL Cont.VTI: 1.57 LVOT LVOT Pk Sancho: 0.77 LVOT Mn Sancho: 0.49 LVOT VTI: 0.18 LVOT Pk Grad: 2.00 LVOT Mn Grad: 1.00 LVOT Diam: 2.00 LVOT Area: 3.14 Diastolic Function MV Pk E: 1.03 MV Pk A: 0.44 E/A: 2.30 E'Medial: 7.72 E/E' Med: 13.30 E' Laterial: 13.30 E/E' Lat: 7.70 Right Ventricle TAPSE (mm): 23.00 TVS' Sancho: 10.00 Tricuspid Valve TR Pk Sancho: 4.03 TR Pk Grad: 65.00 RA Press: 15.00 RVSP: 80.00 Great Vessels Aorta Ao Root-2D: 2.90 2.0-3.7 cm Ao Asc: 3.00 2.1-3.4 cm Pulmonary Valve PV Pk Sancho: 0.86 Peak PV Grad: 3.00 Updated in Other Vendor System with Status of Final Conrad Matt MD electronically signed on 11/18/2024 4:35:09 PM with status of Final
[2024-11-18] MEDS: 0.9 % Sodium Chloride Flush 3 ML SYRINGE IVFLUSH ×2 (17:59→21:34)
[2024-11-18] MEDS: Apixaban 5 MG TABLET PO (21:34)
[2024-11-18] MEDS: Pravastatin Sodium 10 MG TABLET PO (21:34)
[2024-11-19] VITALS (7 sets, daily range): BP systolic 119–178; BP diastolic 57–90; PULSE 49–58; RESP 16–20; TEMP 36.2–37; O2SAT 2–96; BMI 36.3
[2024-11-19] MEDS: Acetaminophen 325 MG TABLET 650 MG PO (03:43)
[2024-11-19] MEDS: Furosemide 40 MG/4 ML VIAL IVPUSH ×2 (06:44→18:11)
[2024-11-19 06:53] LABS: Anion Gap 12 (12-20); Blood Urea Nitrogen 23 mg/dL (9-16); Calcium 9.5 mg/dL (8.4-10.2); Carbon Dioxide 31 mmol/L (22-29); Chloride 104 mmol/L (96-108); Creatinine Clr Calc Pharmacy 52.9; Estimated Glomerular Filt Rate 58; Glucose Random 110 mg/dL (60-115); Potassium 3.8 mmol/L (3.3-5.1); Sodium 143 mmol/L (135-145)
[2024-11-19 07:04] LABS: B Type Natriuretic Peptide 661 pg/mL (<100)
[2024-11-19] MEDS: Apixaban 5 MG TABLET PO ×2 (10:07→23:52)
[2024-11-19] MEDS: lisinopriL 10 MG TABLET PO (10:07)
[2024-11-19] MEDS: amLODIPine Besylate 5 MG TABLET PO (10:07)
[2024-11-19] MEDS: 0.9 % Sodium Chloride Flush 3 ML SYRINGE IVFLUSH ×3 (10:08→23:52)
--- NOTE | 2024-11-19 11:00 | PM.CNCAR ---
History of Present Illness History of Present Illness Date of Service: 11/19/24 Requesting physician: Reyna Valdovinos Consult reason: atrial fibrillation and congestive heart failure Chief complaint: sob and bradycardia Narrative: I was consulted to see Nicole in cardiology consultation today for worsening shortness of breath decompensated congestive heart failure as well as atrial fibrillation with slow ventricular response. History was obtained with help of marine electronics technician at bedside. Patient is 84 year female known to Dr. Gupta pursued will follows her and has significant COPD, on home oxygen although there has been question about her compliance, cor pulmonale with significant pulmonary hypertension RV dysfunction, chronic atrial fibrillation, congestive heart failure syndrome predominantly right heart failure syndrome, obstructive sleep apnea, hypertension. Patient says she was in usual state of health has been taking diuretics religiously and avoiding salt in his diet. She has not noticed any increased leg swelling, abdominal distension and presented with sudden-onset shortness of breath. Patient says she is using her oxygen and despite that she is not able to breathe and as her granddaughter to check her oxygen level. They were reported to be normal. However overnight she continued to have significant shortness of breath including orthopnea and the following morning she had felt like she was not getting any oxygen and the granddaughter checked her oxygen saturation again and this was within okay limits and she called 911 and brought to the emergency room. She was admitted and noted to have atrial fibrillation with slow ventricular response. As per Dr. Payne's note she supposed to be on metoprolol as well as digoxin 3 times a week. Although there was no mentioned of metoprolol in his med reconciliation. Overnight she was admitted with transcutaneous pacemaker as a backup and heart rate has improved. She was also admitted for decompensated congestive heart failure with BNP elevated in the 600 range. She has diuresed well overnight and says she feels better but still short of breath. She denies any leg edema. Denies any lightheadedness, syncope. Denies any chest pain. Review of Systems Constitutional: Constitutional: Reports fatigue Eyes: Eyes: Reports no additional eye complaints ENT: Reports system reviewed and no additional complaints, except as documented Cardiovascular: Cardiovascular: Denies chest pain, Denies rapid heart rate, Denies leg edema, Denies lightheadedness, Denies palpitations, Reports dyspnea, Reports orthopnea and Reports slow heart rate Respiratory: Respiratory: Reports no additional respiratory complaints and Reports dyspnea Gastrointestinal: Gastrointestinal: Reports no additional gastrointestinal complaints Genitourinary: Genitourinary: Reports no additional female genitourinary complaints Musculoskeletal: Musculoskeletal: Reports no additional musculoskeletal complaints Integumentary/Breasts: Skin/Breast: Reports system reviewed and no additional complaints, except as docu Neurologic: Reports system reviewed and no additional complaints, except as documented Psychiatric: Psychiatric: Reports no additional psychiatric complaints Endocrine: Endocrine: Reports fatigue and Denies palpitations [facility] Past Medical History Medical History RVF (right ventricular failure) Chronic diastolic CHF (congestive heart failure) DEBBIE (obstructive sleep apnea) New onset a-fib Atherosclerosis Varicose veins of bilateral lower extremities with pain Osteoarthritis HTN (hypertension) Obesity Osteoporosis Family History Family History Son CAD (coronary artery disease) Mother CAD (coronary artery disease) Surgical History Surgical History Hx of surgical procedure (03/01/23) History of appendectomy Status post left knee replacement Social History Social History Household Members: Family Housing: Apartment Are you a primary senior care provider to a significant other at home: No Do you presently have visiting nurse or other home services: No ([employer]) Alcohol intake: never Patient Tobacco Use Status: Never used Tobacco e-Cigarette/Vaping Use: Never Used Second Hand Smoke Exposure: No Advance Directives Date on File: 10/25/21 service: No Current occupational status: retired and disabled Meds Allergies Allergy/AdvReac Type Severity Reaction Status Date / Time Penicillins [PENICILLINS] AdvReac Unknown STOMACH Verified 11/18/24 05:20 UPSET Active Medications: Current Medications Acetaminophen (Acetaminophen 325 Mg Tablet) 650 mg PO Q6H PRN PRN Reason: Pain, Mild 1-3,fever,headache Last Admin: 11/19/24 03:43 Dose: 650 mg Albuterol Sulfate (Albuterol Sulfate (0.083%) 2.5 Mg/3 Ml Vial.Neb) 2.5 mg INHALE Q6H PRN PRN Reason: wheezing Amlodipine Besylate (Amlodipine Besylate 5 Mg Tablet) 5 mg PO DAILY [facility]; Protocol Last Admin: 11/19/24 10:07 Dose: 5 mg Apixaban (Apixaban 5 Mg Tablet) 5 mg PO BID [facility] Last Admin: 11/19/24 10:07 Dose: 5 mg Calcium Carbonate (Calcium Carbonate 750 Mg Tab.Chew) 750 mg PO Q4H PRN PRN Reason: Heartburn Furosemide (Furosemide 40 Mg/4 Ml Vial) 40 mg IVPUSH Q12H [facility]; Protocol Last Admin: 11/19/24 06:44 Dose: 40 mg Lisinopril (Lisinopril 10 Mg Tablet) 10 mg PO DAILY [facility]; Protocol Last Admin: 11/19/24 10:07 Dose: 10 mg Magnesium Hydroxide (Milk Of Magnesia 30 Ml Oral.Susp) 30 ml PO DAILY PRN PRN Reason: Constipation Melatonin (Melatonin 3 Mg Tablet) 6 mg PO BEDTIME PRN PRN Reason: Insomnia Pravastatin Sodium (Pravastatin Sodium 10 Mg Tablet) 10 mg PO BEDTIME [facility] Last Admin: 11/18/24 21:34 Dose: 10 mg Sodium Chloride (0.9 % Sodium Chloride Flush 3 Ml Syringe) 3 ml IVFLUSH QSHIFT [facility] Last Admin: 11/19/24 10:08 Dose: 3 ml Home Medications ?Medication ?Instructions ?Recorded ?Confirmed ?Last Taken ?Type cholecalciferol (vitamin D3) 25 25 mcg PO DAILY 03/20/21 11/18/24 11/17/24 History mcg (1,000 unit) capsule pravastatin 10 mg tablet 10 mg PO BEDTIME 03/20/21 11/18/24 11/17/24 History lisinopril 10 mg tablet 10 mg PO DAILY 12/04/21 11/18/24 11/17/24 History albuterol sulfate 2.5 mg/3 mL 2.5 mg inhalation Q6H PRN wheezing 09/15/23 11/18/24 Unknown History (0.083 %) solution for nebulization multivitamin-ferrous 1 tab PO DAILY 09/15/23 11/18/24 11/17/24 History fumarate-folic acid 18 mg-400 mcg tablet (Certavite-Antioxidant) acetaminophen 650 mg/20.3 mL oral 325 mg PO Q4H PRN Pain 09/17/24 11/18/24 Unknown History solution amlodipine 5 mg tablet 5 mg PO DAILY 11/18/24 11/18/24 11/17/24 History digoxin 125 mcg (0.125 mg) tablet 125 mcg PO MOWEFR 11/18/24 11/18/24 11/16/24 History Physical Exam Vital Signs: Vital Signs: Last Vital Signs Temp 97.2 F 11/19/24 08:00 Pulse 52 11/19/24 08:00 Resp 18 11/19/24 08:00 BP 119/57 L 11/19/24 08:00 Pulse Ox 94 11/19/24 08:00 O2 Del Method Nasal Cannula 11/19/24 08:00 O2 Flow Rate 2 11/19/24 08:00 Oxygen Flow Rate 2 11/18/24 05:07 BMI result Body Mass Index 36.3 Const: General: cooperative, alert, awake and in distress mild and respiratory Nutritional Appearance: obese Orientation/consciousness: patient oriented x3 HEENT: Head: Yes normocephalic and Yes atraumatic Neck: Neck: Yes trachea midline, Yes supple and Yes JVD Resp: Effort & Inspection: normal respiratory effort Auscultation: no rales, no wheezes and diminished lung sounds Cardio: Jugular venous distension: JVD Palpation: heave (Right ventricular heave) Rhythm: abnormal rhythm irregularly irregular Heart sounds: S1 normal heart sound present, S2 normal heart sound present, no click, no gallops and no murmurs GI: Auscultation: normal bowel sounds Skin: General skin exam: no rashes or lesions noted Neuro: General: patient oriented x3 and no focal motor deficits Extrem: General: No clubbing, No cyanosis and Yes edema Objective Labs and Meds 11/18/24 04:54 11/19/24 06:16 Lab results: Laboratory Results - last 24 hr 11/18/24 11/19/24 11:58 06:16 Sodium 143 Potassium 3.8 Chloride 104 Carbon Dioxide 31 H Anion Gap 12 BUN 23 H Creatinine 0.92 Estim Creat Clear Calc 52.9 Estimated GFR 58 Random Glucose 110 Calcium 9.5 Magnesium 2.2 B-Natriuretic Peptide 661 H TSH 0.90 Conclusions: - 1. Normal LV ejection fraction of 60 65% 2. Moderately dilated right ventricular with preserved contractility 3. Severe biatrial enlargement 4. Severely elevated right ventricular systolic pressure with significantly elevated right atrial pressures 5. No gross pericardial effusion 6. Moderate to severe tricuspid regurgitation Assessment and Plan (1) Decompensated heart failure: Status: Acute Decompensated congestive heart failure in this elderly woman with significant pulmonary hypertension with RV dysfunction with predominantly right heart failure finding although she did have symptoms of left-sided heart failure. This most likely related to interventricular dependence. Patient has done well with diuresis. Will continue with IV diuresis with Lasix. Please add Jardiance 10 mg to her regimen. Continue spironolactone therapy. Continue aggressive blood pressure control. She is strongly recommended continue oxygen therapy as she has underlying significant cor pulmonale and this would help with prevention of pulmonary vaso constriction further worsening of her right ventricular systolic pressure. This was discussed with her. Strict intake and output chart needs to be pursued. Continue monitor electrolytes continue monitor renal function as well as BNP. (2) Atrial fibrillation: Status: Acute Atrial fibrillation with slow ventricular response with only reported medication with digoxin although there was confusion about metoprolol therapy. At this point time the heart rate has improved. Continue to hold all rate lowering medications. Please confirmed with her outpatient pharmacy about metoprolol use. With a heart rate starts getting higher will add low-dose metoprolol for rate control. Continue full oral anticoagulation Yodit. Will continue to follow with you Procedures Date of Service Date of Service: 11/19/24
--- NOTE | 2024-11-19 12:49 | HO.PM.IMPN ---
Subjective Subjective Date of Service: 11/19/24 Interval History: seen and examined this morning Follow-up for CHF, bradycardia shortness of breath improving Review of Systems Review of Systems: Yes all other systems are reviewed and are negative Constitutional Constitutional: Denies chills and Denies fever(s) Cardiovascular Cardiovascular: Denies chest pain Physical Exam Vital Signs: Vital Signs: Last Vital Signs Temp 97.3 F 11/19/24 11:10 Pulse 56 11/19/24 11:10 Resp 16 11/19/24 11:10 BP 163/68 H 11/19/24 11:10 Pulse Ox 96 11/19/24 11:10 O2 Del Method Nasal Cannula 11/19/24 11:10 O2 Flow Rate 2 11/19/24 11:10 Oxygen Flow Rate 2 11/18/24 05:07 BMI result Body Mass Index 36.3 Const: General: cooperative, comfortable, no acute distress, awake and Physically active Nutritional Appearance: obese Orientation/consciousness: patient oriented x3 Resp: Effort & Inspection: normal respiratory effort and able to speak in complete sentences Cardio: Other: irregular GI: Inspection: No distended Palpation (GI): Soft to palpation Neuro: General: patient oriented x3 and moves all extremities Extrem: General: Yes no pedal edema Objective Data Active Medications Acetaminophen (Acetaminophen 325 Mg Tablet) 650 mg PO Q6H PRN PRN Reason: Pain, Mild 1-3,fever,headache Last Admin: 11/19/24 03:43 Dose: 650 mg Documented By: TOM Albuterol Sulfate (Albuterol Sulfate (0.083%) 2.5 Mg/3 Ml Vial.Neb) 2.5 mg INHALE Q6H PRN PRN Reason: wheezing Amlodipine Besylate (Amlodipine Besylate 5 Mg Tablet) 5 mg PO DAILY [facility]; Protocol Last Admin: 11/19/24 10:07 Dose: 5 mg Documented By: MARIA DEL CARMEN Apixaban (Apixaban 5 Mg Tablet) 5 mg PO BID [facility] Last Admin: 11/19/24 10:07 Dose: 5 mg Documented By: MARIA DEL CARMEN Calcium Carbonate (Calcium Carbonate 750 Mg Tab.Chew) 750 mg PO Q4H PRN PRN Reason: Heartburn Furosemide (Furosemide 40 Mg/4 Ml Vial) 40 mg IVPUSH Q12H [facility]; Protocol Last Admin: 11/19/24 06:44 Dose: 40 mg Documented By: TOM Lisinopril (Lisinopril 10 Mg Tablet) 10 mg PO DAILY [facility]; Protocol Last Admin: 11/19/24 10:07 Dose: 10 mg Documented By: MARIA DEL CARMEN Magnesium Hydroxide (Milk Of Magnesia 30 Ml Oral.Susp) 30 ml PO DAILY PRN PRN Reason: Constipation Melatonin (Melatonin 3 Mg Tablet) 6 mg PO BEDTIME PRN PRN Reason: Insomnia Pravastatin Sodium (Pravastatin Sodium 10 Mg Tablet) 10 mg PO BEDTIME [facility] Last Admin: 11/18/24 21:34 Dose: 10 mg Documented By: TOM Sodium Chloride (0.9 % Sodium Chloride Flush 3 Ml Syringe) 3 ml IVFLUSH QSHIFT [facility] Last Admin: 11/19/24 10:08 Dose: 3 ml Documented By: MARIA DEL CARMEN Labs 11/18/24 04:54 11/19/24 06:16 Labs: Laboratory Results - last 24 hr 11/18/24 11/19/24 11:58 06:16 Anion Gap 12 Estim Creat Clear Calc 52.9 Estimated GFR 58 Random Glucose 110 Calcium 9.5 B-Natriuretic Peptide 661 H TSH 0.90 Assessment and Plan (1) Decompensated heart failure: Status: Acute (2) Bradycardia: Status: Acute Plan This is an 84 year old female who presents with SOB. EKG showed A fib with a new onset of slow ventricular rate in the 40's. CXR with mild pulmonary edema and cardiaomegally suggestive of worsening heart failure Acute on chronic right sided heart failure echocardiogram with severe pulmonary hypertension Continue IV Lasix 40mg BID no longer on spironolactone, unclear reason. will discuss with family cardiology following will add Jardiance Atrial Fibrillation with slow ventricular response reports no longer taking metoprolol, again reason is unclear, will discuss with family hold digoxin continue Eliquis cardiology following Chronic Respiratory Failure -Continue O2 DEBBIE -Patient does not use a CPAP Hypertension -Continue Lisinopril -Hold Metoprolol Hyperlipidemia -Continue pravastatin Severe Obesity -encourage weight low VTE: Continue Eliquis Code: DNR (patient wants to think about if she wants to be a DNI) Patient is being admitted for acute on chronic right sided heart failure compounded by A.fib with slow ventricular response, requiring IV diuretics and further evaluation with echo, Cardiology consult, and medication adjustment. She has underlying risk factors of obesity, chronic respiratory failure, sleep apnea, and therefore her hospitalization is expected to spend at least 2 midnights Quality Stroke Does the patient have a stroke diagnosis?: No VTE Prior VTE?: No VTE Risk Level:: Medical - moderate - high VTE Device Contraindication: N/A - Device Ordered VTE Drug Contraindication: N/A - Med Ordered
[2024-11-19] MEDS: Empagliflozin 10 MG TABLET PO (13:32)
--- NOTE | 2024-11-19 14:56 | MHC.CM.PN ---
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 PCP AND HCP ON FILE VERIFIED
[2024-11-19 15:00] LABS: Magnesium 2.1 mg/dL (1.6-2.6)
[2024-11-19] MEDS: Potassium Chloride ER 20 MEQ TAB.ER.PRT PO (15:33)
[2024-11-19] MEDS: Pravastatin Sodium 10 MG TABLET PO (23:52)
[2024-11-20] VITALS (8 sets, daily range): BP systolic 130–160; BP diastolic 40–77; PULSE 52–58; RESP 12–18; TEMP 36.1–37.2; O2SAT 95–98; BMI 35.6
[2024-11-20] MEDS: Furosemide 40 MG/4 ML VIAL IVPUSH (05:50)
[2024-11-20 08:21] LABS: Anion Gap 11 (12-20); Blood Urea Nitrogen 19 mg/dL (9-16); Calcium 9.4 mg/dL (8.4-10.2); Carbon Dioxide 31 mmol/L (22-29); Chloride 105 mmol/L (96-108); Creatinine Clr Calc Pharmacy 51.3; Estimated Glomerular Filt Rate 56; Glucose Random 99 mg/dL (60-115); Potassium 3.6 mmol/L (3.3-5.1); Sodium 143 mmol/L (135-145)
[2024-11-20] MEDS: lisinopriL 10 MG TABLET PO (09:08)
[2024-11-20] MEDS: Apixaban 5 MG TABLET PO ×2 (09:08→20:24)
[2024-11-20] MEDS: Empagliflozin 10 MG TABLET PO (09:08)
[2024-11-20] MEDS: 0.9 % Sodium Chloride Flush 3 ML SYRINGE IVFLUSH (09:09)
--- NOTE | 2024-11-20 10:37 | PM.PNCARD ---
Subjective Subjective Date of Service: 11/20/24 Principal diagnosis: Decompensated heart failure, atrial fibrillation Interval history: Patient continues to be in AFib with controlled ventricular response with frequent PVCs. Says shortness of breath improved but still persists. Has had tepid diuresis. Blood pressure is stable Review of Systems Constitutional: Reports no additional constitutional complaints Cardiovascular: Reports leg edema, Denies lightheadedness, Denies Loss of Consciousness, Denies palpitations and Reports dyspnea Respiratory: Reports dyspnea Gastrointestinal: Reports no additional gastrointestinal complaints Musculoskeletal: Reports no additional musculoskeletal complaints Endocrine: Denies palpitations Physical Exam Vital Signs: Last Vital Signs Temp 98.9 F 11/20/24 07:15 Pulse 52 11/20/24 07:15 Resp 18 11/20/24 07:15 BP 147/65 H 11/20/24 07:15 Pulse Ox 97 11/20/24 07:15 O2 Del Method Room Air 11/20/24 07:15 O2 Flow Rate 2 11/19/24 19:46 Oxygen Flow Rate 2 11/18/24 05:07 BMI result Body Mass Index 35.6 Const General: cooperative, alert, awake and in distress mild and respiratory Nutritional Appearance: obese Orientation/consciousness: patient oriented x3 HEENT Head: Yes normocephalic and Yes atraumatic Neck Neck: Yes trachea midline, Yes supple and Yes JVD Resp Effort & Inspection: normal respiratory effort Auscultation: no rales, no wheezes and diminished lung sounds Cardio Jugular venous distension: JVD Palpation: heave (Right ventricular heave) Rate: bradycardic Rhythm: abnormal rhythm irregularly irregular Heart sounds: S1 normal heart sound present, S2 normal heart sound present, no click, no gallops and no murmurs GI Auscultation: normal bowel sounds Skin General skin exam: no rashes or lesions noted Neuro General: patient oriented x3 and no focal motor deficits Extrem General: No clubbing, No cyanosis and Yes edema Objective Labs and Meds 11/18/24 04:54 11/20/24 06:57 Lab results: Laboratory Results - last 24 hr 11/19/24 11/20/24 06:16 06:57 Hold Purple Top SEE NOTE Sodium 143 Potassium 3.6 Chloride 105 Carbon Dioxide 31 H Anion Gap 11 L BUN 19 H Creatinine 0.94 Estim Creat Clear Calc 51.3 Estimated GFR 56 Random Glucose 99 Calcium 9.4 Magnesium 2.1 Progress Note: A&P Assessment and plan (1) Decompensated heart failure: Status: Acute Assessment and Plan: Decompensated congestive heart failure predominantly right heart failure with significantly elevated pulmonary artery systolic pressure. Overall prognosis is guarded. Tepid diuretic response. Will change Lasix 5 mg an hour drip. Strict intake and output chart needs to be pursued. Continue monitor renal function as well as BNP. Continue Jardiance therapy. Out of bed to chair and incentive spirometry. (2) Atrial fibrillation: Status: Acute Assessment and Plan: Persistent atrial fibrillation with slow ventricular response with frequent PVCs. Continue to hold rate control medications at this point time. 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 Heart rate starts increasing will add low-dose metoprolol. Continue full oral anticoagulation. Will continue to follow with you Time Spent With Patient Time: Total time managing care of this patient today ____ minutes. Progress Note: Quality Stroke Does the patient have a stroke diagnosis?: No Procedures Date of Service Date of Service: 11/20/24
--- NOTE | 2024-11-20 14:11 | MHC.CM.PN ---
EMR REVIEWED, PT W/AFIB W/FREQ PVC'S, PER CARDIO PLAN TO ADD LOW DOSE METOPROLOL, NO PLAN FOR DC AT THIS TIME, ANTIC PT MAY BE HERE THROUGH W/E, CM WILL CONT TO FOLLOW DC NEEDS.
[2024-11-20] MEDS: Furosemide 200 MG in 0.9 % Sodium Chloride 80 ML IVCONT (14:31)
--- NOTE | 2024-11-20 14:49 | P.PNIM_ITS ---
Subjective Subjective Date of Service: 11/20/24 Interval History: Seen and examined this morning Follow-up for CHF No overnight events Review of Systems Review of Systems: Yes all other systems are reviewed and are negative Constitutional Constitutional: Denies chills and Denies fever(s) Cardiovascular Cardiovascular: Denies chest pain, Denies palpitations and Denies dyspnea Respiratory Respiratory: Denies cough and Denies dyspnea Gastrointestinal Gastrointestinal: Denies abdominal pain, Denies nausea and Denies vomiting Endocrine Endocrine: Denies palpitations Physical Exam 2 Vital Signs: Vital Signs: Last Vital Signs Temp 97.3 F 11/20/24 11:03 Pulse 57 11/20/24 11:03 Resp 18 11/20/24 11:03 BP 134/63 11/20/24 11:03 Pulse Ox 98 11/20/24 11:03 O2 Del Method Nasal Cannula 11/20/24 11:03 O2 Flow Rate 2 11/20/24 11:03 Oxygen Flow Rate 2 11/18/24 05:07 BMI result Body Mass Index 35.6 Const: General: cooperative, comfortable, no acute distress, awake and Physically active Nutritional Appearance: obese Orientation/consciousness: patient oriented x3 Resp: Effort & Inspection: normal respiratory effort and able to speak in complete sentences Cardio: Other: irregular Jugular venous distension: JVD Rate: bradycardic GI: Inspection: No distended Palpation (GI): Soft to palpation Neuro: General: patient oriented x3 and moves all extremities Extrem: General: Yes no pedal edema Objective Data Active Medications Acetaminophen (Acetaminophen 325 Mg Tablet) 650 mg PO Q6H PRN PRN Reason: Pain, Mild 1-3,fever,headache Last Admin: 11/19/24 03:43 Dose: 650 mg Documented By: TOM Albuterol Sulfate (Albuterol Sulfate (0.083%) 2.5 Mg/3 Ml Vial.Neb) 2.5 mg INHALE Q6H PRN PRN Reason: wheezing Apixaban (Apixaban 5 Mg Tablet) 5 mg PO BID [facility] Last Admin: 11/20/24 09:08 Dose: 5 mg Documented By: FLORA Calcium Carbonate (Calcium Carbonate 750 Mg Tab.Chew) 750 mg PO Q4H PRN PRN Reason: Heartburn Empagliflozin (Empagliflozin 10 Mg Tablet) 10 mg PO DAILY [facility] Last Admin: 11/20/24 09:08 Dose: 10 mg Documented By: FLORA Furosemide 200 mg/ Sodium (Chloride) 100 mls @ 2.5 mls/hr IVCONT .Q24H [facility] Last Admin: 11/20/24 14:31 Dose: 5 mg/hr, 2.5 mls/hr Documented By: FLORA Lisinopril (Lisinopril 10 Mg Tablet) 10 mg PO DAILY [facility]; Protocol Last Admin: 11/20/24 09:08 Dose: 10 mg Documented By: FLORA Magnesium Hydroxide (Milk Of Magnesia 30 Ml Oral.Susp) 30 ml PO DAILY PRN PRN Reason: Constipation Melatonin (Melatonin 3 Mg Tablet) 6 mg PO BEDTIME PRN PRN Reason: Insomnia Pravastatin Sodium (Pravastatin Sodium 10 Mg Tablet) 10 mg PO BEDTIME [facility] Last Admin: 11/19/24 23:52 Dose: 10 mg Documented By: MAGGI Sodium Chloride (0.9 % Sodium Chloride Flush 3 Ml Syringe) 3 ml IVFLUSH QSHIFT [facility] Last Admin: 11/20/24 09:09 Dose: 3 ml Documented By: FLORA Labs 11/18/24 04:54 11/20/24 06:57 Labs: Laboratory Results - last 24 hr 11/19/24 11/20/24 06:16 06:57 Hold Purple Top SEE NOTE Anion Gap 11 L Estim Creat Clear Calc 51.3 Estimated GFR 56 Random Glucose 99 Calcium 9.4 Magnesium 2.1 Assessment and Plan (1) Bradycardia: Status: Acute (2) Decompensated heart failure: Status: Acute Plan This is an 84 year old female who presents with SOB. EKG showed A fib with a new onset of slow ventricular rate in the 40's. CXR with mild pulmonary edema and cardiaomegally suggestive of worsening heart failure Acute on chronic right sided heart failure echocardiogram with severe pulmonary hypertension, mod to severe tricuspid regurgitation will transition from IV push to lasix drip for better diuresis no longer on spironolactone, unclear reason. will discuss with family cardiology following Jardiance added Atrial Fibrillation with slow ventricular response metoprolol on hold d/c digoxin (do not continue upon discharge) continue Eliquis cardiology following Chronic Respiratory Failure Continue O2, baseline 2L [place] DEBBIE Patient does not use a CPAP Hypertension Continue Lisinopril Hold Metoprolol Hyperlipidemia Continue pravastatin Severe Obesity encourage weight loss VTE: Continue Eliquis Code: DNR (patient wants to think about if she wants to be a DNI) Patient is being admitted for acute on chronic right sided heart failure compounded by Manjeet with slow ventricular response, requiring IV diuretics and further evaluation with echo, Cardiology consult, and medication adjustment. Quality Stroke Does the patient have a stroke diagnosis?: No VTE Prior VTE?: No VTE Risk Level:: Medical - moderate - high VTE Device Contraindication: N/A - Device Ordered VTE Drug Contraindication: N/A - Med Ordered
[2024-11-20] MEDS: Pravastatin Sodium 10 MG TABLET PO (20:24)
[2024-11-21 03:42] VITALS: BP 159/71; PULSE 58; RESP 16; TEMP 36.1; O2SAT 94
[2024-11-21 06:00] VITALS: BMI 35.2
[2024-11-21 07:00] VITALS: BP 178/81; PULSE 53; RESP 18; TEMP 36.6; O2SAT 98
[2024-11-21 08:40] LABS: Anion Gap 13 (12-20); Blood Urea Nitrogen 16 mg/dL (9-16); Calcium 9.6 mg/dL (8.4-10.2); Carbon Dioxide 32 mmol/L (22-29); Chloride 104 mmol/L (96-108); Creatinine Clr Calc Pharmacy 49.9; Estimated Glomerular Filt Rate 55; Glucose Random 103 mg/dL (60-115); Potassium 3.8 mmol/L (3.3-5.1); Sodium 145 mmol/L (135-145)
[2024-11-21] MEDS: lisinopriL 10 MG TABLET PO (08:58)
[2024-11-21] MEDS: Empagliflozin 10 MG TABLET PO (08:58)
[2024-11-21] MEDS: Acetaminophen 325 MG TABLET 650 MG PO (08:58)
[2024-11-21] MEDS: Apixaban 5 MG TABLET PO ×2 (08:58→20:41)
--- NOTE | 2024-11-21 10:10 | PM.PNCARD ---
Subjective Subjective Date of Service: 11/21/24 Principal diagnosis: Decompensated heart failure, atrial fibrillation Interval history: patient complains of some dizziness. Blood pressure is actually elevated. Patient has diuresed very well overnight on Lasix drip. Remains in AFib with slow ventricular response with PVCs. Denies any palpitations. Review of Systems Constitutional: Reports weakness Eyes: Reports no additional eye complaints Reports dizziness Cardiovascular: Denies chest pain, Denies rapid heart rate, Denies leg edema and Reports dyspnea on exertion Respiratory: Reports dyspnea on exertion Gastrointestinal: Reports no additional gastrointestinal complaints Reports dizziness and Reports weakness Physical Exam Vital Signs: Last Vital Signs Temp 97.8 F 11/21/24 07:00 Pulse 53 11/21/24 07:00 Resp 18 11/21/24 07:00 BP 178/81 H 11/21/24 07:00 Pulse Ox 98 11/21/24 07:00 O2 Del Method Nasal Cannula 11/21/24 07:00 O2 Flow Rate 2 11/21/24 07:00 Oxygen Flow Rate 2 11/18/24 05:07 BMI result Body Mass Index 35.2 Const General: cooperative, alert, awake and in distress mild and respiratory Nutritional Appearance: obese Orientation/consciousness: patient oriented x3 HEENT Head: Yes normocephalic and Yes atraumatic Neck Neck: Yes trachea midline, Yes supple and Yes JVD Resp Effort & Inspection: normal respiratory effort Auscultation: no rales, no wheezes and diminished lung sounds Cardio Jugular venous distension: JVD Palpation: heave (Right ventricular heave) Rate: bradycardic Rhythm: abnormal rhythm irregularly irregular Heart sounds: S1 normal heart sound present, S2 normal heart sound present, no click, no gallops and no murmurs GI Auscultation: normal bowel sounds Skin General skin exam: no rashes or lesions noted Neuro General: patient oriented x3 and no focal motor deficits Extrem General: No clubbing, No cyanosis and Yes edema Objective Labs and Meds 11/18/24 04:54 11/21/24 08:08 Lab results: Laboratory Results - last 24 hr 11/21/24 08:08 Hold Purple Top SEE NOTE Sodium 145 Potassium 3.8 Chloride 104 Carbon Dioxide 32 H Anion Gap 13 BUN 16 Creatinine 0.96 Estim Creat Clear Calc 49.9 Estimated GFR 55 Random Glucose 103 Calcium 9.6 Progress Note: A&P Assessment and plan (1) Decompensated heart failure: Status: Acute Assessment and Plan: Decompensated congestive heart failure gradually improving. Continue 1 more day of IV Lasix drip. Trend BNP and BNP tomorrow. Continue strict intake and output chart. Blood pressure still elevated. Add spironolactone 25 mg to regimen. Monitor blood pressure closely. Continue Jardiance. Given his significant RV systolic pressure elevation , prognosis is guarded. out of bed to chair and incentive spirometry. Consider physical therapy consult (2) Atrial fibrillation: Status: Acute Assessment and Plan: Atrial fibrillation with slow ventricular response and remains slow despite holding all her medications. Avoid rate lowering medications. Continue full oral anticoagulation. Continue full disclosure cardiac monitoring. Will follow with you. Thank you for allowing me to partake in her care Time Spent With Patient Time: Total time managing care of this patient today ____ minutes. Progress Note: Quality Stroke Does the patient have a stroke diagnosis?: No Procedures Date of Service Date of Service: 11/21/24
[2024-11-21 11:16] VITALS: BP 123/60; PULSE 56; RESP 18; TEMP 36.3; O2SAT 97
--- NOTE | 2024-11-21 11:16 | HO.PM.IMPN ---
Subjective Subjective Date of Service: 11/21/24 Interval History: seen and examined this morning follow up for CHF, bradycardia no overnight events Review of Systems General: Appetite is normal. Denies weight gain or loss. Denies fever or chills. ?Skin: no rash or lesions ?Eyes: denies vision changes ?Ears: denies pain or discharge ?Mouth: denies pain or dental concerns ?Pharynx/Layrnx: denies sore throat, diff swallowing, voice change, coughing with eating ?Lungs: denies cough or sputum. Reports SOB at rest and on activity ?Heart: denies chest pain or palpitations ?Abdomen: denies nausea, vomiting, diarrhea, constipation, abdominal pain, rectal bleeding ?: denies incontinence, pain with urination. frequency, retention of urine, ?Musculoskeletal: denies muscle. Reports hand joint pain from RA ?Neuro: denies headache, weakness or dizziness Review of Systems: Yes all other systems are reviewed and are negative Constitutional Constitutional: Denies chills, Denies fever(s) and Reports weakness Eyes Eyes: Reports no additional eye complaints ENT Ears, Nose, Mouth, and Throat: Reports system reviewed and no additional complaints, except as documented and Reports dizziness Cardiovascular Cardiovascular: Denies chest pain, Denies palpitations and Denies dyspnea Respiratory Respiratory: Denies cough and Denies dyspnea Gastrointestinal Gastrointestinal: Reports no additional gastrointestinal complaints, Denies abdominal pain, Denies nausea and Denies vomiting Musculoskeletal Musculoskeletal: Reports no additional musculoskeletal complaints Integumentary/Breasts Skin/Breast: Reports no additional skin complaints Neurologic Neurologic: Reports system reviewed and no additional complaints, except as documented, Reports dizziness and Reports weakness Psychiatric Psychiatric: Reports no additional psychiatric complaints Endocrine Endocrine: Denies palpitations Physical Exam Vital Signs: Vital Signs: Last Vital Signs Temp 97.8 F 11/21/24 07:00 Pulse 53 11/21/24 07:00 Resp 18 11/21/24 07:00 BP 178/81 H 11/21/24 07:00 Pulse Ox 98 11/21/24 07:00 O2 Del Method Nasal Cannula 11/21/24 07:00 O2 Flow Rate 2 11/21/24 07:00 Oxygen Flow Rate 2 11/18/24 05:07 BMI result Body Mass Index 35.2 Const: General: cooperative, comfortable, no acute distress, awake and Physically active Nutritional Appearance: obese Orientation/consciousness: patient oriented x3 Resp: Other: dim no wheeze Effort & Inspection: normal respiratory effort, able to speak in complete sentences, no respiratory distress and no use of accessory muscles Cardio: Other: irregular Jugular venous distension: JVD Rate: bradycardic GI: Inspection: No distended Palpation (GI): Soft to palpation Neuro: General: patient oriented x3, moves all extremities and CN's II-XI intact bilaterally Extrem: General: Yes no pedal edema Objective Data Active Medications Acetaminophen (Acetaminophen 325 Mg Tablet) 650 mg PO Q6H PRN PRN Reason: Pain, Mild 1-3,fever,headache Last Admin: 11/21/24 08:58 Dose: 650 mg Documented By: CRYSTAL Albuterol Sulfate (Albuterol Sulfate (0.083%) 2.5 Mg/3 Ml Vial.Neb) 2.5 mg INHALE Q6H PRN PRN Reason: wheezing Apixaban (Apixaban 5 Mg Tablet) 5 mg PO BID [facility] Last Admin: 11/21/24 08:58 Dose: 5 mg Documented By: CRYSTAL Calcium Carbonate (Calcium Carbonate 750 Mg Tab.Chew) 750 mg PO Q4H PRN PRN Reason: Heartburn Empagliflozin (Empagliflozin 10 Mg Tablet) 10 mg PO DAILY [facility] Last Admin: 11/21/24 08:58 Dose: 10 mg Documented By: CRYSTAL Furosemide 200 mg/ Sodium (Chloride) 100 mls @ 2.5 mls/hr IVCONT .Q24H [facility] Last Admin: 11/20/24 14:31 Dose: 5 mg/hr, 2.5 mls/hr Documented By: FLORA Lisinopril (Lisinopril 10 Mg Tablet) 10 mg PO DAILY [facility]; Protocol Last Admin: 11/21/24 08:58 Dose: 10 mg Documented By: CRYSTAL Magnesium Hydroxide (Milk Of Magnesia 30 Ml Oral.Susp) 30 ml PO DAILY PRN PRN Reason: Constipation Melatonin (Melatonin 3 Mg Tablet) 6 mg PO BEDTIME PRN PRN Reason: Insomnia Pravastatin Sodium (Pravastatin Sodium 10 Mg Tablet) 10 mg PO BEDTIME [facility] Last Admin: 11/20/24 20:24 Dose: 10 mg Documented By: BRENT Sodium Chloride (0.9 % Sodium Chloride Flush 3 Ml Syringe) 3 ml IVFLUSH QSHIFT [facility] Last Admin: 11/21/24 08:55 Dose: Not Given Documented By: CRYSTAL Non-Admin Reason: IV Running Spironolactone (Spironolactone 25 Mg Tablet) 25 mg PO DAILY [facility]; Protocol Labs 11/18/24 04:54 11/21/24 08:08 Labs: Laboratory Results - last 24 hr 11/21/24 08:08 Hold Purple Top SEE NOTE Anion Gap 13 Estim Creat Clear Calc 49.9 Estimated GFR 55 Random Glucose 103 Calcium 9.6 Assessment and Plan (1) Decompensated heart failure: Status: Acute (2) Atrial fibrillation: Status: Acute Plan This is an 84 year old female who presents with SOB. EKG showed A fib with a new onset of slow ventricular rate in the 40's. CXR with mild pulmonary edema and cardiaomegally suggestive of worsening heart failure Acute on chronic right sided heart failure echocardiogram with severe pulmonary hypertension, mod to severe tricuspid regurgitation continue IV lasix drip start spironolactone Jardiance added cardiology following Atrial Fibrillation with slow ventricular response metoprolol on hold d/c digoxin (do not continue upon discharge) remains bradycardic - avoid rate lowering medications continue Eliquis cardiology following Chronic Respiratory Failure Continue O2, baseline 2L [place]BBI[place] Patient does not use a CPAP Hypertension not at goal Continue Lisinopril Hold Metoprolol spironolactone added Hyperlipidemia Continue pravastatin Severe Obesity BMI 35.2 encourage weight loss VTE: Eliquis Code: DNR (patient wants to think about if she wants to be a DNI) Requires ongoing inpatient stay for acute on chronic right sided heart failure compounded by A.fib with slow ventricular response, requiring IV diuretics and further evaluation with echo, Cardiology consult, and medication adjustment. Quality Stroke Does the patient have a stroke diagnosis?: No VTE Prior VTE?: No VTE Risk Level:: Medical - moderate - high VTE Device Contraindication: N/A - Device Ordered VTE Drug Contraindication: N/A - Med Ordered
[2024-11-21] MEDS: Spironolactone 25 MG TABLET PO (11:54)
[2024-11-21] MEDS: Furosemide 200 MG in 0.9 % Sodium Chloride 80 ML IVCONT (11:55)
[2024-11-21 14:45] VITALS: BP 123/60; PULSE 56; O2SAT 97
[2024-11-21 16:00] VITALS: BP 132/60; PULSE 54; RESP 18; TEMP 36.3; O2SAT 98
[2024-11-21 20:00] VITALS: BP 155/67; PULSE 55; RESP 16; TEMP 36.7; O2SAT 98
[2024-11-21] MEDS: Pravastatin Sodium 10 MG TABLET PO (20:41)
[2024-11-21] MEDS: Magnesium Sulfate/H2O 2 GM/50 ML PIGGYBACK IV (20:41)
[2024-11-22] VITALS: BP 167/72; PULSE 51; RESP 16; TEMP 36.8; O2SAT 98
[2024-11-22 04:00] VITALS: BP 154/68; PULSE 56; RESP 16; TEMP 36.4; O2SAT 96
[2024-11-22 06:00] VITALS: BMI 34.8
[2024-11-22 06:54] VITALS: BP 156/69; PULSE 53; RESP 18; TEMP 36.7; O2SAT 96
[2024-11-22] MEDS: Spironolactone 25 MG TABLET PO (09:18)
[2024-11-22] MEDS: lisinopriL 10 MG TABLET PO (09:18)
[2024-11-22] MEDS: Apixaban 5 MG TABLET PO (09:19)
[2024-11-22] MEDS: Empagliflozin 10 MG TABLET PO (09:19)
[2024-11-22 10:57] VITALS: BP 132/60; PULSE 58; RESP 18; TEMP 36.2; O2SAT 99
[2024-11-22 11:02] LABS: Anion Gap 17 (12-20); Blood Urea Nitrogen 17 mg/dL (9-16); Calcium 9.5 mg/dL (8.4-10.2); Carbon Dioxide 30 mmol/L (22-29); Chloride 100 mmol/L (96-108); Creatinine Clr Calc Pharmacy 45.3; Estimated Glomerular Filt Rate 50; Glucose Random 145 mg/dL (60-115); Potassium 3.7 mmol/L (3.3-5.1); Sodium 143 mmol/L (135-145)
[2024-11-22 11:06] LABS: B Type Natriuretic Peptide 79 pg/mL (<100)
--- NOTE | 2024-11-22 13:47 | P.PNIM_ITS ---
Subjective Subjective Date of Service: 11/22/24 Interval History: Seen and examined this morning Follow-up for heart failure No overnight events No complaints Review of Systems Review of Systems: Yes all other systems are reviewed and are negative Constitutional Constitutional: Denies chills and Denies fever(s) Physical Exam 2 Vital Signs: Vital Signs: Last Vital Signs Temp 97.1 F 11/22/24 10:57 Pulse 58 11/22/24 10:57 Resp 18 11/22/24 10:57 BP 132/60 11/22/24 10:57 Pulse Ox 99 11/22/24 10:57 O2 Del Method Room Air 11/22/24 10:57 O2 Flow Rate 2 11/22/24 06:54 Oxygen Flow Rate 2 11/18/24 05:07 BMI result Body Mass Index 34.8 Const: General: cooperative, comfortable, no acute distress, awake and Physically active Nutritional Appearance: obese Orientation/consciousness: patient oriented x3 Resp: Other: dim no wheeze Effort & Inspection: normal respiratory effort, able to speak in complete sentences, no respiratory distress and no use of accessory muscles Cardio: Other: irregular Jugular venous distension: JVD Rate: bradycardic GI: Inspection: No distended Palpation (GI): Soft to palpation Neuro: General: patient oriented x3, moves all extremities and CN's II-XI intact bilaterally Extrem: General: Yes no pedal edema Objective Data Active Medications Acetaminophen (Acetaminophen 325 Mg Tablet) 650 mg PO Q6H PRN PRN Reason: Pain, Mild 1-3,fever,headache Last Admin: 11/21/24 08:58 Dose: 650 mg Documented By: CRYSTAL Albuterol Sulfate (Albuterol Sulfate (0.083%) 2.5 Mg/3 Ml Vial.Neb) 2.5 mg INHALE Q6H PRN PRN Reason: wheezing Apixaban (Apixaban 5 Mg Tablet) 5 mg PO BID [facility] Last Admin: 11/22/24 09:19 Dose: 5 mg Documented By: CRYSTAL Bumetanide (Bumetanide 1 Mg Tablet) 1 mg PO BID@0800,1700 [facility]; Protocol Calcium Carbonate (Calcium Carbonate 750 Mg Tab.Chew) 750 mg PO Q4H PRN PRN Reason: Heartburn Empagliflozin (Empagliflozin 10 Mg Tablet) 10 mg PO DAILY [facility] Last Admin: 11/22/24 09:19 Dose: 10 mg Documented By: CRYSTAL Lisinopril (Lisinopril 10 Mg Tablet) 10 mg PO DAILY [facility]; Protocol Last Admin: 11/22/24 09:18 Dose: 10 mg Documented By: CRYSTAL Magnesium Hydroxide (Milk Of Magnesia 30 Ml Oral.Susp) 30 ml PO DAILY PRN PRN Reason: Constipation Melatonin (Melatonin 3 Mg Tablet) 6 mg PO BEDTIME PRN PRN Reason: Insomnia Pravastatin Sodium (Pravastatin Sodium 10 Mg Tablet) 10 mg PO BEDTIME [facility] Last Admin: 11/21/24 20:41 Dose: 10 mg Documented By: BRENT Sodium Chloride (0.9 % Sodium Chloride Flush 3 Ml Syringe) 3 ml IVFLUSH QSHIFT [facility] Last Admin: 11/22/24 09:19 Dose: Not Given Documented By: CRYSTAL Non-Admin Reason: IV Running Spironolactone (Spironolactone 25 Mg Tablet) 25 mg PO DAILY [facility]; Protocol Last Admin: 11/22/24 09:18 Dose: 25 mg Documented By: CRYSTAL Labs 11/18/24 04:54 11/22/24 09:46 Labs: Laboratory Results - last 24 hr 11/22/24 11/22/24 09:45 09:46 Hold Purple Top SEE NOTE Anion Gap 17 Estim Creat Clear Calc 45.3 Estimated GFR 50 Random Glucose 145 H Calcium 9.5 B-Natriuretic Peptide 79 Assessment and Plan (1) Decompensated heart failure: Status: Acute (2) Bradycardia: Status: Acute Plan This is an 84 year old female who presents with SOB. EKG showed A fib with a new onset of slow ventricular rate in the 40's. CXR with mild pulmonary edema and cardiaomegally suggestive of worsening heart failure Acute on chronic right sided heart failure echocardiogram with severe pulmonary hypertension, mod to severe tricuspid regurgitation Status post Lasix drip with good effect, BNP normalized, transition to p.o. Bumex started spironolactone started on Jardiance cardiology following Atrial Fibrillation with slow ventricular response metoprolol on hold d/c digoxin (do not continue upon discharge) remains bradycardic - avoid rate lowering medications continue Eliquis cardiology following Chronic Respiratory Failure Continue O2, baseline 2L [place]BBI[place] Patient does not use a CPAP Hypertension not at goal Continue Lisinopril Hold Metoprolol spironolactone added Hyperlipidemia Continue pravastatin Severe Obesity BMI 35.2 encourage weight loss VTE: Eliquis Code: DNR (patient wants to think about if she wants to be a DNI) PT rec home with 14/01 care vs STR. CM aware, dispo TBD Requires ongoing inpatient stay for acute on chronic right sided heart failure compounded by A.fib with slow ventricular response, requiring IV diuretics and further evaluation with echo, Cardiology consult, and medication adjustment. Quality Stroke Does the patient have a stroke diagnosis?: No VTE Prior VTE?: No VTE Risk Level:: Medical - moderate - high VTE Device Contraindication: N/A - Device Ordered VTE Drug Contraindication: N/A - Med Ordered
--- NOTE | 2024-11-22 14:09 | MHC.CM.PN ---
Addendum entered by Barbara Buck 11/22/24 15:45: CURRENTLY [facility] IS THE ONLY [facility]ENCY ACCEPTING, HOWEVER THEY CANNOT SEE PT UNTIL SATURDAY FOR NURSING AND LONGER FOR PT REFERRAL EXPANDED TO DETERMINE IF ANY OTHER AGENCIES CAN SEE PT SOONER Original Note: CM MET WITH PT AND SON AT BEDSIDE TO DISCUSS DC PLANS THEY UNDERSTAND THE RECOMMENDATION IS HOME WITH [facility] AND 24/7 FAMILY ASSISTANCE VS STR THEY REPORT SHE IS GOING TO RETURN HOME AND THAT FAMILY IS ALWAYS WITH HER HER SON REPORTS HIS DAUGHTER LIVES WITH THE PT AND SHE HAS 21 REAL ESTATE ACCOUNT EXECUTIVE HOURS PER WEEK FAMILY WILL TRANSPORT AT DC
--- NOTE | 2024-11-22 14:27 | P.DS_ITS ---
DS: Providers Provider Date of Service: 11/22/24 Date of admission: 11/18/24 09:18 Date of discharge: 11/22/24 Primary care physician: Jeff Ernandez MD Consults: 11/18/24 11:26 Consult to Cardiology Routine Consulting Provider: [facility] Reason for consultation: New bradycardia with A. Fib Attending physician on discharge: Emili Ma Discharging clinician: Reyna Valdovinos DS: Diagnosis Discharge Diagnosis (1) Decompensated heart failure: Status: Acute (2) Bradycardia: Status: Acute DS: Summary Hospital Course Hospital Course: From H&P on the day of admission This is an 84 year old female with a past medical history of right sided heart failure, a fib on eliis, HTN, HLD, DEBBIE , on 2L of continuous O2, RA and a NSTEMI in 2022, she presented alem the ER today with worsening SOB. She reports that she the increased SOB started on Saturday but worsened this morning when she got up to walk. She reports that sitting up and walking worsens her SOB, but laying down improves her breathing. She denies any sick contact, fevers, chills, cough, or swelling. In the ER she was given 40mg IVP Lasix Lab significant for BNP 595, trops 14.5, 22.0, 20.3, Dig level 0.3. CXR shows cardiomegally with increased interstitial infiltrates consistent with congestive heart failure. EKG: Atrial fibrillation with slow ventricle response with a competing junctional pacemaker. HR 45 BPM, QTC 397ms Flu A, Flu B, RSV and SARS COV-2 were all negative Acute on chronic right sided heart failure echocardiogram with severe pulmonary hypertension, mod to severe tricuspid regurgitation. seen by cardiology during hospitalization. Status post Lasix drip with good effect, good diuresis. BNP normalized, no respiratory symptoms. transition to p.o. Bumex. started spironolactone. started on Jardiance. repeat BMP in one week. will need outpatient follow up with cardiology. recommend low salt diet, daily eva monitoring Atrial Fibrillation with slow ventricular response metoprolo and digoxin were stopped. remains bradycardic - avoid rate lowering medications Hypertension Continued on lisinopril, metoprolol stopped, Aldactone added, blood pressure improved We will need repeat labs in 1 week time Time Attestation Discharge Coordination Time (in mins): 36 Quality: Safe Use of Opioids Does Pt have an Active Cancer Diagnosis on the Problem List?: No Quality: Stroke Does the patient have a stroke diagnosis?: No Physical Exam Vital Signs: Vital Signs: Last Vital Signs Temp 97.1 F 11/22/24 10:57 Pulse 58 11/22/24 10:57 Resp 18 11/22/24 10:57 BP 132/60 11/22/24 10:57 Pulse Ox 99 11/22/24 10:57 O2 Del Method Room Air 11/22/24 10:57 O2 Flow Rate 2 11/22/24 06:54 Oxygen Flow Rate 2 11/18/24 05:07 BMI result Body Mass Index 34.8 Const: General: cooperative, comfortable, no acute distress and awake Nutritional Appearance: obese Orientation/consciousness: patient oriented x3 Resp: Other: dim no wheeze Effort & Inspection: normal respiratory effort, able to speak in complete sentences, no respiratory distress and no use of accessory muscles Cardio: Other: irregular Jugular venous distension: JVD Rate: bradycardic GI: Inspection: No distended Palpation (GI): Soft to palpation Neuro: General: patient oriented x3, moves all extremities and CN's II-XI intact bilaterally Extrem: General: Yes no pedal edema DS: Data Data Completed and Pending Labs on day of discharge: Laboratory Results - last 24 hr 11/22/24 11/22/24 09:45 09:46 Hold Purple Top SEE NOTE Sodium 143 Potassium 3.7 Chloride 100 Carbon Dioxide 30 H Anion Gap 17 BUN 17 H Creatinine 1.05 Estim Creat Clear Calc 45.3 Estimated GFR 50 Random Glucose 145 H Calcium 9.5 B-Natriuretic Peptide 79 Discharge Plan Discharge Anticipated Discharge Date/Time: 11/22/24 14:30 Patient Disposition: Home Health Service Discharge Diagnosis: acute on chronic heart failure bradycardia uncontrolled HTN Referrals: Name,MD Jeff [Primary Care Provider] - 1 Week Conrad Matt MD [Physician] - 1 Week Discharge Medications: New spironolactone 25 mg Tablet 25 mg PO DAILY Qty: 90 0RF Protocol: Hold for SBP< HOLD for SBP < : 90 Jardiance 10 mg Tablet 10 mg PO DAILY Qty: 90 0RF bumetanide 1 mg Tablet 2 mg PO DAILY 90 Days Qty: 180 0RF Protocol: Hold for SBP< HOLD for SBP < : 90 Continued Eliquis 5 mg tablet 5 mg PO BID 90 Days Qty: 180 3RF albuterol sulfate 2.5 mg /3 mL (0.083 %) solution for nebulization 2.5 mg inhalation Q6H PRN (Reason: wheezing) Certavite-Antioxidant 18-400 mg-mcg tablet 1 tab PO DAILY cholecalciferol (vitamin D3) 25 mcg (1,000 unit) capsule 25 mcg PO DAILY pravastatin 10 mg tablet 10 mg PO BEDTIME lisinopril 10 mg tablet 10 mg PO DAILY acetaminophen 650 mg/20.3 mL solution 325 mg PO Q4H PRN (Reason: Pain) Discontinued furosemide 40 mg tablet 40 mg PO BID@0900,1500 90 Days Qty: 90 3RF digoxin 125 mcg (0.125 mg) tablet 125 mcg PO MOWEFR metoprolol tartrate 50 mg tablet 50 mg PO BID Discharge Orders: Discharge Order (Routine); Ordered 11/22/24 Ordered By: Reyna Valdovinos Activity on Discharge: As tolerated Stand Alone Forms: Patient Portal Discharge page Print Language: Setswana Other Ambulatory Orders: Basic Metabolic Panel (Routine) Timeframe: 1 Week Facility: [facility] - Location: Laboratory Ordered By: Reyna Valdovinos Care Plan Goals: see below Health Concerns: decompensated heart failure uncontrolled hypertension bradycardia - afib with slow ventricular response Plan of Treatment: Stop taking metoprolol, digoxin and lasix Start taking jardiance, bumex and spironolactone Call to schedule an outpatient follow-up appointment with Cardiology Repeat labs in 1 week Home with PT and VNA services Recommend diabetic/low-sodium diet. Monitor weight daily Assessment: see discharge summary
--- NOTE | 2024-11-22 14:40 | W.MHC.F2F ---
Service Date Service Date: 11/22/24 Encounter Date of encounter: 11/22/24 Reasons for Services Signs and symptoms assessed: needs half-way for CHF education, med reconciliation Reason for half-way: medication management and teach disease management (CHF) MD Overseeing Care: Jeff Name Homebound: Leaving the home is medically contraindicated at this time without the asist of a device and/or another person due th the listed conditions above and below. Reason homebound: unsteady gait / fall risk Certification: Based on the above findings, I certify that this patient is confined to the home and needs intermittent half-way care, physical therapy and/or speech therapy, or continues to need occupational therapy. The patient is under my care, and I have initiated the establishment of the plan of care. The patient will be followed by a physician who will periodically review the plan of care. Time Spent With Patient Time: Total time managing care of this patient today ____ minutes.
--- NOTE | 2024-11-22 15:03 | PM.PNCARD ---
Subjective Subjective Date of Service: 11/22/24 Principal diagnosis: Decompensated heart failure, atrial fibrillation Interval history: Patient is feeling better. Remains in atrial fibrillation with controlled ventricular response with PVCs. BNP is normalized. Blood pressure is stable. Review of Systems Constitutional: Reports weakness Cardiovascular: Reports no additional cardiovascular complaints Respiratory: Reports no additional respiratory complaints Reports system reviewed and no additional complaints, except as documented and Reports weakness Psychiatric: Reports no additional psychiatric complaints Physical Exam Vital Signs: Last Vital Signs Temp 97.1 F 11/22/24 10:57 Pulse 58 11/22/24 10:57 Resp 18 11/22/24 10:57 BP 132/60 11/22/24 10:57 Pulse Ox 99 11/22/24 10:57 O2 Del Method Room Air 11/22/24 10:57 O2 Flow Rate 2 11/22/24 06:54 Oxygen Flow Rate 2 11/18/24 05:07 BMI result Body Mass Index 34.8 Const General: cooperative, alert, awake and in distress mild and respiratory Nutritional Appearance: obese Orientation/consciousness: patient oriented x3 HEENT Head: Yes normocephalic and Yes atraumatic Neck Neck: Yes trachea midline, Yes supple and Yes no JVD Resp Effort & Inspection: normal respiratory effort Auscultation: no rales, no wheezes and diminished lung sounds Cardio Jugular venous distension: no JVD Palpation: heave (Right ventricular heave) Rate: bradycardic Rhythm: abnormal rhythm irregularly irregular Heart sounds: S1 normal heart sound present, S2 normal heart sound present, no click, no gallops and no murmurs GI Auscultation: normal bowel sounds Skin General skin exam: no rashes or lesions noted Neuro General: patient oriented x3 and no focal motor deficits Extrem General: No clubbing, No cyanosis and Yes edema Objective Labs and Meds 11/18/24 04:54 11/22/24 09:46 Lab results: Laboratory Results - last 24 hr 11/22/24 11/22/24 09:45 09:46 Hold Purple Top SEE NOTE Sodium 143 Potassium 3.7 Chloride 100 Carbon Dioxide 30 H Anion Gap 17 BUN 17 H Creatinine 1.05 Estim Creat Clear Calc 45.3 Estimated GFR 50 Random Glucose 145 H Calcium 9.5 B-Natriuretic Peptide 79 Progress Note: A&P Assessment and plan (1) Decompensated heart failure: Status: Acute Assessment and Plan: Decompensated congestive heart failure predominantly right heart failure with significant pulmonary hypertension. Clinically euvolemic and well compensated with good diuresis with normalized BNP. Advised to start Bumex 2 mg daily for heart failure management. Heart failure management discussed. Daily weight monitoring avoidance salt loading was discussed. Advised additional diuretics as need be. Continue Jardiance and spironolactone. Will set up for outpatient follow-up with blood work. (2) Atrial fibrillation: Status: Acute Assessment and Plan: Atrial fibrillation with slow ventricular response without any rate lowering medication. Continue to oral rate lowering medications. Continue full oral anticoagulation. Will sign of the case. Follow-up as outpatient. Time Spent With Patient Time: Total time managing care of this patient today ____ minutes. Progress Note: Quality Stroke Does the patient have a stroke diagnosis?: No Procedures Date of Service Date of Service: 11/22/24
== END 2024-11-22 16:27 | disposition home health service (06) | DRG 292 ==
LOC: HO.ED 09:12 → HO.EDOVER 09:28 → HO.IMC 15:03
PROVIDERS: Admitting Provider Nurse Practitioner Acute Care; Emergency Provider Emergency Medicine Emergency Medical Services; PCP Internal Medicine Geriatric Medicine; Visit Provider Physician Assistant Medical
DX: I11.0 Hypertensive heart disease with heart failure (principal); J96.10 Chronic respiratory failure, unspecified whether with hypoxia or hypercapnia; I50.813 Acute on chronic right heart failure; G47.33 Obstructive sleep apnea (adult) (pediatric); E78.5 Hyperlipidemia, unspecified; Z66 Do not resuscitate; I27.29 Other secondary pulmonary hypertension; I48.91 Unspecified atrial fibrillation; R00.1 Bradycardia, unspecified; E66.01 Morbid (severe) obesity due to excess calories; Z68.34 Body mass index [BMI] 34.0-34.9, adult; Z71.3 Dietary counseling and surveillance; Z20.822 Contact with and (suspected) exposure to COVID-19; Z79.01 Long term (current) use of anticoagulants; Z79.899 Other long term (current) drug therapy
CPT/HCPCS: 0241U; 36415; 71045; 80048; 80053; 80162; 83735; 83880; 84443; 84484; 85025; 93005; 93306; 97162; 99285; J1938; J3475

== ENCOUNTER → 2024-11-18 05:20 | Outpatient (BNV) | payer OTHER, SELFPAY | PROVIDERS: Admitting Provider Nurse Practitioner Acute Care; Emergency Provider Emergency Medicine Emergency Medical Services; Visit Provider Radiology Diagnostic Radiology | DX: I51.7 Cardiomegaly (principal) | CPT/HCPCS: 71045 ==

== ENCOUNTER → 2024-11-18 09:18 | Outpatient (BNV) | payer OTHER, SELFPAY | PROVIDERS: Admitting Provider Nurse Practitioner Acute Care; Emergency Provider Emergency Medicine Emergency Medical Services; Visit Provider Internal Medicine Cardiovascular Disease | DX: I50.9 Heart failure, unspecified (principal); I48.91 Unspecified atrial fibrillation | CPT/HCPCS: 99222; 99232; 99233 ==

== ENCOUNTER → 2024-11-18 09:18 | Outpatient (BNV) | payer OTHER, SELFPAY | PROVIDERS: Admitting Provider Nurse Practitioner Acute Care; Emergency Provider Emergency Medicine Emergency Medical Services; Visit Provider Nurse Practitioner Acute Care | DX: I50.9 Heart failure, unspecified (principal); R00.1 Bradycardia, unspecified | CPT/HCPCS: 99223; 99233 ==

== ENCOUNTER 2024-12-01 11:59 | Outpatient (REF) | payer OTHER, SELFPAY ==
[2024-12-01 12:57] LABS: Anion Gap 14 (12-20); Blood Urea Nitrogen 24 mg/dL (9-16); Carbon Dioxide 32 mmol/L (22-29); Chloride 99 mmol/L (96-108); Estimated Glomerular Filt Rate 38; Glucose Random 92 mg/dL (60-115); Potassium 4.5 mmol/L (3.3-5.1); Sodium 140 mmol/L (135-145)
--- OUTSIDE RECORDS SUMMARY | 2024-12-01 14:18 | XMS_ITS | Encounter Summary ---
Author Organization [facility], Address [address] [place] [address] Phone Care Team Providers Care Rn Registry Name Role Phone Name, Jeff MACEDO Primary Care Provider [phone] Encounter Details Date Type Department Care Team (Late st Contact Info) Description 04/21/2024 Documentation Only [facility], [address] [place] [address] Tasia Lind [address] [place] [address] Social History Tobacco Use Types Packs/Day [...] on filedocumented in this encounter Care Teams Rn Registry Relationship Specialty Start Date End Date Name, MD Jeff [address] [place] [address] PCP - General Internal Medicine 02/26/24 documented as of this encounter
== END 2024-12-01 12:00 | disposition home or self-care (01) ==
LOC: HO.HVNA 11:59
PROVIDERS: Visit Provider Internal Medicine Geriatric Medicine
DX: I11.0 Hypertensive heart disease with heart failure (principal); I50.813 Acute on chronic right heart failure; I50.9 Heart failure, unspecified
CPT/HCPCS: 36415; 80048

== ENCOUNTER 2024-12-03 14:28 | Outpatient (AMB) | payer OTHER, SELFPAY ==
[2024-12-03 14:53] VITALS: BP 132/42; PULSE 52; BMI 33.7
--- NOTE | 2024-12-03 14:53 | A.OFFVIS_ITS ---
Vital Signs 12/03/24 14:53 Height 5 ft 6 in Weight 209 lb BMI 33.7 BP 132/42 L Blood Pressure Location Lt brachial Position Sitting Pulse 52 Pulse Source Monitor Intake Visit Reasons: f/up [facility] labs per NS Customer Success Manager Required: No Sludge Mill Operator: Sludge Mill Operator Present Allergies Penicillins [PENICILLINS] Adverse Reaction (Unknown, Verified 12/03/24 14:55) STOMACH UPSET Medication List - Last Reconciled 12/03/24 by ROBIN Armendariz acetaminophen 325 mg PO Q4H PRN albuterol sulfate 2.5 mg inhalation Q6H PRN apixaban (Eliquis) 5 mg PO BID 90 days bumetanide 2 mg See Protocol PO DAILY 90 days cholecalciferol (vitamin D3) 25 mcg PO DAILY empagliflozin (Jardiance) 10 mg PO DAILY lisinopril 10 mg PO DAILY utuivdagylwz-gcqc-pzmbi acid 18-400 mg-mcg (Certavite-Antioxidant) 1 tab PO DAILY pravastatin 10 mg PO BEDTIME spironolactone 25 mg See Protocol PO DAILY HPI HPI f/up [facility] labs per NS: Details: Nicole is an 84 year old female with a past medical history of hypertension, hyperlipidemia, sleep apnea, O2 2 L continuous, chronic right sided heart failure, chronic atrial fibrillation, NSTEMI 2022 who was recently admitted to [facility] with increased shortness of breath and treated for acute on chronic right-sided heart failure. She was diuresed and her Lasix was changed to Bumex. Jardiance and Aldactone were added. She was noted to have slow heart rates with her AFib and her metoprolol and digoxin were stopped. Today she reports that she has been doing well since her hospital discharge. She says her breathing is comfortable and unlabored. She is wearing her oxygen continually. No PND, orthopnea or edema. No chest discomfort at rest or with activity. No lightheadedness, presyncope, syncope, falls. Mostly sedentary, ambulates with a walker and currently sitting in a wheelchair for this visit. Taking meds as directed. No bleeding issues reported. Daughter is present and assisting with Stateless translation at their request. [facility] Medical History (Updated 12/03/24 @ 16:50 by NOAH ArmendarizC) CHF (congestive heart failure) RVF (right ventricular failure) Chronic diastolic CHF (congestive heart failure) DEBBIE (obstructive sleep apnea) New onset a-fib Atherosclerosis Varicose veins of bilateral lower extremities with pain Osteoarthritis HTN (hypertension) Obesity Osteoporosis Surgical History Hx of surgical procedure (03/01/23) History of appendectomy Status post left knee replacement Family History Son CAD (coronary artery disease) Mother CAD (coronary artery disease) Social History Household Members: Family Housing: Apartment Are you a primary animal care supervisor to a significant other at home: No Do you presently have 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) Alcohol intake: never Patient Tobacco Use Status: Never used Tobacco e-Cigarette/Vaping Use: Never Used Second Hand Smoke Exposure: No Advance Directives Date on File: 10/25/21 service: No Current occupational status: retired and disabled Review of Systems Const All systems reviewed & are unremarkable except as noted in HPI and below ENT Denies dizziness Card Denies chest pain, Denies chest pain at rest, Denies chest pain with activity, Denies rapid heart rate, Denies pedal edema, Denies edema, Denies leg edema, Denies lightheadedness, Denies palpitations, Denies dyspnea, Denies dyspnea on exertion and Denies orthopnea Resp Denies cough, Denies dyspnea and Denies dyspnea on exertion GI Denies hematochezia and Denies change in stool character Musc Denies abnormal gait, Denies limited range of motion, Denies muscle cramps, Denies muscle weakness, Denies numbness, Denies radiating pain into limb, Denies stiffness and Denies tingling Neuro Denies abnormal gait, Denies dizziness, Denies numbness and Denies tingling Endo Denies palpitations Physical Exam Vital Signs: Last Vital Signs Pulse 52 12/03/24 14:53 BP 132/42 L 12/03/24 14:53 BMI result Body Mass Index 33.7 Const General: cooperative, healthy appearing, comfortable and no acute distress Orientation/consciousness: patient oriented x3 Neck Neck: Yes normal visual inspection and Yes no JVD Resp Effort & Inspection: normal respiratory effort Auscultation: clear to auscultation bilaterally, no rales, no rhonchi and no wheezes Cardio Rate: regular rate Rhythm: regular rhythm Heart sounds: S1 normal heart sound present, S2 normal heart sound present, no murmurs and no rubs Neuro General: patient oriented x3 Extrem General: Yes normal to inspection, No no pedal edema and No calf tenderness Psych Appearance: grossly normal Mental Status: mental status grossly normal Speech and movement: Normal speech and movement present Office Procedures EKG Details: Today, read by me, atrial fibrillation with slow ventricular response, rate 52 [id number], Complete Assessment & Plan Assessment & Plan (1) Chronic diastolic CHF (congestive heart failure): Code(s): I50.32 - Chronic diastolic (congestive) heart failure Category: Medical Plan: History of chronic diastolic heart failure with recent admission for acute on chronic diastolic/right-sided heart failure/cor pulmonale. On exam today she does not appear fluid overloaded. Labs 12/01/2024 showed creatinine 1.31, potassium, BNP 79. Will have her continue Bumex, Aldactone, Jardiance. Signs and symptoms of heart failure reviewed with her. Cardiology follow-up 3 months, sooner if needed. (2) Cor pulmonale: Code(s): I27.81 - Cor pulmonale (chronic) Category: Medical Plan: As above (3) Atrial fibrillation: Code(s): I48.91 - Unspecified atrial fibrillation Category: Medical Plan: History of chronic atrial fibrillation that is treated with heart rate control. She had been on metoprolol and digoxin. During recent hospitalization she was noted to have AFib with slow ventricular response. She was taken off her metoprolol and digoxin. EKG done today is showing atrial fibrillation with slow ventricular response, rate 52, asymptomatic. Will check Holter monitor to assess for significant bradycardia or pauses. Continue Eliquis for anticoagulation. Plan to call her with results. (4) Pulmonary hypertension: Code(s): I27.20 - Pulmonary hypertension, unspecified Category: Medical Plan: History of COPD and cor pulmonale. Echocardiogram 11/18/2024 shows EF 60-65%, mildly dilated right ventricle with preserved contractility, severe biatrial enlargement, severely elevated RV systolic pressure with significantly elevated right atrial pressures, moderate to severe TR. Continue diuretics and Jardiance as above. Continue O2 use. (5) Supplemental oxygen dependent: Code(s): Z99.81 - Dependence on supplemental oxygen Category: Medical (6) DEBBIE (obstructive sleep apnea): Code(s): G47.33 - Obstructive sleep apnea (adult) (pediatric) Category: Medical Plan: Wears O2 at night. (7) HTN (hypertension): Code(s): I10 - Essential (primary) hypertension Category: Medical Plan: Blood pressure goal less than 130/80. Near goal at present. No med changes made at this time. Reviewed low-salt diet. (8) Hospital discharge follow-up: Code(s): Z09 - Encounter for follow-up examination after completed treatment for conditions other than malignant neoplasm Category: Medical Plan: Discharge reviewed Plan Time spent on chart review, documentation, interview and assessment Orders: Orders ECG 3 day holter monitor Today I48.91 - Unspecified atrial fibrillation Coding Level of Care Code Est Pt Level 4 (64330) Complex EM visit Add On G2211 Diagnoses Chronic diastolic CHF (congestive heart failure) I50.32 Cor pulmonale I27.81 Atrial fibrillation I48.91 Pulmonary hypertension I27.20 Supplemental oxygen dependent Z99.81 DEBBIE (obstructive sleep apnea) G47.33 HTN (hypertension) I10 Hospital discharge follow-up Z09 CPT Codes EKG - CPT: 28883-[id number], Complete ([id number]) Time Spent (min) 32
--- OUTSIDE RECORDS SUMMARY | 2024-12-03 17:03 | XMS_ITS | Encounter Summary ---
Author Organization [facility], Address [address] [place] [address] Phone Care Team Providers Care General Doc Name Role Phone Name, Jeff MACEDO Primary Care Provider [phone] Encounter Details Date Type Department Care Team (Late st Contact Info) Description 04/21/2024 Documentation Only [facility], [address] [place] [address] Tasia Lind [address] [place] [address] Social History Tobacco Use Types [...] on filedocumented in this encounter Care Teams General Doc Relationship Specialty Start Date End Date Name, MD Jeff [address] [place] [address] PCP - General Internal Medicine 02/26/24 documented as of this encounter
== END 2024-12-03 15:25 | disposition home or self-care (01) ==
LOC: HO.HCS 14:29
PROVIDERS: PCP Internal Medicine Geriatric Medicine; Visit Provider Nurse Practitioner Family
DX: I50.32 Chronic diastolic (congestive) heart failure (principal); I27.81 Cor pulmonale (chronic); I48.91 Unspecified atrial fibrillation; I27.20 Pulmonary hypertension, unspecified; Z99.81 Dependence on supplemental oxygen; G47.33 Obstructive sleep apnea (adult) (pediatric); I10 Essential (primary) hypertension; Z09 Encounter for follow-up examination after completed treatment for conditions other than malignant neoplasm
CPT/HCPCS: 93010; 99214; G2211

== ENCOUNTER → 2024-12-03 14:28 | Outpatient (BNVA) | payer OTHER, SELFPAY | PROVIDERS: PCP Internal Medicine Geriatric Medicine; Visit Provider Nurse Practitioner Family | DX: I50.32 Chronic diastolic (congestive) heart failure (principal); I27.81 Cor pulmonale (chronic); I48.91 Unspecified atrial fibrillation; Z99.81 Dependence on supplemental oxygen; G47.33 Obstructive sleep apnea (adult) (pediatric); I10 Essential (primary) hypertension | CPT/HCPCS: 93005; 99212 ==

== ENCOUNTER → 2025-01-22 13:02 | Outpatient (REF) | payer OTHER, SELFPAY ==
--- NOTE | 2025-01-22 13:04 | HM_ITS ---
Conclusion: 1. Patient was monitored for total period of 2 days and 19 hours 2. Baseline was atrial fibrillation with average heart of 80 beats per minute with good rate control 3. No significant pauses noted 4. Rare PVCs noted 5. No patient reported events MTDD
--- OUTSIDE RECORDS SUMMARY | 2025-01-22 13:05 | XMS_ITS | Clinical Summary ---
Author Organization [facility] Address [address] [place] [id number] Phone Care Team Providers Care Direct Sales Professional Name Role Phone Unavailable Primary Care Provider Unavailabl e Social History Tobacco Use Types Packs/Day Years Used Date Smoking Tobacco: Never Assessed Education Answer Date Recorded Are you interested in more education? Not on fabienne e 10/19/2022 Are you concerned about learning? Not on file 10/19/2022 No 10/19/2022 No 10/19/2022 Digital Access Answer Date Recorded No 11/19/2022 No 11/19/2022 No 11/19/2022 Reliable internet access at home? Not on file 11/19/2022 Device with a working camera? Not on file Comments Unknown Sex and Gender Information Value Date Recorded Sex Assigned at Not on file Legal Sex Female 10:38 PM EDT Gender Identity Not on file Sexual Orientation Not on file Plan of Treatment Health Maintenance Due Date Last Done Comments DEPRESSION SCREENING 1950 OSTEOPOROSIS SCREENING INITI AL (ONE-TIME) 09/21/2003 ZOSTER VACCINES (2 of 3) 05/05/2013 03/10/2013 RSV VACCINE (1 - 1-dose 75+ series) 2013 PNEUMOCOCCAL VACCINES (50+ years) (2 of 2 - PCV) 12/31/2013 12/31/2012, 06/10/2000 Adult Td,Tdap Booster 12/31/2022 12/31/2012 , 06/28/1998 COVID-19 VACCINE ( - 2023-2 5 season) 2024 09/16/2020, 08/19/2020 HEPATITIS A VACCINES Aged Out No long er eligible based on patient's age to complete this topic HIB VACCINES Aged Out No longer eligi ble based on patient's age to complete this topic MENINGOCOCCAL VACCINES (ACWY) Aged Out No longer eligible based on patient's age to complete this topic MENINGOCOCCAL VACCINES (B) Aged Out N o longer eligible based on patient's age to complete this topic Medical Devices Not on file Additional Source Comments The information contained in this document represents components of the legal health record. It is not the complete legal health record.[facility]
--- OUTSIDE RECORDS SUMMARY | 2025-01-22 13:05 | XMS_ITS | Patient Health Record ---
Author Organization [facility] Address [address] [place] [address] Care Team Providers Care Smoked Meat Preparer Name Role Phone Donnell LEE, Elijah Primary Care Provider Dustin De La Garza Unavailable [phone] Allergies Allergen (clinical drug ingredient) Drug/Non Drug Allergy documented on EMR Reaction Allergy Type Onset Date Status Penicillin Unknown Drug Allergy Active Reason For Referral No Information Medications Medication SIG (Take, Route, Frequency, Duration) Notes Start Date End Date Status Pain Reliever/Fever Application Support Analyst 325mg Active Specialty Vitamins Products Active Lisinopril 20mg Acti ve hydroCHLOROthiazide 12.5mg Active Meclizine HCl 25mg A ctive Pravastatin Sodium 10mg Active Colyte with Flavor Packs 227 .1 GM As directed Orally As directed for 1 day(s) 05/14/2013 Active Vitamin D3 Active Aspir-81 81mg Active Problems Problem Type SNOMED Code ICD Code Onset Dates Problem Status W/U Status Risk Notes Problem Heme + stool (792.1) Active confirmed Plan Of Treatment Future Test Test Name Order Date COLONOSCOPY 05/14/2013 Insurance Providers Payer Name Payer Address Payer Phone Subscriber Number Group Number Insured Name Patient Relationship to Insured Coverage Start Date Coverage End Date [facility] [address] [place] [address] [phone] [id number] LAURIE ADAMS Self - patient is the insured MEDICARE OF [place] [address] [place] [address] [id number] LAURIE ADAMS Self - patient is the insured Medical (General) History Medical History History ICD Code Denies [place],DM,CVA,Lung disease,renal dise ase HTN High cholesterol Vertigo Surgical History Surgery Date(Month/Year) left knee replacement 1992
--- OUTSIDE RECORDS SUMMARY | 2025-01-22 13:05 | XMS_ITS | Encounter Summary ---
Author Organization [employer] Address [address] [facility] 7t [place] [address] Care Team Providers Care Load Manager Name Role Phone Name, Jeff MACEDO Primary Care Provider [phone] Reason for Visit * Reason Onset Date Comments Durable Medical Equipment 01/21/2025 Encounter Details Date Type Department Care Team ([facility] st Contact Info) Description 01/21/2025 Telephone [facility] [address] [place] [address] Name, MD Jeff [address] [place] [address] Durable Medical Equipment Social History Tobacco Use Types Packs/Day Years Used Date Smoking Tobacco: Never Smokeless Tobacco: Never Alcohol Use Standard Drinks/Week Comments Never 0 (1 standard drink = 0.6 oz pur e alcohol) Depression Answer Date Recorded Patient Health Questionnaire-9 Score 5 12/04/2024 Patient Health Questionnaire-9 Score 5 12/04/2024 Last PHQ-9: Questionnaire Data Not on file 0 12/04/2024 Housing Stability Answer Date Recorded What is [...] Date Recorded Patient Health Questionnaire-2 Score 0 12/04/2024 Internet Access Answer Date Recorded Internet Access [...] encounter Miscellaneous Notes * Telephone Encounter - Deonna Pace - 01/21/2025 1:15 PM EDT Tc from pt daughter requesting a DME order for pull up diapers size XL. Order to be sent to [employer]. Contact pt daughter at [phone] documented in this encounter Plan of Treatment Upcoming Encounters Date Type Department Care Team (Late st Contact Info) Description 01/27/2025 3:15 PM EDT Office Visit [facility] [address] [place] [address] Name, MD Jeff [address] [place] [address] documented as of this encounter Visit Diagnoses Not on filedocumented in this encounter Additional Health Concerns Assessment Noted Time PHQ-9 Depression Total Score: 5 12/05/19 25 2:19 PM EDT documented as of this encounter Care Teams Load Manager Relationship Specialty Start Date End Date Jeff Ernandez MD [address] [place] [address] PCP - General Family Medicine [facility] documented as of this encounter
--- OUTSIDE RECORDS SUMMARY | 2025-01-22 13:05 | XMS_ITS | Encounter Summary ---
Author Organization [facility], Address [address] [place] [address] Phone Care Team Providers Care Obstetrician And Gynaecologist Name Role Phone Name, Jeff MACEDO Primary Care Provider Unavailabl e Encounter Details Date Type Department Care Team (Late st Contact Info) Description 04/21/2024 Documentation Only [facility], [address] [place] [address] Tasia Lind [address] [place] [address] Social History Tobacco Use Types [...] on filedocumented in this encounter Care Teams Obstetrician And Gynaecologist Relationship Specialty Start Date End Date Name, MD Jeff PCP - General Internal Medicine 02/26/24 documented as of this encounter
== END ==
LOC: HO.CARD 13:02
PROVIDERS: Visit Provider Nurse Practitioner Family
DX: I48.91 Unspecified atrial fibrillation (principal)
CPT/HCPCS: 93242

== ENCOUNTER → 2025-01-22 13:04 | Outpatient (BNV) | payer OTHER, SELFPAY | PROVIDERS: Visit Provider Internal Medicine Cardiovascular Disease | DX: I48.91 Unspecified atrial fibrillation (principal); I49.3 Ventricular premature depolarization | CPT/HCPCS: 93244 ==

== ENCOUNTER 2025-02-19 12:40 | Outpatient (REF) | payer OTHER, SELFPAY ==
--- OUTSIDE RECORDS SUMMARY | 2025-02-19 13:03 | XMS_ITS | Encounter Summary ---
Author Organization [facility], Address [address] [place] [address] Phone Care Team Providers Care Market Research Intern Name Role Phone Name, Jeff MACEDO Primary Care Provider [phone] Encounter Details Date Type Department Care Team (Late st Contact Info) Description 06/15/2021 Documentation Only [facility], [address] [place] [address] Amari Gonsalves MD [address] [place] [address] Social History Tobacco Use Types [...] on filedocumented in this encounter Care Teams Market Research Intern Relationship Specialty Start Date End Date Name, MD Jeff [address] [place] [address] PCP - General Internal Medicine 02/26/24 documented as of this encounter
--- OUTSIDE RECORDS SUMMARY | 2025-02-19 13:03 | XMS_ITS | Encounter Summary ---
Author Organization [employer] Address [address] [facility] 7t [place] [address] Care Team Providers Care Fire Crew Worker Name Role Phone Name, Jeff MACEDO Primary Care Provider [phone] Reason for Visit * Reason Onset Date Comments Medication Question 02/15/2025 Encounter Details Date Type Department Care Team ([facility] st Contact Info) Description 02/15/2025 Refill [facility]INE [address] [place] [address] Name, MD Jeff [address] [place] [address] Social History Tobacco Use Types Packs/Day Years [...] encounter Miscellaneous Notes * Telephone Encounter - Jackeline Tomlinson RN - 02/15/2025 4:25 PM EDT Images from the original note were not included. Lab order faxed to Isabel VILLEDA at [phone] to have lab drawn in pt home. Confirmation received and placed in medical records bin for scanning. TC placed to pt via [employer] electrical instrumentation technician (Cesar ID#[id number]) per below PCP message. No answer, LVM to call office back and ask to speak to the blue team nurses. Pended bumetanide (Bumex) 1 MG tablet and Jardiance 10 MG for review and completion. Jeff Ernandez MD to Me (Selected Message) EN 02/15/25 1:52 PM I am ok with refilling the jardiance and Bumex. We need a BMP to check the K prior to refilling theAldactone, I order the test last visit, maybe [facility] can do it at patient's home * Telephone Encounter - Handy Hinton - 02/15/2025 12:48 PM EDT TC from pt requesting medication refill on meds prescribed by ER Medications needing refill : spironolactone (Aldactone) 25 MG tablet Jardiance 10 MG bumetanide (Bumex) 1 MG tablet To be sent to: [facility] - [place], [place] - [address] [facility] documented in this encounter Plan of Treatment Upcoming Encounters Date Type Department Care Team ([facility] st Contact Info) Description 04/06/2025 11:30 AM EDT Telemedicine [facility] [address] [facility] [place] [address] Name, MD Jeff [address] [place] [address] documented as of this encounter Visit Diagnoses Not on filedocumented in this encounter Additional Health Concerns Assessment Noted Time PHQ-9 Depression Total Score: 5 12/05/19 25 2:19 PM EDT documented as of this encounter Care Teams Fire Crew Worker Relationship Specialty Start Date End Date Name, [place] [address] PCP - General Family Medicine [facility] documented as of this encounter
--- OUTSIDE RECORDS SUMMARY | 2025-02-19 13:03 | XMS_ITS | Encounter Summary ---
Author Organization [employer] Address [address] [facility] 7t [place] [address] Care Team Providers Care Property Underwriter Name Role Phone Name, Jeff MACEDO Primary Care Provider [phone] Reason for Visit * Reason Onset Date Comments Hospital Follow-up 09/19/2023 Encounter Details Date Type Department Care Team ([facility] st Contact Info) Description 09/19/2023 Telephone [facility] [address] [place], [place] [phone] Name, MD Jeff [address] [place] [address] Hospital Follow-up Social History Tobacco Use Types [...] with others, in a hotel, in a alf, living outside on the street, on a [...] from pt requesting a HDF appt. Hospital: [facility] Date of admission: 09/14 Discharge date: 09/17 Diagnosed: Fluid in her lungs and elevated heart rate documented in this encounter Plan of Treatment Upcoming Encounters Date Type Department Care Team (Late st Contact Info) Description 04/06/2025 11:30 AM EDT Telemedicine [facility] [address] [place] [address] Name, MD Jeff [address] [place] [address] documented as of this encounter Visit Diagnoses Not on filedocumented in this encounter Additional Health Concerns Assessment Noted Time PHQ-9 Depression Total Score: 0 02/12/20 23 2:01 PM EDT documented as of this encounter Care Teams Property Underwriter Relationship Specialty Start Date End Date Name, MD Jeff [address] [place] [address] PCP - General Family Medicine [facility] documented as of this encounter
--- OUTSIDE RECORDS SUMMARY | 2025-02-19 13:03 | XMS_ITS | Encounter Summary ---
Author Organization [facility], Address [address] [place] [address] Phone Care Team Providers Care Slope Tender Name Role Phone Name, Jeff MACEDO Primary Care Provider [phone] Encounter Details Date Type Department Care Team (Late st Contact Info) Description 09/11/2023 Documentation Only [facility], [address] [place] [address] Tasia Lind [address] [place] [address] Social History Tobacco Use Types [...] on filedocumented in this encounter Care Teams Slope Tender Relationship Specialty Start Date End Date Name, MD Jeff [address] [place] [address] PCP - General Internal Medicine 02/26/24 documented as of this encounter
--- OUTSIDE RECORDS SUMMARY | 2025-02-19 13:03 | XMS_ITS | Clinical Summary ---
Author Organization [facility], Address [address] [place] [address] [place] [address] Phone Care Team Providers Care Automation And Control Engineer Name Role Phone Name, Jeff MACEDO Primary Care Provider [phone] Allergies Active Allergy Reactions Criticality Noted Date [...] day 3 Active lisinopril 10 MG tablet TOMYasmine AIDA TABLETA TODOS LOS D 3 Active [...] 02/26/2024 2:16 PM EDT Plan of Treatment Health Maintenance Due Date Last Done Comments Pneumococcal Vaccine: 50+ Years (3 of 3 - PCV) 12/31/2013 12/31/2012, 06/10/2000 Influenza Vaccine (#1) 2025 Pneumococcal Vaccine: Peds (0 to 5 Years) and At-Risk Patients (6 to 49 Years) Discontinued 12/31/2012, 06/10/2000 Hepatitis B Vaccine Aged Out No longe r eligible based on patient's age to complete this topic Insurance [facility] One [employer] Dual SNP ([id number]) Care Teams Automation And Control Engineer Relationship Specialty Start Date End Date Name, MD Jeff [address] [place] [address] PCP - General Internal Medicine 02/26/24
--- OUTSIDE RECORDS SUMMARY | 2025-02-19 13:03 | XMS_ITS | Clinical Summary ---
Author Organization [employer] Address [address] [place] [address] 7t [place] [address] Care Team Providers Care Client Services Representative Name Role Phone Name, Jeff MACEDO Primary Care Provider Allergies Active Allergy Reactions Criticality Noted Date Comments Cortisone 03/21/2017 Penicillins Other reaction(s): unspecified, unspecified Medications apixaban (Eliquis) 5 MG tablet Take 5 mg by mouth 2 times daily. Active albuterol 108 (90 Base) MCG/ACT inhalerIndicati ons:Essential hypertension INHALE 2 PUFF BY INHALATION ROUTE EVERY 4 - 6 HOURS NEEDED NEEDED FOR WHEEZE 18 g 1 023 Active albuterol (2.5 MG/3ML) 0.083% nebulizer solution Take 3 mL (2.5 mg) by nebulization every 6 (six) hours if needed for wheezing. 75 mL 11 024 Active spironolactone (Aldactone) 25 MG tablet Take 1 tablet by mouth in the morning. 024 Active Multiple Vitamins-Minera ls (CertaVite/Anti oxidants) tabletIndicatio ns:Routine general medical examination at a health care facility Take 1 tablet by mouth in the morning. 90 tablet 3 024 Active clotrimazole (Lotrimin) 1 % cream Apply topically 2 times daily for 28 days. Apply under breasts 30 g 5 025 2024 Active bacitracin 500 UNIT/GM ointment Apply topically 2 times daily. 28 g 025 Active amLODIPine (Norvasc) 5 MG tabletIndicatio ns:Hypertension , unspecified type TAKE 1 TABLET BY MOUTH EVERY MORNING 90 tablet 1 Active acetaminophen (Tylenol 8 Hour) 650 MG ER tablet TAKE 1 TABLET BY MOUTH EVERY 8 HOURS NEEDED FOR MODERATE PAIN 90 tablet 1 025 Active bumetanide (Bumex) 1 MG tablet Take 2 tablets (2 mg) by mouth Once per day. 60 tablet 025 2024 Active Jardiance 10 MG Take 1 tablet (10 mg) by mouth Once per day. 30 tablet 025 2024 Active pravastatin (Pravachol) 10 MG tabletIndicatio ns:Essential hypertension TAKE 1 TABLET BY MOUTH AT BEDTIME 90 tablet 1 Active D3-1000 25 MCG (1000 UT) capsule TAKE 1 TABLET BY MOUTH EVERY MORNING 90 capsule 1 Active lisinopril 10 MG tabletIndicatio ns:Essential hypertension TAKE 1 TABLET BY MOUTH EVERY MORNING 90 tablet 1 Active amLODIPine (Norvasc) 5 MG tabletIndicatio ns:Hypertension , unspecified type TAKE 1 TABLET BY MOUTH EVERY MORNING 90 tablet 1 025 2024 Discontinued D3-1000 25 MCG (1000 UT) capsule TAKE 1 CAPSULE BY MOUTH EVERY MORNING 90 capsule 025 2024 Discontinued pravastatin (Pravachol) 10 MG tabletIndicatio ns:Essential hypertension TAKE 1 TABLET BY MOUTH AT BEDTIME 90 tablet 025 2024 Discontinued lisinopril 10 MG tabletIndicatio ns:Essential hypertension TAKE 1 TABLET BY MOUTH EVERY MORNING 90 tablet 025 2024 Discontinued bumetanide (Bumex) 1 MG tablet Take 2 tablets by mouth Once per day. 025 2024 Discontinued(R eorder (will not trigger notification to Pharmacy)) Jardiance 10 MG Take 1 tablet by mouth Once per day. 025 2024 Discontinued(R eorder (will not trigger notification to Pharmacy)) acetaminophen (Tylenol 8 Hour) 650 MG ER tablet Take 1 tablet (650 mg) by mouth every 8 (eight) hours if needed for moderate pain. 90 tablet 1 025 2024 Discontinued meclizine (Antivert) 25 MG tablet Take 0.5 tablets (12.5 mg) by mouth if needed in the morning, at noon, and at bedtime for dizziness for up to 10 days. 30 tablet 025 2024 Active Problems Problem Noted Date Diagnosed Date Moderate persistent asthma 10/21/2023 Trigger middle finger of left hand 10/21/2023 Assessment & Plan (11/04/2023 1:27 PM EDT): Referral to ortho Numbness and tingling of left leg 10/21/2023 Assessment & Plan (11/04/2023 1:26 PM EDT): Chronic issue, referral to vascular, suspect varicose veins, pt cannot tolerate compression stockings Chronic right-sided heart failure 08/15/2023 Overview (01/27/2025): Echocardiogram 11/18/2024 shows EF 60-65%, mildly dilated right ventricle with preserved contractility, severe biatrial enlargement, severely elevated RV systolic pressure with significantly elevated right atrial pressures, moderate to severe TR Assessment & Plan (12/04/2024 12:37 PM EDT): -lasix discontinued during hospital stay 11/18. Replaced with bumetanide 2mg daily -encouraged daily weighing and report significant changes Assessment & Plan (11/04/2023 1:27 PM EDT): [...] Encounters Date Type Department Care Team Description 02/16/2025 Refill [facility] [address] [place] [address] Jeff Ernandez MD Essential hypertension 02/15/2025 Refill [facility] [address] [place] [address] Jeff Ernandez MD 02/12/2025 Telephone [facility] [address] [place] [address] Jeff Ernandez MD Durable Medical Equipment 02/04/2025 Refill [facility] [address] [place] [address] Ning Panchal NP 02/02/2025 Refill [facility] [address] [place] [address] Jeff Ernandez MD Hypertension, unspecified type 01/29/2025 Telephone [facility] [address] [place] [address] Jeff Ernandez MD Durable Medical Equipment 01/27/2025 3:15 PM EDT Office Visit [facility] [place] [address] Jeff Ernandez MD Chronic right-sided heart failure (CMS/HCC) (Primary Dx); Oxygen dependent; Stage 3a chronic kidney disease (CMS/HCC); Persistent atrial fibrillation (CMS/HCC); Dizziness; Osteoarthritis of left knee, unspecified osteoarthritis type; Chronic pain of left knee; Tinea corporis 01/27/2025 Travel 01/21/2025 Telephone [facility] [address] [place] [address] Jeff Ernandez MD Durable Medical Equipment 01/21/2025 Telephone [facility] [address] [place] [address] Jeff Ernandez MD Durable Medical Equipment 01/20/2025 Telephone [facility] [address] [place] [address] Jeff Ernandez MD No Show (Pt no show for sick on site ) 01/19/[address] [address] Edmund Trammell [place] CHARTPREP 01/18/[address] [address] Jeff Ernandez MD 01/15/[address] [address] Jeff Ernandez MD Nurse Triage 12/28/[address] [address] Edmund Trammell [place] CHARTPREP 12/21/2024 Patient Outreach [address] [address] Jeff Ernandez MD Pre-visit Planning (SDOH screening completed on 12/04/2024) 12/15/[address] [address] Jeff Ernandez MD Nurse Triage 12/04/2024 2:00 PM EDT Office Visit [address] [address] Ning Panchal NP Hospital discharge follow-up (Primary Dx); Vertigo 12/04/2024 Travel 12/03/[address] [address] Edmund Trammell [place] CHARTPREP 11/23/[address] [address] Jeff Ernandez MD 11/23/[address] [phone] Jeff Ernandez MD Durable Medical Equipment from Last 3 Months Immunizations Immunization Administration Dates Next Due Moderna Covid-19 Vaccine [...] Sign Reading Time Taken Comments Blood Pressure 110/50 01/27/2025 3:20 PM EDT Pulse 65 01/27/2025 3:20 PM EDT Temperature 36.9 C (98.4 F) 01/27/2025 3:20 PM EDT Respiratory Rate 16 01/27/2025 3:20 PM EDT Oxygen Saturation 94% 01/27/2025 3:20 PM EDT Inhaled Oxygen Concentration - - Weight 94.8 kg (209 lb) 12/04/2024 1:56 PM EDT Height 160 cm (5' 3 ) 12/04/2024 1:56 PM EDT Body Mass Index 37.02 12/04/2024 1:56 PM EDT Plan of Treatment Upcoming Encounters Date Type Department Care Team (Late st Contact Info) Description 04/06/2025 11:30 AM EDT Telemedicine [facility] [address] [place] [address] Name, MD Jeff [address] [place] [address] Health Maintenance Due Date Last Done Comments Zoster Vaccines (2 of 3) 05/05/2013 03/10/2013 RSV Patients and Patients Aged 60 years or older (1 - 1-dose 75+ series) 2013 Pneumococcal Vaccine: 50+ Years (2 of 2 - PCV) 12/31/2013 12/31/2012, 06/10/2000 DTaP/Tdap/Td Vaccines (2 - T d or Tdap) 12/31/2022 12/31/2012, 06/28/1998 COVID-19 Vaccine (3 - 2023-2 5 season) 2024 09/16/2020, 08/19/2020 Influenza Vaccine (#1) 2025 Alcohol/Substance Use Screening 12/04/2025 12/04/2024 Depression Screening 12/04/2025 12/04/2024, 12/04/2024 SDOH Screening 12/04/2025 12/04/2024 Tobacco Screening 12/04/2025 12/04/2024 Lipid Panel 03/28/2028 03/28/2023 HIB Vaccines Aged [...] patient's age to complete this topic Meningococcal B Vaccine Aged Out No l onger eligible based on patient's age to complete [...] Procedure Name Priority Date/Time Associated Diagnosis Comments BASIC METABOLIC PANEL Routine 12/01/2024 11:30 AM EDT LIPID PANEL, STANDARD Routine 03/28/2023 9:37 AM EDT Essential hypertension Vaccination refused by patient from Last 3 Months or Most Recently Relevant to Health Maintenance Results * (ABNORMAL) Basic Metabolic Panel (12/01/2024 11:30 AM EDT) Sodium 140 135 - 145 mmol/L [facility] Potassium 4.5 3.3 - 5.1 mmol/L [facility] Chloride 99 96 - 108 mmol/L [facility] Carbon Dioxide 32(H) 22 - 29 mmol/L [facility] Anion Gap 14 12 - 20 [facility] Urea Nitrogen (BUN) 24(H) 9 - 16 mg/dL [facility] Creatinine, Serum 1.31 0.5 - 1.4 mg/dL [facility] Estimated Glomerular Filt Rate 38 [facility] Comment:Chronic Kidney Disea se: Estimated GFR < 60 mL/min/1.82v8Mxneib Kidney Disease: Estimated GFR < 15 mL/min/1.73m2 Glucose 92 60 - 115 mg/dL [facility] Calcium 10.0 8.4 - 10.2 mg/dL [facility] 12/01/2024 11:3 0 AM EDT 12/01/2024 12:02 PM EDT us Jeff Ernandez MD LAB BLOOD ORDERABLES Final Resul t [facility] [address] [place] [phone] * (ABNORMAL) Lipid Panel, Standard (03/28/2023 9:37 AM EDT) Triglycerides 91 <150 mg/dL [facility] Comment:Desirable Triglyceri de: less than 150 mg/dLBorderline High Triglyceride 150-199 mg/dLHigh Triglyceride: 200-499 mg/dLVery High Triglyceride: greater than or equal to 5OO mg/dL Cholesterol 107 <200 mg/dL [facility] Comment:Desirable Cholestero l: less than 200 mg/dLBorderline High Cholesterol: 200-239 mg/dLHigh Cholesterol: greater than 239 mg/dL LDL Cholesterol Calculated 53 <100 mg/dL [facility] Comment:Desirable LDL: less than 100 mg/dLNear Optimal/Above Optimal LDL: 110- 129 mg/dLBorderline High LDL: 130-159 mg/dLHigh LDL: 160-189 mg/dLVery High LDL: greater than or equal to 190 mg/dL HDL Cholesterol 36(L) >40 mg/dL [facility] Comment:Desirable HDL: great er than 40 mg/dL Note: This HDL assay may give artificially low results in patients with liver disease. Blood Venous blood specimen / Unknown 03/28/2023 9:37 AM EDT 03/28/2023 11:31 AM EDT us Jeff Name LAB BLOOD ORDERABLES Final Resul t [facility] [address] [place] [address] [phone] from Last 3 Months or Most Recently Relevant to Health Maintenance Insurance [employer] (HMO D-SNP) Care Teams Client Services Representative Relationship Specialty Start Date End Date Name, MD Jeff [address] [place] [address] PCP - General Family Medicine [facility]
--- OUTSIDE RECORDS SUMMARY | 2025-02-19 13:03 | XMS_ITS | Encounter Summary ---
Author Organization [employer] Address [address] [facility] 7t [place] [address] Care Team Providers Care Tank Welder Name Role Phone Name, Jeff MACEDO Primary Care Provider [phone] Reason for Visit * Reason Onset Date Comments Nurse Triage 09/02/2023 Encounter Details Date Type Department Care Team ([facility] st Contact Info) Description 09/02/2023 Telephone [facility]INE [address] [place], [place] [phone] Name, MD Jeff [address] [place] [address] Nurse Triage Social History Tobacco Use Types [...] with others, in a hotel, in a detention, living outside on the street, on a [...] 11:26 AM EDT T/C [place] pt. [place] - [id number] for status check, pt. States she is doing good. She is feeling way better then yesterday, no concerns right now. Pt. Offered follow up apt. But denies states she is felling good and will kept follow up apt. Which is schedule in September. Pt. Informed to give call to [facility] in case of any new or worsening symptoms, or any questions or concerns. Pt. Verbally agreed and understood. * Telephone Encounter - Myrna Mcmanus RN - 09/02/2023 10:22 AM EDT Call to Nicole Melendez , pt daughter answers but not with patient. Advised repairer typewriter to call alt number. Call to Nciole Melendez, reports having sx of cough and chest congestion. Per pt has been using albuterol. Per pt not productive. Per pt having chest tightness. Per pt mild relief with nebulizer. NoOTC medications for cough. Pt drinking fluids. Pt having wheezing intermittent. Having SOB even at rest. No swelling reported. Pt unable to come into [facility], agrees to instED for eval. Sent to [...] Info) Description 04/06/2025 11:30 AM EDT Telemedicine [facility] MEDICINE [address] [place] [address] Name, MD Jeff [address] [place] [address] documented as of this encounter Visit Diagnoses Not on filedocumented in this encounter Additional Health Concerns Assessment Noted Time PHQ-9 Depression Total Score: 0 02/12/20 23 2:01 PM EDT documented as of this encounter Care Teams Tank Welder Relationship Specialty Start Date End Date Name, MD Jeff [address] [place] [address] PCP - General Family Medicine 02/17/22 Isabel VILLEDA 11/24/24 documented as of this encounter
--- OUTSIDE RECORDS SUMMARY | 2025-02-19 13:03 | XMS_ITS | Encounter Summary ---
Author Organization [facility], Address [address] [place] [address] Phone Care Team Providers Care Associate Account Executive Name Role Phone Name, Jeff MACEDO Primary Care Provider [phone] Encounter Details Date Type Department Care Team (Late st Contact Info) Description 07/12/2022 Documentation Only [facility], [address] [place] [address] Silvia Goode PA [address] [place] [address] Social History Tobacco Use Types Packs/Day Years [...] on filedocumented in this encounter Care Teams Associate Account Executive Relationship Specialty Start Date End Date Name, MD Jeff [address] [place] [address] PCP - General Internal Medicine 02/26/24 documented as of this encounter
--- OUTSIDE RECORDS SUMMARY | 2025-02-19 13:03 | XMS_ITS | Encounter Summary ---
Author Organization [employer] Address [address] [facility] 7t [place] [address] Care Team Providers Care Keel Press Operator Name Role Phone Name, Jeff MACEDO Primary Care Provider [phone] Encounter Details Date Type Department Care Team ([facility] st Contact Info) Description 05/21/2023 Telephone [facility] MEDICINE [address] [place], [place] [phone] Name, MD Jeff [address] [place] [address] Social History Tobacco Use Types Packs/Day Years [...] others, in a hotel, in a senior living, living outside on the street, on a [...] Info) Description 04/06/2025 11:30 AM EDT Telemedicine [facility] MEDICINE [address] [place] [address] Name, MD Jeff [address] [place] [address] documented as of this encounter Visit Diagnoses Not on filedocumented in this encounter Additional Health Concerns Assessment Noted Time PHQ-9 Depression Total Score: 0 02/12/20 23 2:01 PM EDT documented as of this encounter Care Teams Keel Press Operator Relationship Specialty Start Date End Date Name, MD Jeff [address] [place] [address] PCP - General Family Medicine 02/17/22 Isabel VILLEDA 11/24/24 documented as of this encounter
--- OUTSIDE RECORDS SUMMARY | 2025-02-19 13:03 | XMS_ITS | Encounter Summary ---
Author Organization [employer] Address [address] [facility] 7t [place] [address] Care Team Providers Care Orthotic And Prosthetic Technician Name Role Phone Name, Jeff MACEDO Primary Care Provider [phone] Reason for Visit * Reason Onset Date Comments triage 08/17/2022 Encounter Details Date Type Department Care Team ([facility] st Contact Info) Description 08/17/2022 Telephone [facility] MEDICINE [address] [place], [place] [phone] Name, MD Jeff [address] [place] [phone] triage Social History Tobacco Use Types Packs/Day [...] Miscellaneous Notes * Telephone Encounter - Dulce Whitaker LPN - 08/17/2022 2:03 PM EST Triage call returned to patient via Kanshu Hard Hat Diver [id number]. Patient is alert and verbal able tomake [...] walking The caller accepted this outcome speaks ethiopian documented in this encounter Plan of Treatment Upcoming Encounters Date Type Department Care Team (Late st Contact Info) Description 04/06/2025 11:30 AM EDT Telemedicine [facility] MEDICINE [address] [place] [address] Name, MD Jeff [address] [place] [address] documented as of this encounter Visit Diagnoses Not on filedocumented in this encounter Care Teams Orthotic And Prosthetic Technician Relationship Specialty Start Date End Date Name, MD Jeff [address] [place] [address] PCP - General Family Medicine 02/17/22 Isabel LYNNA 11/24/24 documented as of this encounter
--- OUTSIDE RECORDS SUMMARY | 2025-02-19 13:03 | XMS_ITS | Encounter Summary ---
Author Organization [employer] Address [address] [facility] 7t [place] [address] Care Team Providers Care Concrete Pourer Name Role Phone Name, Jeff MACEDO Primary Care Provider [phone] Reason for Visit * Reason Onset Date Comments Appointment Request 10/09/2024 Encounter Details Date Type Department Care Team ([facility] st Contact Info) Description 10/09/2024 Telephone [facility] MEDICINE 230 [place] [address] Name, MD Jeff [address] [place] [address] Appointment Request Social History Tobacco Use Types Packs/Day Years [...] AM EDT documented as of this encounter Functional Status * Over the past 2 weeks, how often have you been bothered by any of the following problems? Question Answer Date of Assessment Author Patient Health Questionnaire -2 Score 0 12/04/2024 2:19 PM EDT Edmund Trammell MA * Little interest or pleasure in doing things Answer Date of Assessment Author Not at all 12/04/2024 2:19 PM EDT Edmund Trammell MA * Feeling down, depressed, or hopeless Answer Date of Assessment Author Not at all 12/04/2024 2:19 PM GERTRUDIST Edmund Trammell MA * Trouble falling or staying asleep, or sleeping too much Answer Date of Assessment Author Nearly every day 12/04/2024 2:19 PM EDT Edmund Trammell MA * Feeling tired or having little energy Answer Date of Assessment Author More than half the days 12/04/2024 2:19 PM EDT Edmund Yoo MA * Poor appetite or overeating Answer Date of Assessment Author Not at all 12/04/2024 2:19 PM GERTRUDIST Edmund Trammell MA * Feeling bad about yourself - or that you are a failure or have let yourself or your family down Answer Date of Assessment Author Not at all 12/04/2024 2:19 PM GERTRUDIST Edmund Trammell MA * Trouble concentrating on things, such as reading the newspaper or watching television Answer Date of Assessment Author Not at all 12/04/2024 2:19 PM EDT Edmund Trammell MA * Moving or speaking so slowly that other people could have noticed? Or the opposite - being so fidgety or restless that you have been moving around a lot more than usual. Answer Date of Assessment Author Not at all 12/04/2024 2:19 PM EDT Edmund Trammell MA * Thoughts that you would be better off or hurting yourself in some way Answer Date of Assessment Author Not at all 12/04/2024 2:19 PM EDT Edmund Trammell MA * Patient Health Questionnaire-9 Score Answer Date of Assessment Author 5 12/04/2024 2:19 PM EDT Edmund Trammell MA * How difficult have these problems made it for you to do your work, take care of things at home, or get along with other people? Answer Date of Assessment Author Not difficult at all 12/04/2024 2:19 PM EDT Edmund Shields MA * Over the last 2 weeks, how often have you been bothered by any of the following problems? Question Answer Date of Assessment Author Feeling nervous, anxious, or on edge 0 12/04/2024 2:20 PM EDT Edmund Trammell MA Not being able to stop or co ntrol worrying 0 12/04/2024 2:20 PM EDT Edmund Trammell MA Worrying too much about diff erent things 0 12/04/2024 2:20 PM EDT Edmund Trammell MA Trouble relaxing 0 12/04/2024 2:20 PM EDT Edmund Yoo MA Being so restless that it is hard to sit still 0 12/04/2024 2:20 PM EDT Edmund Trammell MA Becoming easily annoyed or irritable 0 12/04/2024 2:20 PM EDT Edmund Trammell MA Feeling afraid as if somethi ng awful might happen 0 12/04/2024 2:20 PM EDT Edmund Trammell MA SHANTI-7 Total Score 0 12/04/2024 2:20 PM EDT Edmund Trammell MA documented as of this encounter Miscellaneous Notes * Telephone Encounter - Roberta Sanchez - 10/09/2024 1:33 PM EDT Tc from pt requisting to reschedule physical appt, fiction and nonfiction writer prose unable to fine appt Contact [phone] documented in this encounter Plan of Treatment Upcoming Encounters Date Type Department Care Team (Late st Contact Info) Description 04/06/2025 11:30 AM EDT Telemedicine [facility] MEDICINE [address] [place] [address] Name, MD Jeff [address] [place] [address] documented as of this encounter Visit Diagnoses Not on filedocumented in this encounter Additional Health Concerns Assessment Noted Time PHQ-9 Depression Total Score: 0 02/12/20 23 2:01 PM EDT documented as of this encounter Care Teams Concrete Pourer Relationship Specialty Start Date End Date Name, MD Jeff [address] [place] [address] PCP - General Family Medicine 02/17/22 Isabel LYNNA 11/24/24 documented as of this encounter
--- OUTSIDE RECORDS SUMMARY | 2025-02-19 13:03 | XMS_ITS | Encounter Summary ---
Author Organization [facility], Address [address] [place] [address] Phone Care Team Providers Care Marble Supervisor Name Role Phone Name, Jeff MACEDO Primary Care Provider Encounter Details Date Type Department Care Team (Late st Contact Info) Description 07/12/2022 Documentation Only [facility], [address] [place] [place] [address] Silvia Goode PA [address] [place] [address] Social History Tobacco Use Types [...] on filedocumented in this encounter Care Teams Marble Supervisor Relationship Specialty Start Date End Date Name, MD Jeff [address] [place] [address] PCP - General Internal Medicine 02/26/24 documented as of this encounter
--- OUTSIDE RECORDS SUMMARY | 2025-02-19 13:03 | XMS_ITS | Encounter Summary ---
Author Organization [facility], Address [address] [place] [address] Phone Care Team Providers Care Consumer Science Teacher Name Role Phone Name, Jeff MACEDO Primary Care Provider [phone] Encounter Details Date Type Department Care Team (Late st Contact Info) Description 04/21/2024 Documentation Only [facility], [address] [place] [address] Tasia Lind [address] [place] [address] Social History Tobacco Use Types [...] on filedocumented in this encounter Care Teams Consumer Science Teacher Relationship Specialty Start Date End Date Name, MD Jeff [address] [place] [address] PCP - General Internal Medicine 02/26/24 documented as of this encounter
--- OUTSIDE RECORDS SUMMARY | 2025-02-19 13:03 | XMS_ITS | Encounter Summary ---
Author Organization [employer] Address [address] [facility] 7t [place] [address] Care Team Providers Care Political Science Research Assistant Name Role Phone Name, Jeff MACEDO Primary Care Provider [phone] Reason for Visit * Reason Comments Med Refill Encounter Details Date Type Department Care Team ([facility] Contact Info) Description 10/29/[address] [address] Name, MD Jeff [address] [place] [address] [phone] Essential hypertension Social History Tobacco Use Types [...] Upcoming Encounters Date Type Department Care Team ([facility] Contact Info) Description 04/06/2025 11:30 AM EDT Telemedicine [facility] MEDICINE [address] [place] [address] [phone] Name, MD Jeff [address] [place] [address] [phone] documented as of this encounter Visit Diagnoses Diagnosis Essential hypertension Unspecified essential hypertension documented in this encounter Care Teams Political Science Research Assistant Relationship Specialty Start Date End Date Name, MD Jeff [address] [place] [address] PCP - General Family Medicine 02/17/22 Isabel VILLEDA 11/24/24 documented as of this encounter
--- OUTSIDE RECORDS SUMMARY | 2025-02-19 13:03 | XMS_ITS | Clinical Summary ---
Author Organization [facility] Address [address] [facility] [address] [place] [address] Phone Care Team Providers Care Chief Chemist Name Role Phone Unavailable Primary Care Provider [...] - 2023-2 5 season) 2024 09/16/2020, 08/19/2020 INFLUENZA VACCINE (#1) 2025 HEPATITIS A VACCINES Aged Out No long [...] It is not the complete legal health record.[facility]
--- OUTSIDE RECORDS SUMMARY | 2025-02-19 13:03 | XMS_ITS | Patient Health Record ---
Author Organization [facility] Address [address] [place] [address] Care Team Providers Care Inventory Assistant Name Role Phone Donnell LEE, Elijah Primary Care Provider Dustin De La Garza Unavailable [phone] Allergies Allergen (clinical drug ingredient) Drug/Non Drug Allergy documented on EMR Reaction Allergy Type Onset Date Status Penicillin Unknown Drug Allergy Active Reason For Referral No Information Medications Medication SIG (Take, Route, Frequency, Duration) Notes Start Date End Date Status Pain Reliever/Fever Senior Financial Accountant 325mg Active Specialty Vitamins Products Active Lisinopril [...] Insured Coverage Start Date Coverage End Date [facility] [address] [place] [phone] [id number] LAURIE ADAMS Self - patient is the insured MEDICARE OF [place] [address] [place] [address] [phone] [id number] LAURIE ADAMS Self - patient is the insured Medical (General) History Medical History History ICD Code Denies DC,DM,CVA,Lung disease,renal dise ase HTN High cholesterol Vertigo Surgical History Surgery Date(Month/Year) left knee replacement 1992
--- OUTSIDE RECORDS SUMMARY | 2025-02-19 13:03 | XMS_ITS | Encounter Summary ---
Author Organization [employer] Address [address] [facility] 7t [place] [address] Care Team Providers Care Automotive Manufacturer Name Role Phone Name, Jeff MACEDO Primary Care Provider [phone] Reason for Visit * Reason Onset Date Comments Reschedule 05/21/2023 Encounter Details Date Type Department Care Team ([facility] st Contact Info) Description 05/21/2023 Telephone [facility] MEDICINE [address] [place] [address] Name, MD Jeff [address] [place] [address] Reschedule Social History Tobacco Use Types Packs/Day [...] with others, in a hotel, in a intermediate, living outside on the street, on a [...] from pt requesting r/s 05/21 HTN appt, telegraphic typewriter repairer attempted to r/s no availability. documented in this encounter Plan of Treatment Upcoming Encounters Date Type Department Care Team (Late st Contact Info) Description 04/06/2025 11:30 AM EDT Telemedicine [facility] MEDICINE [address] [place] [address] Name, MD Jeff [address] [place] [address] documented as of this encounter Visit Diagnoses Not on filedocumented in this encounter Additional Health Concerns Assessment Noted Time PHQ-9 Depression Total Score: 0 02/12/20 23 2:01 PM EDT documented as of this encounter Care Teams Automotive Manufacturer Relationship Specialty Start Date End Date Name, MD Jeff [address] [place] [address] PCP - General Family Medicine 02/17/22 [facility] 11/24/24 documented as of this encounter
--- OUTSIDE RECORDS SUMMARY | 2025-02-19 13:03 | XMS_ITS | Encounter Summary ---
Author Organization [employer] Address [address] [facility] 7t [place] [address] Care Team Providers Care Melt House Centrifugal Operator Name Role Phone Name, Jeff MACEDO Primary Care Provider [phone] Reason for Visit * Reason Onset Date Comments Nurse Triage 04/27/2024 Encounter Details Date Type Department Care Team ([facility] st Contact Info) Description 04/27/[address] [facility] MEDICINE [address] [place], [place] [phone] Name, MD Jeff [address] [place] [address] Nurse Triage Social History Tobacco Use Types [...] Miscellaneous Notes * Telephone Encounter - Minerva Rodriguez RN - 04/27/2024 3:59 PM EST [place]riage [place] [id number] Pt didn't answer x2 left voice message to call [facility] [phone]. * Telephone Encounter - Evangelina Seo [...] Info) Description 04/06/2025 11:[address] [facility] MEDICINE [address] [place] [address] Name, MD Jeff [address] [place] [address] documented as of this encounter Visit Diagnoses Not on filedocumented in this encounter Additional Health Concerns Assessment Noted Time PHQ-9 Depression Total Score: 0 02/12/20 23 2:01 PM EDT documented as of this encounter Care Teams Melt House Centrifugal Operator Relationship Specialty Start Date End Date Name, MD Jeff [address] [place] [address] PCP - General Family Medicine 02/17/22 Isabel VILLEDA 11/24/24 documented as of this encounter
--- OUTSIDE RECORDS SUMMARY | 2025-02-19 13:03 | XMS_ITS | Encounter Summary ---
Author Organization [email or web address] Address [address] [facility] 7t [place] [address] Care Team Providers Care City Council Member Name Role Phone Name, Jeff MACEDO Primary Care Provider [phone] Reason for Visit * Reason Comments Med Refill Encounter Details Date Type Department Care Team ([facility] st Contact Info) Description 02/16/2025 Refill [facility] MEDICINE [address] [place], [place] [phone] Name, MD Jeff [address] [place] [address] Essential hypertension Social History Tobacco Use Types [...] Info) Description 04/06/2025 11:30 AM EDT Telemedicine [facility] MEDICINE [address] [place] [address] Name, MD Jeff [address] [place] [address] documented as of this encounter Visit Diagnoses Diagnosis Essential hypertension Unspecified essential hypertension documented in this encounter Additional Health Concerns Assessment Noted Time PHQ-9 Depression Total Score: 5 12/05/19 25 2:19 PM EDT documented as of this encounter Care Teams City Council Member Relationship Specialty Start Date End Date NameJeff MD [address] [place] [address] PCP - General Family Medicine 02[facility]22 [facility] documented as of this encounter
--- OUTSIDE RECORDS SUMMARY | 2025-02-19 13:03 | XMS_ITS | Encounter Summary ---
Author Organization [employer] Address [address] [facility] 7t [place] [address] Care Team Providers Care Etymology Professor Name Role Phone Name, Jeff MACEDO Primary Care Provider [phone] Reason for Visit * Reason Onset Date Comments triage 06/21/2022 Encounter Details Date Type Department Care Team (Late Contact Info) Description 06/21/[address] [address] Name, MD Jeff [address] [place] [address] triage Social History Tobacco Use Types Packs/Day [...] days The caller accepted this outcome Speaks uzbek documented in this encounter Plan of Treatment Upcoming Encounters Date Type Department Care Team (Late Contact Info) Description 04/06/2025 11:30 AM EDT Telemedicine [address] [address] Name, MD Jeff [address] [place] [address] documented as of this encounter Visit Diagnoses Not on filedocumented in this encounter Care Teams Etymology Professor Relationship Specialty Start Date End Date Name, MD Jeff [address] [place] [address] PCP - General Family Medicine 02[facility] documented as of this encounter
--- OUTSIDE RECORDS SUMMARY | 2025-02-19 13:03 | XMS_ITS | Encounter Summary ---
Author Organization [facility], Address [address] [place] [address] Phone Care Team Providers Care Revit Drafter Name Role Phone Name, Jeff MACEDO Primary Care Provider [phone] Encounter Details Date Type Department Care Team (Late st Contact Info) Description 07/12/2022 Documentation Only [facility], [address] [place] [address] Silvia Goode PA [address] [place] [address] Social History Tobacco Use Types [...] on filedocumented in this encounter Care Teams Revit Drafter Relationship Specialty Start Date End Date Name, MD Jeff [address] [place] [address] PCP - General Internal Medicine 02/26/24 documented as of this encounter
[2025-02-19 13:17] LABS: Anion Gap 15 (12-20); Blood Urea Nitrogen 64 mg/dL (9-16); Calcium 10.1 mg/dL (8.4-10.2); Carbon Dioxide 32 mmol/L (22-29); Chloride 98 mmol/L (96-108); Estimated Glomerular Filt Rate 16; Potassium 5.5 mmol/L (3.3-5.1); Sodium 139 mmol/L (135-145)
== END 2025-02-19 12:41 | disposition home or self-care (01) ==
LOC: HO.HVNA 12:40
PROVIDERS: Visit Provider Internal Medicine Geriatric Medicine
DX: I50.812 Chronic right heart failure (principal); N18.31 Chronic kidney disease, stage 3a; R79.89 Other specified abnormal findings of blood chemistry; E87.5 Hyperkalemia
CPT/HCPCS: 36415; 80048

== ENCOUNTER 2025-04-02 11:45 | Outpatient (REF) | payer OTHER, SELFPAY ==
[2025-04-02 13:06] LABS: Anion Gap 11 (12-20); Blood Urea Nitrogen 20 mg/dL (9-16); Calcium 9.6 mg/dL (8.4-10.2); Carbon Dioxide 33 mmol/L (22-29); Chloride 103 mmol/L (96-108); Estimated Glomerular Filt Rate 41; Potassium 3.9 mmol/L (3.3-5.1); Sodium 143 mmol/L (135-145)
== END 2025-04-02 11:46 | disposition home or self-care (01) ==
LOC: HO.LAB 11:45
PROVIDERS: PCP Internal Medicine Geriatric Medicine; Visit Provider Internal Medicine Geriatric Medicine
DX: I10 Essential (primary) hypertension (principal); E87.5 Hyperkalemia; R79.89 Other specified abnormal findings of blood chemistry
CPT/HCPCS: 36415; 80048

== ENCOUNTER 2025-04-21 13:24 | Outpatient (AMB) | payer OTHER, SELFPAY ==
--- NOTE | 2025-04-21 13:26 | MHC.OFFVIS ---
Vital Signs 04/21/25 13:29 Height 5 ft 6 in Weight 218 lb BMI 35.2 BP 110/64 Blood Pressure Location Lt brachial Position Sitting Pulse 90 Pulse Source Pulse Oximeter Intake Visit Reasons: 6m follow up Intake Note: 6 mth f/up Treatment Plant Operator Required: Yes Treatment Plant Operator Language: Grocery Checker Services: Treatment Plant Operator Offered & Declined Treatment Plant Operator Name: dereck/ daughter Accompanied by: Daughter Allergies Penicillins (PENICILLINS) Adverse Reaction (Unknown, Verified 12/03/24 14:55) STOMACH UPSET Medication List - Last Reconciled 04/21/25 by Abran Payne MD acetaminophen 325 mg PO Q4H PRN albuterol sulfate 2.5 mg inhalation Q6H PRN apixaban (Eliquis) 5 mg PO BID 90 days bumetanide 2 mg See Protocol PO DAILY 90 days cholecalciferol (vitamin D3) 25 mcg PO DAILY empagliflozin (Jardiance) 10 mg PO DAILY sjcpfmywkims-cfdz-ruopa acid 18-400 mg-mcg (Certavite-Antioxidant) 1 tab PO DAILY pravastatin 10 mg PO BEDTIME HPI Comments Details: Pleasant 84-year-old female who is here for follow-up. She was seen recently in the hospital she presented with influenza and was noted to be short of breath. Clinically she was in heart failure and was diuresed. She underwent echocardiography which showed severe RV dysfunction with moderate to severe RV enlargement. The pulmonary artery pressures were no significant elevated. No obvious cause for the right ventricle dysfunction was present. She had CT PA which did not show any pulmonary embolism. Was diuresed. She also had atrial fibrillation and was started on digoxin it appears she left the hospital with 250 mcg of daily digoxin. She is also on supplemental oxygen. We checked a digoxin level and decrease the digoxin dose to 125 mcg daily I referred her for cardiac MRI. 02/21/22: She returns for follow-up today. She is still waiting to do cardiac MRI at this stage. She continues to be on supplemental oxygen. The etiology of her hypoxia is unclear. She clearly had influenza when she was in hospital but at that time her imaging was showing heart failure and she was diuresed for that. Clinically she appears euvolemic currently. She is taking medication regularly. 01/02/23: She is back for follow-up. She was seen by Divina in June 2022. She had cardiac MRI performed in April 2022 showing byfg-rt-rjqnisdn RV dysfunction with normal RV size. She is oxygen dependent due to underlying lung disease. Her main complaint is lower extremity edema. She is denying any significant change in her breathing or chest pains. She is taking medications regularly. She has chronic atrial fibrillation and has been treated with rate control strategy with digoxin Saturday and Saturday and metoprolol tartrate 50 mg twice a day. 12/02/2023: She returns for follow-up. In 09/11/2023 she was admitted to [facility] with congestive heart failure. She was not taking Lasix because of incontinence and frequent accidents. She was diuresed and advised to take Lasix 40 mg twice a day at home. She has been doing well since she got discharged and has been compliant with her medications. 09/23/2024: Nicole is here for follow-up. She is denying any significant symptoms. She is not wearing oxygen currently and saying that she was hoping that I will stop the oxygen. She has cor pulmonale and I have advised her that she should not be taking off oxygen specially with activity and at nighttime. She has done well with medicine so far and continues to be quite stable. I will continue same medications for now. Blood pressure well controlled. 04/21/2025: She is here for follow-up. Taking medications regularly. Blood pressure is well controlled. She is on oxygen 14/01. She does not get out of the house unless she has appointments with doctors. She is in a wheelchair currently but does walk inside the house between the rooms. 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 She has followed with surgery and had previous knee injections without any significant improvement. [facility] Medical History CHF (congestive heart failure) RVF (right ventricular failure) Chronic diastolic CHF (congestive heart failure) DEBBIE (obstructive sleep apnea) New onset a-fib Atherosclerosis Varicose veins of bilateral lower extremities with pain Osteoarthritis HTN (hypertension) Obesity Osteoporosis Surgical History Hx of surgical procedure (03/01/23) History of appendectomy Status post left knee replacement Family History Son CAD (coronary artery disease) Mother CAD (coronary artery disease) Social History Household Members: Family Housing: Apartment Are you a primary day care provider to a significant other at home: No Do you presently have visiting nurse or other home services: No ([employer]) Alcohol intake: never Patient Tobacco Use Status: Never used Tobacco e-Cigarette/Vaping Use: Never Used Second Hand Smoke Exposure: No Advance Directives Date on File: 10/25/21 service: No Current occupational status: retired and disabled Review of Systems Const Denies chills, Denies fatigue, Denies fever(s), Denies frequent falls, Denies weakness, Denies weight gain and Denies weight loss ENT Denies dizziness Card Denies chest pain, Denies leg edema, Denies lightheadedness, Denies palpitations, Denies dyspnea and Denies dyspnea on exertion Resp Denies cough, Denies dyspnea and Denies dyspnea on exertion GI Denies hematochezia Musc Denies abnormal gait, Denies muscle weakness, Denies numbness, Denies radiating pain into limb and Denies tingling Neuro Denies abnormal gait, Denies dizziness, Denies frequent falls, Denies numbness, Denies tingling and Denies weakness Endo Denies fatigue and Denies palpitations Physical Exam Vital Signs: Last Vital Signs Pulse 90 04/21/25 13:29 BP 110/64 04/21/25 13:29 BMI result Body Mass Index 35.2 GENERAL APPEARANCE: in no acute distress, pleasant. NECK: no carotid bruit, no jugular venous distention. SKIN: no suspicious lesions, warm and dry. HEART: irregular rate and rhythm. LUNGS: Clear to auscultation bilaterally. ABDOMEN: soft, nontender. EXTREMITIES: no edema. PERIPHERAL PULSES: equal. NEUROLOGIC: No gross deficits, AAO X 3 Assessment & Plan Assessment & Plan (1) Cor pulmonale: Code(s): I27.81 - Cor pulmonale (chronic) Category: Medical (2) Pulmonary hypertension: Code(s): I27.20 - Pulmonary hypertension, unspecified Category: Medical (3) Right ventricular failure: Code(s): I50.810 - Right heart failure, unspecified Category: Medical (4) HTN (hypertension): Code(s): I10 - Essential (primary) hypertension Category: Medical (5) Atrial fibrillation: Code(s): I48.91 - Unspecified atrial fibrillation Category: Medical Plan Pleasant 84-year-old female who is here for follow-up. She has background history of COPD and cor pulmonale. She has pulmonary hypertension. She is on oxygen /. Blood pressure is well controlled On anticoagulation currently and tolerating it well for permanent atrial fibrillation. Clinically she is euvolemic. She is currently on Bumex 2 mg daily. Was previously on spironolactone but it appears has been stopped. On oxygen therapy for COPD and cor pulmonale. Clinically stable. Follow-up 1 year. Thank you for allowing me to participate in the care of your patient. Please feel free to contact me if you have any questions. Coding Level of Care Code Est Pt Level 4 (14458) Diagnoses Cor pulmonale I27.81 Pulmonary hypertension I27.20 Right ventricular failure I50.810 HTN (hypertension) I10 Atrial fibrillation I48.91
[2025-04-21 13:29] VITALS: BP 110/64; PULSE 90; BMI 35.2
--- OUTSIDE RECORDS SUMMARY | 2025-04-21 17:02 | XMS_ITS | Encounter Summary ---
Author Organization [employer] Address [address] [place] [address] Care Team Providers Care Upholstery Restorer Name Role Phone Name, Jeff MACEDO Primary Care Provider [phone] Reason for Visit * Reason Onset Date Comments Nurse Triage 04/27/2024 Encounter Details Date Type Department Care Team ([facility] st Contact Info) Description 04/27/2024 Telephone [facility] [address] [place], [place] [id number] Name, MD Jeff [address] [place] [address] Nurse Triage Social History Tobacco Use Types [...] 04/27/2024 3:59 PM EST Triage call with [facility] [id number] Pt didn't answer x2 left voice message to call [facility] [phone]. * Telephone Encounter - Evangelina Seo [...] documented as of this encounter Care Teams Upholstery Restorer Relationship Specialty Start Date End Date Name, MD Jeff [address] [place] [address] PCP - General Family Medicine 02/17/22 Isabel VILLEDA 11/24/24 documented as of this encounter
--- OUTSIDE RECORDS SUMMARY | 2025-04-21 17:02 | XMS_ITS | Encounter Summary ---
Author Organization [facility], Address [address] [place] [address] Phone Care Team Providers Care Dermatologist Managing Partner Name Role Phone Name, Jeff MACEDO Primary Care Provider [phone] Encounter Details Date Type Department Care Team (Late st Contact Info) Description 04/21/2024 Documentation Only [facility], [address] [place] [address] Tasia Lind [address] [place] [address] Social History Tobacco Use Types [...] on filedocumented in this encounter Care Teams Dermatologist Managing Partner Relationship Specialty Start Date End Date Name, MD Jeff [address] [place] [address] PCP - General Internal Medicine 02/26/24 documented as of this encounter
--- OUTSIDE RECORDS SUMMARY | 2025-04-21 17:02 | XMS_ITS | Clinical Summary ---
Author Organization [facility], Address [address] [place] [address] [place] [address] Phone Care Team Providers Care Telephone Solicitor Supervisor Name Role Phone Name, Jeff MACEDO Primary Care Provider [phone] Allergies Active Allergy Reactions Criticality Noted Date [...] patient's age to complete this topic Insurance [facility] One Care Dual SNP ([id number]) Care Teams Telephone Solicitor Supervisor Relationship Specialty Start Date End Date Name, MD Jeff [address] [place] [address] PCP - General Internal Medicine 02/26/24
--- OUTSIDE RECORDS SUMMARY | 2025-04-21 17:02 | XMS_ITS | Clinical Summary ---
Author Organization [employer] Address [address] [place] [address] 7[address] [place] [address] Care Team Providers Care Leasing Specialist Name Role Phone Name, Jeff MACEDO Primary Care Provider [phone] Allergies Active Allergy Reactions Criticality Noted Date Comments Cortisone 03/21/2017 Penicillins Other reaction(s): unspecified, unspecified Medications apixaban (Eliquis) 5 MG tablet Take 5 mg by mouth 2 times daily. Active albuterol 108 (90 Base) MCG/ACT inhalerIndicati ons:Essential hypertension INHALE 2 PUFF BY INHALATION ROUTE EVERY 4 - 6 HOURS NEEDED NEEDED FOR WHEEZE 18 g 1 08/10/19 23 Active albuterol (2.5 MG/3ML) 0.083% nebulizer solution Take 3 mL (2.5 mg) by nebulization every 6 (six) hours if needed for wheezing. 75 mL 11 08/14/19 24 Active Multiple Vitamins-Minera ls (CertaVite/Anti oxidants) tabletIndicatio ns:Routine general medical examination at a health care facility Take 1 tablet by mouth in the morning. 90 tablet 3 06/11/20 24 Active bacitracin 500 UNIT/GM ointment Apply topically 2 times daily. 28 g 01/28/20 25 Active amLODIPine (Norvasc) 5 MG tabletIndicatio ns:Hypertension , unspecified type TAKE 1 TABLET BY MOUTH EVERY MORNING 90 tablet 1 02/04/20 25 Active pravastatin (Pravachol) 10 MG tabletIndicatio ns:Essential hypertension TAKE 1 TABLET BY MOUTH AT BEDTIME 90 tablet 1 02/17/20 25 Active D3-1000 25 MCG (1000 UT) capsule TAKE 1 TABLET BY MOUTH EVERY MORNING 90 capsule 1 02/17/20 25 Active Blood Pressure Monitoring (Omron 3 Series BP Monitor) device USE DIRECTED FOR BLOOD PRESSURE 1 each 02/26/20 25 Active acetaminophen (Tylenol 8 Hour) 650 MG ER tablet TAKE 1 TABLET BY MOUTH EVERY 8 HOURS NEEDED FOR MODERATE PAIN 90 tablet 1 04/05/20 25 Active meclizine (Antivert) 25 MG tablet TAKE 1 TABLET BY MOUTH THREE TIMES DAILY IN THE MORNING, AT NOON, AND AT BEDTIME NEEDED FOR DIZZINESS 30 tablet 04/20/20 25 Active bumetanide (Bumex) 1 MG tablet TAKE 2 TABLETS BY MOUTH ONCE DAILY IN THE MORNING 60 tablet 3 04/21/20 25 Active Jardiance 10 MG TAKE 1 TABLET BY MOUTH EVERY MORNING 30 tablet 3 04/21/20 25 Active acetaminophen (Tylenol 8 Hour) 650 MG ER tablet TAKE 1 TABLET BY MOUTH EVERY 8 HOURS NEEDED FOR MODERATE PAIN 90 tablet 1 02/05/20 25 2024 Discontinued bumetanide (Bumex) 1 MG tablet Take 2 tablets (2 mg) by mouth Once per day. 60 tablet 03/12/20 25 2024 Discontinued Jardiance 10 MG Take 1 tablet (10 mg) by mouth Once per day. 30 tablet 03/12/20 25 2024 Discontinued meclizine (Antivert) 25 MG tablet Take 1 tablet (25 mg) by mouth if needed in the morning, at noon, and at bedtime for dizziness for up to 10 days. 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 Essential hypertension 11/23/2011 Assessment & Plan (11/04/2023 1:26 PM EDT): At goal today, does report not taking one of prescribed heart medications' but cannot recall which one, will update once home Obesity 11/23/2011 Osteoporosis 11/23/2011 Encounters Date Type Department Care Team Description 04/21/2025 Refill [facility] [address] [place] [address] Name, MD Jeff 04/19/2025 Refill [facility] [address] [place] [address] Name, MD Jeff 04/06/2025 11:30 AM EDT Telemedicine [facility] [address] [place] [address] Name, MD Jeff Chronic right-sided heart failure (HCC) (Primary Dx); Hyperkalemia; Elevated serum creatinine 04/06/2025 Travel 04/05/2025 [facility] [place] [place] [address] Jeff Ernandez MD Nurse Triage 04/04/2025 [facility] [place] [address] Jeff Ernandez MD 03/12/2025 Refill [facility] [address] [place] [address] Jeff Ernandez MD 03/01/2025 Telephone [facility] [address] [place] [address] Jeff Ernandez MD fyi 02/24/2025 Refill [facility] [address] [place] [address] Belia Xiao MD 02/24/2025 Telephone [facility] [address] [place] [address] Nicole Coffey RN 02/19/2025 Results Follow-Up [facility] [address] [place] [address] Jeff Ernandez MD Basic Metabolic Panel, Basic Metabolic Panel, Basic Metabolic Panel 02/16/2025 Refill [facility] [address] [place] [address] Jeff Ernandez MD Essential hypertension 02/15/2025 Refill [facility] [address] [place] [address] Jeff Ernandez MD 02/12/2025 Telephone [facility] [address] [place] [address] Jeff Ernandez MD Durable Medical Equipment 02/04/2025 Refill [facility] [address] [place] [address] Ning Panchal NP 02/02/2025 Refill [facility] [address] [place] [address] Jeff Ernandez MD Hypertension, unspecified type 01/29/2025 Telephone [facility] [address] [place] [address] Jeff Ernandez MD Durable Medical Equipment 01/27/2025 3:15 PM EDT Office Visit [facility] [address] [place] [address] Jeff Ernandez MD Chronic right-sided heart failure (CMS/HCC) (Primary Dx); Oxygen dependent; Stage 3a chronic kidney disease (CMS/HCC); Persistent atrial fibrillation (CMS/HCC); Dizziness; Osteoarthritis of left knee, unspecified osteoarthritis type; Chronic pain of left knee; Tinea corporis 01/27/2025 Travel 01/21/[address] [address] Jeff Ernandez MD Durable Medical Equipment 01/21/[address] [address] Jeff Ernandez MD Durable Medical Equipment 01/20/[address] [address] Jeff Ernandez MD No Show (Pt no show for sick on site ) 01/19/[address] [phone] Edmund Trammell [place] CHARTPREP from Last 3 Months Immunizations Immunization Administration [...] 12/04/2024 1:56 PM EDT Plan of Treatment Health Maintenance Due Date Last Done Comments Zoster Vaccines (2 of 3) 05/05/2013 03/10/2013 RSV Patients and Patients Aged 60 years or older (1 - 1-dose 75+ series) 2013 Pneumococcal Vaccine: 50+ Years (2 of 2 - PCV) 12/31/2013 12/31/2012, 06/10/2000 DTaP/Tdap/Td Vaccines (2 - T d or Tdap) 12/31/2022 12/31/2012, 06/28/1998 COVID-19 Vaccine (3 - 2024-2 6 season) 2025 09/16/2020, 08/19/2020 Influenza Vaccine (#1) 2025 Alcohol/Substance [...] Associated Diagnosis Comments BASIC METABOLIC PANEL Routine 04/02/2025 11:56 AM EDT Essential hypertension Elevated serum creatinine Hyperkalemia BASIC METABOLIC PANEL Routine 03/01/2025 Elevated serum creatinine Hyperkalemia BASIC METABOLIC PANEL Routine 02/19/2025 12:00 PM EDT Chronic right-sided heart failure (CMS/HCC) Oxygen dependent Stage 3a chronic kidney disease (CMS/HCC) Persistent atrial fibrillation (CMS/HCC) Dizziness Chronic pain of left knee Tinea corporis LIPID PANEL, STANDARD Routine 03/28/2023 9:37 AM EDT Essential hypertension Vaccination refused by patient from Last 3 Months or Most Recently Relevant to Health Maintenance Results * (ABNORMAL) Basic Metabolic Panel (04/02/2025 11:56 AM EDT) Only the most recent of3 resultswithin the time period is included. Sodium 143 135 - 145 mmol/L [facility] Potassium 3.9 3.3 - 5.1 mmol/L [facility] Chloride 103 96 - 108 mmol/L [facility] Carbon Dioxide 33(H) 22 - 29 mmol/L [facility] Anion Gap 11(L) 12 - 20 [facility] Urea Nitrogen (BUN) 20(H) 9 - 16 mg/dL [facility] Creatinine, Serum 1.25 0.5 - 1.4 mg/dL [facility] Estimated Glomerular Filt Rate 41 [facility] Comment:Chronic Kidney Disea se: Estimated GFR < 60 mL/min/1.40x8Pbeqhi Kidney Disease: Estimated GFR < 15 mL/min/1.73m2 Glucose 143(H) 60 - 115 mg/dL [facility] Calcium 9.6 8.4 - 10.2 mg/dL [facility] Blood Venous blood specimen / Unknown 04/02/2025 11:56 AM EDT 04/02/2025 11:56 AM EDT us Jeff Name MD LAB BLOOD ORDERABLES Final Resul t [facility] [address] [place] [address] [phone] * (ABNORMAL) Lipid Panel, Standard (03/28/2023 9:37 AM EDT) Triglycerides 91 <150 mg/dL [facility] Comment:Desirable Triglyceri de: less than 150 mg/dLBorderline High Triglyceride 150-199 mg/dLHigh Triglyceride: 200-499 mg/dLVery High Triglyceride: greater than or equal to 5OO mg/dL Cholesterol 107 <200 mg/dL [facility] Comment:Desirable Cholestero l: less than 200 mg/dLBorderline High Cholesterol: 200-239 mg/dLHigh Cholesterol: greater than 239 mg/dL LDL Cholesterol Calculated 53 <100 mg/dL [facility] Comment:Desirable LDL: less than 100 mg/dLNear Optimal/Above Optimal LDL: 110- 129 mg/dLBorderline High LDL: 130-159 mg/dLHigh LDL: 160-189 mg/dLVery High LDL: greater than or equal to 190 mg/dL HDL Cholesterol 36(L) >40 mg/dL [facility] Comment:Desirable HDL: great er than 40 mg/dL Note: This HDL assay may give artificially low results in patients with liver disease. Blood Venous blood specimen / Unknown 03/28/2023 9:37 AM EDT 03/28/2023 11:31 AM EDT us Jeff Ernandez MD LAB BLOOD ORDERABLES Final Resul t [facility] [address] [place] [address] [phone] from Last 3 Months or Most Recently Relevant to Health Maintenance Insurance [facility] [employer] (O D-SNP) [place] [id number] Care Teams Leasing Specialist Relationship Specialty Start Date End Date Name, MD Jeff [address] [facility] [place] [address] PCP - General Family Medicine 02/17/22 Isabel A 11/24/24
--- OUTSIDE RECORDS SUMMARY | 2025-04-21 17:02 | XMS_ITS | Clinical Summary ---
Author Organization [facility] Address [address] [place] [address] Phone Care Team Providers Care Regional Cra Name Role Phone Unavailable Primary Care Provider [...] Adult Td,Tdap Booster 12/31/2022 12/31/2012 , 06/28/1998 INFLUENZA VACCINE (#1) 2025 COVID-19 VACCINE (3 - 2024-2 6 season) 2025 09/16/2020, 08/19/2020 HEPATITIS A VACCINES Aged Out [...] It is not the complete legal health record.[facility]
--- OUTSIDE RECORDS SUMMARY | 2025-04-21 17:03 | XMS_ITS | Encounter Summary ---
Author Organization [facility], Address [address] [place] [address] Phone Care Team Providers Care Barrel Cleaner Name Role Phone Name, Jeff MACEDO Primary Care Provider [phone] Encounter Details Date Type Department Care Team (Late st Contact Info) Description 09/11/2023 Documentation Only [facility], [address] [place] [address] Tasia Lind [address] [place] [address] Social History Tobacco Use Types [...] on filedocumented in this encounter Care Teams Barrel Cleaner Relationship Specialty Start Date End Date Name, MD Jeff [address] [place] [address] PCP - General Internal Medicine 02/26/24 documented as of this encounter
--- OUTSIDE RECORDS SUMMARY | 2025-04-21 17:03 | XMS_ITS | Encounter Summary ---
Author Organization [employer] Address [address] 7t [place] [address] Care Team Providers Care Trailer Assembler Name Role Phone Name, Jeff MACEDO Primary Care Provider [phone] Reason for Visit * Reason Onset Date Comments Hospital Follow-up 09/19/2023 Encounter Details Date Type Department Care Team ([facility] st Contact Info) Description 09/19/2023 Telephone [facility] [address] [place], [place] [phone] Name, MD Jeff [address] [place] [address] Hospital Follow-up Social History Tobacco Use Types [...] with others, in a hotel, in a mcc, living outside on the street, on a [...] from pt requesting a HDF appt. Hospital: [facility] Date of admission: 09/14 Discharge date: 09/17 Diagnosed: Fluid in her lungs and elevated heart rate documented in this encounter Plan of Treatment Not on file documented as of this encounter Visit Diagnoses Not on filedocumented in this encounter Additional Health Concerns Assessment Noted Time PHQ-9 Depression Total Score: 0 02/12/20 23 2:01 PM EDT documented as of this encounter Care Teams Trailer Assembler Relationship Specialty Start Date End Date Name, MD Jeff [address] [place] [address] PCP - General Family Medicine 02/17/22 [facility] 11/24/24 documented as of this encounter
--- OUTSIDE RECORDS SUMMARY | 2025-04-21 17:03 | XMS_ITS | Encounter Summary ---
Author Organization [employer] Address [address] [facility] 7t [place] [address] Care Team Providers Care Criminal Justice Program Director Name Role Phone Name, Jeff MACEDO Primary Care Provider [phone] Reason for Visit * Reason Onset Date Comments triage 08/17/2022 Encounter Details Date Type Department Care Team ([facility] st Contact Info) Description 08/17/2022 Telephone [facility] MEDICINE [address] [place], [place] [phone] Name, MD Jeff [address] [place] [phone] triage Social History Tobacco Use Types Packs/Day [...] EST Triage call returned to patient via [employer] Restaurant Maintenance Technician [id number]. Patient is alert and verbal able tomake [...] walking The caller accepted this outcome speaks japanese documented in this encounter Plan of Treatment Not on file documented as of this encounter Visit Diagnoses Not on filedocumented in this encounter Care Teams Criminal Justice Program Director Relationship Specialty Start Date End Date Name, MD Jeff [address] [place] [address] PCP - General Family Medicine 02/17/22 [place] Franco 11/24/24 documented as of this encounter
--- OUTSIDE RECORDS SUMMARY | 2025-04-21 17:03 | XMS_ITS | Encounter Summary ---
Author Organization [facility], Address [address] [place] [address] Phone Care Team Providers Care Wood Repatcher Name Role Phone Name, Jeff MACEDO Primary Care Provider [phone] Encounter Details Date Type Department Care Team (Late st Contact Info) Description 06/15/2021 Documentation Only [facility], [address] [place] [address] Amari Gonsalves MD [address] [facility] [address] [place] [address] Social History Tobacco Use Types [...] on filedocumented in this encounter Care Teams Wood Repatcher Relationship Specialty Start Date End Date Name, MD Jeff [address] [place] [address] PCP - General Internal Medicine 02/26/24 documented as of this encounter
--- OUTSIDE RECORDS SUMMARY | 2025-04-21 17:03 | XMS_ITS | Encounter Summary ---
Author Organization [employer] Address [address] [facility] 7t [place] [address] Care Team Providers Care Clinical Practice Consultant Name Role Phone Name, Jeff MACEDO Primary Care Provider [phone] Encounter Details Date Type Department Care Team ([facility] st Contact Info) Description 05/21/2023 Telephone [facility] MEDICINE [address] [place], [place] [phone] Name, MD Jeff [address] [place] [address] Social History Tobacco Use Types Packs/Day Years [...] with others, in a hotel, in a group home, living outside on the street, on [...] documented as of this encounter Care Teams Clinical Practice Consultant Relationship Specialty Start Date End Date Name, MD Jeff [address] [place] [address] PCP - General Family Medicine 02/17/22 [place] Franco 11/24/24 documented as of this encounter
--- OUTSIDE RECORDS SUMMARY | 2025-04-21 17:03 | XMS_ITS | Encounter Summary ---
Author Organization [employer] Address [address] [facility] 7t [place] [address] Care Team Providers Care Principal Database Developer Name Role Phone Name, Jeff MACEDO Primary Care Provider [phone] Reason for Visit * Reason Comments Med Refill Encounter Details Date Type Department Care Team ([facility] st Contact Info) Description 04/21/2025 Refill [facility] MEDICINE [address] [place], [place] [phone] Name, MD Jeff [address] [place] [address] Social History Tobacco Use Types Packs/Day Years [...] documented as of this encounter Care Teams Principal Database Developer Relationship Specialty Start Date End Date Name, MD Jeff [address] [place] [address] PCP - General Family Medicine 02/17/22 Isabel VILLEDA 11/24/24 documented as of this encounter
--- OUTSIDE RECORDS SUMMARY | 2025-04-21 17:03 | XMS_ITS | Encounter Summary ---
Author Organization [employer] Address [address] [facility] 7t [place] [address] Care Team Providers Care Poultry Slaughterer Name Role Phone Name, Jeff MACEDO Primary Care Provider [phone] Reason for Visit * Reason Comments Med Refill Encounter Details Date Type Department Care Team ([facility] st Contact Info) Description 10/29/2022 Refill [facility] MEDICINE [address] [place] [phone] Name, MD Jeff [address] [place] [address] [phone] Essential hypertension Social History Tobacco Use Types [...] hypertension documented in this encounter Care Teams Poultry Slaughterer Relationship Specialty Start Date End Date Name, MD Jeff [address] [place] [address] [phone] PCP - General Family Medicine 02/17/22 [facility] documented as of this encounter
--- OUTSIDE RECORDS SUMMARY | 2025-04-21 17:03 | XMS_ITS | Encounter Summary ---
Author Organization [employer] Address [address] [facility] 7t [place] [address] Care Team Providers Care Therapeutic Recreation Assistant Name Role Phone Name, Jeff MACEDO Primary Care Provider [phone] Reason for Visit * Reason Onset Date Comments Reschedule 05/21/2023 Encounter Details Date Type Department Care Team ([facility] st Contact Info) Description 05/21/2023 Telephone [facility] MEDICINE [address] [place] [address] Name, MD Jeff [address] [place] [address] Reschedule Social History Tobacco Use Types Packs/Day [...] with others, in a hotel, in a fdc, living outside on the street, on a [...] from pt requesting r/s 05/21 HTN appt, technical writer attempted to r/s no availability. documented in this encounter Plan of Treatment Not on file documented as of this encounter Visit Diagnoses Not on filedocumented in this encounter Additional Health Concerns Assessment Noted Time PHQ-9 Depression Total Score: 0 02/12/20 23 2:01 PM EDT documented as of this encounter Care Teams Therapeutic Recreation Assistant Relationship Specialty Start Date End Date Name, MD Jeff [address] [place] [address] PCP - General Family Medicine 02/17/22 [place] VNFranco 11/24/24 documented as of this encounter
--- OUTSIDE RECORDS SUMMARY | 2025-04-21 17:03 | XMS_ITS | Encounter Summary ---
Author Organization [facility], Address [address] [place] [address] Phone Care Team Providers Care Gripper Machine Operator Name Role Phone Name, Jeff MACEDO Primary Care Provider [phone] Encounter Details Date Type Department Care Team (Late st Contact Info) Description 07/12/2022 Documentation Only [facility], [address] [place] [address] Silvia Goode PA [address] [place] [address] Social History Tobacco Use Types [...] on filedocumented in this encounter Care Teams Gripper Machine Operator Relationship Specialty Start Date End Date Name, MD Jeff [address] [place] [address] PCP - General Internal Medicine 02/26/24 documented as of this encounter
--- OUTSIDE RECORDS SUMMARY | 2025-04-21 17:03 | XMS_ITS | Encounter Summary ---
Author Organization [facility], Address [address] [place] [address] Phone Care Team Providers Care Process Engineer Name Role Phone Name, Jeff MACEDO Primary Care Provider [phone] Encounter Details Date Type Department Care Team (Late st Contact Info) Description 07/12/2022 Documentation Only [facility], [address] [place] [address] Silvia Goode PA [address] [place] [place] [address] Social History Tobacco Use Types [...] on filedocumented in this encounter Care Teams Process Engineer Relationship Specialty Start Date End Date Name, MD Jeff [address] [place] [address] PCP - General Internal Medicine 02/26/24 documented as of this encounter
--- OUTSIDE RECORDS SUMMARY | 2025-04-21 17:03 | XMS_ITS | Encounter Summary ---
Author Organization [employer] Address [address] [facility] 7t [place] [address] Care Team Providers Care Game Trapper Name Role Phone Name, Jeff MACEDO Primary Care Provider [phone] Reason for Visit * Reason Onset Date Comments Nurse Triage 09/02/2023 Encounter Details Date Type Department Care Team ([facility] st Contact Info) Description 09/02/2023 Telephone [facility] MEDICINE [address] [place], [place] [phone] Name, MD Jeff [address] [place] [address] Nurse Triage Social History Tobacco Use Types [...] 11:26 AM EDT T/C [place]. [place] - [id number] for status check, pt. States she is doing good. She is feeling way better then yesterday, no concerns right now. Pt. Offered follow up apt. But denies states she is felling good and will kept follow up apt. Which is schedule in September. Pt. Informed to give call to [facility] in case of any new or worsening symptoms, or any questions or concerns. Pt. Verbally agreed and understood. * Telephone Encounter - Myrna Mcmanus RN - 09/02/2023 10:22 AM EDT Call to Nicole Melendez , pt daughter answers but not with patient. Advised commercial insurance underwriter to call alt number. Call to Nicole Melendez, reports having sx of cough and chest congestion. Per pt has been using albuterol. Per pt not productive. Per pt having chest tightness. Per pt mild relief with nebulizer. NoOTC medications for cough. Pt drinking fluids. Pt having wheezing intermittent. Having SOB even at rest. No swelling reported. Pt unable to come into [facility], agrees to [facility] for eval. Sent to [...] documented as of this encounter Care Teams Game Trapper Relationship Specialty Start Date End Date Name, MD Jeff [address] [place] [id number] PCP - General Family Medicine 02/17/22 Isabel Franco 11/24/24 documented as of this encounter
--- OUTSIDE RECORDS SUMMARY | 2025-04-21 17:03 | XMS_ITS | Data Portability ---
Author Organization [employer] [facility], Ut [employer] [facility] Address [address] [place] [address] Care Team Providers Care Correctional Officer Captain Name Role Phone HIM CCA OTHER Unavailable Primary Care Provider Assessment Encounter Date Assessment Date Assessment [...] restart PO lasix in AM as prescribed -[facility] pt and care givers re [...] to ambulate with difficulty this evening. VSS. [employer] Flat[employer] Driver on site reports that she appears well, [...] assessment and plan as documented by the heater helper forge. I provided real time medical direction for this encounter and was immediately available to provide additional phone based assistance as needed. History as noted by heater helper forge. Pt with history of AF on apixaban, [...] assessment and plan as documented by the heater helper forge. I provided real time medical direction for this encounter and was immediately available to provide additional phone based assistance as needed. History as noted by heater helper forge. Pt with history of COPD on 2L [...] with her. [email or web address] Not available 09/02/2023 12:49:07 10/30/2024 10/30/2024 Ms. Nora Fitzpatrick is a 84 yo F with Coronary Artery Disease, Hypertension, Congestive Heart Failure, COPD/Asthma on eliquis and digoxin who is calling today about a blister in the upper mouth. Per patient and medic, patient was eating a candy last night and thinks it scratch or got stuck under her dentures. Is on eliquis. No other bruising or bleeding anywhere else. No other petechiae. Low suspicion for ITP or thrombocytopenia otherwise. Advised to keep the dentures out of her mouth as much as possible to avoid worsening the bruising and blistering there. Also advised that if it doesn't improve or resorb by Saturday, then to get reassessment and consider having platelets checked. I provided real -time medical direction via phone for this encounter, and was available for additional phone based assistance as needed. I have reviewed and agree with the Assessment and Plan as documented by the [employer] Flat[employer] Driver. We discussed the diagnostic uncertainty of home visits and the risk associated with this. In this case the patient and I felt this to be an acceptable and reasonable amount of risk given the benefit of avoiding an ED visit. The patient given the opportunity to ask questions. Follow up with primary care was recommended, as needed. Advised if develops CP/severe SOB/turning blue/uncontrolled n/v/d or black/bloody emesis or stool/ AMS/ syncope/ high fever unresponsive to APAP to call 911- verbalized understanding of instruction. [email or web address] Not available 10/30/2024 15:02:16 Plan of Treatment Reminders Order Date Submit Date Provider Last Modified By Organization Details Last Modified Time Details Appointments None recorded. Lab rapid SARS CoV 2 Ag, QL IA, respiratory specimen [address], [id number] 11:56:07 Referral None recorded. Procedures None recorded. Surgeries None recorded. Imaging None recorded. Medication Orders prednisone 20 mg tablet 2023 [facility], [place], operated [id number], [address] [place], [address], 11:56:07 prednisone 20 mg tablet 2023 [facility], [address], [place], [id number], 4 17:08:42 guaifenesin ER 600 mg tablet, extended release 12 hr 2023 024 [facility], [address], [place], [id number], 4 17:08:42 meclizine 25 mg tablet 2022 023 [facility], [address] [place] [address], [id number], 3 17:31:06 Patient TargetsNo targets recorded. Patient InstructionsNo instructions recorded. Reason for Referral None Reported. Results Created Date Observation Date Name Description Value Unit Range Abnormal Flag Note LastModifiedBy Organization Detail LastModifiedTime 06/05/20 22 06/05/2022 rapid flu (A+B) Flu negati ve Not Available [facility] ed [address] [place] [address], [id number] 06/05/2022 15:46:04 06/05/20 22 06/05/2022 rapid SARS CoV 2 Ag, QL IA, respi rator y speci men rapid SARS CoV 2 Ag, QL IA, respiratory specimen negati ve Not Available [facility] ed [address] [place] [address], [id number] 06/05/2022 15:46:02 09/02/19 24 09/02/2023 rapid SARS CoV 2 Ag, QL IA, respi rator y speci men rapid SARS CoV 2 Ag, QL IA, respiratory specimen negati ve Not Available [facility] ed [address] [place] [address], [id number] 09/02/2023 11:52:32 Result Notes None recorded. Medical Equipment None Reported. Allergies Allergen ID Allergen Name Allergen Category Reaction Reaction Severity Criticality Documentation Date Start Date Code Code System Note Provider Name and Address Organization Details Recorded Time 3601 Product containin g penicilli n (product) medicatio n Not available Not available Not available 04/21/2024 73232 8001 SNOMED Not Available [facility] - production [...] 25 mg tablet,exten ded release 24 hr TOMYasmine AIDA TABLETA TODOS LOS D active Not [...] No t Available oseltamivir 30 mg capsule TOME AIDA C PSULA CADA 12 HORAS active Not Available [...] Vitals Date Recorded Body temperature Heart rate Oxygen saturation Oxygen saturation in Arterial blood by Pulse oximetry Respiratory rate Body temperature Heart rate Oxygen saturation Oxygen saturation in Arterial blood by Pulse oximetry Respiratory rate Systolic And Diastolic Systolic And Diastolic Provider Name and Address Organization Details Last Updated DateTime 3 98 [degF] 86 /min 98 % 98 % 18 /min 98 [degF] 86 /min 98 % 98 % 18 /min 140/80 mm[Hg] 140/80 mm[Hg] Not Available [facility] - production 3 17:18:46 Date Recorded Body temperature Heart rate Respiratory rate Oxygen saturation Oxygen saturation in Arterial blood by Pulse oximetry Inhaled oxygen flow rate Systolic And Diastolic Provider Name and Address Organization Details Last Updated DateTime 4 98.9 [degF] 98 /min 16 /min 97 % 97 % 2 L/min 140/80 mm[Hg] Not Available [facility] - production 4 11:42:45 Date Recorded Body temperature Body weight Respiratory rate Oxygen saturation Oxygen saturation in Arterial blood by Pulse oximetry Heart rate Heart rate Respiratory rate Oxygen saturation Oxygen saturation in Arterial blood by Pulse oximetry Body temperature Body weight Provider Name and Address Organization Details Last Updated DateTime 3 97.8 [degF] 241163. 08 g 18 /min 94 % 94 % 80 /min 80 /min 18 /min 94 % 94 % 97.8 [degF] 878882. 08 g Not Available [facility] - production 3 12:13:44 Date Recorded Systolic And Diastolic Systolic And Diastolic Provider Name and Address Organization Details Last Updated DateTime 09/18/2022 174/95 mm[Hg] 174/95 mm[Hg] Not Available [facility] - production 09/18/2022 12:13:44 Date Recorded Respiratory rate Oxygen saturation Oxygen saturation in Arterial blood by Pulse oximetry Inhaled oxygen flow rate Body height Heart rate Body temperature Body weight Systolic And Diastolic Provider Name and Address Organization Details Last Updated DateTime 5 16 /min 98 % 98 % 2 L/min 160.02 cm 60 /min 98.7 [degF] 971236 g 126/86 mm[Hg] Not Available [facility] - production 5 14:47:21 Date Recorded Body temperature Respiratory rate Oxygen saturation Oxygen saturation in Arterial blood by Pulse oximetry Inhaled oxygen flow rate Heart rate Systolic And Diastolic Provider Name and Address Organization Details Last Updated DateTime 2 98.1 [degF] 18 /min 97 % 97 % 3 L/min 82 /min 155/83 mm[Hg] Not Available [facility] - production 2 17:20:18 Social History None recorded. Functional Status None recorded. Mental Status None recorded. Family History Nothing Reported. Medical History No medical history recorded. Gynecological HistoryNo gynecological history recorded. Obstetrics History GPAL:G 0 P 0 0 0 0 Past Encounters Encounter ID Performer Location Encounter Start Date Encounter Closed Date Diagnosis/Indication Diagnosis SNOMED-CT Code Diagnosis ICD10 Code Diagnosis IMO Codes Diagnosis Note [id number] Andres Tamez MD Main - [facility] [address] [place] [id number] 10/23/2021 11:58:16 04/10/2022 09:46:43 [id number] David Ramos MD Main - [facility] [address] [place] [phone] 04/12/2022 18:40:41 04/13/2022 15:30:00 Tinea pedis 2584255 B35.3 Patient presents with a rash on [...] visit. [id number] [facility] [address] [place], [place] [phone] 06/05/2022 15:44:33 06/07/2022 13:44:46 Upper respiratory infection 15738163 J06.9 Presents with fever, cough, runny nose, but not nella dyspnea. Rapid COVID/flu negative. Suspect viral URI. Advised supportive care and using prescribed inhalers. Home O2 set at 3L but was using 2L due to nosebleds. [employer] Flat[employer] Driver helped patient install the humidifier and turned it up to 3L. [id number] Natalia Neal MD Main - [facility] [address] [place] [phone] 06/22/2022 17:20:14 06/26/2022 15:32:57 Congestive heart failure 17857096 I50.9 [id number] Mckenzie Suarez MD Main - [facility] [address] [place] [phone] 08/17/2022 16:11:35 08/20/2022 09:43:41 Postural dizziness 554689773 R42 [id number] Chino Saavedra MD Main - [facility] [address] [place] [phone] 09/18/2022 11:57:49 2022 10:48:15 Acute thoracic back pain 510484653 M54.6 [id number] Chino Saavedra MD Main - [facility] [address] [place] [phone] 09/02/2023 11:42:43 09/02/2023 23:03:51 Acute bronchitis 34665750 J20.9 [id number] AMBROCIO [facility]ASQUEZ [facility] [address] [place] [phone] 10/30/2024 14:47:16 10/30/2024 19:27:58 [facility] [id number] T14.8XXA [id number] Health Concerns Section Related Observation LastModified by Organization Detai ls LastModified Time None Recorded Concern Status LastModified by Organization Details LastModified Time None Recorded Advance Directives Directive None Recorded Payers Insurance Date Sequence Insurance Name Policy Number Policy Zendejas Covered Member ID [id number] Member ID Guarantor Name 10/30/2024 1 [facility] - DOS PRIOR TO 2022 - DUAL ELIGIBLE (MEDICARE REPLACEMENT/ADV ANTAGE - HMO) Nicole Fitzpatrick [id number] Nicole Fitzpatrick 10/30/2024 1 [facility] - DOS ON OR AFTER 2022 - DUAL ELIGIBLE - ALF OPTIONS AND ONE CARE (MEDICARE REPLACEMENT/ADV ANTAGE - HMO) Nicole Fitzpatrick [id number] Nicole Fitzpatrick Notes Date Note Type Note Provider Name and Address Organization Details Recorded Time 06/22/2022 text/html CRC Nursing Assessment: Chief Complaints: [...] inst[facility] referral for pt. Natalia Neal MD [address] [facility],[address], [place], [address], [facility] [employer] 06/22/2022 17:26:08 08/17/2022 text/html HPI: Allergic to: [...] .................... .................... .................... .................... .................... .................... . [employer] Flat[employer] Driver Note From Pavithra Chacko: Community [employer] Flatbed Driver Flores Chacko SC8 dispatched to a [facility] for an 81 yof C/O dizziness. Upon [...] time. C consulted; EKG acquired (results in ebvevc-h-uid), as well as orthostatic BP (140 SBP while sitting, 140 SBP while standing; pt denied dizziness on standing). Pt was prescribed 3 days of meclizine to R/O vertigo, and instructed to follow up w/ her PCP for potential medication changes/further examination. Red flags discussed, with emphasis on safety (fall risk). .................... .................... .................... .................... .................... .................... .................... . Disposition: Fulfilled Mckenzie Suarez MD [address] [place] [address],[address] [facility], [place], [address], [employer] 08/17/2022 17:20:21 09/18/2022 text/html ROS as noted in the HPI This was a supervised home visit with heater helper forge Krish Lyons. HPI: ALLERGIC TO: PCN,CORTISONE. HX: Afib, OA,Osteoporosis Patient with known osteoporosis. 4 day duration of pain upper back neck into spine . No accident or injury .................... .................... .................... .................... .................... .................... .................... . CRC Nursing Assessment: Comments: CRC RN did not require any additional information to process this visit. .................... .................... .................... .................... .................... .................... .................... . [employer] Flat[employer] Note From Krish Lyons: Pt with hx of osteoporosis , HTN, GA and takes eliquis presents with complaints of atraumatic 9/10 pain over her right scapula since 09/12 . Pt sts she took one dose of 650 mg PO tylenol yesterday with minimal relief. Pt also using heating pad with some relief. Pt denies cp, sob, cough or f/n/v/d. Pt has pain with ROM, no bruising, redness or rash over right scapula. [facility] contacted and advised the pt to go to the ED or urgent care later today or tomorrow for imaging. Pt instructed to take tylenol q6-8h prn and warning signs that would indicate the ED. [employer] Flat[employer] Driver Allergies: Penicillin, Hydrocortisone .................... .................... .................... .................... .................... .................... .................... . Disposition: Fulfilled Chino Saavedra MD [address] [facility],[address], [place], [address], [facility] 09/18/2022 12:20:34 09/02/2023 text/html ROS as noted in the HPI This was a supervised home visit with heater helper forge Leonard Yun. HPI: PMH: DEBBIE, oxygen dependent, CKD stage 3a Call to Nicole Melendez , pt daughter answers but not with patient. Advised senior technical writer to call alt number. Call to Nicole Melendez, reports having sx of cough and chest congestion. Per pt has been using albuterol. Per pt not productive. Per pt having chest tightness. Per pt mild relief with nebulizer. No OTC medications for cough. Pt drinking fluids. Pt having wheezing intermittent. Having SOB even at rest. No swelling reported. Pt unable to come into [facility], agrees to [employer] for eval. .................... .................... .................... .................... .................... .................... .................... . CRC Nurse Triage Notes (Jd Carrion): Comments: HPI was reviewed and no additional information is needed .................... .................... .................... .................... .................... .................... .................... . [employer] Flatbed Driver Note From Leonard Yun: Dispatched to the [...] less wheezing and more clear lung sounds. [facility] consulted. Pt given 40mg PO prednisone. Scripts called into preferred pharmacy. Red flags discussed. ALL times are approx. .................... .................... .................... .................... .................... .................... .................... . Disposition: Fulfilled Chino Saavedra MD [address] [facility],[address], [place], [address], [employer] 09/02/2023 12:49:21 10/30/2024 text/html ROS as noted in the HPI CRC Nurse Triage Notes (Jd Carrion): Reason For Request: Pt's granddaughter calling to note she ate a payday yesterday which in turn caused a peanut to be lodged within her dentures>a lump has thus formed due to what has happenedDenies: Sudden onset of dental pain, unable to manage own secretions Nosebleed lasting longer than one hour; unable to stop bleeding Throat swelling/difficult swallowing Chief Complaints: Sore ThroatPMH: Coronary Artery Disease, Hypertension, Congestive Heart Failure, COPD/AsthmaPMH Reviewed at 10/30/2024 - :14Allergies Reviewed at 10/30/2024:14Comments: 84 y.o female complains Bump in the back of the throat x1 day with redness reported Denies having a sore throat - Denies drainage - Denies fever - Denies difficulty swelling. Wellness check requested CG denture pain and report same is not related I provided information on the mobile health provider response time and advised the patient and/or caregiver to monitor reported signs and symptoms. I discussed the warning signs of when to seek emergency care. .................... .................... .................... .................... .................... .................... .................... . [employer] Flatbed Driver Note From Luke Grissom: GAURAV makes pt contact. She is found laying supine on her bed in her room w/ granddaughter sitting at the end of the bed. Pt turns her head to watch GAURAV enter and sits up on the edge of her bed. She is generally well-appearing. No ashen or barrera color are noted. She is not in respiratory distress. She is not tripoding and no stridor or sonorous respirations are present. She has no facial droop or one-sided weakness and there is no obvious external bleeding anywhere. Pt is Setswana-speaking only, family provides hx and translation. Family tells [facility] the pt ate a [employer] candy bar last night around 2100. When family returned home, pt was found spitting blood from her mouth. They saw a bump on the roof of her mouth w/ blood around it. Pt wears dentures and a peanut from the candy bar was caught underneath the roof plate of the denture and lacerated the palate. She has not worn her dentures since and she has had some decreased PO due to the pain and continued bleeding. No other oral pain is reported and she is not having difficulty swallowing or breathing. She has not vomited and has not had any recent illnesses. It is noted pt takes Eliquis. She consents to evaluation and treatment today. [facility] obtains pt consent. Vital signs are gathered and focused assessment on HEENT and neck are performed. Head is atraumatic and normocephalic. Pupils are PERRL, sclera are clear, and extraocular movements are intact. No swollen glands or lymph nodes are noted in the neck or under the jaw. Oral mucosa are pink and moist. Pt has blood blister on the L posterior hard palate w/ some nella blood present, just anterior to the soft palate. No other trauma is noted to the oral tissues. Neck is supple and trachea is midline. [facility] obtains a photo of the palate and contacts [facility] to discuss the above. [facility] recommends pt not wear her dentures until the wound heals and agrees w/ [facility] to salt water swish to keep it clean. [facility] instructs pt and family to keep pt eating soft foods and no straws or sucking until the abrasion is healed. Pt and family give their verbal understanding. [facility] also informs pt and family if the wound gets worse or isn't better by Saturday, pt should seek further care. [facility] is clear. Report completed by DANNI Grissom [id number]. .................... .................... .................... .................... .................... .................... .................... . [facility] Consulted: Ambrocio Vasquez .................... .................... .................... .................... .................... .................... .................... . Disposition: Fulfilled AMBROCIO VASQUEZ MD [address] [place] [address],[address] [facility], [place], [address], [employer]OK[employer] NATHAN 10/30/2024 15:26:38 OBGyn Episode No OBEpisode recorded.
--- OUTSIDE RECORDS SUMMARY | 2025-04-21 17:03 | XMS_ITS | Encounter Summary ---
Author Organization [employer] Address [address] [facility] [address] [place] [address] Care Team Providers Care Industrial Spraypainter Name Role Phone Name, Jeff MACEDO Primary Care Provider [phone] Reason for Visit * Reason Comments Med Refill Encounter Details Date Type Department Care Team ([facility] st Contact Info) Description 04/19/2025 Refill [facility] [address] [place], [place] [phone] Name, MD Jeff [address] [place] [address] Social History Tobacco Use Types Packs/Day Years [...] documented as of this encounter Care Teams Industrial Spraypainter Relationship Specialty Start Date End Date Name, MD Jeff [address] [place] [address] PCP - General Family Medicine 02/17/22 Isabel VILLEDA 11/24/24 documented as of this encounter
--- OUTSIDE RECORDS SUMMARY | 2025-04-21 17:03 | XMS_ITS | Encounter Summary ---
Author Organization [employer] Address [address] [facility] [address] [place] [address] Care Team Providers Care Agile Test Lead Name Role Phone Name, Jeff MACEDO Primary Care Provider [phone] Reason for Visit * Reason Onset Date Comments triage 06/21/2022 Encounter Details Date Type Department Care Team ([facility] st Contact Info) Description 06/21/2022 Telephone [facility]INE [address] [place] [address] Name, MD Jeff [address] [place] [phone] triage Social History Tobacco Use Types Packs/Day [...] days The caller accepted this outcome Speaks turkish documented in this encounter Plan of Treatment Not on file documented as of this encounter Visit Diagnoses Not on filedocumented in this encounter Care Teams Agile Test Lead Relationship Specialty Start Date End Date Name, MD Jeff [address] [place] [address] PCP - General Family Medicine 02/17/22 Isabel VILLEDA 11/24/24 documented as of this encounter
--- OUTSIDE RECORDS SUMMARY | 2025-04-21 17:03 | XMS_ITS | Patient Health Record ---
Demographics Address [address] [facility] [address] [place] [address] Preferred Language Unknown Marital Status Unknown Synagogue Affiliation Unknown Race Unknown Ethnic Group or Author Organization [facility] Address [address] [place] [address] Care Team Providers Care Compensator Name Role Phone Donnell LEE, Elijah Primary Care Provider Dustin De La Garza Unavailable [phone] Allergies Allergen (clinical drug ingredient) Drug/Non Drug Allergy documented on EMR Reaction Allergy Type Onset Date Status Penicillin Unknown Drug Allergy Active Reason For Referral No Information Medications Medication SIG (Take, Route, Frequency, Duration) Notes Start Date End Date Status Pain Reliever/Fever Analytics Associate 325mg Active Specialty Vitamins Products Active Lisinopril 20mg Acti ve hydroCHLOROthiazide 12.5mg Active Meclizine HCl 25mg A ctive Pravastatin Sodium 10mg Active Colyte with Flavor Packs 227 .1 GM As directed Orally As directed; Duration: 1 day(s) 05/14/2013 Active Vitamin D3 Active Aspir-81 81mg Active Problems Problem Type SNOMED Code ICD Code Onset Dates Problem Status W/U Status Risk Notes Problem Feces contents abnormal (523558836) Heme + stool (792.1) Active confirmed Plan Of Treatment Future Test Test Name Order Date COLONOSCOPY 05/14/2013 Insurance Providers Payer Name Payer Address Payer Phone Subscriber Number Group Number Insured Name Patient Relationship to Insured Coverage Start Date Coverage End Date [facility] [address] [place] [address] [id number] LAURIE ADAMS Self - patient is the insured MEDICARE OF [place] [address] [place] [address] [phone] [id number] LAURIE ADAMS Self - patient is the insured Medical (General) History Medical History History ICD Code Denies OR,DM,CVA,Lung disease,renal dise ase HTN High cholesterol Vertigo Surgical History Surgery Date(Month/Year) left knee replacement 1992
--- OUTSIDE RECORDS SUMMARY | 2025-04-21 17:03 | XMS_ITS | Encounter Summary ---
Author Organization [facility], Address [address] [place] [address] Phone Care Team Providers Care Wide Piece Goods Inspector Name Role Phone Name, Jeff MACEDO Primary Care Provider [phone] Encounter Details Date Type Department Care Team (Late st Contact Info) Description 07/12/2022 Documentation Only [facility], [address] [place] [address] Silvia Goode PA [address] [place] [address] Social History Tobacco Use Types [...] on filedocumented in this encounter Care Teams Wide Piece Goods Inspector Relationship Specialty Start Date End Date Name, MD Jeff [address] [place] [address] PCP - General Internal Medicine 02/26/24 documented as of this encounter
== END 2025-04-21 13:50 | disposition home or self-care (01) ==
LOC: HO.HCS 13:24
PROVIDERS: PCP Internal Medicine; Visit Provider Internal Medicine Cardiovascular Disease
DX: I27.81 Cor pulmonale (chronic) (principal); I27.20 Pulmonary hypertension, unspecified; I50.810 Right heart failure, unspecified; I10 Essential (primary) hypertension; I48.91 Unspecified atrial fibrillation
CPT/HCPCS: 99214

== ENCOUNTER → 2025-04-21 13:24 | Outpatient (BNVA) | payer OTHER, SELFPAY | PROVIDERS: PCP Internal Medicine; Visit Provider Internal Medicine Cardiovascular Disease | DX: I27.81 Cor pulmonale (chronic) (principal); I27.20 Pulmonary hypertension, unspecified; I11.0 Hypertensive heart disease with heart failure; I50.32 Chronic diastolic (congestive) heart failure; I50.810 Right heart failure, unspecified; I48.91 Unspecified atrial fibrillation; Z99.81 Dependence on supplemental oxygen | CPT/HCPCS: 99212 ==

== ENCOUNTER 2025-06-01 23:03 | Emergency (ER) | payer OTHER, SELFPAY ==
[2025-06-01 23:19] VITALS: BP 144/98; PULSE 110; O2SAT 95
[2025-06-01 23:21] VITALS: BP 168/71; PULSE 112; RESP 20; TEMP 36.8; O2SAT 93; BMI 39.9
--- NOTE | 2025-06-01 23:30 | ECG_ITS ---
Test Reason : ARRYTHMIA Blood Pressure : */* mmHG Vent. Rate : 98 BPM Atrial Rate : * BPM P-R Int : * ms QRS Dur : 86 ms QT Int : 366 ms P-R-T Axes : * 49 1 degrees QTcB Int : 467 ms Atrial fibrillation Abnormal ECG When compared with ECG of 18-Nov-2024 04:22, Vent. rate has increased by 53 bpm QT has lengthened Referred By: Generic ED Physician Electronically Signed By: SHANNON RAMACHANDRAN MD
[2025-06-02 00:44] LABS: MANUAL DIFF FLAG NO
[2025-06-02 00:47] LABS: Hematocrit 46.8 % (37.0-47.0); Hemoglobin 14.9 g/dl (12.0-16.0); Imm Gran Abs Auto 0.06 X10*3/uL (0.00-0.03); Imm Gran Pct Auto 0.4 % (0.0-0.4); Lymphocytes Absolute Auto 0.6 X10*3/uL (1.2-4.9); Mean Corpuscular HGB Conc 31.8 g/dl (31.0-35.0); Mean Corpuscular Hemoglobin 28.3 pg (27.0-33.0); Mean Corpuscular Volume 89.0 fL (80.0-98.0); NRBC Abs Auto 0.000 X10*3/uL (0.0-0.012); NRBC Pct Auto 0.0 /100WBC (0.0-0.2); Platelet Count 179 X10*3/uL (160-400); Red Blood Count 5.26 X10*6/uL (4.20-5.50); White Blood Count 16.3 X10*3/uL (4.8-10.8)
[2025-06-02 01:01] LABS: Alanine Aminotransferase 11 U/L (0-31); Albumin Level 4.2 g/dL (3.5-5.0); Alkaline Phosphatase 109 U/L (39-117); Anion Gap 13 (12-20); Aspartate Amino Transferase 22 U/L (5-31); Blood Urea Nitrogen 24 mg/dL (9-16); Calcium 9.6 mg/dL (8.4-10.2); Carbon Dioxide 29 mmol/L (22-29); Chloride 105 mmol/L (96-108); Creatinine Clr Calc Pharmacy 45.6; Estimated Glomerular Filt Rate 52; Potassium 3.8 mmol/L (3.3-5.1); Sodium 143 mmol/L (135-145); Total Protein 6.9 g/dL (6.5-8.0)
[2025-06-02 01:06] LABS: NT Pro B Type Natriuretic Pept 691.0 pg/mL (<300); Troponin-I High Sensitivity 4.3 ng/L (<3.5-17.0)
[2025-06-02 01:18] VITALS: BP 153/78; PULSE 114; RESP 20; TEMP 36.9; O2SAT 95
[2025-06-02 01:24] LABS: Resp Syncy Virus RNA Qual PCR NEGATIVE (Negative); SARS COV2 PCR INHOUSE NEGATIVE (Negative)
[2025-06-02 01:29] LABS: Appearance Urine Clear; Glucose Urine UA >=1000 mg/dL (Negative); PH 5.0 (5.0-9.0); Specific Gravity - Urine 1.025 (1.005-1.025); UMIC TRIGGER UACC YES
--- NOTE | 2025-06-02 01:38 | ED.DIZZY ---
HPI - Dizziness General Chief Complaint: Dizziness Stated Complaint: n/v x1 hr. hx of vertigo never this bad, 94% on 2L Time Seen by Provider: 06/02/25 01:30 Source: patient and EMS Mode of arrival: EMS Limitations: language barrier ([employer] services utilized) History of Present Illness ED Provider: Adarsh PRASAD HPI Narrative: Patient is an 84-year-old female presenting to the ED for evaluation of acute vomiting that began earlier today, super-imposed on a long-standing history of daily vertigo. The patient reports her vertigo occurs every day, worsens with standing or rapid head movement to either side however denies any active vertigo while lying in the exam stretcher. Patient reports she was previously treated with meclizine by her neurologist however this was discontinued 2 years ago as she was taking it too often due to the daily symptoms. Patient reports approximately 3 months ago her PCP represcribed the meclizine but advised her to take only a half tablet at a time. Patient reports she last took meclizine at 10:00 today. The patient reports vomiting began this morning, prompting her ED visit this evening, denies associated fever/chills, hematemesis, abdominal pain, diarrhea, urinary symptoms, or recent trauma. The patient reports she also suffers from chronic arthritic pain, reports this is unchanged. The patient denies any recent falls or other blunt head trauma. The patient reports she has previously been seen for similar symptoms and diagnosed with CHF exacerbations. Patient denies associated shortness of breath, lower extremity edema, or other similar symptoms. Related Data Home Medications ?Medication ?Instructions ?Recorded ?Confirmed cholecalciferol (vitamin D3) 25 25 mcg PO DAILY 03/20/21 04/21/25 mcg (1,000 unit) capsule pravastatin 10 mg tablet 10 mg PO BEDTIME 03/20/21 04/21/25 albuterol sulfate 2.5 mg/3 mL 2.5 mg inhalation Q6H PRN wheezing 09/15/23 04/21/25 (0.083 %) solution for nebulization multivitamin-ferrous 1 tab PO DAILY 09/15/23 04/21/25 fumarate-folic acid 18 mg-400 mcg tablet (Certavite-Antioxidant) acetaminophen 650 mg/20.3 mL oral 325 mg PO Q4H PRN Pain 09/17/24 04/21/25 solution Previous Rx's ?Medication ?Instructions ?Recorded apixaban 5 mg tablet (Eliquis) 5 mg PO BID 90 days #180 tabs 05/13/24 bumetanide 1 mg tablet 2 mg PO DAILY 90 days #180 tabs 11/22/24 empagliflozin 10 mg tablet 10 mg PO DAILY #90 tabs 11/22/24 (Jardiance) Allergies Allergy/AdvReac Type Severity Reaction Status Date / Time Penicillins (PENICILLINS) AdvReac Unknown STOMACH Verified 06/01/25 23:29 UPSET Review of Systems Review of Systems: Yes all other systems are reviewed and are negative [facility] Past Medical History Medical History CHF (congestive heart failure) RVF (right ventricular failure) Chronic diastolic CHF (congestive heart failure) DEBBIE (obstructive sleep apnea) New onset a-fib Atherosclerosis Varicose veins of bilateral lower extremities with pain Osteoarthritis HTN (hypertension) Obesity Osteoporosis Surgical History Hx of surgical procedure (03/01/23) History of appendectomy Status post left knee replacement Family History Family History Son CAD (coronary artery disease) Mother CAD (coronary artery disease) Social History Social History Household Members: Family Housing: Apartment Are you a primary daycare assistant to a significant other at home: No Do you presently have visiting nurse or other home services: No ([employer]) Alcohol intake: never Patient Tobacco Use Status: Never used Tobacco Smoked in Last 30 Days: No e-Cigarette/Vaping Use: Never Used Second Hand Smoke Exposure: No Use of substances other than those prescribed or required for medical reasons: No Advance Directives: Yes Advance Directives on File: Yes Advance Directives Date on File: 10/25/21 service: No Current occupational status: retired and disabled Physical Exam Vital Signs: Vital Signs: Last Vital Signs Temp 98.5 F 06/02/25 07:02 Pulse 114 H 06/02/25 07:02 Resp 20 06/02/25 07:02 BP 153/78 H 06/02/25 07:02 Pulse Ox 95 12/10/25 07:02 O2 Del Method Nasal Cannula 06/02/25 07:02 O2 Flow Rate 2 06/02/25 07:02 Oxygen Flow Rate 2 06/01/25 23:21 BMI result Body Mass Index 39.9 CONSTITUTIONAL: The patient appears non-toxic, well nourished and in no acute distress. Vital signs as documented. HEAD: Atraumatic, normocephalic. EYES: EOMs grossly intact, pupils equal, conjunctiva clear, no exudate. ENT: Nares patent, no discharge. Airway patent, no audible stridor, visible mucosa is pink and moist without noted lesions. NECK: Trachea is midline, no obvious masses or gross abnormalities. CHEST: Symmetric movement, normal appearance. LUNGS: LS present and CTAB, no w/r/r. Non-labored work of breathing. CARDIAC: Regular Rhythm, S1/S2 appreciated, no murmurs, rubs or gallops. ABDOMEN: Abdomen soft and non-tender x4 quadrants, no palpable masses or organomegaly. : Deferred. EXTREMITIES: Normal tone, moves all extremities spontaneously without reported pain. No obvious acute injury or deformity noted. NEURO: Alert and oriented x3, CN II-XII appear grossly intact. Cerebellar Functioning grossly intact. No obvious sensory or motor deficits. Speech clear and appropriate. PSYCH: normal affect, appropriate eye contact, fluid speech, with appropriate response to questioning. No reported suicidality or homicidality. SKIN: Warm, dry, color appropriate, normal turgor. No rashes noted. Medications Administered Discontinued Medications Generic Name Dose Route Start Last Admin Trade Name Freq PRN Reason Stop Dose Admin Diphenhydramine HCl 12.5 mg 06/02/25 02:44 06/02/25 04:09 Diphenhydramine Hcl 50 Mg/Ml Vial IVPUSH 06/02/25 02:45 12.5 mg ONCE ONE Administration Sodium Chloride 500 mls @ 999 mls/hr 06/02/25 02:45 06/02/25 04:07 Ns IV 06/02/25 03:15 999 mls/hr .Q31M SOPHIE Administration Meclizine HCl 25 mg 06/02/25 02:44 06/02/25 04:10 Meclizine Hcl 25 Mg Tablet PO 06/02/25 02:45 25 mg ONCE ONE Administration Medical Decision Making Medical Decision Making [facility] Narrative: 4:01 AM 06/02/2025 (Brett PRASAD): Patient is an 84-year-old female presenting to the ED for evaluation of acute vomiting that began earlier today, super-imposed on a long-standing history of daily vertigo. The patient reports her vertigo occurs every day, worsens with standing or rapid head movement to either side however denies any active vertigo while lying in the exam stretcher. Patient reports she was previously treated with meclizine by her neurologist however this was discontinued 2 years ago as she was taking it too often due to the daily symptoms. Patient reports approximately 3 months ago her PCP represcribed the meclizine but advised her to take only a half tablet at a time. Patient reports she last took meclizine at 10:00 today. The patient reports vomiting began this morning, prompting her ED visit this evening, denies associated fever/chills, hematemesis, abdominal pain, diarrhea, urinary symptoms, or recent trauma. The patient reports she also suffers from chronic arthritic pain, reports this is unchanged. The patient denies any recent falls or other blunt head trauma. The patient reports she has previously been seen for similar symptoms and diagnosed with CHF exacerbations. Patient denies associated shortness of breath, lower extremity edema, or other similar symptoms. On exam patient has no focal neurological deficit, no pedal edema, adventitious lung sounds, or other acute findings. Abdomen is nontender. Laboratory evaluation shows leukocytosis of 16,000, likely acute phase secondary to vomiting, no anemia or electrolyte abnormality. The patient's BUN is elevated at 24, creatinine normal at 1.01, representing prerenal azotemia likely secondary to vomiting. LFTs are unremarkable. Troponin is negative, EKG is nonischemic, BNP minimally elevated at 691. The patient's urinalysis shows no leukocyte esterase, nitrites, or WBCs, there is 1+ bacteria however there are 6-10 squamous epithelial cells, likely representing contamination, patient denies any urinary symptoms. The patient will be treated with IV fluid hydration, meclizine, and Benadryl, and we will reassess symptoms. 6:23 AM 06/02/2025 (Brett PRASAD): Patient reports feeling marked improvement in dizziness following interventions in the ED. Patient will be discharged with instructions to continue meclizine as prescribed by PCP, but also follow up with PCP and neurologist to discuss possibility of scopolamine patches for chronic dizziness. Lab Data 06/02/25 00:35 06/02/25 00:35 Labs: Lab Results 06/02/25 06/02/25 Range/Units 00:35 01:15 WBC 16.3 H (4.8-10.8) X10*3/uL RBC 5.26 (4.20-5.50) X10*6/uL Hgb 14.9 D (12.0-16.0) g/dl Hct 46.8 (37.0-47.0) % MCV 89.0 (80.0-98.0) fL MCH 28.3 (27.0-33.0) pg MCHC 31.8 (31.0-35.0) g/dl RDW 13.8 (11.0-16.0) % Plt Count 179 (160-400) X10*3/uL MPV 11.7 (9.4-12.3) fL Immature Gran % (Auto) 0.4 (0.0-0.4) % Neut % (Auto) 88.3 H (45-73) % Lymph % (Auto) 3.4 L (20-40) % Brooke % (Auto) 7.3 (2-11) % Eos % (Auto) 0.2 (0-4) % Baso % (Auto) 0.4 (0-2) % Lymph # (Auto) 0.6 L (1.2-4.9) X10*3/uL Brooke # (Auto) 1.2 (0.1-1.2) X10*3/uL Eos # (Auto) 0.0 (0.0-0.4) X10*3/uL Baso # (Auto) 0.1 (0.0-0.2) X10*3/uL Abs Immat Gran (auto) 0.06 H (0.00-0.03) X10*3/uL Absolute Neuts (auto) 14.4 H (2.0-8.3) x10*3/uL Absolute Nucleated RBC 0.000 (0.0-0.012) X10*3/uL Nucleated RBC % (auto) 0.0 (0.0-0.2) /100WBC Sodium 143 (135-145) mmol/L Potassium 3.8 (3.3-5.1) mmol/L Chloride 105 (96-108) mmol/L Carbon Dioxide 29 (22-29) mmol/L Anion Gap 13 (12-20) BUN 24 H (9-16) mg/dL Creatinine 1.01 (0.5-1.4) mg/dL Estim Creat Clear Calc 45.6 Estimated GFR 52 Random Glucose 101 (60-115) mg/dL Calcium 9.6 (8.4-10.2) mg/dL Total Bilirubin 0.6 (0.0-1.0) mg/dL AST 22 (5-31) U/L ALT 11 (0-31) U/L Alkaline Phosphatase 109 (39-117) U/L Troponin I High Sens 4.3 D (<3.5-17.0) ng/L NT-Pro-B Natriuret Pep 691.0 H (<300) pg/mL Total Protein 6.9 (6.5-8.0) g/dL Albumin 4.2 (3.5-5.0) g/dL Urine Color Yellow Urine Appearance Clear Urine pH 5.0 (5.0-9.0) Ur Specific [place] 1.025 (1.005-1.025) Urine Protein Trace (Neg-Trace) mg/dL Urine Glucose (UA) >=1000 H (Negative) mg/dL Urine Ketones Trace (Negative) mg/dL Urine Blood Negative (Negative) Urine Nitrite Negative (Negative) Ur Leukocyte Esterase Negative (Negative) Urine RBC 0-2 (0-2) /HPF Urine WBC 0-5 (0-5) /HPF Ur Squamous Epith Cells 6-10 (0-2) /HPF Urine Bacteria 1+ (None Seen) Hyaline Casts 3-5 (0-2) /LPF Influenza Type A (PCR) NEGATIVE (Negative) Influenza Type B (PCR) NEGATIVE (Negative) RSV RNA Qual (PCR) NEGATIVE (Negative) SARS-CoV-2 RNA (RT-PCR) NEGATIVE (Negative) Discharge Plan Discharge Clinical Impression: Vertigo Patient Disposition: Home, Self-Care Instructions: Vertigo (ED), Dizziness (ED) Additional Instructions: Bonilla por elegir el Departamento de Emergencias del [facility] para young atenci?n m?dica hoy. Afortunadamente, sebastian an?lisis de laboratorio, la prueba de detecci?n viral, el electrocardiograma, el examen f?sico y los signos vitales de hoy son tranquilizadores. En rolo momento no hay indicaci?n para young ingreso al hospital ni para continuar en observaci?n en el Departamento de Emergencias, por lo que puede irse a casa con seguridad. Young mareo mejor? despu?s de la administraci?n de l?quidos intravenosos y medicamentos en el Departamento de Emergencias. Por favor, consulte con young neur?logo para hablar sobre el uso de parches de escopolamina para young mareo cr?nathan, ya que, seg?n nos coment?, no cl que contin?e tomando grandes cantidades de meclizina. Mant?ngase manjeet hidratado y descanse lo suficiente. Contin?e tomando todos sebastian dem?s medicamentos recetados seg?n las indicaciones. Tambi?n le recomendamos que consulte con young m?dico de cabecera para flora reevaluaci?n, un manejo adicional de sebastian s?ntomas y para continuar con young atenci?n preventiva. Si no tiene un m?dico de cabecera, llame al [facility] al [phone] para programar flora peggy con un nuevo m?dico. Mientras espera para establecer young nuevo m?dico de cabecera, puede llamar a nuestra Cl?elvia de Atenci?n sin Peggy Previa al [phone] para necesidades que no isa de emergencia. Regrese al Departamento de Emergencias si presenta un cambio repentino o grave en sebastian s?ntomas, fiebre superior a 38 ?C (100.4 ?F) que no mejora con Tylenol o Ibuprofeno, v?mitos recurrentes o cualquier otro s?ntoma o preocupaci?n nuevos o que empeoren. Thank you for choosing [facility]'s Emergency Department for your care today. Thankfully your laboratory evaluation, viral swab, EKG, exam, and vital signs today are reassuring. At this time there is no indication for admission to the hospital or continued ED observation, and it is safe to discharge you home. Your dizziness improved after IV fluid hydration and medication administration in the emergency department. Please follow up with the your neurologist to discuss use of scopolamine patches for your chronic dizziness as you described they do not want you to continue taking large amounts of meclizine. Please stay well hydrated and get plenty of rest. Please continue taking all your other regularly prescribed medications as directed. Please also follow up with your primary care physician for re-evaluation, additional management of your symptoms, and continued preventative care. If you do not have a primary care physician, please call the [facility] at [phone] to establish a new primary care physician. While waiting to establish your new primary care physician, you can call our Walk[facility]in [facility] at [phone] for non-emergency needs. Please return to the emergency department if you develop a severe or sudden change in your symptoms, a fever over 100.4 that does not improve with Tylenol or Ibuprofen, recurrent vomiting, or any other new or worsening symptoms or concerns. Prescriptions: No Action Eliquis 5 mg tablet 5 mg PO BID 90 Days Qty: 180 3RF albuterol sulfate 2.5 mg /3 mL (0.083 %) solution for nebulization 2.5 mg inhalation Q6H PRN (Reason: wheezing) Certavite-Antioxidant 18-400 mg-mcg tablet 1 tab PO DAILY Jardiance 10 mg Tablet 10 mg PO DAILY Qty: 90 0RF bumetanide 1 mg Tablet 2 mg PO DAILY 90 Days Qty: 180 0RF Protocol: Hold for SBP< HOLD for SBP < : 90 cholecalciferol (vitamin D3) 25 mcg (1,000 unit) capsule 25 mcg PO DAILY pravastatin 10 mg tablet 10 mg PO BEDTIME acetaminophen 650 mg/20.3 mL solution 325 mg PO Q4H PRN (Reason: Pain) Interventions: ED Discharge Assessment Last Done: 06/02/25 07:02 Discharge Date/Time: 06/02/25 07:17 Print Language: Libyan
--- OUTSIDE RECORDS SUMMARY | 2025-06-02 02:18 | XMS_ITS | Encounter Summary ---
Author Organization [email or web address] Address [address] [place] [address] Care Team Providers Care Lining Repairer Name Role Phone Name, Jeff MACEDO Primary Care Provider [phone] Reason for Visit * Reason Onset Date Comments Nurse Triage 04/27/2024 Encounter Details Date Type Department Care Team ([facility] st Contact Info) Description 04/27/2024 Telephone [facility] [address], [place] [phone] Name, MD Jeff [address] [place] [address] Nurse Triage Social History Tobacco Use Types [...] 04/27/2024 3:59 PM EST Triage call [place] [employer] [place] [id number] Pt didn't answer x2 left voice message to call [facility] [phone] x2. * Telephone Encounter - Evangelina Seo [...] documented as of this encounter Care Teams Lining Repairer Relationship Specialty Start Date End Date Name, MD Jeff [address] [place] [address] PCP - General Family Medicine 02/17/22 Isabel VILLEDA 11/24/24 documented as of this encounter
--- OUTSIDE RECORDS SUMMARY | 2025-06-02 02:18 | XMS_ITS | Encounter Summary ---
Author Organization [employer] Address [address] [place] [address] Care Team Providers Care Tiedown Operator Name Role Phone Name, Jeff MACEDO Primary Care Provider [phone] Reason for Visit * Reason Onset Date Comments triage 06/21/2022 Encounter Details Date Type Department Care Team ([facility] st Contact Info) Description 06/21/2022 Telephone [facility] [address] [place] [phone] Name, MD Jeff [address] [place] [phone] triage Social History Tobacco Use Types Packs/Day [...] days The caller accepted this outcome Speaks lao documented in this encounter Plan of Treatment Not on file documented as of this encounter Visit Diagnoses Not on filedocumented in this encounter Care Teams Tiedown Operator Relationship Specialty Start Date End Date Name, MD Jeff [address] [place] [address] PCP - General Family Medicine 02/17/22 Isabel VILLEDA 11/24/24 documented as of this encounter
--- OUTSIDE RECORDS SUMMARY | 2025-06-02 02:18 | XMS_ITS | Encounter Summary ---
Author Organization [employer] Address [address] [place] [address] Care Team Providers Care Ic Designer Custom Name Role Phone Name, Jeff MACEDO Primary Care Provider [phone] Reason for Visit * Reason Comments Med Refill Encounter Details Date Type Department Care Team ([facility] st Contact Info) Description 10/29/2022 Refill [facility] [address] [place] [phone] Name, MD Jeff [address] [place] [address] [phone] Essential hypertension Social History Tobacco Use Types [...] hypertension documented in this encounter Care Teams Ic Designer Custom Relationship Specialty Start Date End Date Name, MD Jeff [address] [place] [address] [phone] PCP - General Family Medicine 02/17/22 [facility] 11/[facility]/24 documented as of this encounter
--- OUTSIDE RECORDS SUMMARY | 2025-06-02 02:18 | XMS_ITS | Clinical Summary ---
Author Organization [email or web address] Address [address] [place] [address] [address] [place] [address] Care Team Providers Care Field Consultant Name Role Phone Name, Jeff MACEDO Primary Care Provider [phone] Allergies Active Allergy Reactions Criticality Noted Date Comments Cortisone 03/21/2017 Penicillins Other reaction(s): unspecified, unspecified Medications albuterol 108 (90 Base) MCG/ACT inhalerIndicati ons:Essential hypertension INHALE 2 PUFF BY INHALATION ROUTE EVERY 4 - 6 HOURS NEEDED NEEDED FOR WHEEZE 18 g 1 023 Active albuterol (2.5 MG/3ML) 0.083% nebulizer solution Take 3 mL (2.5 mg) by nebulization every 6 (six) hours if needed for wheezing. 75 mL 11 024 Active Multiple Vitamins-Minera ls (CertaVite/Anti oxidants) tabletIndicatio ns:Routine general medical examination at a health care facility Take 1 tablet by mouth in the morning. 90 tablet 3 024 Active bacitracin 500 UNIT/GM ointment Apply topically 2 times daily. 28 g 025 Active amLODIPine (Norvasc) 5 MG tabletIndicatio ns:Hypertension , unspecified type TAKE 1 TABLET BY MOUTH EVERY MORNING 90 tablet 1 5 5:53 PM EST 025 Active pravastatin (Pravachol) 10 MG tabletIndicatio ns:Essential hypertension TAKE 1 TABLET BY MOUTH AT BEDTIME 90 tablet 1 5 5:53 PM EST 025 Active D3-1000 25 MCG (1000 UT) capsule TAKE 1 TABLET BY MOUTH EVERY MORNING 90 capsule 1 Active Blood Pressure Monitoring (Omron 3 Series BP Monitor) device USE DIRECTED FOR BLOOD PRESSURE 1 each Active acetaminophen (Tylenol 8 Hour) 650 MG ER tablet TAKE 1 TABLET BY MOUTH EVERY 8 HOURS NEEDED FOR MODERATE PAIN 90 tablet 1 Active bumetanide (Bumex) 1 MG tablet TAKE 2 TABLETS BY MOUTH ONCE DAILY IN THE MORNING 60 tablet 3 5 9:34 AM EST Active Jardiance 10 MG TAKE 1 TABLET BY MOUTH EVERY MORNING 30 tablet 3 5 9:34 AM EST Active apixaban (Eliquis) 5 MG tablet Take 1 tablet (5 mg) by mouth 2 times daily. 60 tablet 1 5 5:53 PM EST Active meclizine (Antivert) 25 MG tablet TAKE 1 TABLET BY MOUTH THREE TIMES DAILY IN THE MORNING, AT NOON, AND AT BEDTIME NEEDED FOR DIZZINESS 30 tablet 5 9:34 AM EST Active apixaban (Eliquis) 5 MG tablet Take 5 mg by mouth 2 times daily. 2024 Discontinued(R robert (will not trigger notification to Pharmacy)) meclizine (Antivert) 25 MG tablet TAKE 1 TABLET BY MOUTH THREE TIMES DAILY IN THE MORNING, AT NOON, AND AT BEDTIME NEEDED FOR DIZZINESS 30 tablet 025 2024 Discontinued Active Problems Problem Noted Date [...] denies sob Stage 3a chronic kidney disease ([facility]) 2022 Vertigo 08/09/2022 Atrial fibrillation ([facility]) 01/23/2022 Carotid atherosclerosis 03/11/2020 Generalized osteoarthritis 11/27/2011 Varicose veins of lower extremity 11/27/2011 Essential hypertension 11/23/2011 Assessment & Plan (11/04/2023 1:26 PM EDT): At goal today, does report not taking one of prescribed heart medications' but cannot recall which one, will update once home Obesity 11/23/2011 Osteoporosis 11/23/2011 Encounters Date Type Department Care Team Description 05/24/2025 Refill [facility] [address] [place] [address] Name, MD Jeff 05/14/2025 Telephone [facility] MEDICINE [address] [place] [address] Name, MD Jeff Durable Medical Equipment (O2) 05/10/2025 Refill [facility] [address] [place] [address] Name, MD Jeff 04/21/2025 Refill [facility] [address] [place] [address] Name, MD Jeff 04/19/2025 Refill [facility] [address] [facility] [address] Name, MD Jeff 04/06/2025 11:30 AM EDT Telemedicine [facility] [address] [place] [address] Name, MD Jeff Chronic right-sided heart failure (HCC) (Primary Dx); Hyperkalemia; Elevated serum creatinine 04/06/2025 Travel 04/05/2025 Telephone [facility] [address] [place] [address] Name, MD Jeff Nurse Triage 04/04/2025 Refill [facility] [address] [facility] [address] Name, MD Jeff 03/12/2025 Refill [facility] [place] [address] Name, MD Jeff from Last 3 Months Immunizations Immunization Administration [...] your housing situation today? I have evelio ester 01/29/[address] you li [...] EDT Essential hypertension Elevated serum creatinine Hyperkalemia LIPID PANEL, STANDARD Routine 03/28/2023 9:37 AM EDT Essential hypertension Vaccination refused by patient from Last 3 Months or Most Recently Relevant to Health Maintenance Results * (ABNORMAL) Basic Metabolic Panel (04/02/2025 11:56 AM EDT) Sodium 143 135 - 145 mmol/L [facility] Potassium 3.9 3.3 - 5.1 mmol/L [facility] Chloride 103 96 - 108 mmol/L [facility] Carbon Dioxide 33(H) 22 - 29 mmol/L [facility] Anion Gap 11(L) 12 - 20 [facility] Urea Nitrogen (BUN) 20(H) 9 - 16 mg/dL [facility] Creatinine, Serum 1.25 0.5 - 1.4 mg/dL [facility] Estimated Glomerular Filt Rate 41 [facility] Comment:Chronic Kidney Disea se: Estimated GFR < 60 mL/min/1.10g9Ydlddz Kidney Disease: Estimated GFR < 15 mL/min/1.73m2 Glucose 143(H) 60 - 115 mg/dL [facility] Calcium 9.6 8.4 - 10.2 mg/dL [facility] Blood Venous blood specimen / Unknown 04/02/2025 11:56 AM EDT 04/02/2025 11:56 AM EDT us Jeff Ernandez MD LAB BLOOD ORDERABLES Final Resul t [facility] [address] [place] [address] [phone] * (ABNORMAL) Lipid Panel, Standard (03/28/2023 9:37 AM EDT) Triglycerides 91 <150 mg/dL [facility] Comment:Desirable Triglyceri de: less than 150 mg/dLBorderline High Triglyceride 150-199 mg/dLHigh Triglyceride: 200-499 mg/dLVery High Triglyceride: greater than or equal to 5OO mg/dL Cholesterol 107 <200 mg/dL [facility] Comment:Desirable Cholestero l: less than 200 mg/dLBorderline High Cholesterol: 200-239 mg/dLHigh Cholesterol: greater than 239 mg/dL LDL Cholesterol Calculated 53 <100 mg/dL [facility] Comment:Desirable LDL: less than 100 mg/dLNear Optimal/Above Optimal LDL: 110- 129 mg/dLBorderline High LDL: 130-159 mg/dLHigh LDL: 160-189 mg/dLVery High LDL: greater than or equal to 190 mg/dL HDL Cholesterol 36(L) >40 mg/dL [facility] Comment:Desirable HDL: great er than 40 mg/dL Note: This HDL assay may give artificially low results in patients with liver disease. Blood Venous blood specimen / Unknown 03/28/2023 9:37 AM EDT 03/28/2023 11:31 AM EDT Jeff Name LAB BLOOD ORDERABLES Final Resul t [facility] [address] [place] [address] [phone] from Last 3 Months or Most Recently Relevant to Health Maintenance [facility] (O D-SNP) Care Teams Field Consultant Relationship Specialty Start Date End Date Name, MD Jeff [address] [place], [place] PCP - General Family [facility]
--- OUTSIDE RECORDS SUMMARY | 2025-06-02 02:18 | XMS_ITS | Encounter Summary ---
Author Organization [employer] Address [address] [facility] 7t [place] [address] Care Team Providers Care Clin Nurse Spec Name Role Phone Name, Jeff MACEDO Primary Care Provider [phone] Reason for Visit * Reason Onset Date Comments Reschedule 05/21/2023 Encounter Details Date Type Department Care Team ([facility] st Contact Info) Description 05/21/2023 Telephone [facility] MED[facility]INE [address] [place] [address] Name, MD Jeff [address] [place] [address] Reschedule Social History Tobacco Use Types Packs/Day [...] from pt requesting r/s 05/21 HTN appt, keno writer attempted to r/s no availability. documented in this encounter Plan of Treatment Not on file documented as of this encounter Visit Diagnoses Not on filedocumented in this encounter Additional Health Concerns Assessment Noted Time PHQ-9 Depression Total Score: 0 02/12/20 23 2:01 PM EDT documented as of this encounter Care Teams Clin Nurse Spec Relationship Specialty Start Date End Date Name, MD Jeff [address] [place] [address] PCP - General Family Medicine 02/17/22 Ismay VNFranco 11/24/24 documented as of this encounter
--- OUTSIDE RECORDS SUMMARY | 2025-06-02 02:18 | XMS_ITS | Clinical Summary ---
Author Organization [facility] Address [address] [facility] [address] [place] [phone] Phone Care Team Providers Care Assistant Maintenance Manager Name Role Phone Unavailable Primary Care Provider [...] It is not the complete legal health record.[facility]
--- OUTSIDE RECORDS SUMMARY | 2025-06-02 02:18 | XMS_ITS | Patient Health Record ---
Demographics Address [address] [address] [place] [address] Preferred Language Unknown Marital Status Unknown Synagogue Affiliation Unknown Race Unknown Ethnic Group or Author Organization [facility] Address [address] [place] [address] Care Team Providers Care Wrecker Driver Name Role Phone Donnell LEE, Elijah Primary Care Provider Dustin De La Garza Unavailable [phone] Allergies Allergen (clinical drug ingredient) Drug/Non Drug Allergy documented on EMR Reaction Allergy Type Onset Date Status Penicillin Unknown Drug Allergy Active Reason For Referral No Information Medications Medication SIG (Take, Route, Frequency, Duration) Notes Start Date End Date Status Pain Reliever/Fever Blind Cleaner 325mg Active Specialty Vitamins Products Active Lisinopril 20mg Acti ve hydroCHLOROthiazide 12.5mg Active Meclizine HCl 25mg A ctive Pravastatin Sodium 10mg Active Colyte with Flavor Packs 227 .1 GM Solution Reconstituted As directed Orally As directed; Duration: 1 day(s) 05/14/2013 Active Vitamin D3 Active Aspir-81 81mg Active Social History Social History Additional Details Category Social Info Options Details Miscellaneous: Marital status: Occupation: retired Section Notes: Nonsmoker; no alcohol Problems Problem Type SNOMED Code ICD Code Onset Dates Problem Status W/U Status Risk Notes Problem Feces contents abnormal (789961741) Heme + stool (792.1) Active confirmed Plan Of Treatment Future Test Test Name Order Date COLONOSCOPY 05/14/2013 Insurance Providers Payer Name Payer Address Payer Phone Subscriber Number Group Number Insured Name Patient Relationship to Insured Coverage Start Date Coverage End Date [facility] [address] [place] [phone] [id number] ADAMS SULLIVAN Self - patient is the insured MEDICARE OF [place] [address] [place] [id number] ADAMS SULLIVAN Self - patient is the insured Medical (General) History Medical History History ICD Code Denies [place],DM,CVA,Lung disease,renal dise ase HTN High cholesterol Vertigo Surgical History Surgery Date(Month/Year) left knee replacement 1992
--- OUTSIDE RECORDS SUMMARY | 2025-06-02 02:18 | XMS_ITS | Encounter Summary ---
Author Organization [employer] Address [address] [facility] [address] [place] [address] Care Team Providers Care Dry Color Tester Name Role Phone Name, Jeff MACEDO Primary Care Provider [phone] Reason for Visit * Reason Onset Date Comments Nurse Triage 09/02/2023 Encounter Details Date Type Department Care Team ([facility] st Contact Info) Description 09/02/[address] [facility] MEDICINE [address] [place], [place] [phone] Name, MD Jeff [address] [place] [address] Nurse Triage Social History Tobacco Use Types [...] with others, in a hotel, in a skilled nursing, living outside on the street, on a [...] 11:26 AM EDT T/C to pt. Through [employer] [place] - [id number] for status check, pt. States she is doing good. She is feeling way better then yesterday, no concerns right now. Pt. Offered follow up apt. But denies states she is felling good and will kept follow up apt. Which is schedule in September. Pt. Informed to give call to [facility] in case of any new or worsening symptoms, or any questions or concerns. Pt. Verbally agreed and understood. * Telephone Encounter - Myrna Mcmanus RN - 09/02/2023 10:22 AM EDT Call to Nicole Melendez , pt daughter answers but not with patient. Advised engineering writer to call alt number. Call to Nicole Melendez, reports having sx of cough and chest congestion. Per pt has been using albuterol. Per pt not productive. Per pt having chest tightness. Per pt mild relief with nebulizer. NoOTC medications for cough. Pt drinking fluids. Pt having wheezing intermittent. Having SOB even at rest. No swelling reported. Pt unable to come into [facility], agrees to [facility] for eval. Sent [...] documented as of this encounter Care Teams Dry Color Tester Relationship Specialty Start Date End Date Name, MD Jeff [address] [place] [id number] PCP - General Family Medicine 02/17/22 Isabel Franco 11/24/24 documented as of this encounter
--- OUTSIDE RECORDS SUMMARY | 2025-06-02 02:18 | XMS_ITS | Encounter Summary ---
Author Organization [employer] Address [address] [facility] [address] [place] [address] Care Team Providers Care Production Lapping Machine Operator Name Role Phone Name, Jeff MACEDO Primary Care Provider [phone] Reason for Visit * Reason Onset Date Comments triage 08/17/2022 Encounter Details Date Type Department Care Team ([facility] st Contact Info) Description 08/17/2022 Telephone [facility]ICINE [address] [place], [place] [phone] Name, MD Jeff [address] [place] [phone] triage Social History Tobacco Use Types Packs/Day [...] EST Triage call returned to patient via [employer] Saw Setup Operator [id number]. Patient is alert and verbal able tomake [...] on filedocumented in this encounter Care Teams Production Lapping Machine Operator Relationship Specialty Start Date End Date Name, MD Jeff [address] [place] [address] PCP - General Family Medicine 02/17/22 Mineral Franco 11/24/24 documented as of this encounter
--- OUTSIDE RECORDS SUMMARY | 2025-06-02 02:18 | XMS_ITS | Encounter Summary ---
Author Organization [employer] Address [address] [facility] [address] [place] [address] Care Team Providers Care Model Maker Scale Name Role Phone Name, Jeff MACEDO Primary Care Provider [phone] Reason for Visit * Reason Onset Date Comments Hospital Follow-up 09/19/2023 Encounter Details Date Type Department Care Team ([facility] st Contact Info) Description 09/19/2023 Telephone [facility] [address] [place], [place] [phone] Name, MD Jeff [address] [place] [address] Hospital Follow-up Social History Tobacco Use Types [...] with others, in a hotel, in a chcf, living outside on the street, on a [...] from pt requesting a HDF appt. Hospital: [facility] Date of admission: 09/14 Discharge date: 09/17 Diagnosed: Fluid in her lungs and elevated heart rate documented in this encounter Plan of Treatment Not on file documented as of this encounter Visit Diagnoses Not on filedocumented in this encounter Additional Health Concerns Assessment Noted Time PHQ-9 Depression Total Score: 0 02/12/20 23 2:01 PM EDT documented as of this encounter Care Teams Model Maker Scale Relationship Specialty Start Date End Date Name, MD Jeff [address] [place] [address] PCP - General Family Medicine 02/17/22 [facility] 11/24/24 documented as of this encounter
--- OUTSIDE RECORDS SUMMARY | 2025-06-02 02:18 | XMS_ITS | Data Portability ---
Author Organization [employer] [facility], [place] [facility] Address [address] [place] [address] Care Team Providers Care Dairy Department Manager Name Role Phone HIM CCA OTHER Unavailable [...] restart PO lasix in AM as prescribed -[facility] pt and care givers re importance of [...] to ambulate with difficulty this evening. VSS. Bindery Leadperson on site reports that she appears well, [...] assessment and plan as documented by the counselor camp. I provided real time medical direction for this encounter and was immediately available to provide additional phone based assistance as needed. History as noted by counselor camp. Pt with history of AF on apixaban, [...] assessment and plan as documented by the counselor camp. I provided real time medical direction for this encounter and was immediately available to provide additional phone based assistance as needed. History as noted by counselor camp. Pt with history of COPD on 2L [...] Assessment and Plan as documented by the Bindery Leadperson. We discussed the diagnostic uncertainty of home [...] 2 Ag, QL IA, respiratory specimen [address], [phone] 11:56:07 Referral None recorded. Procedures None recorded. Surgeries None recorded. Imaging None recorded. Medication Orders prednisone 20 mg tablet 2023 [id number], [address] [place], [address], 11:56:07 prednisone 20 mg tablet 2023 [facility], [address], [place], [id number], 4 17:08:42 guaifenesin ER 600 mg tablet, extended release 12 hr 2023 024 [facility], [address], [place], [id number], 4 17:08:42 meclizine 25 mg tablet 2022 023 [facility], [address] [place] [address], [id number], 3 17:31:06 Patient TargetsNo targets recorded. Patient InstructionsNo instructions recorded. Reason for Referral None Reported. Results Created Date Observation Date Name Description Value Unit Range Abnormal Flag Note LastModifiedBy Organization Detail LastModifiedTime 06/05/20 22 06/05/2022 rapid flu (A+B) Flu negati ve Not Available [facility] [address] [place] [address], [phone] 06/05/2022 15:46:04 06/05/20 22 06/05/2022 rapid SARS CoV 2 Ag, QL IA, respi rator y speci men rapid SARS CoV 2 Ag, QL IA, respiratory specimen negati ve Not Available [facility] [address] [place] [address], [phone] 06/05/2022 15:46:02 09/02/19 24 09/02/2023 rapid SARS CoV 2 Ag, QL IA, respi rator y speci men rapid SARS CoV 2 Ag, QL IA, respiratory specimen negati ve Not Available [facility] [address] [place] [address], [phone] 09/02/2023 11:52:32 Result Notes None recorded. Medical Equipment None Reported. Allergies Allergen ID Allergen Name Allergen Category Reaction Reaction Severity Criticality Documentation Date Start Date Code Code System Note Provider Name and Address Organization Details Recorded Time 6051 Product containin g penicilli n (product) medicatio n Not available Not available Not available 04/21/2024 26770 8001 SNOMED Not Available [facility] - production [...] Recorded Body temperature Heart rate Oxygen saturation Respiratory rate Body temperature Heart rate Oxygen saturation Respiratory rate Systolic And Diastolic Systolic And Diastolic Provider Name and Address Organization Details Last Updated DateTime 3 98 [degF] 86 /min 98 % 18 /min 98 [degF] 86 /min 98 % 18 /min 140/80 mm[Hg] 140/80 mm[Hg] Not Available [facility] - production 3 17:18:46 Date Recorded Body temperature Heart rate Respiratory rate Oxygen saturation Inhaled oxygen flow rate Systolic And Diastolic Provider Name and Address Organization Details Last Updated DateTime 4 98.9 [degF] 98 /min 16 /min 97 % 2 L/min 140/80 mm[Hg] Not Available [facility] - production 4 11:42:45 Date Recorded Body temperature Body weight Respiratory rate Oxygen saturation Heart rate Heart rate Respiratory rate Oxygen saturation Body temperature Body weight Systolic And Diastolic Systolic And Diastolic Provider Name and Address Organization Details Last Updated DateTime 3 97.8 [degF] 653409. 08 g 18 /min 94 % 80 /min 80 /min 18 /min 94 % 97.8 [degF] 861635. 08 g 174/95 mm[Hg] 174/95 mm[Hg] Not Available [facility] - production 3 12:13:44 Date Recorded Respiratory rate Oxygen saturation Inhaled oxygen flow rate Body height Heart rate Body temperature Body weight Systolic And Diastolic Provider Name and Address Organization Details Last Updated DateTime 5 16 /min 98 % 2 L/min 160.02 cm 60 /min 98.7 [degF] 003905 g 126/86 mm[Hg] Not Available [facility] - production 5 14:47:21 Date Recorded Body temperature Respiratory rate Oxygen saturation Inhaled oxygen flow rate Heart rate Systolic And Diastolic Provider Name and Address Organization Details Last Updated DateTime 2 98.1 [degF] 18 /min 97 % 3 L/min 82 /min 155/83 mm[Hg] Not Available [facility] 2 17:20:18 Social History None recorded. Functional [...] Note 1303 Andres Tamez MD Main - [address] [phone] 10/23/2021 11:58:16 04/10/2022 09:46:43 4741 David Ramos MD [facility] - [address] [phone] 04/12/2022 18:40:41 04/13/2022 15:30:00 Tinea pedis 5347225 B35.3 Patient presents with a rash on [...] David Ramos MD Main - [facility] [address] [place] [phone] 06/05/2022 15:44:33 06/07/2022 13:44:46 Upper respiratory infection 96523368 J06.9 Presents with fever, cough, runny nose, but not nella dyspnea. Rapid COVID/flu negative. Suspect viral URI. Advised supportive care and using prescribed inhalers. Home O2 set at 3L but was using 2L due to nosebleds. Bindery Leadperson helped patient install the humidifier and turned it up to 3L. 6632 Natalia Neal MD Main - [facility] [address] [place], [place] [phone] 06/22/2022 17:20:14 06/26/2022 15:32:57 Congestive heart failure 06537477 I50.9 8017 Mckenzie Suarez MD Main - [facility] [address] [place], [place] [phone] 08/17/2022 16:11:35 08/20/2022 09:43:41 Postural dizziness 754127125 R42 8893 Chino Saavedra MD Main - [facility] [address] [place] [phone] 09/18/2022 11:57:49 2022 10:48:15 Acute thoracic back pain 242246778 M54.6 73559 Chino Saavedra MD Main - [facility] [address] [place] [phone] 09/02/2023 11:42:43 09/02/2023 23:03:51 Acute bronchitis 06436312 J20.9 77890 AMBROCIO VASQUEZ MD Main - [facility] [address] [place] [phone] 10/30/2024 14:47:16 10/30/2024 19:27:58 Hematoma 662756348 T14.8XXA [id number] Health Concerns Section Related Observation LastModified by Organization Detai ls LastModified Time None Recorded Concern Status LastModified by Organization Details LastModified Time None Recorded Advance Directives Directive None Recorded Payers Insurance Date Sequence Insurance Name Policy Number Policy Zendejas Covered Member ID [id number] Member ID Guarantor Name 10/30/2024 1 [facility] - DOS PRIOR TO 2022 - DUAL ELIGIBLE (MEDICARE REPLACEMENT/ADV ANTAGE - HMO) Nicole Fitzpatrick [id number] Nicole Fitzpatrick 10/30/2024 1 [facility] - DOS ON OR AFTER 2022 - DUAL ELIGIBLE - [employer]ENTION OPTIONS AND ONE CARE (MEDICARE REPLACEMENT/ADV ANTAGE - HMO) Nicole Fitzpatrick [id number] Nicole Fitzpatrick Notes Date Note Type Note [...] [facility] referral for pt. Natalia Neal MD [address] [place] [address],[address], [place], [phone], [facility] 06/22/2022 17:26:08 08/17/2022 text/html HPI: Allergic to: PCN, Cortisone. HX Afib, OA, carotid arteriosclerosis. Patient with trending elevated BP and dizziness no chest pain or numbness of face or extremities. This AM 147/94 Now at time of call 159/99. .................... .................... .................... .................... .................... .................... .................... . CRC Nursing Assessment: Comments: CRC RN DID NOT NEED FURTHER INFO> SDONNER .................... .................... .................... .................... .................... .................... .................... . Bindery Leadperson Note From Pavithra Chacko: Community Bindery Leadperson Flores Chacko SC8 dispatched to a [facility] for an 81 yof C/O dizziness. [...] time. C consulted; EKG acquired (results in [id number]), as well as orthostatic BP (140 SBP while sitting, 140 SBP while standing; pt denied dizziness on standing). Pt was prescribed 3 days of meclizine to R/O vertigo, and instructed to follow up w/ her PCP for potential medication changes/further examination. Red flags discussed, with emphasis on safety (fall risk). .................... .................... .................... .................... .................... .................... .................... . Disposition: Fulfilled Mckenzie Suarez MD [address] [place] [address],[address], [place], [phone] 08/17/2022 17:20:21 09/18/2022 text/html ROS as noted in the HPI This was a supervised home visit with counselor camp Krish Lyons. HPI: ALLERGIC TO: PCN,CORTISONE. HX: Afib, OA,Osteoporosis Patient with known osteoporosis. 4 day duration of pain upper back neck into spine . No accident or injury .................... .................... .................... .................... .................... .................... .................... . CRC Nursing Assessment: Comments: CRC RN did not require any additional information to process this visit. .................... .................... .................... .................... .................... .................... .................... . Bindery Leadperson Note From Krish Lyons: Pt with hx of osteoporosis , HTN, CA and takes eliquis presents with complaints of atraumatic 9/10 pain over her right scapula since 09/12 . Pt sts she took one dose of 650 mg PO tylenol yesterday with minimal relief. Pt also using heating pad with some relief. Pt denies cp, sob, cough or f/n/v/d. Pt has pain with ROM, no bruising, redness or rash over right scapula. [facility] contacted and advised the pt to go to the ED or urgent care later today or tomorrow for imaging. Pt instructed to take tylenol q6-8h prn and warning signs that would indicate the ED. Bindery Leadperson Allergies: Penicillin, Hydrocortisone .................... .................... .................... .................... .................... .................... .................... . Disposition: Fulfilled Chino Saavedra MD [address] [facility],[address], [place], [phone], [facility] 09/18/2022 12:20:34 09/02/2023 text/html ROS as noted in the HPI This was a supervised home visit with counselor camp Leonard Yun. HPI: PMH: DEBBIE, oxygen dependent, CKD stage 3a Call to Nicole Melendez , pt daughter answers but not with patient. Advised real estate underwriter to call alt number. Call to [...] to come into [facility], agrees to [facility] for eval. .................... .................... .................... .................... .................... .................... .................... . CRC Nurse Triage Notes (Jd Carrion): Comments: HPI was reviewed and no additional information is needed .................... .................... .................... .................... .................... .................... .................... . Bindery Leadperson Note From Leonard Yun: Dispatched to the [...] .................... . Disposition: Fulfilled Chino Saavedra MD [address] [place] [address],[address], [place], [phone], [facility] 09/02/2023 12:49:21 10/30/2024 text/html ROS as noted in the [facility] CRC Nurse Triage Notes (Jd Carrion): Reason [...] Heart Failure, COPD/AsthmaPMH Reviewed at 10/30/2024 - 13:14Allergies Reviewed at 10/30/2024 - 13:14Comments: 84 y.o female complains Bump in the [...] .................... .................... .................... .................... .................... .................... . Bindery Leadperson Note From Luke Grissom: GAURAV makes pt [...] no obvious external bleeding anywhere. Pt is Latvian-speaking only, family provides hx and translation. Family tells GAURAV the pt ate a [employer] candy bar [...] She consents to evaluation and treatment today. [facility] obtains pt consent. Vital signs are gathered [...] Neck is supple and trachea is midline. [facility] obtains a photo of the palate and contacts [facility] to discuss the above. [facility] recommends pt not wear her dentures until the wound heals and agrees w/ MI to salt water swish to keep it clean. [facility] instructs pt and family to keep pt eating soft foods and no straws or sucking until the abrasion is healed. Pt and family give their verbal understanding. [facility] also informs pt and family if the wound gets worse or isn't better by Saturday, pt should seek further care. [facility] is clear. Report completed by DANNI Grissom [id number]. .................... .................... .................... .................... .................... .................... .................... . [facility] Consulted: Ambrocio Vasquez .................... .................... .................... .................... .................... .................... .................... . Disposition: Fulfilled AMBROCIO VASQUEZ MD [address] [place] [address],[address], [place], [phone], [facility]ATHAN 10/30/2024 15:26:38 OBGyn Episode No OBEpisode recorded.
--- OUTSIDE RECORDS SUMMARY | 2025-06-02 02:19 | XMS_ITS | Encounter Summary ---
Author Organization [employer] Address [address] [facility] [address] [place] [address] Care Team Providers Care Program Director/Morning Show Host Name Role Phone Name, Jeff MACEDO Primary Care Provider [phone] Encounter Details Date Type Department Care Team ([facility] st Contact Info) Description 05/21/2023 Telephone [facility] [address] [place], [place] [phone] Name, MD Jeff [address] [place] [address] Social History Tobacco Use Types Packs/Day Years [...] documented as of this encounter Care Teams Program Director/Morning Show Host Relationship Specialty Start Date End Date Name, MD Jeff [address] [place] [address] PCP - General Family Medicine 02/17/22 [place] 11/24/24 documented as of this encounter
[2025-06-02 07:02] VITALS: BP 153/78; PULSE 114; RESP 20; TEMP 36.9; O2SAT 95
== END 2025-06-02 07:17 | disposition home or self-care (01) ==
PROVIDERS: Emergency Provider Emergency Medicine
DX: R42 Dizziness and giddiness (principal); R00.2 Palpitations; Z03.818 Encounter for observation for suspected exposure to other biological agents ruled out; I11.0 Hypertensive heart disease with heart failure; I50.9 Heart failure, unspecified; J45.909 Unspecified asthma, uncomplicated; Z79.01 Long term (current) use of anticoagulants; Z79.899 Other long term (current) drug therapy
CPT/HCPCS: 36415; 80053; 81001; 83880; 84484; 85025; 87637; 93005; 96361; 96374; 99284; 99285; J1200

== ENCOUNTER → 2025-06-01 23:30 | Outpatient (BNV) | payer OTHER, SELFPAY | PROVIDERS: Emergency Provider Emergency Medicine; Visit Provider Internal Medicine Cardiovascular Disease | DX: I48.91 Unspecified atrial fibrillation (principal) | CPT/HCPCS: 93010 ==